=== PATIENT | female | born 1960 | race Caucasian/White ===

== ENCOUNTER 2020-10-25 09:57 | Outpatient (REF) | payer OTHER, SELFPAY ==
[2020-10-25 11:02] LABS: Alanine Aminotransferase 12 U/L (0-31); Albumin Level 4.3 g/dL (3.5-5.0); Alkaline Phosphatase 79 U/L (39-117); Anion Gap 12 (12-20); Aspartate Amino Transferase 16 U/L (5-31); Bilirubin Total 0.6 mg/dL (0.0-1.0); Blood Urea Nitrogen 27 mg/dL (9-16); Calcium 9.8 mg/dL (8.4-10.2); Carbon Dioxide 28 mmol/L (22-29); Chloride 95 mmol/L (96-108); Estimated Glomerular Filt Rate 34; Magnesium 1.9 mg/dL (1.6-2.6); Phosphorus 4.3 mg/dL (2.7-4.5); Potassium 4.4 mmol/l (3.3-5.1); Sodium 131 mmol/L (135-145)
[2020-10-25 11:23] LABS: Osmolality Urine 146 mosm/kg (373-1093)
[2020-10-25 13:06] LABS: Renal w Reflex Lab Use Only Order verified
== END 2020-10-25 09:58 | disposition home or self-care (01) ==
LOC: HO.10HDL 09:57
PROVIDERS: Absent Provider Internal Medicine; PCP Radiology Diagnostic Radiology; Visit Provider Internal Medicine Nephrology
DX: I12.9 Hypertensive chronic kidney disease with stage 1 through stage 4 chronic kidney disease, or unspecified chronic kidney disease (principal); N18.1 Chronic kidney disease, stage 1; Q61.2 Polycystic kidney, adult type
CPT/HCPCS: 80051; 82040; 82247; 82310; 82565; 83735; 83935; 84075; 84100; 84450; 84460; 84520

== ENCOUNTER 2020-11-27 15:51 | Outpatient (REF) | payer OTHER, SELFPAY ==
--- NOTE | 2020-11-27 | MM_ITS ---
EXAMINATION: MM SCREENING DIGITAL BREAST TOMOSYNTHESIS, BILATERAL CLINICAL INFORMATION: Screening. Asymptomatic. The lifetime risk of breast cancer based on the Tyrer-Cuzick Model is 21.4%. COMPARISON: Mammography: May 27, 2019 and studies dating back to December 31, 2010 TECHNIQUE: Digital breast tomosynthesis is performed in both the craniocaudal and mediolateral oblique views along with computer-aided detection (CAD). Synthesized 2D images are generated from the tomosynthesis. FINDINGS: There are scattered areas of fibroglandular density (ACR BI-RADS breast composition Category b). There is a stable parenchymal pattern within the left breast. Within the superior retroareolar region of the right breast there is an irregular marginated 5 x 4 year density for which further evaluation with spot compression film and possible ultrasound is recommended. MM/MM tomosynthesis screening BI IMPRESSION: Right breast subareolar density for further evaluation as described. ASSESSMENT: BI-RADS 0: Incomplete - Need Additional Imaging Evaluation RECOMMENDATION: 1. Additional views of the right breast 2. Targeted ultrasound if warranted after review of the additional views. 3. Radiology department staff will contact the patient for additional imaging. This patient's information was entered into a reminder system with a target due date for their next mammogram.
== END 2020-11-27 15:52 | disposition home or self-care (01) ==
LOC: HO.MAMMO 15:51
PROVIDERS: PCP Internal Medicine; Visit Provider Internal Medicine
DX: Z12.31 Encounter for screening mammogram for malignant neoplasm of breast (principal)
CPT/HCPCS: 77063; 77067

== ENCOUNTER 2020-12-04 11:17 | Outpatient (REF) | payer OTHER, SELFPAY ==
--- NOTE | ~2020-12-04 | MM_ITS ---
EXAMINATION: MM DIAGNOSTIC DIGITAL BREAST TOMOSYNTHESIS, RIGHT US DIAGNOSTIC ULTRASOUND BREAST, RIGHT CLINICAL INFORMATION: Recall from screening for 5 mm nodular asymmetric density retroareolar right breast. COMPARISON: Mammography: 11/27/2020, 05/27/2019, 04/20/2018 TECHNIQUE: Digital breast tomosynthesis is performed. 2D images are generated from the tomosynthesis. The following views are obtained: 3-D spot CC, 3-D spot MLO, 3-D rolled CC x2. Ultrasound right breast is targeted to the upper breast 10:00 through 2:00 position. Grayscale imaging and color Doppler are performed without and with harmonics. FINDINGS: There are scattered areas of fibroglandular density (ACR BI-RADS breast composition Category b). The additional views show no three-dimensional mass or architectural abnormality. The asymmetric density is reproduced on spot CC view and rolled lateral view but not present on other projections including spot MLO view. The possibility of shifting fibroglandular tissue is considered. Ultrasound right breast demonstrates no cystic or solid mass or architectural abnormality. No focal duct ectasia or focal shadowing. Results are discussed with the patient at time of visit. MM/MM tomosynthesis added views R IMPRESSION: Additional views show no three-dimensional mass or architectural abnormality. Targeted right breast ultrasound normal. ASSESSMENT: BI-RADS 3: Probably Benign RECOMMENDATION: Diagnostic right mammography in 6 months. This patient's information was entered into a reminder system with a target due date for their next mammogram.
== END 2020-12-04 11:18 | disposition home or self-care (01) ==
LOC: HO.MAMMO 11:17
PROVIDERS: Visit Provider Internal Medicine
DX: R92.2 Inconclusive mammogram (principal)
CPT/HCPCS: 76642; 77061; 77065

== ENCOUNTER → 2020-12-27 13:24 | Outpatient (REF) | payer OTHER, SELFPAY ==
--- NOTE | 2020-12-27 13:30 | ECG_ITS ---
Hook-up date: 2020-12-27 13:39:00 Duration: 25:47:00 Test Indications: PAF Medications: 103535 QRS complexes 1 Ventricular ectopics which represent <1 % of total QRS comp. 1842 Supraventricular ectopics which represent 1 % of total QRS comp. * Paced QRS complexs which represent % of total QRS comp. VENTRICULAR ECTOPY 1 Isolated 0 Bigeminal Cycles 0 Couplets 0 Runs 0 Beats in Runs * Beats LONGEST at * BPM at :: -- * Beats FASTEST at * BPM at :: -- SUPRAVENTRICULAR ECTOPY 1792 Isolated 23 Couplets 1 Runs 4 Beats in Runs 4 Beats LONGEST at 104 BPM at 10:03:21 2020-12-28 4 Beats FASTEST at 104 BPM at 10:03:21 2020-12-28 HEART RATES 68 MIN at 02:25:57 2020-12-28 86 AVG 129 MAX at 09:28:27 2020-12-28 LONGEST RR 0.9520 secs at 08:33:29 2020-12-28 S-T LEVELS Channel 1 - 128 mm at 13:39:00 2020-12-27 - 128 mm at 13:39:00 2020-12-27 Channel 2 - 128 mm at 13:39:00 2020-12-27 - 128 mm at 13:39:00 2020-12-27 Channel 3 - 128 mm at 03:25:81 -- - 128 mm at 03:25:81 Underlying rhythm is sinus; Average ventricular rate 86/min; range 68-129/min; Occasional supraventricular ectopy- about 2% of total - 1842 over 25 Hrs; No significant runs; Patient did not report any symptoms in the diary Referred By: Torito Lopez Overread By: TORITO LOPEZ
== END ==
LOC: HO.CARD 13:24
PROVIDERS: Visit Provider Internal Medicine
DX: I48.0 Paroxysmal atrial fibrillation (principal)
CPT/HCPCS: 93225; 93226

== ENCOUNTER → 2021-01-03 10:30 | Outpatient (BNVA) | payer OTHER, SELFPAY | PROVIDERS: PCP Internal Medicine; Visit Provider Internal Medicine | DX: I48.0 Paroxysmal atrial fibrillation (principal); I10 Essential (primary) hypertension; E78.5 Hyperlipidemia, unspecified; Z79.899 Other long term (current) drug therapy | CPT/HCPCS: 93005 ==

== ENCOUNTER 2021-06-04 12:24 | Outpatient (REF) | payer OTHER, SELFPAY ==
--- NOTE | ~2021-06-04 | MM_ITS ---
EXAMINATION: MM DIAGNOSTIC DIGITAL BREAST TOMOSYNTHESIS, RIGHT CLINICAL INFORMATION: Short interval six-month follow-up for 5 mm nodular asymmetric density retroareolar right breast likely shifting fibroglandular tissue on prior diagnostic exam. Assess for developing density. The lifetime risk of breast cancer based on the Tyrer-Cuzick Model is 10%. COMPARISON: Mammography: 12/04/2020, 11/27/2020 (BI-RADS 0), 05/27/2019, 04/20/2018, 04/04/2017; targeted right breast ultrasound 12/04/2020 TECHNIQUE: Digital breast tomosynthesis is performed in both the craniocaudal and mediolateral oblique views along with computer-aided detection (CAD). Synthesized 2D images are generated from the tomosynthesis. FINDINGS: There are scattered areas of fibroglandular density (ACR BI-RADS breast composition Category b). Parenchymal pattern is similar to prior exam. There is no developing density or interval mass or architectural abnormality. There are no abnormal calcifications. The skin contours are smooth. Results are provided to the patient at time of visit by the technologist. MM/MM tomosynthesis diagnostic RT IMPRESSION: There is no interval developing density or suspicious finding anterior right breast. ASSESSMENT: BI-RADS 3: Probably Benign RECOMMENDATION: Diagnostic mammography at time of annual bilateral exam, due in 6 months. This patient's information was entered into a reminder system with a target due date for their next mammogram.
== END 2021-06-04 12:25 | disposition home or self-care (01) ==
LOC: HO.MAMMO 12:24
PROVIDERS: PCP Internal Medicine; Visit Provider Internal Medicine
DX: R92.8 Other abnormal and inconclusive findings on diagnostic imaging of breast (principal)
CPT/HCPCS: 77061; 77065

== ENCOUNTER → 2021-06-24 13:57 | Outpatient (BNVA) | payer OTHER, SELFPAY | PROVIDERS: PCP Internal Medicine; Referring Provider Internal Medicine; Visit Provider Nurse Practitioner Family | DX: I48.0 Paroxysmal atrial fibrillation (principal); I10 Essential (primary) hypertension; R00.2 Palpitations | CPT/HCPCS: 93005 ==

== ENCOUNTER → 2021-06-26 10:51 | Outpatient (REF) | payer OTHER, SELFPAY ==
--- NOTE | 2021-06-26 10:56 | HM_ITS ---
TEST PERFORMED: Cardiac event monitoring. REQUESTING PHYSICIAN: Dr. Santamaria. INDICATION: Paroxysmal atrial fibrillation. ENROLLMENT PERIOD: 06/26/2021 to 07/26/2021-30 days. FINDINGS: In the above monitoring, underlying rhythm was sinus. Rates ranged from 76 to 94 beats per minute. There were premature atrial contractions noted in isolation. No sustained arrhythmias. No evidence of atrial fibrillation. The patient's symptoms of palpitations, racing, fluttering correlate with PACs. CONCLUSION: Studies positive for isolated PACs only. Burak Santamaria MD HS/MODL / [id number]
== END ==
LOC: HO.CARD 10:51
PROVIDERS: Visit Provider Internal Medicine
DX: I48.0 Paroxysmal atrial fibrillation (principal); R00.2 Palpitations
CPT/HCPCS: 93270

== ENCOUNTER → 2021-08-01 09:23 | Outpatient (BNVA) | payer OTHER, SELFPAY | PROVIDERS: PCP Internal Medicine; Referring Provider Internal Medicine; Visit Provider Internal Medicine ==

== ENCOUNTER 2021-08-01 10:05 | Outpatient (REF) | payer OTHER, SELFPAY ==
[2021-08-01 13:36] LABS: MANUAL DIFF FLAG NO
[2021-08-01 13:43] LABS: Basophils Percent Auto 0.5 % (0-2); Eosinophils Absolute Auto 0.1 X10*3/uL (0.0-0.4); Eosinophils Percent Auto 2.2 % (0-4); Hematocrit 33.3 % (37-47); Imm Gran Abs Auto 0.01 X10*3/uL (0.00-0.03); Imm Gran Pct Auto 0.2 % (0.0-0.4); Lymphocytes Absolute Auto 0.6 X10*3/uL (1.2-4.9); Lymphocytes Percent Auto 14.9 % (20-40); Mean Corpuscular Hemoglobin 30.1 pg (27.0-33.0); Mean Corpuscular Volume 91.2 fL (80-98); Mean Platelet Volume 9.1 fL (9.4-12.3); Monocytes Absolute Auto 0.5 X10*3/uL (0.1-1.2); Monocytes Percent Auto 11.1 % (2-11); Neutrophils Absolute Auto 2.9 X10*3/uL (2.0-8.3); Neutrophils Percent Auto 71.1 % (45-73); Platelet Count 194 X10*3/uL (160-400); Red Blood Count 3.65 X10*6/uL (4.20-5.50); Red Cell Distribution Width 13.5 % (11.0-16.0)
[2021-08-01 14:13] LABS: Alanine Aminotransferase 12 U/L (0-31); Albumin Level 4.4 g/dL (3.5-5.0); Alkaline Phosphatase 80 U/L (39-117); Anion Gap 14 (12-20); Aspartate Amino Transferase 15 U/L (5-31); Bilirubin Total 0.7 mg/dL (0.0-1.0); Blood Urea Nitrogen 22 mg/dL (9-16); Calcium 9.8 mg/dL (8.4-10.2); Carbon Dioxide 27 mmol/L (22-29); Chloride 109 mmol/L (96-108); Estimated Glomerular Filt Rate 36; Glucose Random 95 mg/dL (60-115); Potassium 4.7 mmol/L (3.3-5.1); Sodium 145 mmol/L (135-145); Total Protein 7.1 g/dL (6.5-8.0)
[2021-08-01 14:19] LABS: Appearance Urine CLEAR; Color Urine YELLOW; Glucose Urine UA NEG (NEG); Leukocyte Esterase Urine NEG (NEG); Nitrite Urine NEG (NEG); Specific Gravity - Urine <= 1.005 (1.005-1.025); Urine Blood TRACE (NEG); Urine Ketones NEG (NEG); Urine Protein NEG (NEG-TRACE)
[2021-08-01 14:22] LABS: Creatinine Urine 18.92 mg/dL; Total Protein Urine Random < 7 mg/dL (<12)
[2021-08-01 15:16] LABS: Mucus Urine TRACE /LPF; Renal Epithelial Cells Urine TRACE /LPF; Squamous Epithelial Cell Urine TRACE /LPF
[2021-08-01 15:17] LABS: RBC Urine 0-2 /HPF (0); WBC Urine 0-2 /HPF (0-4)
== END 2021-08-01 10:06 | disposition home or self-care (01) ==
LOC: HO.10HDL 10:05
PROVIDERS: Absent Provider Internal Medicine; Visit Provider Internal Medicine Nephrology
DX: Q61.2 Polycystic kidney, adult type (principal)
CPT/HCPCS: 36415; 80053; 81001; 84156; 85025

== ENCOUNTER → 2021-12-04 09:14 | Outpatient (BNVA) | payer OTHER, SELFPAY | PROVIDERS: PCP Internal Medicine; Referring Provider Internal Medicine; Visit Provider Internal Medicine | DX: I48.0 Paroxysmal atrial fibrillation (principal); I10 Essential (primary) hypertension; E78.5 Hyperlipidemia, unspecified | CPT/HCPCS: 93005 ==

== ENCOUNTER 2021-12-05 13:25 | Outpatient (REF) | payer OTHER, SELFPAY ==
--- NOTE | ~2021-12-05 | MM_ITS ---
EXAMINATION: MM DIAGNOSTIC DIGITAL BREAST TOMOSYNTHESIS, BILATERAL CLINICAL INFORMATION: Due for yearly. Also 12 month follow-up probable benign asymmetric density superior retroareolar right breast. TC score 10%. COMPARISON: Mammography: 06/04/2021, 12/04/2020, 11/27/2020 (BI-RADS 0) and prior exams dating back to 01/30/2012; targeted right breast ultrasound 12/04/2020. TECHNIQUE: Digital breast tomosynthesis is performed in both the craniocaudal and mediolateral oblique views along with computer-aided detection (CAD). Synthesized 2D images are generated from the tomosynthesis. FINDINGS: There are scattered areas of fibroglandular density (ACR BI-RADS breast composition Category b). Parenchymal pattern is similar to prior studies and there is no developing density or interval architectural abnormality. No abnormal calcifications. Small nodular asymmetry retroareolar right breast on CC view is stable from recent prior exams and in retrospect likely unchanged from CC view 2011. Breasts will be reassessed again at next bilateral annual mammography to conclude diagnostic long-term surveillance. Results are provided to the patient at time of visit by the technologist. MM/MM tomosynthesis diagnostic BI IMPRESSION: No mammographic evidence of malignancy. No significant changes from prior exams. ASSESSMENT: BI-RADS 3: Probably Benign RECOMMENDATION: Diagnostic mammography at time of next annual exam, due in 12 months. This patient's information was entered into a reminder system with a target due date for their next mammogram.
== END 2021-12-05 13:26 | disposition home or self-care (01) ==
LOC: HO.MAMMO 13:25
PROVIDERS: PCP Internal Medicine; Visit Provider Internal Medicine
DX: R92.2 Inconclusive mammogram (principal)
CPT/HCPCS: 77062; 77066

== ENCOUNTER → 2022-02-04 09:30 | Outpatient (BNVA) | payer OTHER, SELFPAY | PROVIDERS: PCP Internal Medicine; Referring Provider Internal Medicine; Visit Provider Internal Medicine | DX: I48.0 Paroxysmal atrial fibrillation (principal); I10 Essential (primary) hypertension; E78.5 Hyperlipidemia, unspecified | CPT/HCPCS: 93005 ==

== ENCOUNTER → 2022-04-29 14:30 | Outpatient (BNVA) | payer OTHER, SELFPAY | PROVIDERS: PCP Internal Medicine; Visit Provider Nurse Practitioner Family | DX: I48.0 Paroxysmal atrial fibrillation (principal); I10 Essential (primary) hypertension; R00.2 Palpitations | CPT/HCPCS: 93005 ==

== ENCOUNTER → 2022-05-28 08:55 | Outpatient (BNVA) | payer OTHER, SELFPAY | PROVIDERS: PCP Internal Medicine; Referring Provider Internal Medicine; Visit Provider Internal Medicine | DX: R00.2 Palpitations (principal); I48.0 Paroxysmal atrial fibrillation; I10 Essential (primary) hypertension; E78.5 Hyperlipidemia, unspecified | CPT/HCPCS: 93005 ==

== ENCOUNTER → 2022-06-20 10:28 | Outpatient (REF) | payer OTHER, SELFPAY ==
--- NOTE | 2022-06-20 10:31 | HM_ITS ---
Conclusion: 1. Patient was monitored for total period of 14 days 2. Baseline rhythm is normal sinus rhythm with average heart rate of 71 beats per minute 3. No significant pauses or bradycardia noted 4. Forty-six short burst of supraventricular tachycardia longest lasting 18 beats and fastest at 176 beats per minute 5. Total of 163,121 PACs accounting for total of 11.3% of total burden account for frequent PACs 6. Patient reported 5 different events with no symptoms reported but correlated with isolated PACs. MTDD
== END ==
LOC: HO.CARD 10:28
PROVIDERS: PCP Internal Medicine; Visit Provider Internal Medicine
DX: I48.0 Paroxysmal atrial fibrillation (principal); R00.2 Palpitations
CPT/HCPCS: 93246

== ENCOUNTER → 2022-11-06 10:09 | Outpatient (BNVA) | payer OTHER, SELFPAY | PROVIDERS: PCP Internal Medicine; Referring Provider Internal Medicine; Visit Provider Internal Medicine | DX: Z13.89 Encounter for screening for other disorder (principal) ==

== ENCOUNTER → 2022-11-25 13:39 | Outpatient (REF) | payer OTHER, SELFPAY ==
--- NOTE | 2022-11-25 14:04 | HM_ITS ---
* Total monitoring time approximately 3 days. * Underlying rhythm is sinus. Average ventricular rate 71/Min. Range 51 to 111/Min. * Frequent supraventricular ectopy. [place] of 8.5%. * Rare ventricular ectopy. * No significant pauses or AV blocks. * No patient markers or diary. MTDD
== END ==
LOC: HO.SL 13:39
PROVIDERS: PCP Internal Medicine; Visit Provider Internal Medicine
DX: I49.8 Other specified cardiac arrhythmias (principal); G47.33 Obstructive sleep apnea (adult) (pediatric)
CPT/HCPCS: 93242; 95806

== ENCOUNTER 2022-12-08 10:27 | Outpatient (REF) | payer OTHER, SELFPAY ==
--- NOTE | ~2022-12-08 | MM_ITS ---
EXAMINATION: MM DIAGNOSTIC DIGITAL BREAST TOMOSYNTHESIS, BILATERAL CLINICAL INFORMATION: Due for yearly. Also follow-up probable benign small asymmetric density superior retroareolar right breast. TC score 9%. COMPARISON: Mammography: 12/05/2021, 06/04/2021, 12/04/2020, 11/27/2020 (BI-RADS 0), 05/27/2019; ultrasound right breast 12/04/2020. TECHNIQUE: Digital breast tomosynthesis is performed in both the craniocaudal and mediolateral oblique views along with computer-aided detection (CAD). Synthesized 2D images are generated from the tomosynthesis. FINDINGS: There are scattered areas of fibroglandular density (ACR BI-RADS breast composition Category b). Parenchymal pattern is similar to prior studies and there is no developing density or architectural abnormality or abnormal calcifications. The axilla are unremarkable. The skin contours are smooth. No significant changes. There are no suspicious changes from prior studies. Finding for follow-up is now considered to be benign. Results are provided to the patient at time of visit by the technologist. MM/MM tomosynthesis diagnostic BI IMPRESSION: -No mammographic evidence of malignancy. -No significant changes from prior studies. ASSESSMENT: BI-RADS 2: Benign RECOMMENDATION: Routine annual mammography screening. This patient's information was entered into a reminder system with a target due date for their next mammogram.
== END 2022-12-08 10:28 | disposition home or self-care (01) ==
LOC: HO.MAMMO 10:27
PROVIDERS: PCP Internal Medicine; Visit Provider Internal Medicine
DX: R92.2 Inconclusive mammogram (principal)
CPT/HCPCS: 77062; 77066

== ENCOUNTER 2023-05-19 10:09 | Outpatient (AMB) | payer MEDICARE, SELFPAY ==
--- NOTE | 2023-05-19 10:16 | MHC.OFFVIS ---
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 Allergies bacitracin [BACITRACIN] Allergy (Unknown, Verified 05/19/23 10:25) RASH Iodinated Contrast Media [IV CONTRAST] Allergy (Unknown, Verified 05/19/23 10:25) RASH Penicillins [PENICILLINS] Allergy (Unknown, Verified 05/19/23 10:25) RASH steri strips Adverse Reaction (Mild, Uncoded 05/19/23 10:26) itchy Medication List - Last Reconciled 05/19/23 by Burak Santamaria MD albuterol sulfate 90 mcg/actuation 0 mcg inhalation amiloride 5 mg PO DAILY amlodipine 2.5 mg PO DAILY ascorbate calcium (vitamin C) 500 mg PO DAILY atorvastatin 10 mg PO DAILY cholecalciferol (vitamin D3) 50 mcg PO DAILY doxazosin 4 mg PO BID famotidine 20 mg PO BID levothyroxine 150 mcg PO DAILY lorazepam 0.5 mg PO DAILY PRN magnesium 200 mg PO DAILY metoprolol succinate ER 25 mg PO QPM 90 days metoprolol succinate ER 50 mg PO QAM 90 days olmesartan 40 mg PO DAILY potassium chloride ER (Klor-Con M) 20 mEq PO DAILY tolvaptan 15 mg PO 45 MG AM, 15MG PM; tramadol 50 - 100 mg PO Q8H PRN HPI HPI Comments History of Present Illness Details Stephanie returns for follow-up regarding atrial arrhythmias. To recall, she has a history of polycystic kidney disease. She had renal cell carcinoma and underwent right-sided partial nephrectomy in 2019. In that setting, had anemia from blood loss and required transfusions. She also had acute kidney injury, acute respiratory failure, delirium among others. Then had atrial fibrillation with rapid rate treated by IV beta blockers as well as digoxin. Then converted to sinus. Otherwise no history of any coronary disease or myocardial infarction or any other cardiac issues. She has hypertension, possibly related to polycystic kidney disease. Otherwise, since last seen she is actually doing quite well. She does have basal anxiety which is longstanding but otherwise no clear-cut cardiac symptoms. Palpitations are far and few. No angina. [facility] Medical History (Updated 07/30/22 @ 10:23 by Burak Santamaria MD) Essential hypertension Other and unspecified hyperlipidemia PAF (paroxysmal atrial fibrillation) Surgical History (Updated 05/19/23 @ 10:28 by Christina Cunningham) History of eye surgery History of kidney surgery History of lumpectomy History of thyroidectomy Hx of total knee replacement Family History Father Heart disease Heart attack Mother No problems noted. Social History Alcohol intake: never Patient Tobacco Use Status: Former Tobacco user Quit Date: 1996 Years Smoked: 20 +/- Review of Systems Const Denies weakness ENT Denies dizziness Card Denies chest pain, Denies chest pain with activity, Denies syncope, Denies rapid heart rate, Denies pedal edema, Denies edema, Denies leg edema, Denies lightheadedness, Denies palpitations, Denies dyspnea, Denies dyspnea on exertion and Denies orthopnea Resp Denies cough, Denies dyspnea and Denies dyspnea on exertion GI Denies hematochezia and Denies change in stool character Musc Denies abnormal gait, Denies muscle weakness, Denies numbness, Denies radiating pain into limb and Denies tingling Neuro Denies abnormal gait, Denies dizziness, Denies syncope, Denies numbness, Denies tingling and Denies weakness Endo Denies palpitations Physical Exam Vital Signs: Last Vital Signs Pulse 84 05/19/23 10:23 BP 118/80 05/19/23 10:23 BMI result Body Mass Index 36.5 Const General: comfortable and no acute distress Orientation/consciousness: patient oriented x3 HEENT Other: Unremarkable Head: Yes normal to inspection Neck Neck: Yes normal visual inspection Chest Chest palpation & inspection: normal inspection of the chest Resp Auscultation: clear to auscultation bilaterally Cardio Palpation: normal PMI Heart sounds: S1 normal heart sound present, S2 normal heart sound present, no gallops, Murmur heart sound present systolic II/ and at the right sternal border and no rubs GI Palpation (GI): Soft to palpation Back/Spine/Pelvis Other: unremarkable Skin General skin exam: no rashes or lesions noted Neuro General: patient oriented x3 Extrem General: Yes normal to inspection Psych Mental Status: mental status grossly normal Office Procedures EKG Details: EKG with sinus rhythm at 84/Min; no significant ST-T changes and otherwise [place]remarkable[place] [id number]-[place]ank, Complete Assessment & Plan Assessment & Plan (1) PAF (paroxysmal atrial fibrillation): Code(s): I48.0 - Paroxysmal atrial fibrillation Plan: Only 1 documented episode in the setting of surgery. Continue beta-blockers. Not yet on anticoagulation but if recurrent episodes will need to start. She had a sleep study that shows only mild KRISTAL. Weight loss as feasible. (2) Atrial arrhythmia: Code(s): I49.8 - Other specified cardiac arrhythmias Plan: In the last echocardiogram, underlying rhythm is sinus but she has high burden of supraventricular ectopy. This will increase risk of future atrial fibrillation. May remain on beta-blockers. (3) Essential hypertension: Code(s): I10 - Essential (primary) hypertension Plan: On beta-blockers, Amiloride, Olmesartan, Doxazosin. Seems in the normal range today. (4) Anxiety: Code(s): F41.9 - Anxiety disorder, unspecified Plan: She does have based anxiety and palpitations makes it worse/vice versa. Hence have constantly reassured her every visit including this visit. Coding Level of Care Code Est Pt Level 4 (15350) Diagnoses PAF (paroxysmal atrial fibrillation) I48.0 Atrial arrhythmia I49.8 Essential hypertension I10 Anxiety F41.9 CPT Codes EKG - CPT: 48358-[id number], Complete ([id number])
[2023-05-19 10:23] VITALS: BP 118/80; PULSE 84; BMI 36.5
== END 2023-05-19 10:45 | disposition home or self-care (01) ==
PROVIDERS: Visit Provider Internal Medicine
DX: I48.0 Paroxysmal atrial fibrillation (principal); I49.8 Other specified cardiac arrhythmias; I10 Essential (primary) hypertension; F41.9 Anxiety disorder, unspecified
CPT/HCPCS: 93010; 99214

== ENCOUNTER → 2023-05-19 10:09 | Outpatient (BNVA) | payer MEDICARE, SELFPAY | PROVIDERS: Visit Provider Internal Medicine | DX: I48.0 Paroxysmal atrial fibrillation (principal); I10 Essential (primary) hypertension; I49.8 Other specified cardiac arrhythmias; F41.9 Anxiety disorder, unspecified; Q61.3 Polycystic kidney, unspecified | CPT/HCPCS: 93005; 99212 ==

== ENCOUNTER 2023-06-10 13:49 | Outpatient (AMB) | payer MEDICARE, SELFPAY ==
--- NOTE | 2023-06-10 14:04 | AM.OFFVISNUR ---
Intake Intake Visit Reasons: EKG Palpitations Intake Note: Pt called office today. Was having an increase in palpitations and was told by Dr. Santamaria to call and have EKG if ever she felt she was in afib. 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 Santamaria Nursing Note Pt is taking meds as directed. She did have more chocolate Hershy's Kisses than usual. She also had an anxiety attack the other day and this may have precipitated the palpitations she has been feeling. Currently EKG shows NSR w HR at [address] Najera reviewed EKG. I will inform Dr. Santamaria via [employer] EMR. Currently he is out of office until Thursday. EKG on his desk for his review. Office Procedures EKG [id number], Complete Coding Level of Care Code Est Pt Level 1 (53633) Diagnoses CPT Codes EKG - CPT: 98910-Cmitslpfechroyvrl, Complete ([id number]) Time Spent (min) 15 Comment EKG, med reconciliation documentation, discussion w provider, pt education.
== END 2023-06-10 16:01 | disposition home or self-care (01) ==
PROVIDERS: PCP Internal Medicine; Visit Provider Internal Medicine
DX: R00.2 Palpitations (principal)
CPT/HCPCS: 93010

== ENCOUNTER → 2023-06-10 13:49 | Outpatient (BNVA) | payer MEDICARE, SELFPAY | PROVIDERS: PCP Internal Medicine; Visit Provider Internal Medicine | DX: R00.2 Palpitations (principal) | CPT/HCPCS: 93005 ==

== ENCOUNTER → 2023-07-01 13:07 | Outpatient (REF) | payer MEDICARE, SELFPAY ==
--- NOTE | 2023-07-01 13:10 | HM_ITS ---
Conclusion: 1. Patient was monitored for total period of 3 days 2. Baseline was normal sinus with average heart of 75 beats per minute 3. No significant pauses noted 4. Frequent isolated PVCs noted with total burden of 7.1% 5. No patient reported symptoms MTDD
== END ==
LOC: HO.CARD 13:07
PROVIDERS: PCP Internal Medicine; Visit Provider Internal Medicine
DX: R00.2 Palpitations (principal); I48.0 Paroxysmal atrial fibrillation; I49.8 Other specified cardiac arrhythmias
CPT/HCPCS: 93242

== ENCOUNTER → 2023-07-01 13:10 | Outpatient (BNV) | payer MEDICARE, SELFPAY | PROVIDERS: PCP Internal Medicine; Visit Provider Internal Medicine Cardiovascular Disease | DX: I49.3 Ventricular premature depolarization (principal) | CPT/HCPCS: 93244 ==

== ENCOUNTER 2023-11-17 08:23 | Outpatient (AMB) | payer MEDICARE, SELFPAY ==
--- NOTE | 2023-11-17 08:30 | A.OFFVIS_ITS ---
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: No Accompanied by: Self / Same As Patient Allergies bacitracin [BACITRACIN] Allergy (Unknown, Verified 11/17/23 08:33) RASH Iodinated Contrast Media [IV CONTRAST] Allergy (Unknown, Verified 11/17/23 08:33) RASH Penicillins [PENICILLINS] Allergy (Unknown, Verified 11/17/23 08:33) RASH steri strips Adverse Reaction (Mild, Uncoded 11/17/23 08:33) itchy Medication List - Last Reconciled 11/17/23 by Burak Santamaria MD albuterol sulfate 90 mcg/actuation 0 mcg inhalation amiloride 5 mg PO DAILY amlodipine 2.5 mg PO DAILY ascorbate calcium (vitamin C) 500 mg PO DAILY atorvastatin 10 mg PO DAILY cholecalciferol (vitamin D3) 50 mcg PO DAILY doxazosin 4 mg PO BID famotidine 20 mg PO BID levothyroxine 150 mcg PO DAILY lorazepam 0.5 mg PO DAILY PRN magnesium 200 mg PO DAILY metoprolol succinate ER 25 mg PO QPM 90 days metoprolol succinate ER 50 mg PO QAM 90 days olmesartan 40 mg PO DAILY potassium chloride ER (Klor-Con M) 20 mEq PO DAILY tolvaptan 15 mg PO 45 MG AM, 15MG PM; tramadol 50 - 100 mg PO Q8H PRN HPI HPI Comments History of Present Illness Details Stephanie returns for follow-up regarding atrial arrhythmias. To recall, she has a history of polycystic kidney disease. She had renal cell carcinoma and underwent right-sided partial nephrectomy in 2019. In that setting, had anemia from blood loss and required transfusions. She also had acute kidney injury, acute respiratory failure, delirium among others. Then had atrial fibrillation with rapid rate treated by IV beta blockers as well as digoxin. Then converted to sinus. Otherwise no history of any coronary disease or myocardial infarction or any other cardiac issues. She has hypertension, possibly related to polycystic kidney disease. Since last seen, no new issues. No further palpitation episodes. Anxiety is also better controlled. [facility] Medical History (Updated 07/30/22 @ 10:23 by Burak Santamaria MD) Other and unspecified hyperlipidemia Essential hypertension PAF (paroxysmal atrial fibrillation) Surgical History Hx of total knee replacement History of kidney surgery History of eye surgery History of thyroidectomy History of lumpectomy Family History Father Heart disease Heart attack Mother No problems noted. Social History Alcohol intake: never Patient Tobacco Use Status: Former Tobacco user Quit Date: 1996 Years Smoked: 20 +/- Review of Systems Const All systems reviewed & are unremarkable except as noted in HPI and below Reports as per HPI and Reports no additional complaints Eyes Reports as per HPI and Denies no additional complaints ENT Denies no additional complaints and Reports as per HPI Card Reports as per HPI, Reports no additional complaints, Denies acrocyanosis, Denies chest pain, Denies leg edema, Denies lightheadedness, Denies palpitations and Denies dyspnea Resp Reports as per HPI, Denies no additional complaints and Denies dyspnea GI Reports as per HPI and Denies no additional complaints Reports as per HPI Musc Reports no additional complaints and Reports as per HPI Skin/Breast Reports system reviewed and no additional complaints, except as documented Neuro Reports no additional complaints and Reports as per HPI Psych Reports no additional complaints and Reports as per HPI Endo Reports no additional complaints, Reports as per HPI and Denies palpitations Efra/Lymph Reports no additional complaints and Reports as per HPI Aller/Immun Reports no additional complaints and Reports as per HPI Physical Exam Vital Signs: Last Vital Signs Pulse 71 11/17/23 08:32 BP 128/66 11/17/23 08:32 BMI result Body Mass Index 38.3 Const General: comfortable and no acute distress Orientation/consciousness: patient oriented x3 HEENT Other: Unremarkable Head: Yes normal to inspection Neck Neck: Yes normal visual inspection Chest Chest palpation & inspection: normal inspection of the chest Resp Auscultation: clear to auscultation bilaterally Cardio Palpation: normal PMI Heart sounds: S1 normal heart sound present, S2 normal heart sound present, no gallops, no murmurs and no rubs GI Palpation (GI): Soft to palpation Back/Spine/Pelvis Other: unremarkable Skin General skin exam: no rashes or lesions noted Neuro General: patient oriented x3 Extrem General: Yes normal to inspection Psych Mental Status: mental status grossly normal Assessment & Plan Assessment & Plan (1) PAF (paroxysmal atrial fibrillation): Code(s): I48.0 - Paroxysmal atrial fibrillation Plan: Only 1 documented episode in the setting of surgery. Continue beta-blockers. Not yet on anticoagulation but if recurrent episodes will need to start. She had a sleep study that shows only mild KRISTAL. Weight loss as feasible. (2) Atrial arrhythmia: Code(s): I49.8 - Other specified cardiac arrhythmias Plan: In the last echocardiogram, underlying rhythm is sinus but she has high burden of supraventricular ectopy. On beta-blockers as above. (3) Essential hypertension: Code(s): I10 - Essential (primary) hypertension Plan: On beta-blockers, Amiloride, Olmesartan, Doxazosin. Stable. (4) Anxiety: Code(s): F41.9 - Anxiety disorder, unspecified Plan: Well controlled at this time. Unfortunately, whenever she gets anxious she also feels palpitations and hence difficult to distinguish if truly atrial fibrillation or all anxiety. Coding Level of Care Code Est Pt Level 4 (77959) Diagnoses PAF (paroxysmal atrial fibrillation) I48.0 Atrial arrhythmia I49.8 Essential hypertension I10 Anxiety F41.9
[2023-11-17 08:32] VITALS: BP 128/66; PULSE 71; BMI 38.3
== END 2023-11-17 08:48 | disposition home or self-care (01) ==
PROVIDERS: PCP Internal Medicine; Visit Provider Internal Medicine
DX: I48.0 Paroxysmal atrial fibrillation (principal); I49.8 Other specified cardiac arrhythmias; I10 Essential (primary) hypertension; F41.9 Anxiety disorder, unspecified
CPT/HCPCS: 99214

== ENCOUNTER → 2023-11-17 08:23 | Outpatient (BNVA) | payer MEDICARE, SELFPAY | PROVIDERS: PCP Internal Medicine; Visit Provider Internal Medicine | DX: I48.0 Paroxysmal atrial fibrillation (principal); I49.8 Other specified cardiac arrhythmias; I10 Essential (primary) hypertension; F41.9 Anxiety disorder, unspecified; Z79.899 Other long term (current) drug therapy | CPT/HCPCS: 99212 ==

== ENCOUNTER 2023-12-21 10:39 | Outpatient (REF) | payer MEDICARE, SELFPAY | END 2023-12-21 10:40 | disposition home or self-care (01) | LOC: HO.MAMMO 10:39 | PROVIDERS: PCP Internal Medicine; Visit Provider Internal Medicine | DX: Z12.31 Encounter for screening mammogram for malignant neoplasm of breast (principal) | CPT/HCPCS: 77063; 77067 ==

== ENCOUNTER → 2023-12-21 10:42 | Outpatient (BNV) | payer MEDICARE, SELFPAY | PROVIDERS: PCP Internal Medicine; Visit Provider Radiology Diagnostic Radiology | DX: Z12.31 Encounter for screening mammogram for malignant neoplasm of breast (principal) | CPT/HCPCS: 77063; 77067 ==

== ENCOUNTER 2024-02-05 11:30 | Outpatient (REF) | payer MEDICARE, SELFPAY ==
--- NOTE | ~2024-02-05 | MM_ITS ---
EXAMINATION: BONE DENSITOMETRY CLINICAL INDICATION: Asymptomatic menopausal state. COMPARISON: This is the patient's baseline examination. TECHNIQUE: Using a [employer] DXA System (software version: 13.1) manufactured by [employer], dual-energy x-ray absorptiometry was performed of the lumbar spine and left hip. The images are of good technical quality. Summary results are attached. FINDINGS: LEFT FEMUR, NECK: BMD 0.787 g/cm2, Z-score -1.0, T-score -1.8, osteopenia. LEFT FEMUR, TOTAL: BMD 0.842 g/cm2, Z-score -0.8, T-score -1.3, osteopenia. AP SPINE L1-L4: BMD 1.032 g/cm2, Z-score -0.7, T-score -1.2, osteopenia. IDENTIFIED RISK FACTORS: Kidney disease, height loss, low calcium intake, menopause. HISTORY OF FRACTURE: None listed. MEDICATIONS: Vitamin D. MM/XR DEXA axial skeleton IMPRESSION: 1. DIAGNOSIS: Osteopenia based on the lowest T-score value of -1.8 in the femoral neck applying World Health Organization criteria. 2. 10-YEAR FRACTURE RISK PREDICTION, FRAX: Major osteoporotic fracture (clinical spine, forearm, hip or shoulder) 9.2%. Hip fracture 1.2%. 3. Treatment Recommendations: NOF guidelines recommend consideration for treatment in postmenopausal women and men age 50 and older presenting with the following: -A hip or vertebral (clinical or morphometric) fracture. -T-score less than or equal to -2.5 at the femoral neck or spine after appropriate evaluation to exclude secondary causes. -Low bone mass at the hip or spine and a 10-year fracture probability by FRAX of greater than or equal to 3% for hip fracture or greater than or equal to 20% for major osteoporotic fracture based on the [place] adapted WHO algorithm. 4. Other Recommendations: All treatment decisions require clinical judgment and consideration of individual patient factors, including patient preferences, comorbidities, previous drug use, risk factors not captured in the FRAX model (e.g. frailty, falls, vitamin D deficiency, increased bone turnover, interval significant decline in bone density) and possible under or overestimation of fracture risk by FRAX. Additional medical evaluation for secondary cause of low bone mineral density may be appropriate. FUTURE SCAN RECOMMENDATION: People with diagnosed cases of osteoporosis or at high risk for fracture should have regular bone mineral density tests. For patients eligible for Medicare, routine testing is allowed once every 2 years. The testing frequency can be increased to one year for patients who have rapidly progressing disease, those who are receiving or discontinuing medical therapy to restore bone mass, or have additional risk factors.
== END 2024-02-05 11:31 | disposition home or self-care (01) ==
LOC: HO.MAMMO 11:30
PROVIDERS: PCP Internal Medicine; Visit Provider Internal Medicine
DX: Z13.820 Encounter for screening for osteoporosis (principal); Z78.0 Asymptomatic menopausal state
CPT/HCPCS: 77080

== ENCOUNTER 2024-05-04 12:19 | Outpatient (AMB) | payer MEDICARE, SELFPAY ==
[2024-05-04 12:24] VITALS: BP 118/68; PULSE 64; BMI 38.1
--- NOTE | 2024-05-04 12:24 | A.OFFVIS_ITS ---
Vital Signs 05/04/24 12:24 Height 5 ft 2 in Weight 208 lb 1.862 oz BMI 38.1 BP 118/68 Blood Pressure Location Lt brachial Position Sitting Pulse 64 Intake Visit Reasons: 6 month follow up Toe Pounder Required: No Accompanied by: Self / Same As Patient Allergies bacitracin [BACITRACIN] Allergy (Unknown, Verified 11/17/23 08:33) RASH Iodinated Contrast Media [IV CONTRAST] Allergy (Unknown, Verified 11/17/23 08:33) RASH Penicillins [PENICILLINS] Allergy (Unknown, Verified 11/17/23 08:33) RASH steri strips Adverse Reaction (Mild, Uncoded 11/17/23 08:33) itchy Medication List - Last Reconciled 05/04/24 by Burak Santamaria MD amiloride 5 mg PO DAILY ascorbate calcium (vitamin C) 500 mg PO DAILY atorvastatin 10 mg PO DAILY cholecalciferol (vitamin D3) 50 mcg PO DAILY doxazosin 4 mg PO BID famotidine 20 mg PO BID levothyroxine 150 mcg PO DAILY magnesium 200 mg PO DAILY metoprolol succinate ER 50 mg PO QAM olmesartan 40 mg PO DAILY potassium chloride ER (Klor-Con M) 20 mEq PO ONCE tiotropium bromide (Spiriva with HandiHaler) 1 cap inhalation DAILY tolvaptan (polycys kidney dis) (Jtonyque) as directed HPI Comments Details: Stephanie returns for follow-up regarding atrial arrhythmias. To recall, she has a history of polycystic kidney disease. She had renal cell carcinoma and underwent right-sided partial nephrectomy in 2019. In that setting, had anemia from blood loss and required transfusions. She also had acute kidney injury, acute respiratory failure, delirium among others. Then had atrial fibrillation with rapid rate treated by IV beta blockers as well as digoxin. Then converted to sinus. Otherwise no history of any coronary disease or myocardial infarction or any other cardiac issues. She has hypertension, possibly related to polycystic kidney disease. Generally feels fine. Sometimes she gets palpitations but there is also significant anxiety component and hence difficult to differentiate. More recently, she is generally okay and has not had any concerns. [facility] Medical History (Updated 05/04/24 @ 12:47 by Burak Santamaria MD) Sleep apnea Chronic kidney disease Incisional hernia Renal cell carcinoma Thyroid disease Diabetes Pituitary microadenoma Sarcoidosis Polycystic kidney disease Fatty liver Other and unspecified hyperlipidemia Essential hypertension PAF (paroxysmal atrial fibrillation) Surgical History History of bunionectomy Hx of lymph node biopsy Hx of breast biopsy History of right knee joint replacement H/O colonoscopy Hx of total knee replacement History of kidney surgery History of eye surgery History of thyroidectomy History of lumpectomy Family History Father Heart disease Heart attack Mother No problems noted. Social History Alcohol intake: never Patient Tobacco Use Status: Former Tobacco user Years Smoked: 20 +/- Review of Systems Const Denies chills, Denies fatigue, Denies fever(s), Denies weight gain and Denies weight loss ENT Denies dizziness Card Denies chest pain, Denies leg edema, Denies lightheadedness, Denies palpitations, Denies dyspnea on exertion, Denies orthopnea and Denies other Resp Denies cough and Denies dyspnea on exertion GI Denies hematochezia and Denies change in stool character Musc Denies abnormal gait, Denies muscle weakness, Denies numbness, Denies radiating pain into limb and Denies tingling Neuro Denies abnormal gait, Denies dizziness, Denies numbness and Denies tingling Endo Denies fatigue and Denies palpitations Physical Exam Vital Signs: Last Vital Signs Pulse 64 05/04/24 12:24 BP 118/68 05/04/24 12:24 BMI result Body Mass Index 38.1 Const General: comfortable and no acute distress Orientation/consciousness: patient oriented x3 HEENT Other: Unremarkable Head: Yes normal to inspection Neck Neck: Yes normal visual inspection Chest Chest palpation & inspection: normal inspection of the chest Resp Auscultation: clear to auscultation bilaterally Cardio Palpation: normal PMI Heart sounds: S1 normal heart sound present, S2 normal heart sound present, no gallops, Murmur heart sound present systolic I/ and at the right sternal border and no rubs GI Palpation (GI): Soft to palpation Back/Spine/Pelvis Other: unremarkable Skin General skin exam: no rashes or lesions noted Neuro General: patient oriented x3 Extrem General: Yes normal to inspection Psych Mental Status: mental status grossly normal Office Procedures EKG Details: EKG with sinus rhythm at 64/Min; no significant ST-T changes and otherwise unremarkable. [place]. [id number]-Enyekcaoecouywjow, Complete Assessment & Plan Assessment & Plan (1) PAF (paroxysmal atrial fibrillation): Code(s): I48.0 - Paroxysmal atrial fibrillation Category: Medical Plan: Only 1 documented episode in the setting of surgery. Continue beta-blockers. She takes metoprolol ER 50 mg in the morning and 25 mg in the evening. Not on anticoagulation but if recurrent episodes will need to start. She had a sleep study that shows only mild KRISTAL. Weight loss as feasible. (2) PVC (premature ventricular contraction): Code(s): I49.3 - Ventricular premature depolarization Category: Medical Plan: In the last Holter, PVC burden of 7%. May account for some of her palpitations. As above, continue beta-blockers. (3) Essential hypertension: Code(s): I10 - Essential (primary) hypertension Category: Medical Plan: On beta-blockers, Amiloride, Olmesartan, Doxazosin. Stable. (4) Anxiety: Code(s): F41.9 - Anxiety disorder, unspecified Category: Medical Plan: Well controlled at this time. Unfortunately, whenever she gets anxious she also feels palpitations and hence difficult to distinguish if truly cardiac versus anxiety. Coding Level of Care Code Est Pt Level 4 (70778) Diagnoses PAF (paroxysmal atrial fibrillation) I48.0 PVC (premature ventricular contraction) I49.3 Essential hypertension I10 Anxiety F41.9 CPT Codes EKG - CPT: 86028-Ipyittvjnoboghuho, Complete ([id number])
== END 2024-05-04 13:09 | disposition home or self-care (01) ==
PROVIDERS: PCP Internal Medicine; Visit Provider Internal Medicine
DX: I48.0 Paroxysmal atrial fibrillation (principal); I49.3 Ventricular premature depolarization; I10 Essential (primary) hypertension; F41.9 Anxiety disorder, unspecified
CPT/HCPCS: 93010; 99214

== ENCOUNTER → 2024-05-04 12:19 | Outpatient (BNVA) | payer MEDICARE, SELFPAY | PROVIDERS: PCP Internal Medicine; Visit Provider Internal Medicine | DX: I48.0 Paroxysmal atrial fibrillation (principal); I49.3 Ventricular premature depolarization; I10 Essential (primary) hypertension; F41.9 Anxiety disorder, unspecified; Z79.899 Other long term (current) drug therapy | CPT/HCPCS: 93005; 99212 ==

== ENCOUNTER 2024-12-26 10:59 | Outpatient (REF) | payer MEDICARE, SELFPAY ==
--- NOTE | ~2024-12-26 | MM_ITS ---
EXAMINATION: MM SCREENING DIGITAL BREAST TOMOSYNTHESIS, BILATERAL CLINICAL INFORMATION: Screening. Asymptomatic. COMPARISON: Mammography: Comparison is made with available priors TECHNIQUE: Digital breast mammography with tomosynthesis is performed in both the craniocaudal and mediolateral oblique views along with computer-aided detection (CAD). FINDINGS: There are scattered areas of fibroglandular density (ACR BI-RADS breast composition Category b). There are no significant masses, abnormal calcifications, or other abnormalities. MM/MM tomosynthesis screening BI IMPRESSION: No mammographic evidence of malignancy. ASSESSMENT: BI-RADS BI-RADS 1 - Negative RECOMMENDATION: Routine annual mammography screening. 1 year F/U This examination should not preclude the clinical evaluation of a suspicious palpable abnormality. This patient's information was entered into a reminder system with a target due date for their next mammogram. Electronically signed by: Shannon Payne DO 12/27/2024 05:00 PM KATALINA
--- OUTSIDE RECORDS SUMMARY | 2024-12-26 13:00 | XMS_ITS ---
Author Organization [facility] Address [address] [place] [address] Care Team Providers Care Brand Strategist Name Role Phone Brian Kathleen MD Primary Care Provider UnavailJohn Oliver Jr [phone] REASON FOR VISIT KIDNEY DISEASE Encounters Encounter Location Date Provider Diagnosis [facility] [address] [place] [address] 08/04/2024 John Bowie Jr PLAN OF TREATMENT Next Appt Details Provider Name:John lopez Jr, 03/01/2025 09:00:00 AM, [address] [place] [address], [address], [place], [address],
--- OUTSIDE RECORDS SUMMARY | 2024-12-26 13:00 | XMS_ITS | Encounter Summary ---
Author Organization [facility], Address [address] [place] [address] Phone Care Team Providers Care Hand Cell Tuber Name Role Phone Brian Kathleen MD Primary Care Provider [phone] Encounter Details Date Type Department Care Team (Late Contact Info) Description 10/28/2024 Orders Only [facility] [address] [place] [phone] Milton Escobar MD [address] [place] [address] [place] [address] Adult type polycystic kidney disease type 1 Social History Tobacco Use Types Packs/Day Years Used Date Smoking Tobacco: Never Assessed Comments Unknown Sex and Gender Information Value Date Recorded Sex Assigned at Not on file Legal Sex Female 5:03 PM EST Gender Identity Not on file Sexual Orientation Not on file documented as of this encounter Plan of Treatment Upcoming Encounters Date Type Department Care Team (Late st Contact Info) Description 02/09/2025 2:30 PM EDT Office Visit [facility] [place], [address] [place] [address] Milton Escobar MD [address] [place] [phone] documented as of this encounter Visit Diagnoses Diagnosis Adult type polycystic kidney disease type 1 documented in this encounter Care Teams Hand Cell Tuber Relationship Specialty Start Date End Date Brian Kathleen MD [address] [place] [address] PCP - General 11/05/20 documented as of this encounter
--- OUTSIDE RECORDS SUMMARY | 2024-12-26 13:00 | XMS_ITS | Encounter Summary ---
Author Organization [facility], Address [address] [place] [address] Phone Care Team Providers Care Survey Crew Chief Name Role Phone Brian Kathleen MD Primary Care Provider [phone] Encounter Details Date Type Department Care Team (Late Contact Info) Description 09/30/2024 Orders Only [facility] [address] [place] [phone] Milton Escobar MD [address] [place] [address] [place] [address] Adult type polycystic kidney disease [...] Visit [facility] [place], [address] [place] [address] Milton Escobar MD [address] [address] [place] [phone] documented as of this encounter Visit Diagnoses Diagnosis Adult type polycystic kidney disease type 1 documented in this encounter Care Teams Survey Crew Chief Relationship Specialty Start Date End Date Brian Kathleen MD [address] [place] [address] PCP - General 11/05/20 documented as of this encounter
--- OUTSIDE RECORDS SUMMARY | 2024-12-26 13:00 | XMS_ITS | Encounter Summary ---
Author Organization [facility], Address [address] [place] [address] Phone Care Team Providers Care Picking Supervisor Name Role Phone Brian Kathleen MD Primary Care Provider [phone] Encounter Details Date Type Department Care Team (Late st Contact Info) Description 08/12/2024 Orders Only [facility] [address] [place] [phone] Milton Escobar MD [address] [place] [address] [place] [address] Adult type polycystic kidney disease [...] Visit [facility] [place], [address] [place] [address] Milton Escobar MD [address] [place] [address] documented as of this encounter Visit Diagnoses Diagnosis Adult type polycystic kidney disease type 1 documented in this encounter Care Teams Picking Supervisor Relationship Specialty Start Date End Date Brian Kathleen MD [address] [place] [address] PCP - General 11/05/20 documented as of this encounter
--- OUTSIDE RECORDS SUMMARY | 2024-12-26 13:00 | XMS_ITS | Encounter Summary ---
Author Organization [facility] Address [address] [place] [address] Phone Care Team Providers Care Tong Hooker Name Role Phone Brian Kathleen MD Primary Care Provider [phone] Encounter Details Date Type Department Care Team (Late Contact Info) Description 10/07/2024 Documentation Only [facility] [address] [place] [phone] Kellie Aguilar [address] [place] [address] Social History Tobacco Use Types Packs/Day Years [...] Visit [facility] [address] [place] [address] Milton Escobar MD [address] [place] [address] [place] [phone] documented as of this encounter Visit Diagnoses Not on filedocumented in this encounter Care Teams Tong Hooker Relationship Specialty Start Date End Date Brian Kathleen MD [address] [place] [address] PCP - General 11/05/20 documented as of this encounter
--- OUTSIDE RECORDS SUMMARY | 2024-12-26 13:00 | XMS_ITS | Encounter Summary ---
Author Organization [facility] Address [address] [facility] [address] [place] [address] Phone Care Team Providers Care High Climber Name Role Phone Brian Kathleen MD Primary Care Provider [phone] Reason for Visit * Reason Comments Med Refill Encounter Details Date Type Department Care Team (Late st Contact Info) Description 11/17/2021 Refill [facility] [address] [facility] [address] [place] [address] Nate Villareal MD [address] [facility] [address] [place] [phone] Social History Tobacco Use Types Packs/Day Years Used Date Smoking Tobacco: Former Comments Unknown Sex and Gender Information Value Date Recorded Sex Assigned at Not on file Legal Sex Female 5:03 PM EST Gender Identity Not on file Sexual Orientation Not on file documented as of this encounter Plan of Treatment Upcoming Encounters Date Type Department Care Team (Late st Contact Info) Description 02/09/2025 2:30 PM EDT Office Visit [facility] [place], [address] [place] [phone] Milton Escobar MD [address] [facility] [address] [place] [address] documented as of this encounter Visit Diagnoses Not on filedocumented in this encounter Care Teams High Climber Relationship Specialty Start Date End Date Brian Kathleen MD [address] [place] [address] PCP - General 11/05/20 documented as of this encounter
--- OUTSIDE RECORDS SUMMARY | 2024-12-26 13:00 | XMS_ITS | Encounter Summary ---
Author Organization [facility], Address [address] [place] [address] Phone Care Team Providers Care Government Minister Name Role Phone Brian Kathleen MD Primary Care Provider Encounter Details Date Type Department Care Team (Late st Contact Info) Description 10/07/2024 Orders Only [facility] [address] [place] [address] Milton Escobar MD [address] [place] [address] Adult type polycystic kidney disease [...] Visit [facility] [place], [address] [place] [address] Milton Escobar MD [address] [place] [phone] documented as of this encounter Visit Diagnoses Diagnosis Adult type polycystic kidney disease type 1 documented in this encounter Care Teams Government Minister Relationship Specialty Start Date End Date Brian Kathleen MD [address] [place] [address] PCP - General 11/05/20 documented as of this encounter
--- OUTSIDE RECORDS SUMMARY | 2024-12-26 13:00 | XMS_ITS | Encounter Summary ---
Author Organization [facility], Address [address] [place] [address] Phone Care Team Providers Care Windows Application Packager Name Role Phone Brian Kathleen MD Primary Care Provider [phone] Encounter Details Date Type Department Care Team (Late st Contact Info) Description 08/05/2024 Orders Only [facility] [address] [place] [phone] Milton Escobar MD [address] [place] [address] [place] [address] Adult type polycystic kidney disease [...] Visit [facility] [place], [address] [place] [address] Milton Escobar MD [address] [facility] [address] [place] [address] documented as of this encounter Visit Diagnoses Diagnosis Adult type polycystic kidney disease type 1 documented in this encounter Care Teams Windows Application Packager Relationship Specialty Start Date End Date Brian Kathleen MD [address] [place] [address] PCP - General 11/05/20 documented as of this encounter
--- OUTSIDE RECORDS SUMMARY | 2024-12-26 13:01 | XMS_ITS | Encounter Summary ---
Author Organization [facility] Address [address] [place] [address] Phone Care Team Providers Care Mud Mill Tender Name Role Phone Brian Kathleen MD Primary Care Provider [phone] Encounter Details Date Type Department Care Team (Late Contact Info) Description 02/04/2024 Documentation Only [facility] [address] [place] [phone] Kellie Aguilar [address] [place] [address] Social History Tobacco Use Types [...] Visit [facility] [address] [place] [address] Milton Escobar MD [address] [place] [address] [place] [phone] documented as of this encounter Visit Diagnoses Not on filedocumented in this encounter Care Teams Mud Mill Tender Relationship Specialty Start Date End Date Brian Kathleen MD [address] [place] [address] PCP - General 11/05/20 documented as of this encounter
--- OUTSIDE RECORDS SUMMARY | 2024-12-26 13:01 | XMS_ITS | Encounter Summary ---
Author Organization [facility] Address [address] [place] [address] Phone Care Team Providers Care Human Services Worker Name Role Phone Brian Kathleen MD Primary Care Provider [phone] Encounter Details Date Type Department Care Team (Late Contact Info) Description 08/04/2024 Documentation Only [facility] [address] [place] [phone] Kellie Aguilar [address] [place] [address] Social History Tobacco Use Types [...] Visit [facility] [address] [place] [address] Milton Escobar MD [address] [place] [address] [place] [phone] documented as of this encounter Visit Diagnoses Not on filedocumented in this encounter Care Teams Human Services Worker Relationship Specialty Start Date End Date Brian Kathleen MD [address] [place] [address] PCP - General 11/05/20 documented as of this encounter
--- OUTSIDE RECORDS SUMMARY | 2024-12-26 13:01 | XMS_ITS | Encounter Summary ---
Author Organization [facility] [place], Address [address] [place] [address] Phone Care Team Providers Care Services Host Name Role Phone Brian Kathleen MD Primary Care Provider [phone] Encounter Details Date Type Department Care Team (Late Contact Info) Description 05/20/2024 Orders Only [facility] [address] [place] [phone] Milton Escobar MD [address] [place] [address] [place] [address] Adult type polycystic kidney disease [...] Visit [facility] [place], [address] [place] [address] Milton Escobar MD [address] [place] [phone] documented as of this encounter Visit Diagnoses Diagnosis Adult type polycystic kidney disease type 1 documented in this encounter Care Teams Services Host Relationship Specialty Start Date End Date Brian Kathleen MD [address] [place] [address] PCP - General 11/05/20 documented as of this encounter
--- OUTSIDE RECORDS SUMMARY | 2024-12-26 13:01 | XMS_ITS | Encounter Summary ---
Author Organization [facility] [place], Address [address] [place] [address] Phone Care Team Providers Care Official Greeter Name Role Phone Brian Kathleen MD Primary Care Provider [phone] Encounter Details Date Type Department Care Team (Late st Contact Info) Description 05/01/2023 Orders Only [facility] [address] [place] [phone] Milton Escobar MD [address] [place] [address] [place] [address] Adult type polycystic kidney disease [...] Visit [facility] [address] [place] [place] [phone] Milton Escobar MD [address] [place] [phone] documented as of this encounter Procedures Procedure Name Priority Date/Time Associated Diagnosis Comments PROTEIN / CREATININE RATIO, URINE Routine 11/20/2023 3:00 PM EST Adult type polycystic kidney disease type 1 URINALYSIS WITH MICROSCOPIC Routine 11/20/2023 3:00 PM EST Adult type polycystic kidney disease type 1 CBC AND DIFFERENTIAL Routine 11/20/2023 3:00 PM EST Adult type polycystic kidney disease type 1 COMPREHENSIVE METABOLIC PANEL Routine 11/20/2023 3:00 PM EST Adult type polycystic kidney disease type 1 documented in this encounter Results * (ABNORMAL) Protein, Total, Random Urine w/Creatinine (Protein/Creat Ratio) (11/20/2023 3:00 PM EST) Pathologist [facility] Protein/Creati ne Ratio 0.23(H) (0-0.2) [facility] Protein, Urine 7 MG/DL [facility] Creatinine, Urine 29.8 MG/DL [facility] Comment: Testing performed or reported by [facility], a Service of [facility], [address] [place] [address] Cam Richards MD, Non Destructive Evaluation Technician [facility]# [id number] Urine (Urine, Clean Catch) 11/20/2023 3:00 PM EST 11/20/2023 3:02 PM EST us Milton Escobar MD LAB URINE ORDERABLES Final Re sult [facility] * Urinalysis with microscopic (11/20/2023 3:00 PM EST) Pathologist [facility] Appearance COLORLESS [facility] Comment:CLEAR Specific [place] 1.006 (1.002-1. 030) [facility] pH Urine 6.0 (5.0-8.0) [facility] Albumin, Urine NEGATIVE (NEG) [facility] Glucose, Ur NEGATIVE (NEG) [facility] Ketones, Urine NEGATIVE (NEG) [facility] Bilirubin Urine NEGATIVE (NEG) [facility] Hemoglobin Presence in Urine NEGATIVE (NEG) [facility] Nitrite, Urine NEGATIVE (NEG) [facility] Leukocyte Esterase Urine NEGATIVE (NEG) [facility] Urobilinogen Urine NORMAL (NORM) MG/DL [facility] WBC, Urine <1 (0-5) /HPF [facility] RBC, Urine 1 (0-3) /HPF [facility] Squamous Epithelial, Urine <1 (0-8) /HPF [facility] Comment: Testing performed or reported by [facility], a Service of [facility], [address] [place] [id number] Cam Richards MD, Non Destructive Evaluation Technician [facility]# [id number] Urine (Urine, Clean Catch) 11/20/2023 3:00 PM EST 11/20/2023 3:02 PM EST us Milton Escobar MD LAB URINE ORDERABLES Final Re sult [facility] * (ABNORMAL) Comprehensive metabolic panel (11/20/2023 3:00 PM EST) Glucose 120(H) (70-99) MG/DL [facility] BUN 33(H) (8-23) MG/DL [facility] Creatinine 1.9(H) (0.5-1.0) MG/DL [facility] Sodium 140 (133-145) MMOL/L [facility] Potassium 4.5 (3.6-5.2) MMOL/L [facility] Chloride 103 (98-107) MMOL/L [facility] Bicarbonate (CO2) 26 (22-29) MMOL/L [facility] Anion Gap 11 (4-17) [facility] Albumin 4.3 (3.4-4.8) GM/DL [facility] Calcium 9.6 (8.6-10.5) MG/DL [facility] Total Bilirubin 0.3 (0-1.2) MG/DL [facility] Protein, Total 6.9 (6.2-8.2) GM/DL [facility] A/G Ratio 1.7 [facility] AST (SGOT) 14 (0-32) U/L [facility] Alkaline Phosphatase 87 (35-104) U/L [facility] ALT (SGPT) 9 (0-33) U/L [facility] Est GFR Non 29 ML/MIN/1.7 3 M2 [facility] Comment: Creatinine based estimated glomerular filtration (eGFR) in adults is calculated using the National [employer] recommended 2020 CKD-EPI equation. Estimates GFR from serum creatinine, age and sex. Testing performed or reported by [facility], a Service of [facility], [address] [place] [id number] Cam Richards MD, Non Destructive Evaluation Technician [facility]# [id number] Blood (Blood, Venous) 11/20/2023 3:00 PM EST 11/20/2023 3:02 PM EST us Milton Escobar MD LAB BLOOD ORDERABLES Final Re sult [facility] * (ABNORMAL) CBC and Differential (11/20/2023 3:00 PM EST) White Blood Cells 4.6 (4.0-11.0) K/MM3 [facility] RBC 3.49(L) (4.20-5.40 ) M/MM3 [facility] Hgb 9.8(L) (11.7-15.5 ) GM/DL [facility] Hematocrit 32.5(L) (35.7-45.8 ) % [facility] MCV 93.1 (80.0-100. 0) FL [facility] MCH 28.1 (27.0-34.0 ) PG [facility] MCHC 30.2(L) (33.0-37.0 ) g/dL [facility] Platelets 176 (150-460) K/MM3 [facility] RDW-SD 47.0(H) (<47.0) FL [facility] MPV 9.5 (9.4-12.4) FL [facility] nRBC Count 0.0 #/100 WBC'S [facility] NRBC Absolute 0.0 K/MM3 [facility] Neutrophils Abs Auto 2.4 (1.3-7.0) K/MM3 [facility] Lymphocytes Relative 1.4 (0.8-3.1) K/MM3 [facility] Monocytes 0.6 (0.4-0.9) K/MM3 [facility] Eosinophils Relative 0.1 (0.0-0.4) K/MM3 [facility] Basophil ABS 0.0 (0.0-0.1) K/MM3 [facility] Granulocytes Absolute 0.0 K/MM3 [facility] Neutrophils % Auto 52.1 (44-76) % [facility] Lymphs 30.9 (15-43) % [facility] Monocytes Absolute 13.1(H) (4.5-10.5) % [facility] Eosinophils 2.8 (0-6) % [facility] Basophils Relative 0.9 (0-2) % [facility] Immature Granulocytes 0.2 % [facility] Comment: Testing performed or reported by [facility], a Service of [facility], [address] [place] [address] Cam Richards MD, Non Destructive Evaluation Technician [facility]# [id number] Blood (Blood, Venous) 11/20/2023 3:00 PM EST 11/20/2023 3:02 PM EST us Milton Escobar MD LAB BLOOD ORDERABLES Final Re sult [facility] documented in this encounter Visit Diagnoses Diagnosis Adult type polycystic kidney disease type 1 documented in this encounter Care Teams Official Greeter Relationship Specialty Start Date End Date Brian Kathleen MD [address] [place] [address] PCP - General 11/05/20 documented as of this encounter
--- OUTSIDE RECORDS SUMMARY | 2024-12-26 13:01 | XMS_ITS | Encounter Summary ---
Author Organization [facility] Address [address] [place] [address] Phone Care Team Providers Care Script Editor Name Role Phone Brian Kathleen MD Primary Care Provider [phone] Encounter Details Date Type Department Care Team (Late Contact Info) Description 08/04/2024 Documentation Only [facility] [address] [place] [phone] Kellie Aguilar [address] [place] [address] Social History Tobacco Use Types [...] Visit [facility] [address] [place] [address] Milton Escobar MD [address] [place] [address] [place] [phone] documented as of this encounter Visit Diagnoses Not on filedocumented in this encounter Care Teams Script Editor Relationship Specialty Start Date End Date Brian Kathleen MD [address] [place] [phone] PCP - General 11/05/20 documented as of this encounter
--- OUTSIDE RECORDS SUMMARY | 2024-12-26 13:01 | XMS_ITS | Clinical Summary ---
Author Organization [facility], Address [address] [place] [address] [place] [address] Phone Care Team Providers Care Assistant Restaurant General Manager Name Role Phone Brian Kathleen MD Primary Care Provider [phone] Allergies Active Allergy Reactions Criticality Noted Date Comments Amlodipine Swelling 11/17/2017 Legs swelling Amoxicillin 01/29/2024 Bacitracin Rash,Other (see comments) Low 11/17/2017 Eplerenone 11/17/2017 Sore breasts Flurandrenolide 01/29/2024 Gadolinium 10/21/2018 Iodinated Contrast Media 12/31/2021 Other reaction(s): hives Latex 01/29/2024 Other 01/29/2024 ADHESIVE Penicillins Rash,Other (see comments) Low 11/17/2017 Spironolactone 11/17/2017 Sore breasts Medications atorvastatin (Lipitor) 10 MG tablet Take 10 mg by mouth 1 (one) time each day Active olmesartan (Benicar) 40 MG tablet Take 40 mg by mouth 1 (one) time each day 12/31/2011 Active traMADol (ULTRAM) 50 MG tablet Take 1 tablet by mouth if needed 09/27/2015 Active Ascorbic Acid (Vitamin C) 500 MG capsule Take 500 mg by mouth 1 (one) time each day Active metoprolol succinate XL (TOPROL XL) 25 MG 24 hr tablet Take TWO tablets every morning and ONE tablet every evening at bedtime 03/05/2022 Active amLODIPine (NORVASC) 2.5 MG tablet Take 2.5 mg by mouth 1 (one) time each day Active Cholecalciferol (Vitamin D) 50 MCG (1999 UT) capsule Take 2,000 Units by mouth 1 (one) time each day Active doxazosin (CARDURA) 4 MG tablet Take 4 mg by mouth in the morning and 4 mg in the evening. Active levothyroxine (SYNTHROID, LEVOTHROID) 125 MCG tablet Take 125 mcg by mouth 1 (one) time each day Active Magnesium 200 MG chewable tablet Chew 200 mg 1 (one) time each day Active Tolvaptan 90 & 30 MG tablet therapy pack Take 90 mg in the morning and 30 mg in the evening 60 each 11 02/03/2024 Active aMILoride (MIDAMOR) 5 MG tablet TAKE 1 TABLET BY MOUTH EVERY DAY 90 tablet 3 06/21/2024 Active Active Problems Problem Noted Date Diagnosed Date Stage 3b chronic kidney disease 11/07/2024 Acquired absence of kidney 01/29/2024 Anemia 01/29/2024 Type 2 diabetes mellitus 01/29/2024 Renal cell carcinoma 01/29/2024 Overview (01/29/2024): right Hyponatremia 01/29/2024 Hyperlipidemia 01/29/2024 Essential hypertension 01/29/2024 Adult type polycystic kidney disease type 1 01/25 Anemia following acute postoperative blood loss 05/01/2020 Overview (01/29/2024): Fluid retention 05/01/2020 Overview (01/29/2024): Generalized edema 05/01/2020 Overview (01/29/2024): Hypothyroidism 11/20/2017 Type 2 diabetes mellitus without complication Proteinuria Resolved Problems Problem Noted Date Diagnosed Date Resolved Date Adult type polycystic kidney disease type 1 02/25/2021 06/11/2021 Stage 3b chronic kidney disease 02/25/2021 06/11/2021 Chronic kidney disease stage 1 02/19/2021 02/25/2021 FH: Polycystic kidney 02/19/20212020 Hypertensive renal disease 02/19/2021 0 06/11/2021 Atrial fibrillation 05/01/2020 06/11/20 21 Overview (02/19/2021): Last Assessment & Plan: The EKG came back sinus rhythm with premature supraventricular complexes. The frequency was 94 bpm. There was no ischemic changes. At this point I would hold off on any antiarrhythmics though if the patient continues to have shortness of breath would consider a hydraulic elevator constructor assessment. Consider EKG on next internal medicine assessment. Dyspnea on exertion 05/01/2020 06/11/20 History of partial nephrectomy 05/01/2020 06/11/2021 Overview (02/19/2021): Last Assessment & Plan: Postoperatively no signs of acute infection, patient urinating well, it would be reasonable to reassess the patient's creatinine and forward the results to the urologist. 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 06/11/2021 Encounters Date Type Department Care Team Description 12/23/2024 Orders Only [facility] [address] [place] [address] Milton Escobar MD Adult type polycystic kidney disease type 1 12/02/2024 Orders Only [facility] [address] [place] [address] Milton Escobar MD Adult type polycystic kidney disease type 1 11/25/2024 Orders Only [facility] [address] [place] [address] Milton Escobar MD Adult type polycystic kidney disease type 1 11/07/2024 3:00 PM EST Office Visit [facility] [address] [place] [address] Milton Escobar MD Adult type polycystic kidney disease type 1 (Primary Dx) 11/07/2024 Documentation Only [facility] [address] [place] [address] Lauren, Kellie 11/04/2024 Orders Only [facility] [address] [place] [address] Milton Escobar MD Adult type polycystic kidney disease type 1 10/28/2024 Orders Only [facility] [address] [place] [address] Milton Escobar MD Adult type polycystic kidney disease type 1 10/07/2024 Telephone [facility] [address] [place] [address] Lauren, Kellie 10/07/2024 Documentation Only [facility] [address] [place] [address] Lauren, Kellie 10/07/2024 Orders Only [facility] [address] [place] [address] Milton Escobar MD Adult type polycystic kidney disease type 1 09/30/2024 Orders Only [facility] [address] [place] [address] Milton Escobar MD Adult type polycystic kidney disease type 1 from Last 3 Months Immunizations Name Administration Dates Next Due Influenza (IM) Preservative Free 09/11/2021 Influenza Split High Dose Pr eservative Free IM 07/14/2024 Influenza Split Preservative Free ID 08/18/2013 Influenza TIV (IM) 08/15/2020, 9,08/26/2018,08/20,08/19/2012 Influenza Vaccine, Quadrival ent, Adjuvanted 08/07/2023 Influenza, MDCK, PF, Quadrivalent 08/12/2022, Influenza, Quadrivalent, Pre servative Free 07/10/2020,08/25/2019,08/19/2018,08/11 Influenza, Unspecified 07/14/2023,2019,08/03/2019,08/26,08/20/2011,05/07/2010,08/14/2009 Pfizer SARS-COV-2 01/31/2022,,01/23/2021,01/02 Pneumococcal Conjugate 13-Valent 06/04/2020 Pneumococcal Polysaccharide 02/13/2009, 7 Pneumococcal, Unspecified 01/08/2023 TD Preservative Free 07/26/2005 Tdap 04/23/2015 Family History Medical History Relation Comments Heart attack Father Heart disease Father Relation Status Comments Father Mother Social History Tobacco Use Types Packs/Day Years Used Date Smoking Tobacco: Never Assessed Comments Unknown Sex and Gender Information Value Date Recorded Sex Assigned at Not on file Legal Sex Female 5:03 PM EST Gender Identity Not on file Sexual Orientation Not on file Last Filed Vital Signs Vital Sign Reading Time Taken Comments Blood Pressure 136/76 11/07/2024 3:01 PM EST Pulse 62 11/07/2024 3:01 PM EST Temperature - - Respiratory Rate - - Oxygen Saturation 98% 02/25/2021 2:43 PM EDT Inhaled Oxygen Concentration - - Weight 93.2 kg (205 lb 6.4 oz) 02/25/2021 2:43 P M EDT Height 160 cm (5' 3 ) 11/14/2019 12:00 PM EST Body Mass Index 36.38 11/14/2019 12:00 PM EST Plan of Treatment Upcoming Encounters Date Type Department Care Team (Late st Contact Info) Description 02/09/2025 2:30 PM EDT Office Visit [facility] [place], [address] [place] [address] Milton Escobar MD [address] [place] [address] Health Maintenance Due Date Last Done Comments Breast Cancer Screening 1960 Colorectal Cancer Screening: Annual FOBT 2007 Colorectal Cancer Screening: Colonoscopy 2007 Colorectal Cancer Screening: Sigmoidoscopy 2007 Diabetes: Hemoglobin A1C 11/23/2020 06/19/2020, 07/27 Diabetes: Ophthalmology Exam 11/23/2020 Diabetes: Pedal Pulse Checked 11/23/2020 Diabetes: Sensory Foot Exam 11/23/2020 Diabetes: Visual Foot Exam 11/23/2020 Pneumococcal Vaccine: 65+ Years (4 of 4 - PPSV23 or PCV20) 01/09/2024 01/08/2023, 06/04/2020, 02/13/2009, Additional history exists Influenza Vaccine Completed 07/14/2024, , 07/14/2023, Additional history exists Hepatitis B Vaccine Aged Out No longe r eligible based on patient's age to complete this topic Procedures Procedure Name Priority Date/Time Associated Diagnosis Comments BLOOD PANEL (HC) Routine 06/19/2020 12:0 0 AM EDT from Last 3 Months or Most Recently Relevant to Health Maintenance Results * (ABNORMAL) Blood Panel (06/19/2020 12:00 AM EDT) Sodium 136(L) 137 - 145 mmol/L [facility] Creatinine 1.60(H) 0.70 - 1.30 mg/dl [facility] LDL,Direct 80 <130 mg/dl [facility] Iron 42(L) 49 - 181 ug/dl [facility] Hemoglobin A1C 4.9 <5 % [facility] Hgb 9.9(L) 13.0 - 16.5 g/dl [facility] Platelets 206 140 - 440 k/uL [facility] Iron Saturation (TSat) 13(L) 15 - 62 % [facility] Potassium 4.5 3.5 - 5.1 mmol/L [facility] Calcium 10.1 8.4 - 10.2 mg/dl [facility] Cholesterol 180 <200 mg/dl [facility] Hematocrit 29.4(L) 38 - 50 % [facility] Ferritin 230 [facility] Carbon Dioxide (CO2) 27 22 - 30 mmol/L [facility] BUN 23(H) 9 - 20 mg/dl [facility] eGFR Non- 34(L) >60 ml/min [facility] Triglycerides 109 <150 mg/dl [facility] HDL 78 >40 mg/dl [facility] TIBC 317 261 - 462 ug/dl [facility] 06/19/2020 [facility] [id number] LICITED RESULTS Final Result [facility] from Last 3 Months or Most Recently Relevant to Health Maintenance Insurance [facility] Care Teams Assistant Restaurant General Manager Relationship Specialty Start Date End Date Brian Kathleen MD [address] [place] [phone] PCP - General 11/05/20
--- OUTSIDE RECORDS SUMMARY | 2024-12-26 13:01 | XMS_ITS | Encounter Summary ---
Author Organization [facility] [place], Address [address] [place] [address] Phone Care Team Providers Care Tuber Helper Name Role Phone Brian Kathleen MD Primary Care Provider [phone] Encounter Details Date Type Department Care Team (Late st Contact Info) Description 05/29/2023 Orders Only [facility] [address] [place] [place] [phone] Milton Escobar MD [address] [place] [address] [place] [address] Adult type polycystic kidney disease [...] Visit [facility] [address] [place] [phone] Milton Escobar MD [address] [place] [phone] documented as of this encounter Procedures Procedure Name Priority Date/Time Associated Diagnosis Comments PROTEIN / CREATININE RATIO, URINE Routine 09/01/2023 11:25 AM EST Adult type polycystic kidney disease type 1 URINALYSIS WITH MICROSCOPIC Routine 09/01/2023 11:25 AM EST Adult type polycystic kidney disease type 1 CBC AND DIFFERENTIAL Routine 09/01/2023 11:25 AM EST Adult type polycystic kidney disease type 1 COMPREHENSIVE METABOLIC PANEL Routine 09/01/2023 11:25 AM EST Adult type polycystic kidney disease type 1 documented in this encounter Results * (ABNORMAL) Protein, Total, Random Urine w/Creatinine (Protein/Creat Ratio) (09/01/2023 11:25 AM EST) Pathologist [facility] Protein/Creati ne Ratio 0.21(H) (0-0.2) [facility] Protein, Urine 7 MG/DL [facility] Creatinine, Urine 32.6 MG/DL [facility] Comment: Testing performed or reported by [facility], a Service of [facility], [address] [place] [address] Cam Richards MD, Defense Travel Administrator [facility]# [id number] Urine (Urine, Clean Catch) 09/01/2023 11:25 AM EST 09/01/2023 11:26 AM EST us Milton Escobar MD LAB URINE ORDERABLES Final Re sult [facility] * Urinalysis with microscopic (09/01/2023 11:25 AM EST) Pathologist [facility] Appearance COLORLESS [facility] Comment:CLEAR Specific [place] 1.007 (1.002-1. 030) [facility] pH Urine 6.0 (5.0-8.0) [facility] Albumin, Urine NEGATIVE (NEG) [facility] Glucose, Ur NEGATIVE (NEG) [facility] Ketones, Urine NEGATIVE (NEG) [facility] Bilirubin Urine NEGATIVE (NEG) [facility] Hemoglobin Presence in Urine NEGATIVE (NEG) [facility] Nitrite, Urine NEGATIVE (NEG) [facility] Leukocyte Esterase Urine NEGATIVE (NEG) [facility] Urobilinogen Urine NORMAL (NORM) MG/DL [facility] WBC, Urine <1 (0-5) /HPF [facility] RBC, Urine <1 (0-3) /HPF [facility] Mucus, Urine SLIGHT /LPF [facility] Squamous Epithelial, Urine 1 (0-8) /HPF [facility] Comment: Testing performed or reported by [facility], a Service of [facility], [address] [place] [address] Cam Richards MD, Defense Travel Administrator [facility]# [id number] Urine (Urine, Clean Catch) 09/01/2023 11:25 AM EST 09/01/2023 11:26 AM EST us Milton Escobar MD LAB URINE ORDERABLES Final Re sult [facility] * (ABNORMAL) Comprehensive metabolic panel (09/01/2023 11:25 AM EST) Glucose 100(H) (70-99) MG/DL [facility] BUN 31(H) (8-23) MG/DL [facility] Creatinine 1.9(H) (0.5-1.0) MG/DL [facility] Sodium 139 (133-145) MMOL/L [facility] Potassium 4.5 (3.6-5.2) MMOL/L [facility] Chloride 104 (98-107) MMOL/L [facility] Bicarbonate (CO2) 24 (22-29) MMOL/L [facility] Anion Gap 11 (4-17) [facility] Albumin 4.5 (3.4-4.8) GM/DL [facility] Calcium 9.7 (8.6-10.5) MG/DL [facility] Total Bilirubin 0.4 (0-1.2) MG/DL [facility] Protein, Total 6.8 (6.2-8.2) GM/DL [facility] A/G Ratio 2.0 [facility] AST (SGOT) 14 (0-32) U/L [facility] Alkaline Phosphatase 82 (35-104) U/L [facility] ALT (SGPT) 8 (0-33) U/L [facility] Est GFR Non 29 ML/MIN/1.7 3 M2 [facility] Comment: Creatinine based estimated glomerular filtration (eGFR) in adults is calculated using the National Kidney Foundation recommended 2020 CKD-EPI equation. Estimates GFR from serum creatinine, age and sex. Testing performed or reported by [facility], a Service of [facility], [address] [place] [address] Cam Richards MD, Defense Travel Administrator [facility]# [id number] Blood (Blood, Venous) 09/01/2023 11:25 AM EST 09/01/2023 11:26 AM EST us Milton Escobar MD LAB BLOOD ORDERABLES Final Re sult [facility] * (ABNORMAL) CBC and Differential (09/01/2023 11:25 AM EST) White Blood Cells 4.6 (4.0-11.0) K/MM3 [facility] RBC 3.33(L) (4.20-5.40 ) M/MM3 [facility] Hgb 9.7(L) (11.7-15.5 ) GM/DL [facility] Hematocrit 30.9(L) (35.7-45.8 ) % [facility] MCV 92.8 (80.0-100. 0) FL [facility] MCH 29.1 (27.0-34.0 ) PG [facility] MCHC 31.4(L) (33.0-37.0 ) g/dL [facility] Platelets 191 (150-460) K/MM3 [facility] RDW-SD 48.1(H) (<47.0) FL [facility] MPV 9.4 (9.4-12.4) FL [facility] nRBC Count 0.0 #/100 WBC'S [facility] NRBC Absolute 0.0 K/MM3 [facility] Neutrophils Abs Auto 2.5 (1.3-7.0) K/MM3 [facility] Lymphocytes Relative 1.4 (0.8-3.1) K/MM3 [facility] Monocytes 0.5 (0.4-0.9) K/MM3 [facility] Eosinophils Relative 0.1 (0.0-0.4) K/MM3 [facility] Basophil ABS 0.0 (0.0-0.1) K/MM3 [facility] Granulocytes Absolute 0.0 K/MM3 [facility] Neutrophils % Auto 55.1 (44-76) % [facility] Lymphs 29.4 (15-43) % [facility] Monocytes Absolute 11.5(H) (4.5-10.5) % [facility] Eosinophils 3.1 (0-6) % [facility] Basophils Relative 0.7 (0-2) % [facility] Immature Granulocytes 0.2 % [facility] Comment: Testing performed or reported by [facility], a Service of [facility], [address] [place] [address] Cam Richards MD, Defense Travel Administrator [facility]# [id number] Blood (Blood, Venous) 09/01/2023 11:25 AM EST 09/01/2023 11:26 AM EST us Milton Escobar MD LAB BLOOD ORDERABLES Final Re sult [facility] documented in this encounter Visit Diagnoses Diagnosis Adult type polycystic kidney disease type 1 documented in this encounter Care Teams Tuber Helper Relationship Specialty Start Date End Date Brian Kathleen MD [address] [place] [id number] PCP - General 11/05/20 documented as of this encounter
--- OUTSIDE RECORDS SUMMARY | 2024-12-26 13:01 | XMS_ITS | Encounter Summary ---
Author Organization [facility] [place], Address [address] [place] [address] Phone Care Team Providers Care Civil Structural Designer Name Role Phone Brian Kathleen MD Primary Care Provider [phone] Encounter Details Date Type Department Care Team (Late st Contact Info) Description 06/26/2023 Orders Only [facility] [address] [place] [phone] Milton Escobar MD [address] [place] [address] [place] [address] Adult type polycystic kidney disease [...] Visit [facility] [address] [place] [phone] Milton Escobar MD [address] [place] [phone] documented as of this encounter Procedures Procedure Name Priority Date/Time Associated Diagnosis Comments PROTEIN / CREATININE RATIO, URINE Routine 09/28/2023 2:19 PM EST Adult type polycystic kidney disease type 1 URINALYSIS WITH MICROSCOPIC Routine 09/28/2023 2:19 PM EST Adult type polycystic kidney disease type 1 CBC AND DIFFERENTIAL Routine 09/28/2023 2:19 PM EST Adult type polycystic kidney disease type 1 COMPREHENSIVE METABOLIC PANEL Routine 09/28/2023 2:19 PM EST Adult type polycystic kidney disease type 1 documented in this encounter Results * Protein, Total, Random Urine w/Creatinine (Protein/Creat Ratio) (09/28/2023 2:19 PM EST) [facility] Protein/Creatin e Ratio 0.19 (0-0.2) [facility] Protein, Urine 8 MG/DL [facility] Creatinine, Urine 41.6 MG/DL [facility] Comment: Testing performed or reported by [facility], a Service of [facility], [address] [place] [address] Cam Richards MD, Crayon Sawyer [facility]# [id number] Urine (Urine, Clean Catch) 09/28/2023 2:19 PM EST 09/28/2023 2:21 PM EST us Milton Escobar MD LAB URINE ORDERABLES Final Re sult [facility] * Urinalysis with microscopic (09/28/2023 2:19 PM EST) [facility] Appearance COLORLESS [facility] Comment:CLEAR Specific [place] 1.006 (1.002-1. 030) [facility] pH Urine 6.0 (5.0-8.0) [facility] Albumin, Urine NEGATIVE (NEG) [facility] Glucose, Ur NEGATIVE (NEG) [facility] Ketones, Urine NEGATIVE (NEG) [facility] Bilirubin Urine NEGATIVE (NEG) [facility] Hemoglobin Presence in Urine NEGATIVE (NEG) [facility] Nitrite, Urine NEGATIVE (NEG) [facility] Leukocyte Esterase Urine NEGATIVE (NEG) [facility] Urobilinogen Urine NORMAL (NORM) MG/DL [facility] WBC, Urine <1 (0-5) /HPF [facility] RBC, Urine <1 (0-3) /HPF [facility] Mucus, Urine SLIGHT /LPF [facility] Squamous Epithelial, Urine <1 (0-8) /HPF [facility] Comment: Testing performed or reported by [facility], a Service of [facility], [address] [place] [address] Cam Richards MD, Crayon Sawyer [facility]# [id number] Urine (Urine, Clean Catch) 09/28/2023 2:19 PM EST 09/28/2023 2:21 PM EST us Milton Escobar MD LAB URINE ORDERABLES Final Re sult [facility] * (ABNORMAL) Comprehensive metabolic panel (09/28/2023 2:19 PM EST) Glucose 121(H) (70-99) MG/DL [facility] BUN 33(H) (8-23) MG/DL [facility] Creatinine 1.8(H) (0.5-1.0) MG/DL [facility] Sodium 137 (133-145) MMOL/L [facility] Potassium 4.4 (3.6-5.2) MMOL/L [facility] Chloride 103 (98-107) MMOL/L [facility] Bicarbonate (CO2) 25 (22-29) MMOL/L [facility] Anion Gap 9 (4-17) [facility] Albumin 4.5 (3.4-4.8) GM/DL [facility] Calcium 9.6 (8.6-10.5) MG/DL [facility] Total Bilirubin 0.3 (0-1.2) MG/DL [facility] Protein, Total 6.6 (6.2-8.2) GM/DL [facility] A/G Ratio 2.1 [facility] AST (SGOT) 16 (0-32) U/L [facility] Alkaline Phosphatase 90 (35-104) U/L [facility] ALT (SGPT) 9 (0-33) U/L [facility] Est GFR Non 31 ML/MIN/1.7 3 M2 [facility] Comment: Creatinine based estimated glomerular filtration (eGFR) in adults is calculated using the National Kidney Foundation recommended 2020 CKD-EPI equation. Estimates GFR from serum creatinine, age and sex. Testing performed or reported by [facility], a Service of [facility], [address] [place] [address] Cam Richards MD, Crayon Sawyer [facility]# [id number] Blood (Blood, Venous) 09/28/2023 2:19 PM EST 09/28/2023 2:21 PM EST us Milton Escobar MD LAB BLOOD ORDERABLES Final Re sult [facility] * (ABNORMAL) CBC and Differential (09/28/2023 2:19 PM EST) White Blood Cells 5.0 (4.0-11.0) K/MM3 [facility] RBC 3.38(L) (4.20-5.40 ) M/MM3 [facility] Hgb 9.6(L) (11.7-15.5 ) GM/DL [facility] Hematocrit 31.4(L) (35.7-45.8 ) % [facility] MCV 92.9 (80.0-100. 0) FL [facility] MCH 28.4 (27.0-34.0 ) PG [facility] MCHC 30.6(L) (33.0-37.0 ) g/dL [facility] Platelets 208 (150-460) K/MM3 [facility] RDW-SD 47.6(H) (<47.0) FL [facility] MPV 9.7 (9.4-12.4) FL [facility] nRBC Count 0.0 #/100 WBC'S [facility] NRBC Absolute 0.0 K/MM3 [facility] Neutrophils Abs Auto 2.9 (1.3-7.0) K/MM3 [facility] Lymphocytes Relative 1.4 (0.8-3.1) K/MM3 [facility] Monocytes 0.6 (0.4-0.9) K/MM3 [facility] Eosinophils Relative 0.2 (0.0-0.4) K/MM3 [facility] Basophil ABS 0.0 (0.0-0.1) K/MM3 [facility] Granulocytes Absolute 0.0 K/MM3 [facility] Neutrophils % Auto 56.9 (44-76) % [facility] Lymphs 27.3 (15-43) % [facility] Monocytes Absolute 11.8(H) (4.5-10.5) % [facility] Eosinophils 3.0 (0-6) % [facility] Basophils Relative 0.8 (0-2) % [facility] Immature Granulocytes 0.2 % [facility] Comment: Testing performed or reported by [facility], a Service of [facility], [address] [place] [address] Cam Richards MD, Crayon Sawyer [facility]# [id number] Blood (Blood, Venous) 09/28/2023 2:19 PM EST 09/28/2023 2:21 PM EST us Milton Escobar MD LAB BLOOD ORDERABLES Final Re sult [facility] documented in this encounter Visit Diagnoses Diagnosis Adult type polycystic kidney disease type 1 documented in this encounter Care Teams Civil Structural Designer Relationship Specialty Start Date End Date Brian Kathleen MD [address] [place] [address] PCP - General 11/05/20 documented as of this encounter
--- OUTSIDE RECORDS SUMMARY | 2024-12-26 13:01 | XMS_ITS | Encounter Summary ---
Author Organization [facility] [place], Address [address] [place] [address] Phone Care Team Providers Care Compressed Air Pile Driver Operator Name Role Phone Brian Kathleen MD Primary Care Provider [phone] Encounter Details Date Type Department Care Team (Late Contact Info) Description 02/26/2024 Orders Only [facility] [address] [place] [phone] Milton Escobar MD [address] [place] [address] Adult type polycystic kidney disease [...] Visit [facility] [place], [address] [place] [address] Milton Escobar MD [address] [place] [phone] documented as of this encounter Visit Diagnoses Diagnosis Adult type polycystic kidney disease type 1 documented in this encounter Care Teams Compressed Air Pile Driver Operator Relationship Specialty Start Date End Date Brian Kathleen MD [address] [place] [address] PCP - General 11/05/20 documented as of this encounter
--- OUTSIDE RECORDS SUMMARY | 2024-12-26 13:01 | XMS_ITS | Encounter Summary ---
Author Organization [facility] [place], Address [address] [place] [address] Phone Care Team Providers Care Chemical Plant Operator Name Role Phone Brian Kathleen MD Primary Care Provider [phone] Encounter Details Date Type Department Care Team (Late st Contact Info) Description 03/06/2023 Orders Only [facility] [address] [place] [phone] Milton Escobar MD [address] [place] [address] [place] [address] Adult type polycystic kidney disease [...] Visit [facility] [address] [place] [place] [phone] Milton Escobar MD [address] [place] [phone] documented as of this encounter Procedures Procedure Name Priority Date/Time Associated Diagnosis Comments PROTEIN / CREATININE RATIO, URINE Routine 03/09/2023 1:11 PM EDT Adult type polycystic kidney disease type 1 URINALYSIS WITH MICROSCOPIC Routine 03/09/2023 1:11 PM EDT Adult type polycystic kidney disease type 1 CBC AND DIFFERENTIAL Routine 03/09/2023 1:11 PM EDT Adult type polycystic kidney disease type 1 COMPREHENSIVE METABOLIC PANEL Routine 03/09/2023 1:11 PM EDT Adult type polycystic kidney disease type 1 documented in this encounter Results * (ABNORMAL) Protein, Total, Random Urine w/Creatinine (Protein/Creat Ratio) (03/09/2023 1:11 PM EDT) Pathologist [facility] Protein/Creati ne Ratio 0.28(H) (0-0.2) [facility] Protein, Urine 16 MG/DL [facility] Creatinine, Urine 55.5 MG/DL [facility] Comment: Testing performed or reported by [facility], a Service of [facility], [address] [place] [address] Cam Richards MD, Poultry Picker [facility]# [id number] Urine (Urine, Clean Catch) 03/09/2023 1:11 PM EDT 03/09/2023 1:15 PM EDT us Milton Escobar MD LAB URINE ORDERABLES Final Re sult [facility] * (ABNORMAL) Urinalysis with microscopic (03/09/2023 1:11 PM EDT) Pathologist [facility] Appearance COLORLESS [facility] Comment:CLEAR Specific [place] 1.007 (1.002-1. 030) [facility] pH Urine 5.5 (5.0-8.0) [facility] Albumin, Urine TRACE(A) (NEG) [facility] Glucose, Ur NEGATIVE (NEG) [facility] Ketones, Urine NEGATIVE (NEG) [facility] Bilirubin Urine NEGATIVE (NEG) [facility] Hemoglobin Presence in Urine NEGATIVE (NEG) [facility] Nitrite, Urine NEGATIVE (NEG) [facility] Leukocyte Esterase Urine 1+(A) (NEG) [facility] Urobilinogen Urine NORMAL (NORM) MG/DL [facility] WBC, Urine 1 (0-5) /HPF [facility] RBC, Urine NONE SEEN (0-3) /HPF [facility] Mucus, Urine SLIGHT /LPF [facility] Squamous Epithelial, Urine 2 (0-8) /HPF [facility] Trans Epithelial, Urine <1 /HPF [facility] Comment: Testing performed or reported by [facility], a Service of [facility], [address] [place] [address] Cam Richards MD, Poultry Picker [facility]# [id number] Urine (Urine, Clean Catch) 03/09/2023 1:11 PM EDT 03/09/2023 1:15 PM EDT us Milton Escobar MD LAB URINE ORDERABLES Final Re sult [facility] * (ABNORMAL) Comprehensive metabolic panel (03/09/2023 1:11 PM EDT) Glucose 104(H) (70-99) MG/DL [facility] BUN 29(H) (8-23) MG/DL [facility] Creatinine 1.6(H) (0.5-1.0) MG/DL [facility] Sodium 133 (133-145) MMOL/L [facility] Potassium 4.5 (3.6-5.2) MMOL/L [facility] Chloride 96(L) (98-107) MMOL/L [facility] Bicarbonate (CO2) 26 (22-29) MMOL/L [facility] Anion Gap 11 (4-17) [facility] Albumin 4.7 (3.4-4.8) GM/DL [facility] Calcium 9.6 (8.6-10.5) MG/DL [facility] Total Bilirubin 0.4 (0-1.2) MG/DL [facility] Protein, Total 7.0 (6.2-8.2) GM/DL [facility] A/G Ratio 2.0 [facility] AST (SGOT) 16 (0-32) U/L [facility] Alkaline Phosphatase 69 (35-104) U/L [facility] ALT (SGPT) 12 (0-33) U/L [facility] Est GFR Non 36 ML/MIN/1.7 3 M2 [facility] Comment: Creatinine based estimated glomerular filtration (eGFR) in adults is calculated using the National Kidney Foundation recommended 2020 CKD-EPI equation. Estimates GFR from serum creatinine, age and sex. Testing performed or reported by [facility], a Service of [facility], [address] [place] [id number] Cam Richards MD, Poultry Picker [facility]# [id number] Blood (Blood, Venous) 03/09/2023 1:11 PM EDT 03/09/2023 1:15 PM EDT us Milton Escobar MD LAB BLOOD ORDERABLES Final Re sult [facility] * (ABNORMAL) CBC and Differential (03/09/2023 1:11 PM EDT) White Blood Cells 5.9 (4.0-11.0) K/MM3 [facility] RBC 3.60(L) (4.20-5.40 ) M/MM3 [facility] Hgb 10.9(L) (11.7-15.5 ) GM/DL [facility] Hematocrit 33.6(L) (35.7-45.8 ) % [facility] MCV 93.3 (80.0-100. 0) FL [facility] MCH 30.3 (27.0-34.0 ) PG [facility] MCHC 32.4(L) (33.0-37.0 ) g/dL [facility] Platelets 223 (150-460) K/MM3 [facility] RDW-SD 45.1 (<47.0) FL [facility] MPV 8.8(L) (9.4-12.4) FL [facility] nRBC Count 0.0 #/100 WBC'S [facility] NRBC Absolute 0.0 K/MM3 [facility] Neutrophils Abs Auto 3.9 (1.3-7.0) K/MM3 [facility] Lymphocytes Relative 1.0 (0.8-3.1) K/MM3 [facility] Monocytes 0.8 (0.4-0.9) K/MM3 [facility] Eosinophils Relative 0.2 (0.0-0.4) K/MM3 [facility] Basophil ABS 0.0 (0.0-0.1) K/MM3 [facility] Granulocytes Absolute 0.0 K/MM3 [facility] Neutrophils % Auto 65.6 (44-76) % [facility] Lymphs 17.7 (15-43) % [facility] Monocytes Absolute 13.2(H) (4.5-10.5) % [facility] Eosinophils 2.5 (0-6) % [facility] Basophils Relative 0.7 (0-2) % [facility] Immature Granulocytes 0.3 % [facility] Comment: Testing performed or reported by [facility], a Service of [facility], [address] [place] [id number] Cam Richards MD, Poultry Picker [facility]# [id number] Blood (Blood, Venous) 03/09/2023 1:11 PM EDT 03/09/2023 1:13 PM EDT us Milton Escobar MD LAB BLOOD ORDERABLES Final Re sult [facility] documented in this encounter Visit Diagnoses Diagnosis Adult type polycystic kidney disease type 1 documented in this encounter Care Teams Chemical Plant Operator Relationship Specialty Start Date End Date Brian Kathleen MD [address] [place] [address] PCP - General 11/05/20 documented as of this encounter
--- OUTSIDE RECORDS SUMMARY | 2024-12-26 13:01 | XMS_ITS | Encounter Summary ---
Author Organization [facility] [place], Address [address] [place] [address] Phone Care Team Providers Care Wire Weaver Helper Name Role Phone Brian Kathleen MD Primary Care Provider Encounter Details Date Type Department Care Team (Late st Contact Info) Description 09/09/2024 Orders Only [facility] [address] [place] [phone] Milton Escobar MD [address] [place] [address] [place] [address] Adult type polycystic kidney disease [...] Visit [facility] [place], [address] [place] [address] Milton Escobar MD [address] [place] [phone] documented as of this encounter Visit Diagnoses Diagnosis Adult type polycystic kidney disease type 1 documented in this encounter Care Teams Wire Weaver Helper Relationship Specialty Start Date End Date Brian Kathleen MD [address] [place] [address] PCP - General 11/05/20 documented as of this encounter
--- OUTSIDE RECORDS SUMMARY | 2024-12-26 13:01 | XMS_ITS | Encounter Summary ---
Author Organization [facility] [place], Address [address] [place] [address] Phone Care Team Providers Care Community Relations Liaison Name Role Phone Brian Kathleen MD Primary Care Provider [phone] Encounter Details Date Type Department Care Team (Late Contact Info) Description 06/10/2024 Orders Only [facility] [address] [place] [phone] Milton Escobar MD [address] [place] [address] [place] [address] Adult type polycystic kidney disease [...] Visit [facility] [place], [address] [place] [address] Milton Escobar MD [address] [place] [address] documented as of this encounter Visit Diagnoses Diagnosis Adult type polycystic kidney disease type 1 documented in this encounter Care Teams Community Relations Liaison Relationship Specialty Start Date End Date Brian Kathleen MD [address] [place] [address] PCP - General 11/05/20 documented as of this encounter
--- OUTSIDE RECORDS SUMMARY | 2024-12-26 13:01 | XMS_ITS ---
Author Organization [facility] Address [address] [place] [address] Drive [address] [place] [address] Care Team Providers Care Car Dispatcher Name Role Phone Brian Kathleen MD Primary Care Provider UnavailJohn Oliver Jr [phone] REASON FOR VISIT colon screening Encounters Encounter Location Date Provider Diagnosis [facility] [address] [place] [id number] 08/09/2024 John Bowie Jr PLAN OF TREATMENT Next Appt Details Provider Name:John lopez Jr, 03/01/2025 09:00:00 AM, [address] [place] [address], [address], [place], [address],
--- OUTSIDE RECORDS SUMMARY | 2024-12-26 13:01 | XMS_ITS | Encounter Summary ---
Author Organization [facility] Address [address] [place] [address] Phone Care Team Providers Care Freelance Writer Name Role Phone Brian Kathleen MD Primary Care Provider Encounter Details Date Type Department Care Team (Late Contact Info) Description 02/04/2024 Documentation Only [facility] [address] [place] [phone] Kellie Aguilar [address] [place] [address] Social History Tobacco Use Types [...] Visit [facility] [address] [place] [address] Milton Escobar MD [address] [place] [address] [place] [address] documented as of this encounter Visit Diagnoses Not on filedocumented in this encounter Care Teams Freelance Writer Relationship Specialty Start Date End Date Brian Kathleen MD [address] [place] [address] PCP - General 11/05/20 documented as of this encounter
--- OUTSIDE RECORDS SUMMARY | 2024-12-26 13:01 | XMS_ITS | Encounter Summary ---
Author Organization [facility] [place], Address [address] [place] [address] Phone Care Team Providers Care Geriatric Nurse Practitioner Name Role Phone Brian Kathleen MD Primary Care Provider Encounter Details Date Type Department Care Team (Late Contact Info) Description 11/25/2024 Orders Only [facility] [address] [place] [phone] Milton Escobar MD [address] [place] [address] [place] [address] Adult type polycystic kidney disease [...] Visit [facility] [place], [address] [place] [address] Milton Escobar MD [address] [place] [address] documented as of this encounter Visit Diagnoses Diagnosis Adult type polycystic kidney disease type 1 documented in this encounter Care Teams Geriatric Nurse Practitioner Relationship Specialty Start Date End Date Brian Kathleen MD [address] [place] [address] PCP - General 11/05/20 documented as of this encounter
--- OUTSIDE RECORDS SUMMARY | 2024-12-26 13:01 | XMS_ITS | Encounter Summary ---
Author Organization [facility] Address [address] [place] [address] Phone Care Team Providers Care Theatre Manager Name Role Phone Brian Kathleen MD Primary Care Provider [phone] Encounter Details Date Type Department Care Team (Late Contact Info) Description 08/04/2024 Documentation Only [facility] [address] [place] [phone] Kellie Aguilar [address] [place] [address] Social History Tobacco Use Types [...] Visit [facility] [address] [place] [address] Milton Escobar MD [address] [place] [address] [place] [address] documented as of this encounter Visit Diagnoses Not on filedocumented in this encounter Care Teams Theatre Manager Relationship Specialty Start Date End Date Brian Kathleen MD [address] [place] [address] PCP - General 11/05/20 documented as of this encounter
--- OUTSIDE RECORDS SUMMARY | 2024-12-26 13:01 | XMS_ITS | Encounter Summary ---
Author Organization [facility] [place], Address [address] [place] [address] Phone Care Team Providers Care Gin Inspector Name Role Phone Brian Kathleen MD Primary Care Provider [phone] Encounter Details Date Type Department Care Team (Late Contact Info) Description 06/17/2024 Orders Only [facility] [address] [place] [phone] Milton Escobar MD [address] [place] [address] Adult type polycystic kidney disease [...] Visit [facility] [place], [address] [place] [address] Milton Escobar MD [address] [place] [address] documented as of this encounter Visit Diagnoses Diagnosis Adult type polycystic kidney disease type 1 documented in this encounter Care Teams Gin Inspector Relationship Specialty Start Date End Date Brian Kathleen MD [address] [place] [address] PCP - General 11/05/20 documented as of this encounter
--- OUTSIDE RECORDS SUMMARY | 2024-12-26 13:01 | XMS_ITS | Encounter Summary ---
Author Organization [facility] [place], Address [address] [place] [address] Phone Care Team Providers Care Loss Prevention Investigator Name Role Phone Brian Kathleen MD Primary Care Provider [phone] Encounter Details Date Type Department Care Team (Late Contact Info) Description 12/23/2024 Orders Only [facility] [address] [place] [phone] Milton Escobar MD [address] [place] [address] [place] [address] Adult type polycystic kidney disease [...] Visit [facility] [place], [address] [place] [address] Milton Escobar MD [address] [place] [address] documented as of this encounter Visit Diagnoses Diagnosis Adult type polycystic kidney disease type 1 documented in this encounter Care Teams Loss Prevention Investigator Relationship Specialty Start Date End Date Brian Kathleen MD [address] [place] [address] PCP - General 11/05/20 documented as of this encounter
--- OUTSIDE RECORDS SUMMARY | 2024-12-26 13:01 | XMS_ITS | Encounter Summary ---
Author Organization [facility] [place], Address [address] [place] [address] Phone Care Team Providers Care Neon Sign Worker Name Role Phone Brian Kathleen MD Primary Care Provider [phone] Encounter Details Date Type Department Care Team (Late Contact Info) Description 03/25/2024 Orders Only [facility] [address] [place] [phone] Milton Escobar MD [address] [place] [address] Adult type polycystic kidney disease [...] Visit [facility] [place], [address] [place] [address] Milton Escobar MD [address] [place] [address] documented as of this encounter Visit Diagnoses Diagnosis Adult type polycystic kidney disease type 1 documented in this encounter Care Teams Neon Sign Worker Relationship Specialty Start Date End Date Brian Kathleen MD [address] [place] [address] PCP - General 11/05/20 documented as of this encounter
--- OUTSIDE RECORDS SUMMARY | 2024-12-26 13:01 | XMS_ITS | Encounter Summary ---
Author Organization [facility] [place], Address [address] [place] [address] Phone Care Team Providers Care Lead Printer Name Role Phone Brian Kathleen MD Primary Care Provider [phone] Encounter Details Date Type Department Care Team (Late Contact Info) Description 12/02/2024 Orders Only [facility] [address] [place] [phone] Milton Escobar MD [address] [place] [address] [place] [address] Adult type polycystic kidney disease [...] Visit [facility] [place], [address] [place] [address] Milton Escobar MD [address] [place] [address] documented as of this encounter Visit Diagnoses Diagnosis Adult type polycystic kidney disease type 1 documented in this encounter Care Teams Lead Printer Relationship Specialty Start Date End Date Brian Kathleen MD [address] [place] [address] PCP - General 11/05/20 documented as of this encounter
--- OUTSIDE RECORDS SUMMARY | 2024-12-26 13:01 | XMS_ITS | Encounter Summary ---
Author Organization [facility] Address [address] [place] [address] Phone Care Team Providers Care Wood Experimental Mechanic Name Role Phone Brian Kathleen MD Primary Care Provider [phone] Encounter Details Date Type Department Care Team (Late Contact Info) Description 05/13/2024 Documentation Only [facility] [address] [place] [phone] Kellie Aguilar [address] [place] [address] Social History Tobacco Use Types [...] Visit [facility] [address] [place] [address] Milton Escobar MD [address] [place] [address] [place] [address] documented as of this encounter Visit Diagnoses Not on filedocumented in this encounter Care Teams Wood Experimental Mechanic Relationship Specialty Start Date End Date Brian Kathleen MD [address] [place] [address] PCP - General 11/05/20 documented as of this encounter
--- OUTSIDE RECORDS SUMMARY | 2024-12-26 13:01 | XMS_ITS | Encounter Summary ---
Author Organization [facility] Address [address] [place] [address] Phone Care Team Providers Care Staff Readiness Officer Name Role Phone Brian Kathleen MD Primary Care Provider [phone] Encounter Details Date Type Department Care Team (Late Contact Info) Description 02/04/2024 Documentation Only [facility] [address] [place] [phone] Kellie Aguilar [address] [place] [address] Social History Tobacco Use Types [...] Visit [facility] [address] [place] [address] Milton Escobar MD [address] [place] [address] [place] [address] documented as of this encounter Visit Diagnoses Not on filedocumented in this encounter Care Teams Staff Readiness Officer Relationship Specialty Start Date End Date Brian Kathleen MD [address] [place] [address] PCP - General 11/05/20 documented as of this encounter
--- OUTSIDE RECORDS SUMMARY | 2024-12-26 13:01 | XMS_ITS | Encounter Summary ---
Author Organization [facility] [place], Address [address] [place] [address] Phone Care Team Providers Care Hr Administrative Assistant Name Role Phone Brian Kathleen MD Primary Care Provider [phone] Encounter Details Date Type Department Care Team (Late st Contact Info) Description 08/21/2023 Orders Only [facility] [address] [place] [phone] Milton Escobar MD [address] [place] [address] [place] [address] Adult type polycystic kidney disease [...] Visit [facility] [address] [place] [address] Milton Escobar MD [address] [place] [address] documented as of this encounter Procedures Procedure Name Priority Date/Time Associated Diagnosis Comments PROTEIN / CREATININE RATIO, URINE Routine 08/21/2023 1:50 PM EDT Adult type polycystic kidney disease type 1 URINALYSIS WITH MICROSCOPIC Routine 08/21/2023 1:50 PM EDT Adult type polycystic kidney disease type 1 CBC AND DIFFERENTIAL Routine 08/21/2023 1:50 PM EDT Adult type polycystic kidney disease type 1 PHOSPHATE ( PHOSPHORUS) Routine 08/21/2023 1:50 PM EDT COMPREHENSIVE METABOLIC PANEL Routine 08/21/2023 1:50 PM EDT Adult type polycystic kidney disease type 1 documented in this encounter Results * Phosphorus (08/21/2023 1:50 PM EDT) [facility] Phosphorus, Serum 3.8 (2.5-4.5) MG/DL [facility] Comment: Testing performed or reported by [facility], a Service of [facility], [address] [place] [address] Cam Richards MD, Representative Phlebotomy Services CLIA# [id number] 08/21/2023 1:50 PM EDT 08/21/2023 1:53 PM EDT us Milton Escobar MD LAB BLOOD ORDERABLES Final Re sult [facility] * (ABNORMAL) Protein, Total, Random Urine w/Creatinine (Protein/Creat Ratio) (08/21/2023 1:50 PM EDT) [facility] Protein/Creati ne Ratio 0.22(H) (0-0.2) [facility] Protein, Urine 9 MG/DL [facility] Creatinine, Urine 39.7 MG/DL [facility] Comment: Testing performed or reported by [facility], a Service of [address] [address] Cam Richards MD, Representative Phlebotomy Services CLIA# [id number] Urine (Urine, Clean Catch) 08/21/2023 1:50 PM EDT 08/21/2023 1:54 PM EDT Milton Escobar MD LAB URINE ORDERABLES Final Re sult Performing Organization Address [facility] de Phone Number [facility] * (ABNORMAL) Urinalysis with microscopic (08/21/2023 1:50 PM EDT) Appearance COLORLESS [facility] Comment:CLEAR Specific [place] 1.006 (1.002-1. 030) [facility] pH Urine 6.0 (5.0-8.0) [facility] Albumin, Urine NEGATIVE (NEG) [facility] Glucose, Ur NEGATIVE (NEG) [facility] Ketones, Urine NEGATIVE (NEG) [facility] Bilirubin Urine NEGATIVE (NEG) [facility] Hemoglobin Presence in Urine NEGATIVE (NEG) [facility] Nitrite, Urine NEGATIVE (NEG) [facility] Leukocyte Esterase Urine 3+(A) (NEG) [facility] Urobilinogen Urine NORMAL (NORM) MG/DL [facility] WBC, Urine 4 (0-5) /HPF [facility] RBC, Urine 1 (0-3) /HPF [facility] Bacteria SLIGHT(A) (NEG) HPF [facility] Mucus, Urine SLIGHT /LPF [facility] Squamous Epithelial, Urine 1 (0-8) /HPF [facility] Comment: Testing performed or reported by [facility], a Service of [facility], [address] [place] [address] Cam Richards MD, Representative Phlebotomy Services [facility]# [id number] Urine (Urine, Clean Catch) 08/21/2023 1:50 PM EDT 08/21/2023 1:54 PM EDT Milton Escobar MD LAB URINE ORDERABLES Final Re sult Performing Organization Address [facility]/ZIP Co de Phone Number [facility] * (ABNORMAL) Comprehensive metabolic panel (08/21/2023 1:50 PM EDT) Glucose 89 (70-99) MG/DL [facility] BUN 28(H) (8-23) MG/DL [facility] Creatinine 1.9(H) (0.5-1.0) MG/DL [facility] Sodium 139 (133-145) MMOL/L [facility] Potassium 4.1 (3.6-5.2) MMOL/L [facility] Chloride 102 (98-107) MMOL/L [facility] Bicarbonate (CO2) 25 (22-29) MMOL/L [facility] Anion Gap 12 (4-17) [facility] Albumin 4.6 (3.4-4.8) GM/DL [facility] Calcium 9.6 (8.6-10.5) MG/DL [facility] Total Bilirubin 0.4 (0-1.2) MG/DL [facility] Protein, Total 6.4 (6.2-8.2) GM/DL [facility] A/G Ratio 2.6 [facility] AST (SGOT) 17 (0-32) U/L [facility] Alkaline Phosphatase 86 (35-104) U/L [facility] ALT (SGPT) 11 (0-33) U/L [facility] Est GFR Non 29 ML/MIN/1.7 3 M2 [facility] Comment: Creatinine based estimated glomerular filtration (eGFR) in adults is calculated using the National [employer] recommended 2020 CKD-EPI equation. Estimates GFR from serum creatinine, age and sex. Testing performed or reported by [facility], a Service of [facility], [address] [place] [address] Cam Richards MD, Representative Phlebotomy Services [facility]# [id number] Blood (Blood, Venous) 08/21/2023 1:50 PM EDT 08/21/2023 1:53 PM EDT us Milton Escobar MD LAB BLOOD ORDERABLES Final Re sult [facility] * (ABNORMAL) CBC and Differential (08/21/2023 1:50 PM EDT) White Blood Cells 5.5 (4.0-11.0) K/MM3 [facility] RBC 3.39(L) (4.20-5.40 ) M/MM3 [facility] Hgb 10.1(L) (11.7-15.5 ) GM/DL [facility] Hematocrit 32.2(L) (35.7-45.8 ) % [facility] MCV 95.0 (80.0-100. 0) FL [facility] MCH 29.8 (27.0-34.0 ) PG [facility] MCHC 31.4(L) (33.0-37.0 ) g/dL [facility] Platelets 185 (150-460) K/MM3 [facility] RDW-SD 49.0(H) (<47.0) FL [facility] MPV 9.4 (9.4-12.4) FL [facility] nRBC Count 0.0 #/100 WBC'S [facility] NRBC Absolute 0.0 K/MM3 [facility] Neutrophils Abs Auto 3.2 (1.3-7.0) K/MM3 [facility] Lymphocytes Relative 1.4 (0.8-3.1) K/MM3 [facility] Monocytes 0.7 (0.4-0.9) K/MM3 [facility] Eosinophils Relative 0.1 (0.0-0.4) K/MM3 [facility] Basophil ABS 0.1 (0.0-0.1) K/MM3 [facility] Granulocytes Absolute 0.0 K/MM3 [facility] Neutrophils % Auto 57.3 (44-76) % [facility] Lymphs 25.5 (15-43) % [facility] Monocytes Absolute 13.4(H) (4.5-10.5) % [facility] Eosinophils 2.5 (0-6) % [facility] Basophils Relative 0.9 (0-2) % [facility] Immature Granulocytes 0.4 % [facility] Comment: Testing performed or reported by [facility], a Service of [facility], [address] [place] [address] Cam Richards MD, Representative Phlebotomy Services [facility]# [id number] Blood (Blood, Venous) 08/21/2023 1:50 PM EDT 08/21/2023 1:53 PM EDT us Milton Escobar MD LAB BLOOD ORDERABLES Final Re sult [facility] documented in this encounter Visit Diagnoses Diagnosis Adult type polycystic kidney disease type 1 documented in this encounter Care Teams Hr Administrative Assistant Relationship Specialty Start Date End Date Brian Kathleen MD [address] [place] [address] PCP - General 11/05/20 documented as of this encounter
--- OUTSIDE RECORDS SUMMARY | 2024-12-26 13:01 | XMS_ITS | Encounter Summary ---
Author Organization [facility] Address [address] [place] [address] Phone Care Team Providers Care Gsa Coordinator Name Role Phone Brian Kathleen MD Primary Care Provider [phone] Encounter Details Date Type Department Care Team (Late st Contact Info) Description 04/10/2023 Orders Only [facility] [address] [place] [phone] Milton Escobar MD [address] [facility] [place] [address] Stage 3b chronic kidney disease (HCC); Adult type polycystic kidney disease type 1 [...] Visit [facility] [address] [place] [address] Milton Escobar MD [address] [place] [address] documented as of this encounter Visit Diagnoses Diagnosis Stage 3b chronic kidney disease (HCC) Adult type polycystic kidney disease type 1 documented in this encounter Care Teams Gsa Coordinator Relationship Specialty Start Date End Date Brian Kathleen MD [address] [place] [address] PCP - General 11/05/20 documented as of this encounter
--- OUTSIDE RECORDS SUMMARY | 2024-12-26 13:01 | XMS_ITS | Encounter Summary ---
Author Organization [facility], Address [address] [place] [address] Phone Care Team Providers Care Digital Media Analyst Name Role Phone Brian Kathleen MD Primary Care Provider [phone] Encounter Details Date Type Department Care Team (Late st Contact Info) Description 07/24/2023 Orders Only [facility] [address] [place] [phone] Milton Escobar MD [address] [place] [address] Adult type polycystic kidney disease type 1 (Primary Dx) Social History Tobacco Use Types Packs/Day Years [...] Visit [facility] [address] [place] [address] Milton Escobar MD [address] [place] [address] documented as of this encounter Procedures Procedure Name Priority Date/Time Associated Diagnosis Comments PROTEIN / CREATININE RATIO, URINE Routine 10/28/2023 11:37 AM EST Adult type polycystic kidney disease type 1 URINALYSIS WITH MICROSCOPIC Routine 10/28/2023 11:37 AM EST Adult type polycystic kidney disease type 1 CBC AND DIFFERENTIAL Routine 10/28/2023 11:37 AM EST Adult type polycystic kidney disease type 1 COMPREHENSIVE METABOLIC PANEL Routine 10/28/2023 11:37 AM EST Adult type polycystic kidney disease type 1 documented in this encounter Results * (ABNORMAL) Protein, Total, Random Urine w/Creatinine (Protein/Creat Ratio) (10/28/2023 11:37 AM EST) Pathologist [facility] Protein/Creati ne Ratio 0.21(H) (0-0.2) [facility] Protein, Urine 6 MG/DL [facility] Creatinine, Urine 29.7 MG/DL [facility] Comment: Testing performed or reported by [facility], a Service of [facility], [address] [place] [address] Cam Richards MD, Industrial Machine System Technician [facility]# [id number] Urine (Urine, Clean Catch) 10/28/2023 11:37 AM EST 10/28/2023 11:38 AM EST us Milton Escobar MD LAB URINE ORDERABLES Final Re sult [facility] * Urinalysis with microscopic (10/28/2023 11:37 AM EST) Pathologist [facility] Appearance COLORLESS [facility] Comment:CLEAR Specific [place] 1.005 (1.002-1. 030) [facility] pH Urine 6.0 (5.0-8.0) [facility] Albumin, Urine NEGATIVE (NEG) [facility] Glucose, Ur NEGATIVE (NEG) [facility] Ketones, Urine NEGATIVE (NEG) [facility] Bilirubin Urine NEGATIVE (NEG) [facility] Hemoglobin Presence in Urine NEGATIVE (NEG) [facility] Nitrite, Urine NEGATIVE (NEG) [facility] Leukocyte Esterase Urine NEGATIVE (NEG) [facility] Urobilinogen Urine NORMAL (NORM) MG/DL [facility] WBC, Urine NONE SEEN (0-5) /HPF [facility] RBC, Urine NONE SEEN (0-3) /HPF [facility] Comment: Testing performed or reported by [facility], a Service of [facility], [address] [place] [address] Cam Richards MD, Industrial Machine System Technician [facility]# [id number] Urine (Urine, Clean Catch) 10/28/2023 11:37 AM EST 10/28/2023 11:38 AM EST us Milton Escobar MD LAB URINE ORDERABLES Final Re sult [facility] * (ABNORMAL) Comprehensive metabolic panel (10/28/2023 11:37 AM EST) Glucose 104(H) (70-99) MG/DL [facility] BUN 33(H) (8-23) MG/DL [facility] Creatinine 1.9(H) (0.5-1.0) MG/DL [facility] Sodium 140 (133-145) MMOL/L [facility] Potassium 4.6 (3.6-5.2) MMOL/L [facility] Chloride 102 (98-107) MMOL/L [facility] Bicarbonate (CO2) 28 (22-29) MMOL/L [facility] Anion Gap 10 (4-17) [facility] Albumin 4.5 (3.4-4.8) GM/DL [facility] Calcium 9.5 (8.6-10.5) MG/DL [facility] Total Bilirubin 0.5 (0-1.2) MG/DL [facility] Protein, Total 6.8 (6.2-8.2) GM/DL [facility] A/G Ratio 2.0 [facility] AST (SGOT) 15 (0-32) U/L [facility] Alkaline Phosphatase 86 (35-104) U/L [facility] ALT (SGPT) 9 (0-33) U/L [facility] Est GFR Non 29 ML/MIN/1.7 3 M2 [facility] Comment: Creatinine based estimated glomerular filtration (eGFR) in adults is calculated using the National [employer] recommended 2020 CKD-EPI equation. Estimates GFR from serum creatinine, age and sex. Testing performed or reported by [facility], a Service of [facility], [address] [place] [address] Cam Richards MD, Industrial Machine System Technician [facility]# [id number] Blood (Blood, Venous) 10/28/2023 11:37 AM EST 10/28/2023 11:38 AM EST us Milton Escobar MD LAB BLOOD ORDERABLES Final Re sult [facility] * (ABNORMAL) CBC and Differential (10/28/2023 11:37 AM EST) White Blood Cells 4.3 (4.0-11.0) K/MM3 [facility] RBC 3.53(L) (4.20-5.40 ) M/MM3 [facility] Hgb 10.1(L) (11.7-15.5 ) GM/DL [facility] Hematocrit 32.3(L) (35.7-45.8 ) % [facility] MCV 91.5 (80.0-100. 0) FL [facility] MCH 28.6 (27.0-34.0 ) PG [facility] MCHC 31.3(L) (33.0-37.0 ) g/dL [facility] Platelets 193 (150-460) K/MM3 [facility] RDW-SD 45.9 (<47.0) FL [facility] MPV 9.5 (9.4-12.4) FL [facility] nRBC Count 0.0 #/100 WBC'S [facility] NRBC Absolute 0.0 K/MM3 [facility] Neutrophils Abs Auto 2.4 (1.3-7.0) K/MM3 [facility] Lymphocytes Relative 1.3 (0.8-3.1) K/MM3 [facility] Monocytes 0.4 (0.4-0.9) K/MM3 [facility] Eosinophils Relative 0.1 (0.0-0.4) K/MM3 [facility] Basophil ABS 0.0 (0.0-0.1) K/MM3 [facility] Granulocytes Absolute 0.0 K/MM3 [facility] Neutrophils % Auto 56.1 (44-76) % [facility] Lymphs 29.7 (15-43) % [facility] Monocytes Absolute 10.1 (4.5-10.5) % [facility] Eosinophils 3.2 (0-6) % [facility] Basophils Relative 0.7 (0-2) % [facility] Immature Granulocytes 0.2 % [facility] Comment: Testing performed or reported by [facility], a Service of [facility], [address] [place] [address] Cam Richards MD, Industrial Machine System Technician [facility]# [id number] Blood (Blood, Venous) 10/28/2023 11:37 AM EST 10/28/2023 11:38 AM EST us Milton Escobar MD LAB BLOOD ORDERABLES Final Re sult [facility] documented in this encounter Visit Diagnoses Diagnosis Adult type polycystic kidney disease type 1- Primary documented in this encounter Care Teams Digital Media Analyst Relationship Specialty Start Date End Date Brian Kathleen MD [address] [place] [address] PCP - General 11/05/20 documented as of this encounter
--- OUTSIDE RECORDS SUMMARY | 2024-12-26 13:01 | XMS_ITS | Encounter Summary ---
Author Organization [facility] Address [address] [place] [address] Phone Care Team Providers Care Dental Laboratory Technician Name Role Phone Brian Kathleen MD Primary Care Provider [phone] Encounter Details Date Type Department Care Team (Late st Contact Info) Description 05/08/2023 Orders Only [facility] [address] [place] [phone] Milton Escobar MD [address] [place] [address] Stage 3b chronic kidney disease [...] Visit [facility] [address] [place] [address] Milton Escobar MD [address] [place] [address] documented as of this encounter Visit Diagnoses Diagnosis Stage 3b chronic kidney disease (HCC) Adult type polycystic kidney disease type 1 documented in this encounter Care Teams Dental Laboratory Technician Relationship Specialty Start Date End Date Brian Kathleen MD [address] [place] [address] PCP - General 11/05/20 documented as of this encounter
--- OUTSIDE RECORDS SUMMARY | 2024-12-26 13:01 | XMS_ITS | Encounter Summary ---
Author Organization [facility] [place], Address [address] [place] [address] Phone Care Team Providers Care Animal Tech Name Role Phone Brian Kathleen MD Primary Care Provider [phone] Encounter Details Date Type Department Care Team (Late Contact Info) Description 04/22/2024 Orders Only [facility] [address] [place] [address] Milton Escobar MD [address] [place] [address] [place] [address] Adult type polycystic kidney disease [...] Visit [facility] [place], [address] [place] [address] Milton Escobar MD [address] [place] [address] documented as of this encounter Visit Diagnoses Diagnosis Adult type polycystic kidney disease type 1 documented in this encounter Care Teams Animal Tech Relationship Specialty Start Date End Date Brian Kathleen MD [address] [place] [address] PCP - General 11/05/20 documented as of this encounter
--- OUTSIDE RECORDS SUMMARY | 2024-12-26 13:01 | XMS_ITS | Encounter Summary ---
Author Organization [facility] Address [address] [place] [address] Phone Care Team Providers Care Pattern Drafter Name Role Phone Brian Kathleen MD Primary Care Provider [phone] Encounter Details Date Type Department Care Team (Late st Contact Info) Description 02/13/2023 Orders Only [facility] [address] [place] [address] Milton Escobar MD [address] [place] [address] Stage 3b chronic kidney disease [...] Visit [facility] [address] [place] [place] [address] Milton Escobar MD [address] [place] [address] documented as of this encounter Visit Diagnoses Diagnosis Stage 3b chronic kidney disease (HCC) Adult type polycystic kidney disease type 1 documented in this encounter Care Teams Pattern Drafter Relationship Specialty Start Date End Date Brian Kathleen MD [address] [place] [address] PCP - General 11/05/20 documented as of this encounter
--- OUTSIDE RECORDS SUMMARY | 2024-12-26 13:01 | XMS_ITS | Encounter Summary ---
Author Organization [facility] [place], Address [address] [place] [address] Phone Care Team Providers Care Application Support Developer Name Role Phone Brian Kathleen MD Primary Care Provider [phone] Encounter Details Date Type Department Care Team (Late Contact Info) Description 07/15/2024 Orders Only [facility] [address] [place] [address] Milton Escobar MD [address] [place] [address] [place] [address] Adult type polycystic kidney disease [...] Visit [facility] [place], [address] [place] [address] Milton Escobar MD [address] [place] [address] documented as of this encounter Visit Diagnoses Diagnosis Adult type polycystic kidney disease type 1 documented in this encounter Care Teams Application Support Developer Relationship Specialty Start Date End Date Brian Kathleen MD [address] [place] [address] PCP - General 11/05/20 documented as of this encounter
--- OUTSIDE RECORDS SUMMARY | 2024-12-26 13:01 | XMS_ITS | Encounter Summary ---
Author Organization [facility] [place], Address [address] [place] [address] Phone Care Team Providers Care Oil Well Services Field Supervisor Name Role Phone Brian Kathleen MD Primary Care Provider [phone] Encounter Details Date Type Department Care Team (Late Contact Info) Description 03/05/2022 Documentation Only [facility] [address] [place] [address] Milton Escobar MD [address] [place] [address] [place] [address] Social History Tobacco Use Types Packs/Day Years [...] Visit [facility] [address] [place] [address] Milton Escobar MD [address] [place] [address] documented as of this encounter Visit Diagnoses Not on filedocumented in this encounter Care Teams Oil Well Services Field Supervisor Relationship Specialty Start Date End Date Brian Kathleen MD [address] [place] [address] PCP - General 11/05/20 documented as of this encounter
--- OUTSIDE RECORDS SUMMARY | 2024-12-26 13:01 | XMS_ITS | Encounter Summary ---
Author Organization [facility] Address [address] [place] [address] Phone Care Team Providers Care Supervisor Assembly And Packing Name Role Phone Brian Kathleen MD Primary Care Provider [phone] Encounter Details Date Type Department Care Team (Late Contact Info) Description 08/04/2024 Documentation Only [facility] [address] [place] [address] Kellie Aguilar [address] [place] [address] Social History Tobacco Use Types [...] Visit [facility] [address] [place] [address] Milton Escobar MD [address] [place] [address] [place] [address] documented as of this encounter Visit Diagnoses Not on filedocumented in this encounter Care Teams Supervisor Assembly And Packing Relationship Specialty Start Date End Date Brian Kathleen MD [address] [place] [address] PCP - General 11/05/20 documented as of this encounter
--- OUTSIDE RECORDS SUMMARY | 2024-12-26 13:01 | XMS_ITS | Encounter Summary ---
Author Organization [facility] [place], Address [address] [place] [address] Phone Care Team Providers Care National Investigative Producer Name Role Phone Brian Kathleen MD Primary Care Provider [phone] Encounter Details Date Type Department Care Team (Late Contact Info) Description 09/02/2024 Orders Only [facility] [address] [place] [phone] Milton Escobar MD [address] [place] [address] Adult type polycystic kidney disease [...] Visit [facility] [place], [address] [place] [address] Milton Escobar MD [address] [place] [address] documented as of this encounter Visit Diagnoses Diagnosis Adult type polycystic kidney disease type 1 documented in this encounter Care Teams National Investigative Producer Relationship Specialty Start Date End Date Brian Kathleen MD [address] [place] [address] PCP - General 11/05/20 documented as of this encounter
--- OUTSIDE RECORDS SUMMARY | 2024-12-26 13:01 | XMS_ITS | Encounter Summary ---
Author Organization [facility] [place], Address [address] [place] [address] Phone Care Team Providers Care Prescription Clerk Name Role Phone Brian Kathleen MD Primary Care Provider [phone] Encounter Details Date Type Department Care Team (Late Contact Info) Description 03/05/2022 Documentation Only [facility] [address] [place] [address] Milton Escobar MD [address] [place] [address] [place] [address] Social History Tobacco Use Types [...] Visit [facility] [address] [place] [address] Milton Escobar MD [address] [place] [address] documented as of this encounter Visit Diagnoses Not on filedocumented in this encounter Care Teams Prescription Clerk Relationship Specialty Start Date End Date Brian Kathleen MD [address] [place] [address] PCP - General 11/05/20 documented as of this encounter
--- OUTSIDE RECORDS SUMMARY | 2024-12-26 13:01 | XMS_ITS | Encounter Summary ---
Author Organization [facility] [place], Address [address] [place] [address] Phone Care Team Providers Care Cannoneer Name Role Phone Brian Kathleen MD Primary Care Provider [phone] Encounter Details Date Type Department Care Team (Late Contact Info) Description 11/04/2024 Orders Only [facility] [address] [place] [address] Milton Escobar MD [address] [place] [address] [place] [address] Adult type polycystic kidney disease [...] Visit [facility] [place], [address] [place] [address] Milton Escobar MD [address] [facility] [place] [address] documented as of this encounter Visit Diagnoses Diagnosis Adult type polycystic kidney disease type 1 documented in this encounter Care Teams Cannoneer Relationship Specialty Start Date End Date Brian Kathleen MD [address] [place] [address] PCP - General 11/05/20 documented as of this encounter
--- OUTSIDE RECORDS SUMMARY | 2024-12-26 13:01 | XMS_ITS | Encounter Summary ---
Author Organization [facility] Address [address] [place] [address] Phone Care Team Providers Care Armature Straightener Name Role Phone Brian Kathleen MD Primary Care Provider [phone] Encounter Details Date Type Department Care Team (Late Contact Info) Description 11/07/2024 Documentation Only [facility] [address] [place] [address] Kellie Aguilar [address] [place] [address] Social History Tobacco Use Types [...] [facility] [address] [place] [address] Milton Escobar MD [address] [place] [address] [place] [address] documented as of this encounter Visit Diagnoses Not on filedocumented in this encounter Care Teams Armature Straightener Relationship Specialty Start Date End Date Brian Kathleen MD [address] [place] [address] PCP - General 11/05/20 documented as of this encounter
--- OUTSIDE RECORDS SUMMARY | 2024-12-26 13:01 | XMS_ITS | Encounter Summary ---
Author Organization [facility] [place], Address [address] [place] [address] Phone Care Team Providers Care Director Auto Name Role Phone Brian Kathleen MD Primary Care Provider [phone] Encounter Details Date Type Department Care Team (Late Contact Info) Description 07/08/2024 Orders Only [facility] [address] [place] [address] Milton Escobar MD [address] [place] [address] Adult type polycystic kidney disease [...] Visit [facility] [place], [address] [place] [address] Milton Escobar MD [address] [place] [address] documented as of this encounter Visit Diagnoses Diagnosis Adult type polycystic kidney disease type 1 documented in this encounter Care Teams Director Auto Relationship Specialty Start Date End Date Brian Kathleen MD [address] [place] [address] PCP - General 11/05/20 documented as of this encounter
--- OUTSIDE RECORDS SUMMARY | 2024-12-26 13:02 | XMS_ITS | Encounter Summary ---
Author Organization [facility] Address [address] [place] [address] Phone Care Team Providers Care Chorus Master Name Role Phone Brian Kathleen MD Primary Care Provider [phone] Encounter Details Date Type Department Care Team (Late st Contact Info) Description 10/10/2022 Orders Only [facility] [address] [place] [address] Aga Gifford [address] [place] [address] Adult type polycystic kidney disease type 1; Type 2 diabetes mellitus without complication (HCC); Stage 3b chronic kidney disease (HCC) Social History Tobacco Use Types Packs/Day Years [...] Office Visit [facility] [address] [place] [address] Milton Escobar MD [address] [place] [address] documented as of this encounter Visit Diagnoses Diagnosis Adult type polycystic kidney disease type 1 Type 2 diabetes mellitus without complication (HCC) Stage 3b chronic kidney disease (HCC) documented in this encounter Care Teams Chorus Master Relationship Specialty Start Date End Date Brian Kathleen MD [address] [place] [address] PCP - General 11/05/20 documented as of this encounter
--- OUTSIDE RECORDS SUMMARY | 2024-12-26 13:02 | XMS_ITS | Encounter Summary ---
Author Organization [facility] Address [address] [place] [address] Phone Care Team Providers Care Paraeducator Name Role Phone Brian Kathleen MD Primary Care Provider [phone] Encounter Details Date Type Department Care Team (Late Contact Info) Description 01/29/2024 Documentation Only [facility] [address] [place] [address] Kellie Aguilar [address] [place] [address] Social History Tobacco Use Types [...] Visit [facility] [address] [place] [address] Milton Escobar MD [address] [place] [address] [place] [address] documented as of this encounter Visit Diagnoses Not on filedocumented in this encounter Care Teams Paraeducator Relationship Specialty Start Date End Date Brian Kathleen MD [address] [place] [address] PCP - General 11/05/20 documented as of this encounter
--- OUTSIDE RECORDS SUMMARY | 2024-12-26 13:02 | XMS_ITS | Encounter Summary ---
Author Organization [facility], Address [address] [place] [address] Phone Care Team Providers Care Check Processor Name Role Phone Brian Kathleen MD Primary Care Provider [phone] Encounter Details Date Type Department Care Team (Late st Contact Info) Description 04/03/2023 Orders Only [facility] [address] [place] [phone] [place] Escobar MD [address] [place] [address] [place] [address] Adult type polycystic kidney disease [...] Visit [facility] [address] [place] [place] [phone] [place] Escobar MD [address] [place] [phone] documented as of this encounter Procedures Procedure Name Priority Date/Time Associated Diagnosis Comments PROTEIN / CREATININE RATIO, URINE Routine 04/06/2023 3:01 PM EDT Adult type polycystic kidney disease type 1 URINALYSIS WITH MICROSCOPIC Routine 04/06/2023 3:01 PM EDT Adult type polycystic kidney disease type 1 CBC AND DIFFERENTIAL Routine 04/06/2023 12:03 PM EDT Adult type polycystic kidney disease type 1 COMPREHENSIVE METABOLIC PANEL Routine 04/06/2023 12:03 PM EDT Adult type polycystic kidney disease type 1 documented in this encounter Results * (ABNORMAL) Protein, Total, Random Urine w/Creatinine (Protein/Creat Ratio) (04/06/2023 3:01 PM EDT) Pathologist [facility] Protein/Creati ne Ratio 0.32(H) (0-0.2) [facility] Protein, Urine 14 MG/DL [facility] Creatinine, Urine 42.8 MG/DL [facility] Comment: Testing performed or reported by [facility], a Service of [facility], [address] [place] [address] Cam Richards MD, Rfp Writer [facility]# [id number] Urine (Urine, Clean Catch) 04/06/2023 3:01 PM EDT 04/06/2023 3:19 PM EDT us [place] Escobar MD LAB URINE ORDERABLES Final Re sult [facility] * (ABNORMAL) Urinalysis with microscopic (04/06/2023 3:01 PM EDT) Pathologist [facility] Appearance COLORLESS [facility] Comment:CLEAR Specific [place] 1.009 (1.002-1. 030) [facility] pH Urine 6.0 (5.0-8.0) [facility] Albumin, Urine TRACE(A) (NEG) [facility] Glucose, Ur NEGATIVE (NEG) [facility] Ketones, Urine NEGATIVE (NEG) [facility] Bilirubin Urine NEGATIVE (NEG) [facility] Hemoglobin Presence in Urine NEGATIVE (NEG) [facility] Nitrite, Urine NEGATIVE (NEG) [facility] Leukocyte Esterase Urine NEGATIVE (NEG) [facility] Urobilinogen Urine NORMAL (NORM) MG/DL [facility] WBC, Urine 1 (0-5) /HPF [facility] RBC, Urine <1 (0-3) /HPF [facility] Bacteria SLIGHT(A) (NEG) HPF [facility] Mucus, Urine SLIGHT /LPF [facility] Squamous Epithelial, Urine <1 (0-8) /HPF [facility] Comment: Testing performed or reported by [facility], a Service of [facility], [address] [place] [address] Cam Richards MD, Rfp Writer [facility]# [id number] Urine (Urine, Clean Catch) 04/06/2023 3:01 PM EDT 04/06/2023 3:19 PM EDT us [place] Escobar MD LAB URINE ORDERABLES Final Re sult [facility] * (ABNORMAL) Comprehensive metabolic panel (04/06/2023 12:03 PM EDT) Glucose 103(H) (70-99) MG/DL [facility] BUN 24(H) (8-23) MG/DL [facility] Creatinine 1.7(H) (0.5-1.0) MG/DL [facility] Sodium 142 (133-145) MMOL/L [facility] Potassium 4.6 (3.6-5.2) MMOL/L [facility] Chloride 106 (98-107) MMOL/L [facility] Bicarbonate (CO2) 22 (22-29) MMOL/L [facility] Anion Gap 14 (4-17) [facility] Albumin 4.0 (3.4-4.8) GM/DL [facility] Calcium 9.4 (8.6-10.5) MG/DL [facility] Total Bilirubin 0.3 (0-1.2) MG/DL [facility] Protein, Total 6.1(L) (6.2-8.2) GM/DL [facility] A/G Ratio 1.9 [facility] AST (SGOT) 15 (0-32) U/L [facility] Alkaline Phosphatase 58 (35-104) U/L [facility] ALT (SGPT) <5 (0-33) U/L [facility] Est GFR Non 32 ML/MIN/1.7 3 M2 [facility] Comment: Creatinine based estimated glomerular filtration (eGFR) in adults is calculated using the National [employer] recommended 2020 CKD-EPI equation. Estimates GFR from serum creatinine, age and sex. Testing performed or reported by [facility], a Service of [facility], [address] [place] [address] Cam Richards MD, Rfp Writer [facility]# [id number] Blood (Blood, Venous) 04/06/2023 12:03 PM EDT 04/06/2023 12:05 PM EDT us [place] Escobar MD LAB BLOOD ORDERABLES Final Re sult [facility] * (ABNORMAL) CBC and Differential (04/06/2023 12:03 PM EDT) White Blood Cells 5.8 (4.0-11.0) K/MM3 [facility] RBC 2.87(L) (4.20-5.40 ) M/MM3 [facility] Comment:Results checked Hgb 8.6(L) (11.7-15.5 ) GM/DL [facility] Hematocrit 28.3(L) (35.7-45.8 ) % [facility] MCV 98.6 (80.0-100. 0) FL [facility] Comment:Specimen label check ed MCH 30.0 (27.0-34.0 ) PG [facility] MCHC 30.4(L) (33.0-37.0 ) g/dL [facility] Platelets 227 (150-460) K/MM3 [facility] RDW-SD 53.3(H) (<47.0) FL [facility] MPV 9.1(L) (9.4-12.4) FL [facility] nRBC Count 0.0 #/100 WBC'S [facility] NRBC Absolute 0.0 K/MM3 [facility] Neutrophils Abs Auto 3.6 (1.3-7.0) K/MM3 [facility] Lymphocytes Relative 1.2 (0.8-3.1) K/MM3 [facility] Monocytes 0.7 (0.4-0.9) K/MM3 [facility] Eosinophils Relative 0.2 (0.0-0.4) K/MM3 [facility] Basophil ABS 0.0 (0.0-0.1) K/MM3 [facility] Granulocytes Absolute 0.0 K/MM3 [facility] Neutrophils % Auto 63.1 (44-76) % [facility] Lymphs 20.2 (15-43) % [facility] Monocytes Absolute 12.3(H) (4.5-10.5) % [facility] Eosinophils 3.8 (0-6) % [facility] Basophils Relative 0.3 (0-2) % [facility] Immature Granulocytes 0.3 % [facility] Comment: Testing performed or reported by [facility], a Service of [facility], [address] [place] [address] Cam Richards MD, Rfp Writer [facility]# [id number] Blood (Blood, Venous) 04/06/2023 12:03 PM EDT 04/06/2023 12:04 PM EDT us [place] Escobar MD LAB BLOOD ORDERABLES Final Re sult [facility] documented in this encounter Visit Diagnoses Diagnosis Adult type polycystic kidney disease type 1 documented in this encounter Care Teams Check Processor Relationship Specialty Start Date End Date Brian Kathleen MD [address] [place] [address] PCP - General 11/05/20 documented as of this encounter
--- OUTSIDE RECORDS SUMMARY | 2024-12-26 13:02 | XMS_ITS | Encounter Summary ---
Author Organization [facility] Address [address] [place] [address] Phone Care Team Providers Care Welding Systems And Equipment Repairer Name Role Phone Brian Kathleen MD Primary Care Provider [phone] Encounter Details Date Type Department Care Team (Late Contact Info) Description 01/29/2024 Documentation Only [facility] [address] [place] [phone] Kellie Aguilar [address] [place] [address] Social History Tobacco Use Types [...] [facility] [address] [place] [address] [place] Escobar MD [address] [place] [address] [place] [phone] documented as of this encounter Visit Diagnoses Not on filedocumented in this encounter Care Teams Welding Systems And Equipment Repairer Relationship Specialty Start Date End Date Brian Kathleen MD [address] [place] [address] PCP - General 11/05/20 documented as of this encounter
--- OUTSIDE RECORDS SUMMARY | 2024-12-26 13:02 | XMS_ITS | Encounter Summary ---
Author Organization [facility] Address [address] [place] [address] Phone Care Team Providers Care Group Home Worker Name Role Phone Brian Kathleen MD Primary Care Provider [phone] Encounter Details Date Type Department Care Team (Late st Contact Info) Description 11/20/2023 Documentation Only [facility] [address] [place] [phone] Shelia Bianchi [address] [place] [address] Social History Tobacco [...] [facility] [address] [place] [address] [place] Escobar MD [address] [place] [phone] documented as of this encounter Visit Diagnoses Not on filedocumented in this encounter Care Teams Group Home Worker Relationship Specialty Start Date End Date Brian Kathleen MD [address] [place] [address] PCP - General 11/05/20 documented as of this encounter
--- OUTSIDE RECORDS SUMMARY | 2024-12-26 13:02 | XMS_ITS | Encounter Summary ---
Author Organization [facility] Address [address] [place] [address] Phone Care Team Providers Care Coloring Machine Operator Name Role Phone Brian Kathleen MD Primary Care Provider [phone] Encounter Details Date Type Department Care Team (Late st Contact Info) Description 03/13/2023 Orders Only [facility] [address] [place] [phone] [place] Escobar MD [address] [place] [address] Stage 3b chronic kidney disease [...] Visit [facility] [address] [place] [address] [place] Escobar MD [address] [place] [address] documented as of this encounter Visit Diagnoses Diagnosis Stage 3b chronic kidney disease (HCC) Adult type polycystic kidney disease type 1 documented in this encounter Care Teams Coloring Machine Operator Relationship Specialty Start Date End Date Brian Kathleen MD [address] [place] [address] PCP - General 11/05/20 documented as of this encounter
--- OUTSIDE RECORDS SUMMARY | 2024-12-26 13:02 | XMS_ITS | Encounter Summary ---
Author Organization [facility] Address [address] [place] [address] Care Team Providers Care Stocklayer Name Role Phone Brian Kathleen MD Primary Care Provider [phone] Reason for Visit * Reason Onset Date Comments medication 11/11/2024 Encounter Details Date Type Department Care Team ([facility] st Contact Info) Description 11/11/2024 [facility] [place] [address] [place] [address] Balwinder Lunsford MD [address] [place] [address] medication Social History Tobacco Use Types Packs/Day Years Used Date Smoking Tobacco: Former Cigarettes 0.3 14.6 0 01/24/1974 - 09/14/1988 Smokeless Tobacco: Never Alcohol Use Standard Drinks/Week Comments Never 0 (1 standard drink = 0.6 oz pur e alcohol) Comments Unknown Sex and Gender Information Value Date Recorded Sex Assigned at Not on file Legal Sex Female 8:23 AM EST Gender Identity Not on file Sexual Orientation Not on file documented as of this encounter Progress Notes * Juan Miranda [place] - 11/14/2024 11:23 AM EST FYI * Carmen Hyde - 11/11/2024 3:42 PM EST Patient is calling because she wants to tell provider that she is continuing to take Spiriva respimat . Pharmacy had the option of different inhalers with same macias but she is stickling with spirivasince she has been using for a yr. documented in this encounter Plan of Treatment Upcoming Encounters Date Type Department Care Team (Late st Contact Info) Description 01/06/2025 2:45 PM EDT Office Visit Pulmonolgy - [place] [address] [place] [address] Balwinder Lunsford MD [address] [facility] [address] [place] [address] documented as of this encounter Visit Diagnoses Not on filedocumented in this encounter Care Teams Stocklayer Relationship Specialty Start Date End Date Brian Kathleen MD [address] [place] [address] PCP - General Internal Medicine 12/17/12 documented as of this encounter
--- OUTSIDE RECORDS SUMMARY | 2024-12-26 13:02 | XMS_ITS | Encounter Summary ---
Author Organization [facility] Address [address] [place] [address] Phone Care Team Providers Care Geospatial Scientist Name Role Phone Brian Kathleen MD Primary Care Provider [phone] Encounter Details Date Type Department Care Team (Late st Contact Info) Description 09/12/2022 Orders Only [facility] [address] [place] [address] Aga Gifford [address] [place] [address] Adult type polycystic kidney disease [...] Office Visit [facility] [address] [place] [address] [place] Escobar MD [address] [place] [address] documented as of this encounter Visit Diagnoses Diagnosis Adult type polycystic kidney disease type 1 Type 2 diabetes mellitus without complication (HCC) Stage 3b chronic kidney disease (HCC) documented in this encounter Care Teams Geospatial Scientist Relationship Specialty Start Date End Date Brian Kathleen MD [address] [place] [address] PCP - General 11/05/20 documented as of this encounter
--- OUTSIDE RECORDS SUMMARY | 2024-12-26 13:02 | XMS_ITS | Encounter Summary ---
Author Organization [facility] Address [address] [place] [address] Phone Care Team Providers Care State Epidemiologist Name Role Phone Brian Kathleen MD Primary Care Provider [phone] Encounter Details Date Type Department Care Team (Late st Contact Info) Description 11/20/2023 Documentation Only [facility] [address] [place] [phone] Shelia Bianchi [address] [place] [address] Social History Tobacco Use Types [...] Visit [facility] [address] [place] [address] [place] Escobar MD [address] [place] [phone] documented as of this encounter Visit Diagnoses Not on filedocumented in this encounter Care Teams State Epidemiologist Relationship Specialty Start Date End Date Brian [place] MD [address] [place] [address] PCP - General 11/05/20 documented as of this encounter
--- OUTSIDE RECORDS SUMMARY | 2024-12-26 13:02 | XMS_ITS | Patient Health Record ---
Author Organization [facility] Address [address] [place] [address] Care Team Providers Care Counter Waitress/Waiter Name Role Phone Brian [place] MD Primary Care Provider John Bajwa Jr Unavailable ALLERGIES Allergen (clinical drug ingredient) Drug/Non Drug Allergy documented on EMR Reaction Allergy Type Onset Date Status Penicillin Unknown Drug Allergy Active bacitracin Bacitracin Unknown Drug Allergy Activ e MRI dye (uncoded) Unknown Allergy Ac tive Adhesive Unknown Allergy Active REASON FOR REFERRAL No Information MEDICATIONS Medication SIG (Take, Route, Frequency, Duration) Notes Start Date End Date Status Atorvastatin Calcium 10 MG 1 tablet Oral ly Once a day Active Jynarque 60 & 30 MG as directed Orally O nce a day Active Metoprolol Succinate ER 50 MG 1 tablet Orally Once a day for 30 day(s) Active Vitamin C Active MiraLax (colon prep) 17 GM/SCOOP mixed with Gatorade or Crystal Light Orally begin at 5:00 p.m. the day before the procedure for 1 day 02/29/2024 Active diazePAM 5 MG (Schedule IV Drug) T ALICE 1 TABLET 1 HOUR BEFORE MRI MAY REPEAT X 1 Oral for 1 PRN 02/01/2024 Active Olmesartan Medoxomil 40 MG 1 tablet Oral ly Once a day Active traMADol HCl 50 MG 1 tablet as needed Orally BID PRN Active Doxazosin Mesylate 4 MG 1 tablet Orally Once a day Active Levothyroxine Sodium 150 MCG 1 tablet on an empty stomach in the morning Orally as directed Active Vitamin D3 50 MCG (2000 UT) 1 capsule Or ally Once a day Active Ferrous Gluconate 324 (38 Fe) MG TAKE 1 TABLET BY MOUTH EVERY DAY TAKE WITH 500MG VITAMIN C Oral for 30 Active Magnesium 200 MG 2 tablets with a dmitry l Orally Once a day for 30 day(s) Active aMILoride HCl 5 MG 1 tablet Orally Once a day Active Spiriva HandiHaler 18 MCG 1 capsule by i nhaling the contents of the capsule using the HandiHaler device Inhalation Once a day Active Famotidine 20 MG Orally Twice a day Active Klor-Con 20 MEQ 1 packet with food Orally three x a day Active IMMUNIZATIONS Vaccine Route Administration Date Status Comme nts Influenza Unknown 08/26/2018 Administered Influenza Unknown 08/03/2019 Administered Influenza Unknown 08/15/2020 Administered Influenza Unknown 09/11/2021 Administered Influenza Unknown 09/16/2022 Administered Influenza Unknown 07/14/2023 Administered SOCIAL HISTORY Tobacco Use: Social History Observation Description Date Details (start date - stop date) Former Smoker NA - NA Sex Assigned At : Social History Observation Description Sex Assigned At Unknown Tobacco Use/Smoking Question Answer Notes Patient is a former smoker How long has it been since you last smoked? 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) Active confirmed 29774852 Problem Gastroesophageal reflux disease without esophagitis (K21.9) Active confirmed 653051532 Problem Fatty liver (K76.0) Active confirmed 19 2768372 Problem Pancreatic cyst (K86.2) Active confirmed 94572275 Problem Abnormal CT of the abdomen (R93.5) Active confirmed [id number] Problem Other specified diseases of pancreas (K86.89) Active confirmed 0305362 Problem 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) Active confirmed 129382486 Problem Pancreatic ductal abnormality (Q45.3) Active confirmed 371247371 VITAL SIGNS Temperature 96.8 degrees Fahrenheit 02/29/2024 Blood pressure diastolic 00 mm Hg 02/29/2024 Height 62.5 in 02/29/2024 Blood pressure systolic 000 mm Hg 02/29/2024 Weight 210 lbs 02/29/2024 BMI 37.79 kg/m2 02/29/2024 Encounters Encounter Location Date Provider Diagnosis [facility] Outpatient [address] [place] [id number] 04/08/2024 John Bowie Jr [facility] Outpatient [address] [place], [place] [phone] 05/20/2024 John Bowie Jr [facility] Outpatient [address] [place], [place] [phone] 08/09/2024 John Bowie Jr [facility] [address] [place] [address] 02/29/2024 John Bowie Jr Gastroesophageal reflux disease without esophagitis K21.9 ; Pancreatic cyst K86.2 and Colon cancer screening Z12.11 [facility] [address] [place] [phone] 01/29/2024 John Bowie Jr [facility] [address] [place] [address] 02/18/2024 John Bowie Jr [facility] [address] [place] [phone] 04/05/2024 John Bowie Jr [facility] [address] [place] [phone] 08/04/2024 John Bowie Jr [facility] [address] [place] [phone] 08/24/2024 John Bowie Jr ASSESSMENTS Encounter Date Diagnosis Assessment Notes Treatment Notes Treatment Clinical Notes 02/29/2024 Gastroesophageal reflux disease without esophagitis (ICD-10 - K21.9) Gastroesophageal reflux disease material was printed 02/29/2024 Pancreatic cyst (ICD-10 - K86.2) 02/29/2024 Colon cancer screening (ICD-10 - Z12.11) PLAN OF TREATMENT Pending Test Test Name Order Date BUN 03/30/2019 CREATININE 03/30/2019 CT ABD WITH CONTRAST 02/21/2019 MRI ABD NO CONTRAST (MRCP) 2023 MRI ABD NO CONTRAST (MRCP) 04/14/2018 MRI ABD NO CONTRAST (MRCP) 06/13/2020 MRI ABD NO CONTRAST (MRCP) 12/31/2021 MRI ABD NO CONTRAST (MRCP) 05/27/2023 MRI ABD W&WO CONTRAST 12/30/2019 Future Test Test Name Order Date COLONOSCOPY 11/18/2012 LIVER PROFILE 04/14/2018 COLONOSCOPY 05/27/2023 COLONOSCOPY 02/29/2024 Next Appt Details Provider Name:John Adina lopez Jr, 03/01/2025 09:00:00 AM, [address], [address], [place], [address], Insurance Providers Payer Name Payer Address Payer Phone Subscriber Number Group Number Insured Name Patient Relationship to Insured Coverage Start Date Coverage End Date [facility] [address] [place] [address] [id number] BRIJESH KRUEGER Self - patient is the insured MEDICAL (GENERAL) HISTORY Medical History History ICD Code fatty liver polycystic kidney disease sarcoidosis pituitary microadenoma hypothyroidism diabetes II colonoscopy, normal, ten-year foll owup recommended renal cell carcinoma 01/2020 hyperlipidemia incisional hernia nephrectomy site chronic kidney disease right knee replacement Surgical History Surgery Date(Month/Year) eye surgery benign breast biopsy thryroid surgery lymph node biopsy from the neck bunion 08/06/2018 renal surgery 04/24/2020 Kidney Surgery 2020 right knee replacement 2022
--- OUTSIDE RECORDS SUMMARY | 2024-12-26 13:02 | XMS_ITS ---
Author Organization [facility] Address [address] [place] [address] Care Team Providers Care Post Anesthesia Room Nurse Name Role Phone Brian [place] MD Primary Care Provider Unavailterese Bowie Jr, John Coley [phone] REASON FOR VISIT stool dna test Encounters Encounter Location Date Provider Diagnosis [facility] [address] [place] [address] 08/24/2024 John Bowie Jr PLAN OF TREATMENT Next Appt Details Provider Name:John lopez Jr, 03/01/2025 09:00:00 AM, [address] [place] [address], [address], [place], [address],
--- OUTSIDE RECORDS SUMMARY | 2024-12-26 13:02 | XMS_ITS | Clinical Summary ---
Author Organization 175 [facility] Address [address] [place] [address] Phone Care Team Providers Care Charge Loader Name Role Phone Brian Kathleen MD Primary Care Provider Allergies Active Allergy Reactions Criticality Noted Date Comments Bacitracin 10/21/2018 Gadolinium-Containing Contrast Media 10/21/2018 Penicillins 10/21/2018 Medications triamcinolone (KENALOG) 0.1 % cream PLEASE SEE ATTACHED FOR DETAILED DIRECTIONS 3 Active amLODIPine (NORVASC) 2.5 mg tablet Take 1 tablet (2.5 mg total) by mouth 1 (one) time each day. Active metoprolol succinate (Kapspargo Sprinkle) 50 mg capsule,sprinkl e,ER 24hr Take by mouth. Activ e cholecalciferol (VITAMIN D-3) 50 mcg (2,000 unit) capsule Take by mouth. A ctive potassium chloride 20 mEq tablet extended release Take 20 mEq by mouth daily. Active aMILoride (MIDAMOR) 5 mg tablet Take 5 mg by mouth daily. Active olmesartan (BENICAR) 40 mg tablet Take 40 mg by mouth daily. Active atorvastatin (LIPITOR) 10 mg tablet Take 10 mg by mouth daily. Active LORazepam (ATIVAN) 1 mg tablet Take 1 mg by mouth every 6 hours as needed. Active levothyroxine (SYNTHROID, LEVOTHROID) 150 mcg tablet Take 150 mcg by mouth daily. Active doxazosin (CARDURA) 4 mg tablet Take 4 mg by mouth at bedtime. Active tiotropium (Spiriva Respimat) 2.5 mcg/actuation inhalation spray INHALE 1 PUFF INTO THE LUNGS DAILY FOR 30 DAYS 1 each 11 4 10/05/20 25 Active tiotropium (Spiriva with HandiHaler) 18 mcg per inhalation capsule Place 1 capsule (18 mcg total) into inhaler and inhale 1 (one) time each day. 30 capsule 11 5 11/08/19 26 Active Active Problems Problem Noted Date Diagnosed Date Sarcoidosis 10/21/2018 Encounters Date Type Department Care Team Description [facility] [address] [phone] Balwinder Lunsford MD medication [facility] [address] [phone] Balwinder Lunsford MD Medication Problem from Last 3 Months Social History Tobacco Use Types Packs/Day Years [...] on file Sexual Orientation Not on file Obstetrics History Last Filed Vital Signs Vital Sign Reading Time Taken Comments Blood Pressure 120/70 03/18/2024 9:01 AM EDT Pulse 58 03/18/2024 9:01 AM EDT Temperature - - Respiratory Rate - - Oxygen Saturation - - Inhaled Oxygen Concentration - - Weight 96.6 kg (213 lb) 03/18/2024 9:01 AM EDT Height 160 cm (5' 3 ) 03/18/2024 9:01 AM EDT Body Mass Index 37.73 03/18/2024 9:01 AM EDT Plan of Treatment Upcoming Encounters Date Type Department Care Team ([facility] st Contact Info) Description 01/06/2025 2:45 PM EDT [facility] [address] [phone] Balwinder Lunsford MD [address] [address] Health Maintenance Due Date Last Done Comments Breast Cancer Screening 1960 DTaP,Tdap,and Td Vaccines (1 - Tdap) 1977 Pneumococcal Vaccine: 50+ Years (1 of 2 - PCV) 1977 Zoster Vaccines (1 of 2) 01/08/2008 RSV Immunization Patients 60+ Years Old (1 - Risk 60-74 years 1-dose series) 2018 Colorectal Cancer Screening: Colonoscopy 10/04/2022 Depression Screening 10/04/2022 Hepatitis C Screening 10/04/2022 Medicare Annual Wellness Visit 10/04/2022 Osteoporosis Screening (Bone Density Screening) 10/04/2022 Social Influencers of Health Screening 10/04/2022 Falls Risk Assessment 2023 COVID-19 Vaccine ( season) 2024 01/31/2022, 07/31/2021, 01/23/2021, Additional history exists Influenza Vaccine (#1) 2024 HIB Vaccines Aged Out No longer eligi ble based on patient's age to complete this topic HPV Vaccines Aged Out No longer eligi ble based on patient's age to complete this topic Hepatitis A Vaccines Aged Out No long er eligible based on patient's age to complete this topic Hepatitis B Vaccines Aged Out No long er eligible based on patient's age to complete this topic IPV Vaccines Aged Out No longer eligi ble based on patient's age to complete this topic MMR Vaccines Aged Out No longer eligi ble based on patient's age to complete this topic Meningococcal ACWY Vaccine Aged Out N o longer eligible based on patient's age to complete this topic Meningococcal B Vacine Aged Out No lo nger eligible based on patient's age to complete this topic RSV Immunization Patients Under 20 months Aged Out No longer eligible based on patient's age to complete this topic Varicella Vaccines Aged Out No longer eligible based on patient's age to complete this [place] [id number] [employer] [place] [employer]AGE Care Teams Charge Loader Relationship Specialty Start Date End Date Brian Kathleen MD [address] [place], [place] [phone] PCP - General Internal Medicine 12/17/12
--- OUTSIDE RECORDS SUMMARY | 2024-12-26 13:02 | XMS_ITS | Encounter Summary ---
Author Organization [facility] Address [address] [place] [address] Phone Care Team Providers Care Solid Waste Analyst Name Role Phone Brian Kathleen MD Primary Care Provider [phone] Encounter Details Date Type Department Care Team (Late Contact Info) Description 01/29/2024 Documentation Only [facility] [address] [place] [phone] Kellie Aguilar [address] [place] [address] Social History Tobacco Use Types [...] [facility] [address] [place] [address] Milton Escobar MD [address] [place] [address] [place] [phone] documented as of this encounter Visit Diagnoses Not on filedocumented in this encounter Care Teams Solid Waste Analyst Relationship Specialty Start Date End Date Brian Kathleen MD [address] [place] [address] PCP - General 11/05/20 documented as of this encounter
--- OUTSIDE RECORDS SUMMARY | 2024-12-26 13:02 | XMS_ITS | Encounter Summary ---
Author Organization [facility] Address [address] [place] [address] Phone Care Team Providers Care Litigation Services Manager Name Role Phone Brian Kathleen MD Primary Care Provider [phone] Encounter Details Date Type Department Care Team (Late st Contact Info) Description 11/07/2022 Orders Only [facility] [address] [place] [address] Aga Gifford [address] [place] [address] Adult type polycystic kidney disease [...] Office Visit [facility] [address] [place] [address] Milton Escobar MD [address] [facility] [place] [address] documented as of this encounter Visit Diagnoses Diagnosis Adult type polycystic kidney disease type 1 Type 2 diabetes mellitus without complication (HCC) Stage 3b chronic kidney disease (HCC) documented in this encounter Care Teams Litigation Services Manager Relationship Specialty Start Date End Date Brian Kathleen MD [address] [place] [address] PCP - General 11/05/20 documented as of this encounter
== END 2024-12-26 11:00 | disposition home or self-care (01) ==
LOC: HO.MAMMO 10:59
PROVIDERS: PCP Internal Medicine; Visit Provider Internal Medicine
DX: Z12.31 Encounter for screening mammogram for malignant neoplasm of breast (principal)
CPT/HCPCS: 77063; 77067

== ENCOUNTER → 2024-12-26 11:00 | Outpatient (BNV) | payer MEDICARE, SELFPAY | PROVIDERS: PCP Internal Medicine; Visit Provider Internal Medicine | DX: Z12.31 Encounter for screening mammogram for malignant neoplasm of breast (principal) | CPT/HCPCS: 77063; 77067 ==

== ENCOUNTER 2025-01-09 14:36 | Outpatient (AMB) | payer MEDICARE, SELFPAY ==
[2025-01-09 14:42] VITALS: BP 124/68; PULSE 70; BMI 38.7
--- NOTE | 2025-01-09 14:42 | MHC.OFFVIS ---
Vital Signs 01/09/25 14:42 Height 5 ft 2 in Weight 211 lb 10.3 oz BMI 38.7 BP 124/68 Blood Pressure Location Lt brachial Position Sitting Pulse 70 Pulse Source Pulse Oximeter Intake Visit Reasons: r/s 11/22/24 6 mos followup Allergies bacitracin [BACITRACIN] Allergy (Unknown, Verified 11/17/23 08:33) RASH Iodinated Contrast Media [IV CONTRAST] Allergy (Unknown, Verified 11/17/23 08:33) RASH Penicillins [PENICILLINS] Allergy (Unknown, Verified 11/17/23 08:33) RASH steri strips Adverse Reaction (Mild, Uncoded 11/17/23 08:33) itchy Medication List - Last Reconciled 01/09/25 by Burak Santamaria MD amiloride 5 mg PO DAILY ascorbate calcium (vitamin C) 500 mg PO DAILY atorvastatin 10 mg PO DAILY cholecalciferol (vitamin D3) 50 mcg PO DAILY doxazosin 4 mg PO BID famotidine 20 mg PO BID levothyroxine 150 mcg PO DAILY magnesium 200 mg PO DAILY metoprolol succinate ER 50 mg PO QAM metoprolol succinate ER 25 mg PO QPM olmesartan 40 mg PO DAILY potassium chloride ER (Klor-Con M) 20 mEq PO ONCE tolvaptan (polycys kidney dis) (Jotnyque) as directed HPI Comments Details: Stephanie returns for follow-up regarding atrial arrhythmias. To recall, she has a history of polycystic kidney disease. She had renal cell carcinoma and underwent right-sided partial nephrectomy in 2019. In that setting, had anemia from blood loss and required transfusions. She also had acute kidney injury, acute respiratory failure, delirium among others. Then had atrial fibrillation with rapid rate treated by IV beta blockers as well as digoxin. Then converted to sinus. Otherwise no history of any coronary disease or myocardial infarction or any other cardiac issues. She has hypertension, possibly related to polycystic kidney disease. Overall, she feels fine for the most part. Rare palpitations but she also gets anxiety attacks and hence difficult to differentiate. [facility] Medical History (Updated 05/04/24 @ 12:47 by Burak Santamaria MD) Sleep apnea Chronic kidney disease Incisional hernia Renal cell carcinoma Thyroid disease Diabetes Pituitary microadenoma Sarcoidosis Polycystic kidney disease Fatty liver Other and unspecified hyperlipidemia Essential hypertension PAF (paroxysmal atrial fibrillation) Surgical History History of bunionectomy Hx of lymph node biopsy Hx of breast biopsy History of right knee joint replacement H/O colonoscopy Hx of total knee replacement History of kidney surgery History of eye surgery History of thyroidectomy History of lumpectomy Family History Father Heart disease Heart attack Mother No problems noted. Social History Alcohol intake: never Patient Tobacco Use Status: Former Tobacco user Years Smoked: 20 +/- Review of Systems Const Denies weakness ENT Denies dizziness Card Denies chest pain, Denies chest pain with activity, Denies syncope, Denies rapid heart rate, Denies pedal edema, Denies edema, Denies leg edema, Denies lightheadedness, Denies palpitations, Denies dyspnea, Denies dyspnea on exertion and Denies orthopnea Resp Denies cough, Denies dyspnea and Denies dyspnea on exertion GI Denies hematochezia and Denies change in stool character Musc Denies abnormal gait, Denies muscle cramps, Denies muscle weakness, Denies numbness, Denies radiating pain into limb and Denies tingling Neuro Denies abnormal gait, Denies dizziness, Denies syncope, Denies numbness, Denies tingling and Denies weakness Endo Denies palpitations Physical Exam Vital Signs: Last Vital Signs Pulse 70 01/09/25 14:42 BP 124/68 01/09/25 14:42 BMI result Body Mass Index 38.7 Const General: comfortable and no acute distress Orientation/consciousness: patient oriented x3 HEENT Other: Unremarkable Head: Yes normal to inspection Neck Neck: Yes normal visual inspection Chest Chest palpation & inspection: normal inspection of the chest Resp Auscultation: clear to auscultation bilaterally Cardio Palpation: normal PMI Heart sounds: S1 normal heart sound present, S2 normal heart sound present, no gallops, no murmurs and no rubs GI Palpation (GI): Soft to palpation Back/Spine/Pelvis Other: unremarkable Skin General skin exam: no rashes or lesions noted Neuro General: patient oriented x3 Extrem General: Yes normal to inspection Psych Mental Status: mental status grossly normal Assessment & Plan Assessment & Plan (1) PAF (paroxysmal atrial fibrillation): Code(s): I48.0 - Paroxysmal atrial fibrillation Category: Medical Plan: Only 1 documented episode in the setting of surgery. Continue beta-blockers. She takes metoprolol ER 50 mg in the morning and 25 mg in the evening. Not on anticoagulation but if recurrent episodes will need to start. She had a sleep study that shows only mild KRISTAL. Weight loss as feasible. (2) PVC (premature ventricular contraction): Code(s): I49.3 - Ventricular premature depolarization Category: Medical Plan: In the last Holter, PVC burden of 7%. May account for some of her palpitations. As above, continue beta-blockers. (3) Essential hypertension: Code(s): I10 - Essential (primary) hypertension Category: Medical Plan: On beta-blockers, Amiloride, Olmesartan, Doxazosin. Stable. (4) Anxiety: Code(s): F41.9 - Anxiety disorder, unspecified Category: Medical Plan: Seems reasonably controlled. When she gets palpitations, sometimes is very difficult to differentiate if it is anxiety or true cardiac arrhythmias. Coding Level of Care Code Est Pt Level 4 (90115) Complex EM visit Add On G2211 Diagnoses PAF (paroxysmal atrial fibrillation) I48.0 PVC (premature ventricular contraction) I49.3 Essential hypertension I10 Anxiety F41.9
--- OUTSIDE RECORDS SUMMARY | 2025-01-09 17:13 | XMS_ITS | Encounter Summary ---
Author Organization [facility] Address [address] [place] [address] Phone Care Team Providers Care Silk Hanger Name Role Phone Brian Kathleen MD Primary Care Provider [phone] Encounter Details Date Type Department Care Team (Late st Contact Info) Description 11/20/2023 Documentation Only [facility] [address] [place] [phone] Shelia Bianchi [address] [place] [address] Social History Tobacco Use Types [...] Visit [facility] [address] [place] [address] Milton Escobar MD [address] [facility] [place] [phone] documented as of this encounter Visit Diagnoses Not on filedocumented in this encounter Care Teams Silk Hanger Relationship Specialty Start Date End Date Brian Kathleen MD [address] [place] [address] PCP - General 11/05/20 documented as of this encounter
--- OUTSIDE RECORDS SUMMARY | 2025-01-09 17:13 | XMS_ITS | Encounter Summary ---
Author Organization [facility] [place], Address [address] [place] [address] Phone Care Team Providers Care Dietary Manager Name Role Phone Brian Kathleen MD Primary Care Provider [phone] Encounter Details Date Type Department Care Team (Late Contact Info) Description 05/20/2024 Orders Only [facility] [address] [place] [phone] Milton Escobar MD [address] [place] [address] [place] [address] Adult type polycystic kidney disease [...] Visit [facility] [place], [address] [place] [address] Milton Escobar MD [address] [facility] [place] [phone] documented as of this encounter Visit Diagnoses Diagnosis Adult type polycystic kidney disease type 1 documented in this encounter Care Teams Dietary Manager Relationship Specialty Start Date End Date Brian Kathleen MD [address] [place] [address] PCP - General 11/05/20 documented as of this encounter
--- OUTSIDE RECORDS SUMMARY | 2025-01-09 17:13 | XMS_ITS | Encounter Summary ---
Author Organization [facility] Address [address] [place] [address] Care Team Providers Care Derrick Hand Name Role Phone Brian Kathleen MD Primary Care Provider [phone] Reason for Visit * Reason Onset Date Comments medication 11/11/2024 Encounter Details Date Type Department Care Team ([facility] st Contact Info) Description 11/11/2024 Telephone [facility] 175 [facility] [address] [place] [address] Balwinder Lunsford MD [address] [facility] [address] [place] [address] medication Social History Tobacco Use Types Packs/Day [...] 11/14/2024 11:23 AM EST FYI * Carmen Garcia 11/11/2024 3:42 PM EST Patient is calling [...] Care Team (Late st Contact Info) Description 01/08/2026 2:00 PM EDT Office Visit Pul[facility]gy - [facility] [address] [facility] [address] [place] [address] Balwinder Lunsford MD 175 [facility] [address] [place] [address] documented as of this encounter Visit Diagnoses Not on filedocumented in this encounter Care Teams Derrick Hand Relationship Specialty Start Date End Date Brian Kathleen MD [address] [place] [address] PCP - General Internal Medicine 12/17/12 documented as of this encounter
--- OUTSIDE RECORDS SUMMARY | 2025-01-09 17:13 | XMS_ITS | Encounter Summary ---
Author Organization [facility] [place], Address [address] [place] [address] Phone Care Team Providers Care Oil Field Laborer Name Role Phone Brian Kathleen MD Primary Care Provider [phone] Encounter Details Date Type Department Care Team (Late Contact Info) Description 11/04/2024 Orders Only [facility] [address] [place] [phone] Milton Escobar MD [address] [place] [address] [place] [address] Adult type polycystic kidney disease [...] Visit [facility] [place], [address] [place] [address] Milton Escobar MD [address] [facility] [place] [phone] documented as of this encounter Visit Diagnoses Diagnosis Adult type polycystic kidney disease type 1 documented in this encounter Care Teams Oil Field Laborer Relationship Specialty Start Date End Date Brian Kathleen MD [address] [place] [address] PCP - General 11/05/20 documented as of this encounter
--- OUTSIDE RECORDS SUMMARY | 2025-01-09 17:13 | XMS_ITS | Encounter Summary ---
Author Organization [facility] [place], Address [address] [place] [address] Phone Care Team Providers Care Kiln Mechanic Name Role Phone Brian Kathleen MD Primary Care Provider [phone] Encounter Details Date Type Department Care Team (Late Contact Info) Description 03/05/2022 Documentation Only [facility] [address] [place] [phone] Milton Escobar MD [address] [place] [address] [place] [address] Social History Tobacco Use Types [...] Visit [facility] [address] [place] [phone] Milton Escobar MD [address] [facility] [place] [address] documented as of this encounter Visit Diagnoses Not on filedocumented in this encounter Care Teams Kiln Mechanic Relationship Specialty Start Date End Date Brian Kathleen MD [address] [place] [address] PCP - General 11/05/20 documented as of this encounter
--- OUTSIDE RECORDS SUMMARY | 2025-01-09 17:13 | XMS_ITS | Encounter Summary ---
Author Organization [facility] [place], Address [address] [place] [address] Phone Care Team Providers Care Horticulture Supervisor Name Role Phone Brian Kathleen MD Primary Care Provider [phone] Encounter Details Date Type Department Care Team (Late Contact Info) Description 04/22/2024 Orders Only [facility] [address] [place] [address] Milton Escobar MD [address] [place] [address] [place] [address] Adult type polycystic kidney disease [...] Visit [facility] [place], [address] [place] [address] Milton Escobar MD [address] [facility] [place] [phone] documented as of this encounter Visit Diagnoses Diagnosis Adult type polycystic kidney disease type 1 documented in this encounter Care Teams Horticulture Supervisor Relationship Specialty Start Date End Date Brian Kathleen MD [address] [place] [address] PCP - General 11/05/20 documented as of this encounter
--- OUTSIDE RECORDS SUMMARY | 2025-01-09 17:13 | XMS_ITS | Encounter Summary ---
Author Organization [facility] [place], Address [address] [place] [address] Phone Care Team Providers Care Honey Liquefier Name Role Phone Brian Kathleen MD Primary Care Provider [phone] Encounter Details Date Type Department Care Team (Late st Contact Info) Description 12/30/2024 Orders Only [facility] [address] [place] [phone] Milton Escobar MD [address] [place] [address] [place] [address] Adult type polycystic kidney disease [...] Visit [facility] [place], [address] [place] [address] Milton Escobar MD [address] [facility] [place] [phone] documented as of this encounter Visit Diagnoses Diagnosis Adult type polycystic kidney disease type 1 documented in this encounter Care Teams Honey Liquefier Relationship Specialty Start Date End Date Brian Kathleen MD [address] [place] [address] PCP - General 11/05/20 documented as of this encounter
--- OUTSIDE RECORDS SUMMARY | 2025-01-09 17:13 | XMS_ITS | Encounter Summary ---
Author Organization [facility] Address [address] [place] [address] Phone Care Team Providers Care Truck Engine Technician Name Role Phone Brian Kathleen MD Primary Care Provider [phone] Encounter Details Date Type Department Care Team (Late Contact Info) Description 11/07/2024 Documentation Only [facility] [address] [place] [phone] Kellie Aguilar [address] [place] [address] Social History Tobacco Use Types [...] [facility] [address] [place] [address] Milton Escobar MD [address] [place] [address] [place] [phone] documented as of this encounter Visit Diagnoses Not on filedocumented in this encounter Care Teams Truck Engine Technician Relationship Specialty Start Date End Date Brian Kathleen MD [address] [place] [address] PCP - General 11/05/20 documented as of this encounter
--- OUTSIDE RECORDS SUMMARY | 2025-01-09 17:13 | XMS_ITS | Encounter Summary ---
Author Organization [facility], Address [address] [place] [address] Phone Care Team Providers Care Steam Tender Name Role Phone Brian Kathleen MD Primary Care Provider [phone] Encounter Details Date Type Department Care Team (Late Contact Info) Description 10/28/2024 Orders Only [facility] [address] [place] [phone] Milton Escobar MD [address] [place] [address] [place] [address] Adult type polycystic kidney disease [...] Visit [facility], [address] [place] [address] Milton Escobar MD [address] [place] [phone] documented as of this encounter Visit Diagnoses Diagnosis Adult type polycystic kidney disease type 1 documented in this encounter Care Teams Steam Tender Relationship Specialty Start Date End Date Brian Kathleen MD [address] [place] [address] PCP - General 11/05/20 documented as of this encounter
--- OUTSIDE RECORDS SUMMARY | 2025-01-09 17:13 | XMS_ITS | Encounter Summary ---
Author Organization [facility] Address [address] [place] [address] Phone Care Team Providers Care Milled Rubber Tender Name Role Phone Brian Kathleen MD Primary Care Provider [phone] Encounter Details Date Type Department Care Team (Late st Contact Info) Description 05/08/2023 Orders Only [facility] [address] [place] [place] [phone] Milton Escobar MD [address] [place] [address] Stage 3b chronic kidney disease [...] Visit [facility] [address] [place] [place] [address] Milton Escobar MD [address] [place] [address] documented as of this encounter Visit Diagnoses Diagnosis Stage 3b chronic kidney disease (HCC) Adult type polycystic kidney disease type 1 documented in this encounter Care Teams Milled Rubber Tender Relationship Specialty Start Date End Date Brian Kathleen MD [address] [place] [address] PCP - General 11/05/20 documented as of this encounter
--- OUTSIDE RECORDS SUMMARY | 2025-01-09 17:13 | XMS_ITS | Encounter Summary ---
Author Organization [facility] Address [address] [place] [address] Phone Care Team Providers Care Six Pack Loader Operator Name Role Phone Brian Kathleen MD Primary Care Provider [phone] Encounter Details Date Type Department Care Team (Late Contact Info) Description 01/29/2024 Documentation Only [facility] [address] [place] [phone] Kellie Aguilar [address] [place] [address] Social History Tobacco Use Types [...] Visit [facility] [address] [place] [address] Milton Escobar MD [address] [place] [address] [place] [phone] documented as of this encounter Visit Diagnoses Not on filedocumented in this encounter Care Teams Six Pack Loader Operator Relationship Specialty Start Date End Date Brian Kathleen MD [address] [place] [address] PCP - General 11/05/20 documented as of this encounter
--- OUTSIDE RECORDS SUMMARY | 2025-01-09 17:13 | XMS_ITS | Encounter Summary ---
Author Organization [facility], Address [address] [place] [address] Phone Care Team Providers Care Rn Clinical Review Name Role Phone Brian Kathleen MD Primary Care Provider [phone] Encounter Details Date Type Department Care Team (Late Contact Info) Description 11/25/2024 Orders Only [facility] [address] [place] [phone] Milton Escobar MD [address] [place] [address] [place] [address] Adult type polycystic kidney disease [...] Visit [facility], [address] [place] [address] Milton Escobar MD [address] [facility] [place] [phone] documented as of this encounter Visit Diagnoses Diagnosis Adult type polycystic kidney disease type 1 documented in this encounter Care Teams Rn Clinical Review Relationship Specialty Start Date End Date Brian Kathleen MD [address] [place] [address] PCP - General 11/05/20 documented as of this encounter
--- OUTSIDE RECORDS SUMMARY | 2025-01-09 17:13 | XMS_ITS | Encounter Summary ---
Author Organization [facility], Address [address] [place] [address] Phone Care Team Providers Care Returned Materials Inspector Name Role Phone Brian Kathleen MD Primary Care Provider [phone] Encounter Details Date Type Department Care Team (Late Contact Info) Description 09/30/2024 Orders Only [facility] [address] [place] [phone] Milton Escobar MD [address] [place] [address] [place] [address] Adult type polycystic kidney disease [...] Visit [facility], [address] [place] [address] Milton Escobar MD [address] [place] [phone] documented as of this encounter Visit Diagnoses Diagnosis Adult type polycystic kidney disease type 1 documented in this encounter Care Teams Returned Materials Inspector Relationship Specialty Start Date End Date Brian Kathleen MD [address] [place] [address] PCP - General 11/05/20 documented as of this encounter
--- OUTSIDE RECORDS SUMMARY | 2025-01-09 17:13 | XMS_ITS | Clinical Summary ---
Author Organization [facility] Address [address] [place] [address] Phone Care Team Providers Care Crystal Grinder Name Role Phone Brian Kathleen MD Primary Care Provider [phone] Allergies Active Allergy Reactions Criticality Noted Date [...] Encounters Date Type Department Care Team Description 01/09/2025 3:23 PM EDT Hospital Encounter XRAY - [place] [address] [place] [address] Sarcoidosis 01/06/2025 2:45 PM EDT [facility] [address] [phone] Balwinder Lunsford MD Sarcoidosis (Primary Dx); Chronic obstructive pulmonary disease, unspecified COPD type ([facility]) 11/11/2024 Telephone Pulmonolgy [facility] [address] [address] Balwinder Lunsford MD medication [facility] [address] [phone] Balwinder Lunsford MD Medication Problem from Last 3 Months Social History Tobacco Use Types Packs/Day Years Used Date Smoking Tobacco: Former Cigarettes 0.3 14.6 0 01/24/1974 - 09/14/1988 Smokeless Tobacco: Never Tobacco Cessation:Counseling Given: Not Answered Alcohol Use Standard Drinks/Week Comments Never 0 (1 standard drink = 0.6 oz pur e alcohol) Comments Unknown Sex and Gender Information Value Date Recorded Sex Assigned at Not on file Legal Sex Female 8:23 AM EST Gender Identity Not on file Sexual Orientation Not on file Obstetrics History Last Filed Vital Signs Vital Sign Reading Time Taken Comments Blood Pressure 122/68 01/06/2025 2:50 PM EDT Pulse 60 01/06/2025 2:50 PM EDT Temperature 36.8 ??C (98.2 ??F) 01/06/2025 2:50 PM ED T Respiratory Rate 18 01/06/2025 2:50 PM EDT Oxygen Saturation 99% 01/06/2025 2:50 PM EDT Inhaled Oxygen Concentration - - Weight 96.9 kg (213 lb 9.6 oz) 01/06/2025 2:50 P M EDT Height 160 cm (5' 3 ) 01/06/2025 2:50 PM EDT Body Mass Index 37.84 01/06/2025 2:50 PM EDT Plan of Treatment Upcoming Encounters Date Type Department Care Team (Late st Contact Info) Description 01/08/2026 2:00 PM EDT Office Visit Pulmonolgy - [place] [address] [facility] [address] [place] [phone] Balwinder Lunsford MD [address] [facility] [address] [place] [address] Health Maintenance Due Date Last Done Comments Breast Cancer Screening 1960 Diabetes: Annual Foot Exam 01/08/1968 Diabetes: Annual Retina Eye Exam 01/08/1968 Hepatitis A Vaccines (1 of 2 - Risk 2-dose series) 1977 Zoster Vaccines (1 of 2) 1977 Hepatitis B Vaccines (1 of 3 - Risk 3-dose series) 2018 Cholesterol Screening (Lipid Panel) 10/04/2022 Depression Screening 10/04/2022 Medicare Annual Wellness Visit 10/04/2022 Osteoporosis Screening (Bone Density Screening) 10/04/2022 Social Influencers of Health Screening 10/04/2022 Falls Risk Assessment 2023 Diabetes: Annual Urine Albumin-Creatinine Ratio (uACR) 01/06/2025 07/07/2023, 04/09/2021, 06/19/2020 Diabetes: Blood Sugar Control Test (HGBA1C) 01/06/2025 DTaP,Tdap,and Td Vaccines (3 - Td or Tdap) 04/23/2025 04/23/2015, 07/26/2005 Diabetes: Annual GFR (Glomerular Filtration Rate) 12/23/2025 12/23/2024, 11/24/2024, 10/24/2024, Additional history exists Hypertension/CHF/CAD Annual BMP Blood Test 12/23/2025 12/23/2024, 11/24/2024, 10/24/2024, Additional history exists Colorectal Cancer Screening: FIT-DNA (Cologuard) 08/10/2027 08/10/2024 Hepatitis C Screening Completed 07/31/2020 Pneumococcal Vaccine: 50+ Years Completed 01/08/2023, 01/08/2023, 06/04/2020, Additional history exists RSV Immunization Patients 60+ Years Old Completed 10/15/2023 Influenza Vaccine Completed 07/14/2024, , 07/14/2023, Additional history exists COVID-19 Vaccine Completed 10/13/2024, , 07/08/2022, Additional history exists HIB Vaccines Aged Out No longer eligi [...] Procedure Name Priority Date/Time Associated Diagnosis Comments XR CHEST 2 VIEWS Routine 01/09/2025 3:30 PM EDT Sarcoidosis from Last 3 Months Results * XR Chest 2 Views (01/09/2025 3:30 PM EDT) Anatomical Region Laterality Modality Body Radiographic Cristy ging 01/09/2025 3:38 PM EDT Impressions 01/09/2025 3:39 PM EDT Minor scarring/subsegmental atelectasis at the left lung base. -------- FINAL REPORT -------- Dictated By: Radha Hernandez Dictated Date: 01/09/2025 15:38 ET Assigned Physician: Radha Hernandez Reviewed and Electronically Signed By: Radha Hernandez Signed Date: 01/09/2025 15:39 ET Workstation ID: [id number] Transcribed By: Self Edit Transcribed Date: 01/09/2025 15:38 ET Narrative 01/09/2025 3:39 PM EDT CHEST, TWO VIEWS HISTORY: Sarcoidosis ??. TECHNIQUE: Frontal and lateral views of the chest. PRIOR: None. FINDINGS: There is minor linear scarring/subsegmental atelectasis of the left lung base. The lungs are otherwise clear. No pleural effusion is seen. No pneumothorax is seen. The cardiac diameter is within normal limits. No acute or aggressive appearing bony abnormalities are seen. ??There is degenerative change of the spine. Procedure Note Radha Hernandez MD - 01/09/2025 CHEST, TWO VIEWS HISTORY: Sarcoidosis . TECHNIQUE: Frontal and lateral views of the chest. PRIOR: None. FINDINGS: There is minor linear scarring/subsegmental atelectasis of the left lungbase. The lungs are otherwise clear. No pleural effusion is seen. No pneumothorax is seen. The cardiac diameter is within normal limits. No acute or aggressive appearing bony abnormalities are seen. There isdegenerative change of the spine. IMPRESSION: Minor scarring/subsegmental atelectasis at the left lung base. -------- FINAL REPORT -------- Dictated By: Radha Hernandez Dictated Date: 01/09/2025 15:38 ET Assigned Physician: Radha Hernandez Reviewed and Electronically Signed By: Radha Hernandez Signed Date: 01/09/2025 15:39 ET Workstation ID: [id number] Transcribed By: Self Edit Transcribed Date: 01/09/2025 15:38 ET Balwinder Lunsford MD IMG XR PROCEDURES Final Result from Last 3 Months Insurance [employer] Care Teams Crystal Grinder Relationship Specialty Start Date End Date Brian Kathleen MD [address] [place] [address] PCP - General Internal Medicine 12/17/12
--- OUTSIDE RECORDS SUMMARY | 2025-01-09 17:13 | XMS_ITS | Encounter Summary ---
Author Organization [facility], Address [address] [place] [address] Phone Care Team Providers Care Allergy And Immunology Chief Name Role Phone Brian Kathleen MD Primary Care Provider [phone] Encounter Details Date Type Department Care Team (Late st Contact Info) Description 09/09/2024 Orders Only [facility] [address] [place] [phone] Milton Escobar MD [address] [place] [address] [place] [address] Adult type polycystic kidney disease [...] Visit [facility], [address] [place] [address] Milton Escobar MD [address] [facility] [place] [phone] documented as of this encounter Visit Diagnoses Diagnosis Adult type polycystic kidney disease type 1 documented in this encounter Care Teams Allergy And Immunology Chief Relationship Specialty Start Date End Date Brian Kathleen MD [address] [place] [address] PCP - General 11/05/20 documented as of this encounter
--- OUTSIDE RECORDS SUMMARY | 2025-01-09 17:13 | XMS_ITS | Encounter Summary ---
Author Organization [facility], Address [address] [place] [address] Phone Care Team Providers Care Commodity Merchant Name Role Phone Brian Kathleen MD Primary Care Provider [phone] Encounter Details Date Type Department Care Team (Late st Contact Info) Description 10/07/2024 Orders Only [facility] [address] [place] [phone] Milton Escobar MD [address] [place] [address] Adult type polycystic kidney disease [...] Visit [facility], [address] [place] [address] Milton Escobar MD [address] [facility] [place] [phone] documented as of this encounter Visit Diagnoses Diagnosis Adult type polycystic kidney disease type 1 documented in this encounter Care Teams Commodity Merchant Relationship Specialty Start Date End Date Brian Kathleen MD [address] [place] [address] PCP - General 11/05/20 documented as of this encounter
--- OUTSIDE RECORDS SUMMARY | 2025-01-09 17:13 | XMS_ITS ---
Author Organization [facility] Address [address] [place] [address] [place] [address] Care Team Providers Care Environmental Monitoring Technician Name Role Phone Brian Kathleen MD Primary Care Provider UnavailJohn Oliver Jr REASON FOR VISIT colon screening Encounters Encounter Location Date Provider Diagnosis [facility] Outpatient [address] [place] [phone] 08/09/2024 John Bowie Jr Plan Of Treatment Next Appt Details Provider Name:John lopez Jr, 03/01/2025 09:00:00 AM, [address] [place] [address], [address], [place], [address], Progress Notes * EVANS BRIJESH ADOB: [birth year] (65 yo F)Acc No.[id number]:08/09/2024 COLON WITH MAC Patient:?EVANS BRIJESH A Provider:?John Bowie MD :1960???Age:64 Y???Sex:Female D ate:08/09/2024 [address] [place] Pcp:Brian Kathleen MD Subjective: * Chief Complaints: * ???1. Colon screening. * Medical History:? Objective: * Vitals:? Assessment: Plan: * Treatment: * * The named appointment provid er may or may not be the originator of this progress note, and it is not deemed complete until electronically signed by the appointment provider. Sign off status: Pending * Provider:?John Bowie MD Date:?1 Generated for Luis garcia/Giacomo/Janie on:?01/09/2025 05:13 PM EDT
--- OUTSIDE RECORDS SUMMARY | 2025-01-09 17:13 | XMS_ITS | Encounter Summary ---
Author Organization [facility] Address [address] [place] [address] Phone Care Team Providers Care Process Description Writer Name Role Phone Brian Kathleen MD Primary Care Provider [phone] Encounter Details Date Type Department Care Team (Late Contact Info) Description 08/04/2024 Documentation Only [facility] [address] [place] [phone] Kellie Aguilar [address] [place] [address] Social History Tobacco Use Types [...] [facility] [address] [place] [address] Milton Escobar MD [address] [place] [address] [place] [phone] documented as of this encounter Visit Diagnoses Not on filedocumented in this encounter Care Teams Process Description Writer Relationship Specialty Start Date End Date Brian Kathleen MD [address] [place] [address] PCP - General 11/05/20 documented as of this encounter
--- OUTSIDE RECORDS SUMMARY | 2025-01-09 17:13 | XMS_ITS ---
Author Organization [facility] Address [address] [place] [address] Care Team Providers Care Monomer Purification Operator Name Role Phone Brian Kathleen MD Primary Care Provider John Bajwa Jr REASON FOR VISIT KIDNEY DISEASE Encounters Encounter Location Date Provider Diagnosis [facility] [address] [place] [address] 08/04/2024 John Bowie Jr Plan Of Treatment Next Appt Details Provider Name:John lopez Jr, 03/01/2025 09:00:00 AM, [address], [address], [place], [address], Progress Notes * MACKENZIEBRIJESH BARRETT ADOB: [birth year] (64 yo F)Acc No.[id number]:08/04/2024 Patient:?EVANS BRIJESH A :1960???Age:64 Y???Sex:Female [address] [place] [address] * true * Date:? Generated for Printi ng/Faxing/eTransmitting on:?01/09/2025 05:12 PM EDT
--- OUTSIDE RECORDS SUMMARY | 2025-01-09 17:13 | XMS_ITS | Encounter Summary ---
Author Organization [facility] Address [address] [place] [address] Care Team Providers Care Piano Bench Assembler Name Role Phone Brian Kathleen MD Primary Care Provider [phone] Reason for Visit * Reason Comments Asthma Follow up for asthma patient reports no changes or complaints. Encounter Details Date Type Department Care Team (Late st Contact Info) Description 01/06/2025 2:45 PM EDT Office Visit Pulmonol - [place] [address] [facility] [address] [place] [phone] Balwinder Lunsford MD [address] [facility] [address] [place] [address] Sarcoidosis (Primary Dx); Chronic obstructive pulmonary disease, unspecified COPD type ([facility]/HCC) Social History Tobacco Use Types Packs/Day Years [...] on file documented as of this encounter Last Filed Vital Signs Vital Sign Reading [...] Mass Index 37.84 01/06/2025 2:50 PM EDT documented in this encounter Progress Notes * Balwinder Lunsford MD - 01/06/2025 2:45 PM EDT ADULT PULMONARY CONSULT CHIEF COMPLAINT or REASON FOR CONSULTATION: Asthma (Follow up for asthma patient reports no changes or complaints. ) HISTORY OF PRESENT ILLNESS: Stephanie Coelho is a 64 y.o. years old, female with a history of COPD and Sarcoidosis. The sarcoidosis was dx 20 yrs ago via neck biopsy. She has never been on rx for the sarcoidosis. She has no chronic cough or wheezing. The pt was more SOB for a few weeks, this is a/w palpitaions. Her Cardiologistincrease her metoprolol. Less SOB then last visit- less anxiety now. Breathing is very stable. Dyspnea with walking up one flight of stairs, knee limiting. Had knee surgery which she tolerated but her renal function worsens. The pt was put on Spiriva due to ? Palpitaion with Wixela- neither medication did much. ALLERGIES: Allergies Allergen Reactions Bacitracin Gadolinium-Containing Contrast Media Penicillins ACTIVE MEDICATIONS: Outpatient Medications Marked as Taking for the 01/06/25 encounter (Office Visit) with Balwinder Lunsford MD Medication Sig Dispense Refill aMILoride (MIDAMOR) 5 mg tablet Take 5 mg by mouth daily. amLODIPine (NORVASC) 2.5 mg tablet Take 1 tablet (2.5 mg total) by mouth 1 (one) time each day. atorvastatin (LIPITOR) 10 mg tablet Take 10 mg by mouth daily. cholecalciferol (VITAMIN D-3) 50 mcg (2,000 unit) capsule Take by mouth. doxazosin (CARDURA) 4 mg tablet Take 4 mg by mouth at bedtime. levothyroxine (SYNTHROID, LEVOTHROID) 150 mcg tablet Take 150 mcg by mouth daily. LORazepam (ATIVAN) 1 mg tablet Take 1 mg by mouth every 6 hours as needed. metoprolol succinate (Kapspargo Sprinkle) 50 mg capsule,sprinkle,ER 24hr Take by mouth. olmesartan (BENICAR) 40 mg tablet Take 40 mg by mouth daily. potassium chloride 20 mEq tablet extended release Take 20 mEq by mouth daily. tiotropium (Spiriva Respimat) 2.5 mcg/actuation inhalation spray INHALE 1 PUFF INTO THE LUNGS DAILYFOR 30 DAYS 1 each 11 tiotropium (Spiriva with HandiHaler) 18 mcg per inhalation capsule Place 1 capsule (18 mcg total) into inhaler and inhale 1 (one) time each day. 30 capsule 11 triamcinolone (KENALOG) 0.1 % cream PLEASE SEE ATTACHED FOR DETAILED DIRECTIONS PROVIDER ATTESTS THAT THE MEDICATION LIST WAS OBTAINED, REVIEWED AND UPDATED. REVIEW OF SYSTEMS: GENERAL: No wt lost or fever ENT: +snoring Eye: RESPIRATORY: no cough, wheezing and dyspnea CARDIOVASCULAR: No chest pain, leg swelling or palpitations GI: No abdominal discomfort, MUSCULOSKELETAL: +backpain, +knee pain HEMATOLOGY/LYMPHOLOGY No prolonged bleeding, easy bruisability ENDOCRINE: no DM NEURO: No focal weakness : Psych: no depression PAST MEDICAL HISTORY: Patient Active Problem List Diagnosis Date Noted Sarcoidosis 10/21/2018 No past surgical history on file. FAMILY HISTORY: No family history on file. OCCUPATION OR OCCUPATION EXPOSURE: SOCIAL HISTORY Social History Socioeconomic History Marital status: Spouse name: Not on file Number of children: Not on file Years of education: Not on file Highest education level: Not on file Occupational History Not on file Tobacco Use Smoking status: Former Current packs/day: 0.00 Average packs/day: 0.3 packs/day for 14.6 years (3.7 ttl pk-yrs) Types: Cigarettes Start date: 01/24/1974 Quit date: 09/14/1988 Years since quittin.3 Smokeless tobacco: Never Substance and Sexual Activity Alcohol use: Never Drug use: Never Sexual activity: Not on file Other Topics Concern Not on file Social History Narrative Not on file IMMUNIZATION: Immunization History Administered Date(s) Administered COVID-19 (EGT/Comirnaty) 12yo and older 11/17/2023, 10/13/2024 Pfizer (ages 12 & older) Bivalent, COVID-19 07/08/2022 Pfizer (ages 12 & older) SARS-CoV-2 COVID-19, mRNA, LNP-S, imelda-sucrose, preservative free 01/31/2022 Pfizer SARS-CoV-2 COVID-19, mRNA, LNP-S, preservative free 01/02/2021, 01/23/2021, 07/31/2021 PHYSICAL EXAM: Visit Vitals BP 122/68 (BP Location: Left arm, Patient Position: Sitting, BP Cuff Size: Adult long) Pulse 60 Temp 36.8 ??C (98.2 ??F) (Temporal) Resp 18 Ht 1.6 m (63 ) Wt 96.9 kg (213 lb 9.6 oz) SpO2 99% BMI 37.84 kg/m?? Smoking Status Former BSA 1.99 m?? APPEARANCE: Alert and in no acute distress. Obese EYES: Conjunctiva and sclera normal. NOSE/SINUS: Nares normal. Septum midline. Mucosa No drainage or sinus tenderness. MOUTH/THROAT: no erythema or exudates. Mallampati class 3 NECK: Neck supple, thyroid symmetric and of normal size. HEART: RRR with normal S1 and S2, soft murmur. LUNG: CTA b/l, no wheezing or bronchial bs ABDOMEN: Bowel sounds normoactive, soft, non-tender EXTREMITIES: no clubbing, cyanosis, or edema. NEURO: Awake, alert and oriented x 3, no focalization. CARDIOPULMONARY TEST: Last Pulmonary function Test showed: 03/18/2024 FEV1 is 56% normal, FVC 61% normal, there is significant improvement in FEV1 post bronchodilators, FEV1/FVC ratio slightly decreased. Lung volume TLC is 95% normal, RV/TLC is 144% normal. Diffusion DLCO 72% normal. In summary, this pulm function test shows moderate obstructive lung disease with gas trapping. Thisis consistent with COPD. When compared to the last test from May 2022. There has not been any major changes RADIOLOGIST IMAGING: Chest Routine 2 Views - 05/23/22 - 1214 HISTORY: The patient is a 62-year-old female former smoker with dyspnea and palpitations. FINDINGS: PA and lateral radiographs of the chest demonstrate degenerative change of the thoracic spine, as also seen on the prior study of 10/21/2018. The cardiac and mediastinal contours are within normal limits. The lungs are hyperinflated with flattening of the diaphragm consistent with chronic obstructive pulmonary disease. There is no consolidation, mass, pulmonary vascular congestion, or pleural effusion. IMPRESSION: No acute pulmonary disease. Findings as above consistent with COPD. No change since 10/21/2018. ASSESSMENT: ICD-10-CM ICD-9-CM 1. Sarcoidosis D86.9 135 2. Chronic obstructive pulmonary disease, unspecified COPD type ([facility]) J44.9 496 PLAN: The patient's PFT did show moderate obstructive changes. Maintenance inhalers may no difference in the patient was not a heavy smoker. Some of this obstructive changes given relatively normal DLCO could be body habitus and sarcoidosis. I would recommend continuing as needed albuterol. Her last PFT from 2023 did not change compared to 2021. I will repeat another chest x-ray. The patient can stop the Spiriva since associated with heavy co-pay and it is not making any difference. - Follow up with Brian Kathleen MD for the other co-morbilities. - I spend 31 Minutes on this visit. The patient was educated about his problems, where assessment and plan was reviewed and explained, All questions were answered. I did review her PFT and chest x-ray RETURN TO THE NEXT VISIT: Based on physical exam, symptomatology, tests requested and baseline pulmonary evaluation/disease, I instructed the patient to come back to see me in 6 mths for reevaluation after the test has been done or earlier if the patient needed. Thanks Brian Kathleen MD for allowing me to have the opportunity to assist in the care of this patient. documented in this encounter Plan of Treatment Upcoming Encounters Date Type Department Care Team (Late st Contact Info) Description 01/08/2026 2:00 PM EDT Office Visit Pulmonolgy - [place] [address] [place] [address] Balwinder Lunsford MD [address] [place] [address] documented as of this encounter Results * XR Chest 2 Views (01/09/2025 [...] Signed Date: 01/09/2025 15:39 ET Workstation ID: [id number] Transcribed By: Self Edit Transcribed Date: 01/09/2025 [...] Signed Date: 01/09/2025 15:39 ET Workstation ID: [id number] Transcribed By: Self Edit Transcribed Date: 01/09/2025 15:38 ET us Balwinder Lunsford MD IMG XR PROCEDURES Final Result documented in this encounter Visit Diagnoses Diagnosis Sarcoidosis- Primary Chronic obstructive pulmonary disease, unspecified COPD type (CMS/HCC) Sarcoidosis documented in this encounter Care Teams Piano Bench Assembler Relationship Specialty Start Date End Date Brian Kathleen MD [address] [place] [address] PCP - General Internal Medicine 12/17/12 documented as of this encounter
--- OUTSIDE RECORDS SUMMARY | 2025-01-09 17:13 | XMS_ITS | Encounter Summary ---
Author Organization [facility] Address [address] [place] [address] Phone Care Team Providers Care Resistance Machine Welder Setter Name Role Phone Brian Kathleen MD Primary Care Provider [phone] Encounter Details Date Type Department Care Team (Late st Contact Info) Description 11/20/2023 Documentation Only [facility] [address] [place] [address] Shelia Bianchi [address] [place] [address] Social History Tobacco Use Types [...] Visit [facility] [address] [place] [address] Milton Escobar MD [address] [place] [address] documented as of this encounter Visit Diagnoses Not on filedocumented in this encounter Care Teams Resistance Machine Welder Setter Relationship Specialty Start Date End Date Brian Kathleen MD [address] [place] [address] PCP - General 11/05/20 documented as of this encounter
--- OUTSIDE RECORDS SUMMARY | 2025-01-09 17:13 | XMS_ITS | Encounter Summary ---
Author Organization [facility], Address [address] [place] [address] Phone Care Team Providers Care Utility Locator Name Role Phone Brian Kathleen MD Primary Care Provider [phone] Encounter Details Date Type Department Care Team (Late Contact Info) Description 12/23/2024 Orders Only [facility] [address] [place] [address] Milton Escobar MD [address] [place] [address] [place] [address] Adult type polycystic kidney disease [...] Visit [facility], [address] [place] [address] Milton Escobar MD [address] [facility] [address] [place] [address] documented as of this encounter Visit Diagnoses Diagnosis Adult type polycystic kidney disease type 1 documented in this encounter Care Teams Utility Locator Relationship Specialty Start Date End Date Brian Kathleen MD [address] [place] [address] PCP - General 11/05/20 documented as of this encounter
--- OUTSIDE RECORDS SUMMARY | 2025-01-09 17:13 | XMS_ITS | Encounter Summary ---
Author Organization [facility] Address [address] [place] [address] Phone Care Team Providers Care Slider Assembler Name Role Phone Brian Kathleen MD Primary Care Provider [phone] Reason for Visit * Reason Onset Date Comments Med Refill 12/28/2024 Encounter Details Date Type Department Care Team (Late st Contact Info) Description 12/28/2024 Refill [facility] [address] [place] [address] Kellie Aguilar [address] [place] [address] Social History Tobacco Use Types [...] Office Visit [facility] [address] [place] [address] Milton Escobar MD [address] [facility] [place] [address] documented as of this encounter Visit Diagnoses Not on filedocumented in this encounter Care Teams Slider Assembler Relationship Specialty Start Date End Date Brian Kathleen MD [address] [place] [address] PCP - General 11/05/20 documented as of this encounter
--- OUTSIDE RECORDS SUMMARY | 2025-01-09 17:13 | XMS_ITS | Encounter Summary ---
Author Organization [facility], Address [address] [place] [address] Phone Care Team Providers Care Dog Barber Name Role Phone Brian Kathleen MD Primary Care Provider [phone] Encounter Details Date Type Department Care Team (Late Contact Info) Description 06/17/2024 Orders Only [facility] [address] [place] [address] Milton Escobar MD [address] [place] [address] [place] [address] Adult type polycystic kidney disease [...] Visit [facility], [address] [place] [address] Milton Escobar MD [address] [place] [address] documented as of this encounter Visit Diagnoses Diagnosis Adult type polycystic kidney disease type 1 documented in this encounter Care Teams Dog Barber Relationship Specialty Start Date End Date Brian Kathleen MD [address] [place] [address] PCP - General 11/05/20 documented as of this encounter
--- OUTSIDE RECORDS SUMMARY | 2025-01-09 17:13 | XMS_ITS | Encounter Summary ---
Author Organization [facility] Address [address] [place] [address] Phone Care Team Providers Care Forklift Material Handler Name Role Phone Brian Kathleen MD Primary Care Provider [phone] Encounter Details Date Type Department Care Team (Late Contact Info) Description 02/04/2024 Documentation Only [facility] [address] [place] [address] Kellie Aguilar [address] [place] [address] Social History Tobacco Use Types [...] Visit [facility] [address] [place] [address] Milton Escobar MD [address] [place] [address] [place] [address] documented as of this encounter Visit Diagnoses Not on filedocumented in this encounter Care Teams Forklift Material Handler Relationship Specialty Start Date End Date Brian Kathleen MD [address] [place] [address] PCP - General 11/05/20 documented as of this encounter
--- OUTSIDE RECORDS SUMMARY | 2025-01-09 17:13 | XMS_ITS | Encounter Summary ---
Author Organization [facility] Address [address] [place] [address] Care Team Providers Care Liquor Maker Name Role Phone Brian Kathleen MD Primary Care Provider [phone] Encounter Details Date Type Department Care Team (Late st Contact Info) Description 01/09/2025 3:23 PM EDT Hospital Encounter [facility] [address] [place] [address] Sarcoidosis Social History Tobacco Use Types Packs/Day Years [...] Description 01/08/2026 2:00 PM EDT [facility] [address] [place] [address] Balwinder Lunsford MD [address] [place] [address] documented as of this encounter Procedures Procedure Name Priority Date/Time Associated Diagnosis Comments XR CHEST 2 VIEWS Routine 01/09/2025 3:30 PM EDT Sarcoidosis documented in this encounter Results * XR Chest 2 [...] Signed Date: 01/09/2025 15:39 ET Workstation ID: [id number] Transcribed By: Self Edit Transcribed Date: 01/09/2025 [...] Signed Date: 01/09/2025 15:39 ET Workstation ID: [id number] Transcribed By: Self Edit Transcribed Date: 01/09/2025 15:38 ET us Balwinder Lunsford MD IMG XR PROCEDURES Final Result documented in this encounter Visit Diagnoses Diagnosis Sarcoidosis documented in this encounter Care Teams Liquor Maker Relationship Specialty Start Date End Date Brian Kathleen MD [address] [place] [address] PCP - General Internal Medicine 12/17/12 documented as of this encounter
--- OUTSIDE RECORDS SUMMARY | 2025-01-09 17:13 | XMS_ITS | Encounter Summary ---
Author Organization [facility] Address [address] [place] [address] Phone Care Team Providers Care Trout Farmer Name Role Phone Brian Kathleen MD Primary Care Provider [phone] Encounter Details Date Type Department Care Team (Late Contact Info) Description 01/29/2024 Documentation Only [facility] [address] [place] [address] Kellie Aguilar [address] [place] [address] Social History Tobacco Use Types [...] Visit [facility] [address] [place] [address] Milton Escobar MD [address] [place] [address] [place] [address] documented as of this encounter Visit Diagnoses Not on filedocumented in this encounter Care Teams Trout Farmer Relationship Specialty Start Date End Date Brian Kathleen MD [address] [place] [address] PCP - General 11/05/20 documented as of this encounter
--- OUTSIDE RECORDS SUMMARY | 2025-01-09 17:13 | XMS_ITS | Encounter Summary ---
Author Organization [facility] [place], Address [address] [place] [address] Phone Care Team Providers Care Agent Based Modeler Name Role Phone Brian Kathleen MD Primary Care Provider [phone] Encounter Details Date Type Department Care Team (Late st Contact Info) Description 08/12/2024 Orders Only [facility] [address] [place] [address] Milton Escobar MD [address] [place] [address] [place] [address] Adult type polycystic kidney disease [...] Visit [facility] [place], [address] [place] [address] Milton Escobar MD [address] [place] [address] documented as of this encounter Visit Diagnoses Diagnosis Adult type polycystic kidney disease type 1 documented in this encounter Care Teams Agent Based Modeler Relationship Specialty Start Date End Date Brian Kathleen MD [address] [place] [address] PCP - General 11/05/20 documented as of this encounter
--- OUTSIDE RECORDS SUMMARY | 2025-01-09 17:13 | XMS_ITS | Encounter Summary ---
Author Organization [facility] Address [address] [place] [address] Phone Care Team Providers Care Seat Builder Name Role Phone Brian Kathleen MD Primary Care Provider [phone] Encounter Details Date Type Department Care Team (Late Contact Info) Description 08/04/2024 Documentation Only [facility] [address] [place] [address] Kellie Aguilar [address] [place] [address] Social History Tobacco Use Types [...] Visit [facility] [address] [place] [address] Milton Escobar MD [address] [place] [address] [place] [address] documented as of this encounter Visit Diagnoses Not on filedocumented in this encounter Care Teams Seat Builder Relationship Specialty Start Date End Date Brian Kathleen MD [address] [place] [address] PCP - General 11/05/20 documented as of this encounter
--- OUTSIDE RECORDS SUMMARY | 2025-01-09 17:13 | XMS_ITS | Encounter Summary ---
Author Organization [facility] Address [address] [place] [address] Phone Care Team Providers Care Passenger Relations Representative Name Role Phone Brian Kathleen MD Primary Care Provider [phone] Encounter Details Date Type Department Care Team (Late Contact Info) Description 01/29/2024 Documentation Only [facility] [address] [place] [address] Kellie Aguilar [address] [place] [address] Social History Tobacco Use Types [...] Visit [facility] [address] [place] [address] Milton Escobar MD [address] [place] [address] [place] [address] documented as of this encounter Visit Diagnoses Not on filedocumented in this encounter Care Teams Passenger Relations Representative Relationship Specialty Start Date End Date Brian Kathleen MD [address] [place] [address] PCP - General 11/05/20 documented as of this encounter
--- OUTSIDE RECORDS SUMMARY | 2025-01-09 17:13 | XMS_ITS | Encounter Summary ---
Author Organization [facility] Address [address] [place] [address] Phone Care Team Providers Care Processing Mgr Name Role Phone Brian Kathleen MD Primary Care Provider [phone] Encounter Details Date Type Department Care Team (Late st Contact Info) Description 04/10/2023 Orders Only [facility] [address] [place] [address] Milton Escobar MD [address] [facility] [address] [place] [address] Stage 3b chronic kidney disease [...] Visit [facility] [address] [place] [address] Milton Escobar MD [address] [place] [address] documented as of this encounter Visit Diagnoses Diagnosis Stage 3b chronic kidney disease (HCC) Adult type polycystic kidney disease type 1 documented in this encounter Care Teams Processing Mgr Relationship Specialty Start Date End Date Brian Kathleen MD [address] [place] [address] PCP - General 11/05/20 documented as of this encounter
--- OUTSIDE RECORDS SUMMARY | 2025-01-09 17:13 | XMS_ITS | Encounter Summary ---
Author Organization [facility] [place], Address [address] [place] [address] Phone Care Team Providers Care Flat Ironer Name Role Phone Brian Kathleen MD Primary Care Provider [phone] Encounter Details Date Type Department Care Team (Late Contact Info) Description 03/05/2022 Documentation Only [facility] [address] [place] [address] Milton Escobar MD [address] [place] [address] [place] [address] Social History Tobacco Use Types [...] Visit [facility] [address] [place] [address] Milton Escobar MD [address] [place] [address] documented as of this encounter Visit Diagnoses Not on filedocumented in this encounter Care Teams Flat Ironer Relationship Specialty Start Date End Date Brian Kathleen MD [address] [place] [address] PCP - General 11/05/20 documented as of this encounter
--- OUTSIDE RECORDS SUMMARY | 2025-01-09 17:13 | XMS_ITS | Encounter Summary ---
Author Organization [facility] Address [address] [place] [address] Phone Care Team Providers Care Skin Diver Name Role Phone Brian Kathleen MD Primary Care Provider [phone] Encounter Details Date Type Department Care Team (Late Contact Info) Description 08/04/2024 Documentation Only [facility] [address] [place] [phone] Kellie Aguilar [address] [place] [address] Social History Tobacco Use Types [...] Visit [facility] [address] [place] [address] Milton Escobar MD [address] [place] [address] [place] [address] documented as of this encounter Visit Diagnoses Not on filedocumented in this encounter Care Teams Skin Diver Relationship Specialty Start Date End Date Brian Kathleen MD [address] [place] [address] PCP - General 11/05/20 documented as of this encounter
--- OUTSIDE RECORDS SUMMARY | 2025-01-09 17:13 | XMS_ITS | Encounter Summary ---
Author Organization [facility] Address [address] [place] [address] Phone Care Team Providers Care Project Production Engineer Name Role Phone Brian Kathleen MD Primary Care Provider [phone] Encounter Details Date Type Department Care Team (Late Contact Info) Description 05/13/2024 Documentation Only [facility] [address] [place] [phone] Kellie Aguilar [address] [place] [address] Social History Tobacco Use Types [...] Visit [facility] [address] [place] [address] Milton Escobar MD [address] [place] [address] [place] [address] documented as of this encounter Visit Diagnoses Not on filedocumented in this encounter Care Teams Project Production Engineer Relationship Specialty Start Date End Date Brian Kathleen MD [address] [place] [address] PCP - General 11/05/20 documented as of this encounter
--- OUTSIDE RECORDS SUMMARY | 2025-01-09 17:13 | XMS_ITS | Encounter Summary ---
Author Organization [facility] [place], Address [address] [place] [address] Phone Care Team Providers Care Thermostat Maker Name Role Phone Brian Kathleen MD Primary Care Provider [phone] Encounter Details Date Type Department Care Team (Late st Contact Info) Description 05/01/2023 Orders Only [facility] [address] [place] [phone] Milton Escobar MD [address] [place] [address] [place] [address] Adult type polycystic kidney disease [...] Visit [facility] [address] [place] [phone] Milton Escobar MD [address] [place] [address] documented as of this encounter Procedures Procedure [...] (Protein/Creat Ratio) (11/20/2023 3:00 PM EST) Pathologist [facility] [place] Protein/Creati ne Ratio 0.23(H) (0-0.2) [facility] Protein, Urine 7 MG/DL [facility] Creatinine, Urine 29.8 MG/DL [facility] Comment: Testing performed or reported by [facility], a Service of [facility], [address] [place] [address] Cam Richards MD, Natural Resource Manager [facility]# [id number] Urine (Urine, Clean Catch) 11/20/2023 3:00 PM EST 11/20/2023 3:02 PM EST us Milton Escobar MD LAB URINE ORDERABLES Final Re sult [facility] * Urinalysis with microscopic (11/20/2023 3:00 PM EST) Pathologist [facility] Appearance COLORLESS [facility] Comment:CLEAR Specific [place] 1.006 (1.002-1. 030) [facility] pH Urine 6.0 (5.0-8.0) [facility] Albumin, Urine NEGATIVE (NEG) [facility] Glucose, Ur NEGATIVE (NEG) [facility] Ketones, Urine NEGATIVE (NEG) [facility] Bilirubin Urine NEGATIVE (NEG) [facility] Hemoglobin Presence in Urine NEGATIVE (NEG) [facility] Nitrite, Urine NEGATIVE (NEG) [facility] Leukocyte Esterase Urine NEGATIVE (NEG) [facility] Urobilinogen Urine NORMAL (NORM) MG/DL [facility] WBC, Urine <1 (0-5) /HPF [facility] RBC, Urine 1 (0-3) /HPF [facility] Squamous Epithelial, Urine <1 (0-8) /HPF [facility] Comment: Testing performed or reported by [facility], a Service of [facility], [address] [place] [address] Cam Richards MD, Natural Resource Manager [facility]# [id number] Urine (Urine, Clean Catch) 11/20/2023 3:00 PM EST 11/20/2023 3:02 PM EST us Milton Escobar MD LAB URINE ORDERABLES Final Re sult [facility] * (ABNORMAL) Comprehensive metabolic panel (11/20/2023 3:00 PM EST) Glucose 120(H) (70-99) MG/DL [facility] BUN 33(H) (8-23) MG/DL [facility] Creatinine 1.9(H) (0.5-1.0) MG/DL [facility] Sodium 140 (133-145) MMOL/L [facility] Potassium 4.5 (3.6-5.2) MMOL/L [facility] Chloride 103 (98-107) MMOL/L [facility] Bicarbonate (CO2) 26 (22-29) MMOL/L [facility] Anion Gap 11 (4-17) [facility] Albumin 4.3 (3.4-4.8) GM/DL [facility] Calcium 9.6 (8.6-10.5) MG/DL [facility] Total Bilirubin 0.3 (0-1.2) MG/DL [facility] Protein, Total 6.9 (6.2-8.2) GM/DL [facility] A/G Ratio 1.7 [facility] AST (SGOT) 14 (0-32) U/L [facility] Alkaline Phosphatase 87 (35-104) U/L [facility] ALT (SGPT) 9 (0-33) U/L [facility] Est GFR Non 29 ML/MIN/1.7 3 M2 [facility] Comment: Creatinine based estimated glomerular filtration (eGFR) in adults is calculated using the National Kid[employer] recommended 2020 CKD-EPI equation. Estimates GFR from serum creatinine, age and sex. Testing performed or reported by [facility], a Service of [facility], [address] [place] [address] Cam Richards MD, Natural Resource Manager [facility]# [id number] Blood (Blood, Venous) 11/20/2023 3:00 PM EST 11/20/2023 3:02 PM EST us Milton Escobar MD LAB BLOOD ORDERABLES Final Re sult [facility] * (ABNORMAL) CBC and Differential (11/20/2023 3:00 PM EST) White Blood Cells 4.6 (4.0-11.0) K/MM3 [facility] RBC 3.49(L) (4.20-5.40 ) M/MM3 [facility] Hgb 9.8(L) (11.7-15.5 ) GM/DL [facility] Hematocrit 32.5(L) (35.7-45.8 ) % [facility] MCV 93.1 (80.0-100. 0) FL [facility] MCH 28.1 (27.0-34.0 ) PG [facility] MCHC 30.2(L) (33.0-37.0 ) g/dL [facility] Platelets 176 (150-460) K/MM3 [facility] RDW-SD 47.0(H) (<47.0) FL [facility] MPV 9.5 (9.4-12.4) FL [facility] nRBC Count 0.0 #/100 WBC'S [facility] NRBC Absolute 0.0 K/MM3 [facility] Neutrophils Abs Auto 2.4 (1.3-7.0) K/MM3 [facility] Lymphocytes Relative 1.4 (0.8-3.1) K/MM3 [facility] Monocytes 0.6 (0.4-0.9) K/MM3 [facility] Eosinophils Relative 0.1 (0.0-0.4) K/MM3 [facility] Basophil ABS 0.0 (0.0-0.1) K/MM3 [facility] Granulocytes Absolute 0.0 K/MM3 [facility] Neutrophils % Auto 52.1 (44-76) % [facility] Lymphs 30.9 (15-43) % [facility] Monocytes Absolute 13.1(H) (4.5-10.5) % [facility] Eosinophils 2.8 (0-6) % [facility] Basophils Relative 0.9 (0-2) % [facility] Immature Granulocytes 0.2 % [facility] Comment: Testing performed or reported by [facility], a Service of [facility], [address] [place] [address] Cam Richards MD, Natural Resource Manager [facility]# [id number] Blood (Blood, Venous) 11/20/2023 3:00 PM EST 11/20/2023 3:02 PM EST us Milton Escobar MD LAB BLOOD ORDERABLES Final Re sult [facility] documented in this encounter Visit Diagnoses Diagnosis Adult type polycystic kidney disease type 1 documented in this encounter Care Teams Thermostat Maker Relationship Specialty Start Date End Date Brian Kathleen MD [address] [place] [address] PCP - General 11/05/20 documented as of this encounter
--- OUTSIDE RECORDS SUMMARY | 2025-01-09 17:13 | XMS_ITS | Encounter Summary ---
Author Organization [facility] [place], Address [address] [place] [address] Phone Care Team Providers Care Electrical Worker Name Role Phone Brian Kathleen MD Primary Care Provider [phone] Encounter Details Date Type Department Care Team (Late Contact Info) Description 06/10/2024 Orders Only [facility] [address] [place] [phone] Milton Escobar MD [address] [place] [address] [place] [address] Adult type polycystic kidney disease [...] Visit [facility], [address] [place] [address] Milton Escobar MD [address] [place] [address] documented as of this encounter Visit Diagnoses Diagnosis Adult type polycystic kidney disease type 1 documented in this encounter Care Teams Electrical Worker Relationship Specialty Start Date End Date Brian Kathleen MD [address] [place] [address] PCP - General 11/05/20 documented as of this encounter
--- OUTSIDE RECORDS SUMMARY | 2025-01-09 17:13 | XMS_ITS | Encounter Summary ---
Author Organization [facility] [place], Address [address] [place] [address] Phone Care Team Providers Care Loss Prevention Detective Name Role Phone Brian Kathleen MD Primary Care Provider [phone] Encounter Details Date Type Department Care Team (Late Contact Info) Description 07/08/2024 Orders Only [facility] [address] [place] [address] Milton Escobar MD [address] [place] [address] Adult type polycystic kidney disease [...] Visit [facility] [place], [address] [place] [address] Milton Escobar MD [address] [place] [address] documented as of this encounter Visit Diagnoses Diagnosis Adult type polycystic kidney disease type 1 documented in this encounter Care Teams Loss Prevention Detective Relationship Specialty Start Date End Date Brian Kathleen MD [address] [place] [address] PCP - General 11/05/20 documented as of this encounter
--- OUTSIDE RECORDS SUMMARY | 2025-01-09 17:13 | XMS_ITS | Encounter Summary ---
Author Organization [facility] Address [address] [place] [address] Phone Care Team Providers Care Plush Cutter Name Role Phone Brian Kathleen MD Primary Care Provider [phone] Encounter Details Date Type Department Care Team (Late Contact Info) Description 10/07/2024 Documentation Only [facility] [address] [place] [address] Kellie Aguilar [address] [place] [address] Social History Tobacco Use Types [...] [facility] [address] [place] [address] Milton Escobar MD [address] [place] [address] [place] [address] documented as of this encounter Visit Diagnoses Not on filedocumented in this encounter Care Teams Plush Cutter Relationship Specialty Start Date End Date Brian Kathleen MD [address] [place] [address] PCP - General 11/05/20 documented as of this encounter
--- OUTSIDE RECORDS SUMMARY | 2025-01-09 17:13 | XMS_ITS | Encounter Summary ---
Author Organization [facility] Address [address] [place] [address] Phone Care Team Providers Care Primer Boxer Name Role Phone Brian Kathleen MD Primary Care Provider [phone] Encounter Details Date Type Department Care Team (Late Contact Info) Description 02/04/2024 Documentation Only [facility] [address] [place] [address] Kellie Aguilar [address] [place] [address] Social History Tobacco Use Types [...] And [facility] [address] [place] [address] Milton Escobar MD [address] [place] [address] [place] [address] documented as of this encounter Visit Diagnoses Not on filedocumented in this encounter Care Teams Primer Boxer Relationship Specialty Start Date End Date Brian Kathleen MD [address] [place] [address] PCP - General 11/05/20 documented as of this encounter
--- OUTSIDE RECORDS SUMMARY | 2025-01-09 17:13 | XMS_ITS | Encounter Summary ---
Author Organization [facility] Address [address] [place] [address] Phone Care Team Providers Care Compensation Specialist Name Role Phone Brian Kathleen MD Primary Care Provider [phone] Encounter Details Date Type Department Care Team (Late Contact Info) Description 08/04/2024 Documentation Only [facility] [address] [place] [address] Kellie Aguilar [address] [place] [address] Social History Tobacco Use Types [...] Visit [facility] [address] [place] [address] Milton Escobar MD [address] [place] [address] [place] [address] documented as of this encounter Visit Diagnoses Not on filedocumented in this encounter Care Teams Compensation Specialist Relationship Specialty Start Date End Date Brian Kathleen MD [address] [place] [address] PCP - General 11/05/20 documented as of this encounter
--- OUTSIDE RECORDS SUMMARY | 2025-01-09 17:13 | XMS_ITS ---
Author Organization [facility] Address [address] [place] [address] Care Team Providers Care Emergency Physician Name Role Phone Brian Kathleen MD Primary Care Provider John Bajwa Jr REASON FOR VISIT stool dna test Encounters Encounter Location Date Provider Diagnosis [facility] [address] [place] [address] 08/24/2024 John Bowie Jr Plan Of Treatment Next Appt Details Provider Name:John lopez Jr, 03/01/2025 09:00:00 AM, [address], [address], [place], [address], Progress Notes * BRIJESH KRUEGER ADOB: [birth year] (64 yo F)Acc No.[id number]:08/24/2024 Patient:?BRIJESH KRUEGER :1960???Age:64 Y???Sex:Female Address:[address] [place] [address] * true * Date:? Generated for Printi ng/Faxing/eTransmitting on:?01/09/2025 05:13 PM EDT
--- OUTSIDE RECORDS SUMMARY | 2025-01-09 17:13 | XMS_ITS | Encounter Summary ---
Author Organization [facility] Address [address] [place] [address] Phone Care Team Providers Care Shoe Cutter Name Role Phone Brian Kathleen MD Primary Care Provider [phone] Encounter Details Date Type Department Care Team (Late Contact Info) Description 02/04/2024 Documentation Only [facility] [address] [place] [place] [address] Kellie Aguilar [address] [place] [address] Social History Tobacco Use Types [...] [facility] [address] [place] [place] [address] Milton Escobar MD [address] [place] [address] [place] [address] documented as of this encounter Visit Diagnoses Not on filedocumented in this encounter Care Teams Shoe Cutter Relationship Specialty Start Date End Date Brian Kathleen MD [address] [place] [address] PCP - General 11/05/20 documented as of this encounter
--- OUTSIDE RECORDS SUMMARY | 2025-01-09 17:13 | XMS_ITS | Encounter Summary ---
Author Organization [facility], Address [address] [place] [address] Phone Care Team Providers Care Stock Broker Name Role Phone Brian Kathleen MD Primary Care Provider Encounter Details Date Type Department Care Team (Late st Contact Info) Description 08/05/2024 Orders Only [facility] [address] [place] [address] Milton Escobar MD [address] [place] [address] [place] [address] Adult type polycystic kidney disease [...] Visit [facility], [address] [place] [address] Milton Escobar MD [address] [place] [address] documented as of this encounter Visit Diagnoses Diagnosis Adult type polycystic kidney disease type 1 documented in this encounter Care Teams Stock Broker Relationship Specialty Start Date End Date Brian Kathleen MD [address] [place] [address] PCP - General 11/05/20 documented as of this encounter
--- OUTSIDE RECORDS SUMMARY | 2025-01-09 17:13 | XMS_ITS | Encounter Summary ---
Author Organization [facility] [place], Address [address] [place] [address] Phone Care Team Providers Care Rn Dialysis Name Role Phone Brian Kathleen MD Primary Care Provider [phone] Encounter Details Date Type Department Care Team (Late Contact Info) Description 07/15/2024 Orders Only [facility] [address] [place] [address] Milton Escobar MD [address] [place] [address] [place] [address] Adult type polycystic kidney disease [...] Visit [facility] [place], [address] [place] [address] Milton Escobar MD [address] [facility] [place] [address] documented as of this encounter Visit Diagnoses Diagnosis Adult type polycystic kidney disease type 1 documented in this encounter Care Teams Rn Dialysis Relationship Specialty Start Date End Date Brian Kathleen MD [address] [place] [address] PCP - General 11/05/20 documented as of this encounter
--- OUTSIDE RECORDS SUMMARY | 2025-01-09 17:13 | XMS_ITS | Encounter Summary ---
Author Organization [facility] [place], Address [address] [place] [address] Phone Care Team Providers Care Word Processor Technician Name Role Phone Brian Kathleen MD Primary Care Provider [phone] Encounter Details Date Type Department Care Team (Late Contact Info) Description 12/02/2024 Orders Only [facility] [address] [place] [address] Milton Escobar MD [address] [place] [address] [place] [address] Adult type polycystic kidney disease [...] Visit [facility] [place], [address] [address] Milton Escobar MD [address] [facility] [place] [address] documented as of this encounter Visit Diagnoses Diagnosis Adult type polycystic kidney disease type 1 documented in this encounter Care Teams Word Processor Technician Relationship Specialty Start Date End Date Brian Kathleen MD [address] [place] [address] PCP - General 11/05/20 documented as of this encounter
--- OUTSIDE RECORDS SUMMARY | 2025-01-09 17:13 | XMS_ITS | Encounter Summary ---
Author Organization [facility] [place], Address [address] [place] [address] Phone Care Team Providers Care Healthcare Advisory Services Manager Name Role Phone Brian Kathleen MD Primary Care Provider [phone] Encounter Details Date Type Department Care Team (Late Contact Info) Description 03/25/2024 Orders Only [facility] [address] [place] [address] Milton Escobar MD [address] [place] [address] Adult type polycystic kidney [...] Visit [facility] [place], [address] [place] [place] [address] Milton Escobar MD [address] [place] [address] documented as of this encounter Visit Diagnoses Diagnosis Adult type polycystic kidney disease type 1 documented in this encounter Care Teams Healthcare Advisory Services Manager Relationship Specialty Start Date End Date Brian Kathleen MD [address] [place] [address] PCP - General 11/05/20 documented as of this encounter
--- OUTSIDE RECORDS SUMMARY | 2025-01-09 17:13 | XMS_ITS | Encounter Summary ---
Author Organization [facility] [place], Address [address] [place] [address] Phone Care Team Providers Care Marine Steward Name Role Phone Brian Kathleen MD Primary Care Provider [phone] Encounter Details Date Type Department Care Team (Late Contact Info) Description 09/02/2024 Orders Only [facility] [address] [place] [address] Milton Escobar MD [address] [place] [address] [place] [address] Adult type polycystic kidney disease [...] Visit [facility] [place], [address] [place] [address] Milton Escobar MD [address] [facility] [place] [address] documented as of this encounter Visit Diagnoses Diagnosis Adult type polycystic kidney disease type 1 documented in this encounter Care Teams Marine Steward Relationship Specialty Start Date End Date Brian Kathleen MD [address] [place] [address] PCP - General 11/05/20 documented as of this encounter
--- OUTSIDE RECORDS SUMMARY | 2025-01-09 17:13 | XMS_ITS | Encounter Summary ---
Author Organization [facility] [place], Address [address] [place] [address] Phone Care Team Providers Care Advertising Executive Name Role Phone Brian Kathleen MD Primary Care Provider [phone] Encounter Details Date Type Department Care Team (Late Contact Info) Description 02/26/2024 Orders Only [facility] [address] [place] [address] Milton Escobar MD [address] [facility] [place] [address] Adult type polycystic kidney disease [...] Visit [facility] [place], [address] [place] [address] Milton Escobar MD [address] [facility] [address] [place] [address] documented as of this encounter Visit Diagnoses Diagnosis Adult type polycystic kidney disease type 1 documented in this encounter Care Teams Advertising Executive Relationship Specialty Start Date End Date Brian Kathleen MD [address] [place] [address] PCP - General 11/05/20 documented as of this encounter
--- OUTSIDE RECORDS SUMMARY | 2025-01-09 17:13 | XMS_ITS | Encounter Summary ---
Author Organization [facility] Address [address] [facility] [address] [place] [address] Phone Care Team Providers Care Flight Engineer Performance Qualified Name Role Phone Brian Kathleen MD Primary Care Provider [phone] Reason for Visit * Reason Comments Med Refill Encounter Details Date Type Department Care Team (Late st Contact Info) Description 11/17/2021 Refill [facility] 200 [place] [address] Nate Villareal MD [address] [facility] [address] [place] [phone] Social History Tobacco Use Types Packs/Day Years [...] Visit [facility] [place], [address] [facility] [place] [phone] Milton Escobar MD [address] [facility] [address] [place] [phone] documented as of this encounter Visit Diagnoses Not on filedocumented in this encounter Care Teams Flight Engineer Performance Qualified Relationship Specialty Start Date End Date Brian Kathleen MD 40 [place] [address] PCP - General 11/05/20 documented as of this encounter
--- OUTSIDE RECORDS SUMMARY | 2025-01-09 17:14 | XMS_ITS | Encounter Summary ---
Author Organization [facility] Address [address] [place] [address] Phone Care Team Providers Care Preload Supervisor Name Role Phone Brian Kathleen MD Primary Care Provider [phone] Encounter Details Date Type Department Care Team (Late st Contact Info) Description 09/12/2022 Orders Only [facility] [address] [place] [address] Aga Gifford [address] [place] [address] Adult type polycystic kidney disease [...] Office Visit [facility] [address] [place] [address] Milton Escobar MD [address] [facility] [address] [place] [address] documented as of this encounter Visit Diagnoses Diagnosis Adult type polycystic kidney disease type 1 Type 2 diabetes mellitus without complication (HCC) Stage 3b chronic kidney disease (HCC) documented in this encounter Care Teams Preload Supervisor Relationship Specialty Start Date End Date Brian Kathleen MD [address] [place] [address] PCP - General 11/05/20 documented as of this encounter
--- OUTSIDE RECORDS SUMMARY | 2025-01-09 17:14 | XMS_ITS | Encounter Summary ---
Author Organization [facility] Address [address] [place] [address] Phone Care Team Providers Care Internet Cafe Manager Name Role Phone Brian Kathleen MD Primary Care Provider [phone] Encounter Details Date Type Department Care Team (Late st Contact Info) Description 03/13/2023 Orders Only [facility] [address] [facility] [place] [place] [phone] Milton Escobar MD [address] [facility] [place] [address] Stage 3b chronic kidney disease [...] Care [facility] [address] [facility] [place] [place] [address] Milton Escobar MD [address] [facility] [place] [address] documented as of this encounter Visit Diagnoses Diagnosis Stage 3b chronic kidney disease (HCC) Adult type polycystic kidney disease type 1 documented in this encounter Care Teams Internet Cafe Manager Relationship Specialty Start Date End Date Brian Kathleen MD [address] [place] [address] PCP - General 11/05/20 documented as of this encounter
--- OUTSIDE RECORDS SUMMARY | 2025-01-09 17:14 | XMS_ITS | Encounter Summary ---
Author Organization [facility] Address [address] [place] [address] Phone Care Team Providers Care Lathe Spotter Name Role Phone Brian Kathleen MD Primary Care Provider [phone] Encounter Details Date Type Department Care Team (Late st Contact Info) Description 11/07/2022 Orders Only [facility] [address] [place] [address] Aga Gifford [address] [place] [address] Adult type polycystic kidney disease [...] Visit [facility] [address] [place] [address] Milton Escobar MD [address] [facility] [place] [address] documented as of this encounter Visit Diagnoses Diagnosis Adult type polycystic kidney disease type 1 Type 2 diabetes mellitus without complication (HCC) Stage 3b chronic kidney disease (HCC) documented in this encounter Care Teams Lathe Spotter Relationship Specialty Start Date End Date Brian Kathleen MD [address] [place] [address] PCP - General 11/05/20 documented as of this encounter
--- OUTSIDE RECORDS SUMMARY | 2025-01-09 17:14 | XMS_ITS | Encounter Summary ---
Author Organization [facility] [place], Address [address] [place] [address] Phone Care Team Providers Care Malted Milk Masher Name Role Phone Brian Kathleen MD Primary Care Provider Encounter Details Date Type Department Care Team (Late st Contact Info) Description 07/24/2023 Orders Only [facility] [address] [place] [phone] Milton Escobar MD [address] [facility] [place] [address] Adult type polycystic kidney disease [...] [facility] [address] [place] [address] Milton Escobar MD [address] [facility] [place] [address] documented as of this encounter [...] (Protein/Creat Ratio) (10/28/2023 11:37 AM EST) Pathologist [facility] Protein/Creati ne Ratio 0.21(H) (0-0.2) [facility] Protein, Urine 6 MG/DL [facility] Creatinine, Urine 29.7 MG/DL [facility] Comment: Testing performed or reported by [facility], a Service of [facility], [address] [place] [address] Cam Richards MD, Ethylene Plant Operator [facility]# [id number] Urine (Urine, Clean Catch) 10/28/2023 11:37 AM EST 10/28/2023 11:38 AM EST us Milton Escobar MD LAB URINE ORDERABLES Final Re sult [facility] * Urinalysis with microscopic (10/28/2023 11:37 AM EST) Pathologist [facility] Appearance COLORLESS [facility] Comment:CLEAR Specific [place] 1.005 (1.002-1. 030) [facility] pH Urine 6.0 (5.0-8.0) [facility] Albumin, Urine NEGATIVE (NEG) [facility] Glucose, Ur NEGATIVE (NEG) [facility] Ketones, Urine NEGATIVE (NEG) [facility] Bilirubin Urine NEGATIVE (NEG) [facility] Hemoglobin Presence in Urine NEGATIVE (NEG) [facility] Nitrite, Urine NEGATIVE (NEG) [facility] Leukocyte Esterase Urine NEGATIVE (NEG) [facility] Urobilinogen Urine NORMAL (NORM) MG/DL [facility] WBC, Urine NONE SEEN (0-5) /HPF [facility] RBC, Urine NONE SEEN (0-3) /HPF [facility] Comment: Testing performed or reported by [facility], a Service of [facility], [address] [place] [address] Cam Richards MD, Ethylene Plant Operator [facility]# [id number] Urine (Urine, Clean Catch) 10/28/2023 11:37 AM EST 10/28/2023 11:38 AM EST us Milton Escobar MD LAB URINE ORDERABLES Final Re sult [facility] * (ABNORMAL) Comprehensive metabolic panel (10/28/2023 11:37 AM EST) Glucose 104(H) (70-99) MG/DL [facility] BUN 33(H) (8-23) MG/DL [facility] Creatinine 1.9(H) (0.5-1.0) MG/DL [facility] Sodium 140 (133-145) MMOL/L [facility] Potassium 4.6 (3.6-5.2) MMOL/L [facility] Chloride 102 (98-107) MMOL/L [facility] Bicarbonate (CO2) 28 (22-29) MMOL/L [facility] Anion Gap 10 (4-17) [facility] Albumin 4.5 (3.4-4.8) GM/DL [facility] Calcium 9.5 (8.6-10.5) MG/DL [facility] Total Bilirubin 0.5 (0-1.2) MG/DL [facility] Protein, Total 6.8 (6.2-8.2) GM/DL [facility] A/G Ratio 2.0 [facility] AST (SGOT) 15 (0-32) U/L [facility] Alkaline Phosphatase 86 (35-104) U/L [facility] ALT (SGPT) 9 (0-33) U/L [facility] Est GFR Non 29 ML/MIN/1.7 3 M2 [facility] Comment: Creatinine based estimated glomerular filtration (eGFR) in adults is calculated using the National Kidney Foundation recommended 2020 CKD-EPI equation. Estimates GFR from serum creatinine, age and sex. Testing performed or reported by [facility], a Service of [facility], [address] [place] [id number] Cam Richards MD, Ethylene Plant Operator [facility]# [id number] Blood (Blood, Venous) 10/28/2023 11:37 AM EST 10/28/2023 11:38 AM EST us Milton Escobar MD LAB BLOOD ORDERABLES Final Re sult [facility] * (ABNORMAL) CBC and Differential (10/28/2023 11:37 AM EST) White Blood Cells 4.3 (4.0-11.0) K/MM3 [facility] RBC 3.53(L) (4.20-5.40 ) M/MM3 [facility] Hgb 10.1(L) (11.7-15.5 ) GM/DL [facility] Hematocrit 32.3(L) (35.7-45.8 ) % [facility] MCV 91.5 (80.0-100. 0) FL [facility] MCH 28.6 (27.0-34.0 ) PG [facility] MCHC 31.3(L) (33.0-37.0 ) g/dL [facility] Platelets 193 (150-460) K/MM3 [facility] RDW-SD 45.9 (<47.0) FL [facility] MPV 9.5 (9.4-12.4) [place] [facility] nRBC Count 0.0 #/100 WBC'S [facility] NRBC Absolute 0.0 K/MM3 [facility] Neutrophils Abs Auto 2.4 (1.3-7.0) K/MM3 [facility] Lymphocytes Relative 1.3 (0.8-3.1) K/MM3 [facility] Monocytes 0.4 (0.4-0.9) K/MM3 [facility] Eosinophils Relative 0.1 (0.0-0.4) K/MM3 [facility] Basophil ABS 0.0 (0.0-0.1) K/MM3 [facility] Granulocytes Absolute 0.0 K/MM3 [facility] Neutrophils % Auto 56.1 (44-76) % [facility] Lymphs 29.7 (15-43) % [facility] Monocytes Absolute 10.1 (4.5-10.5) % [facility] Eosinophils 3.2 (0-6) % [facility] Basophils Relative 0.7 (0-2) % [facility] Immature Granulocytes 0.2 % [facility] Comment: Testing performed or reported by [facility], a Service of [facility], [address] [place] [id number] Cam Richards MD, Ethylene Plant Operator [facility]# [id number] Blood (Blood, Venous) 10/28/2023 11:37 AM EST 10/28/2023 11:38 AM EST us Milton Escobar MD LAB BLOOD ORDERABLES Final Re sult [facility] documented in this encounter Visit Diagnoses Diagnosis Adult type polycystic kidney disease type 1- Primary documented in this encounter Care Teams Malted Milk Masher Relationship Specialty Start Date End Date Brian Kathleen MD [address] [place] [address] PCP - General 11/05/20 documented as of this encounter
--- OUTSIDE RECORDS SUMMARY | 2025-01-09 17:14 | XMS_ITS | Encounter Summary ---
Author Organization [facility] [place], Address [address] [place] [address] Phone Care Team Providers Care Fingerprint Clerk Name Role Phone Brian Kathleen MD Primary Care Provider [phone] Encounter Details Date Type Department Care Team (Late st Contact Info) Description 05/29/2023 Orders Only [facility] [address] [place] [phone] Milton Escobar MD [address] [place] [address] [place] [address] Adult type polycystic kidney disease [...] Visit [facility] [address] [place] [phone] Milton Escobar MD [address] [facility] [place] [phone] documented as of this encounter Procedures Procedure [...] (Protein/Creat Ratio) (09/01/2023 11:25 AM EST) Pathologist [facility] Protein/Creati ne Ratio 0.21(H) (0-0.2) [facility] Protein, Urine 7 MG/DL [facility] Creatinine, Urine 32.6 MG/DL [facility] Comment: Testing performed or reported by [facility], a Service of [facility], [address] [place] [address] Cam Richards MD, [employer] Shop Supervisor [facility]# [id number] Urine (Urine, Clean Catch) 09/01/2023 11:25 AM EST 09/01/2023 11:26 AM EST us Milton Escobar MD LAB URINE ORDERABLES Final Re sult [facility] * Urinalysis with microscopic (09/01/2023 11:25 AM EST) Pathologist [facility] Appearance COLORLESS [facility] Comment:CLEAR Specific [place] 1.007 (1.002-1. 030) [facility] pH Urine 6.0 (5.0-8.0) [facility] Albumin, Urine NEGATIVE (NEG) [facility] Glucose, Ur NEGATIVE (NEG) [facility] Ketones, Urine NEGATIVE (NEG) [facility] Bilirubin Urine NEGATIVE (NEG) [facility] Hemoglobin Presence in Urine NEGATIVE (NEG) [facility] Nitrite, Urine NEGATIVE (NEG) [facility] Leukocyte Esterase Urine NEGATIVE (NEG) [facility] Urobilinogen Urine NORMAL (NORM) MG/DL [facility] WBC, Urine <1 (0-5) /HPF [facility] RBC, Urine <1 (0-3) /HPF [facility] Mucus, Urine SLIGHT /LPF [facility] Squamous Epithelial, Urine 1 (0-8) /HPF [facility] Comment: Testing performed or reported by [facility], a Service of [facility], [address] [place] [address] Cam Richards MD, [employer] Shop Supervisor [facility]# [id number] Urine (Urine, Clean Catch) 09/01/2023 11:25 AM EST 09/01/2023 11:26 AM EST us Milton Escobar MD LAB URINE ORDERABLES Final Re sult [facility] * (ABNORMAL) Comprehensive metabolic panel (09/01/2023 11:25 AM EST) Glucose 100(H) (70-99) MG/DL [facility] BUN 31(H) (8-23) MG/DL [facility] Creatinine 1.9(H) (0.5-1.0) MG/DL [facility] Sodium 139 (133-145) MMOL/L [facility] Potassium 4.5 (3.6-5.2) MMOL/L [facility] Chloride 104 (98-107) MMOL/L [facility] Bicarbonate (CO2) 24 (22-29) MMOL/L [facility] Anion Gap 11 (4-17) [facility] Albumin 4.5 (3.4-4.8) GM/DL [facility] Calcium 9.7 (8.6-10.5) MG/DL [facility] Total Bilirubin 0.4 (0-1.2) MG/DL [facility] Protein, Total 6.8 (6.2-8.2) GM/DL [facility] A/G Ratio 2.0 [facility] AST (SGOT) 14 (0-32) U/L [facility] Alkaline Phosphatase 82 (35-104) U/L [facility] ALT (SGPT) 8 (0-33) U/L [facility] Est GFR Non 29 ML/MIN/1.7 3 M2 [facility] Comment: Creatinine based estimated glomerular filtration (eGFR) in adults is calculated using the National Kidney Foundation recommended 2020 CKD-EPI equation. Estimates GFR from serum creatinine, age and sex. Testing performed or reported by [facility], a Service of [facility], [address] [place] [address] Cam Richards MD, [employer] Shop Supervisor [facility]# [id number] Blood (Blood, Venous) 09/01/2023 11:25 AM EST 09/01/2023 11:26 AM EST us Milton Escobar MD LAB BLOOD ORDERABLES Final Re sult [facility] * (ABNORMAL) CBC and Differential (09/01/2023 11:25 AM EST) White Blood Cells 4.6 (4.0-11.0) K/MM3 [facility] RBC 3.33(L) (4.20-5.40 ) M/MM3 [facility] Hgb 9.7(L) (11.7-15.5 ) GM/DL [facility] Hematocrit 30.9(L) (35.7-45.8 ) % [facility] MCV 92.8 (80.0-100. 0) FL [facility] MCH 29.1 (27.0-34.0 ) PG [facility] MCHC 31.4(L) (33.0-37.0 ) g/dL [facility] Platelets 191 (150-460) K/MM3 [facility] RDW-SD 48.1(H) (<47.0) FL [facility] MPV 9.4 (9.4-12.4) [place] [facility] nRBC Count 0.0 #/100 WBC'S [facility] NRBC Absolute 0.0 K/MM3 [facility] Neutrophils Abs Auto 2.5 (1.3-7.0) K/MM3 [facility] Lymphocytes Relative 1.4 (0.8-3.1) K/MM3 [facility] Monocytes 0.5 (0.4-0.9) K/MM3 [facility] Eosinophils Relative 0.1 (0.0-0.4) K/MM3 [facility] Basophil ABS 0.0 (0.0-0.1) K/MM3 [facility] Granulocytes Absolute 0.0 K/MM3 [facility] Neutrophils % Auto 55.1 (44-76) % [facility] Lymphs 29.4 (15-43) % [facility] Monocytes Absolute 11.5(H) (4.5-10.5) % [facility] Eosinophils 3.1 (0-6) % [facility] Basophils Relative 0.7 (0-2) % [facility] Immature Granulocytes 0.2 % [facility] Comment: Testing performed or reported by [facility], a Service of [facility], [address] [place] [address] Cam Richards MD, [employer] Shop Supervisor [facility]# [id number] Blood (Blood, Venous) 09/01/2023 11:25 AM EST 09/01/2023 11:26 AM EST us Milton Escobar MD LAB BLOOD ORDERABLES Final Re sult [facility] documented in this encounter Visit Diagnoses Diagnosis Adult type polycystic kidney disease type 1 documented in this encounter Care Teams Fingerprint Clerk Relationship Specialty Start Date End Date Brian Kathleen MD [address] [place] [address] PCP - General 11/05/20 documented as of this encounter
--- OUTSIDE RECORDS SUMMARY | 2025-01-09 17:14 | XMS_ITS | Encounter Summary ---
Author Organization [facility] Address [address] [place] [address] Phone Care Team Providers Care Test Man Name Role Phone Brian Kathleen MD Primary Care Provider [phone] Encounter Details Date Type Department Care Team (Late st Contact Info) Description 10/10/2022 Orders Only [facility] [address] [place] [address] Aga Gifford [address] [place] [address] Adult type polycystic kidney disease [...] Office Visit [facility] [address] [place] [address] Milton Escobar MD [address] [facility] [place] [address] documented as of this encounter Visit Diagnoses Diagnosis Adult type polycystic kidney disease type 1 Type 2 diabetes mellitus without complication (HCC) Stage 3b chronic kidney disease (HCC) documented in this encounter Care Teams Test Man Relationship Specialty Start Date End Date Brian Kathleen MD [address] [place] [address] PCP - General 11/05/20 documented as of this encounter
--- OUTSIDE RECORDS SUMMARY | 2025-01-09 17:14 | XMS_ITS | Patient Health Record ---
Author Organization [facility] Address [address] [place] [address] Care Team Providers Care Mover Name Role Phone Brian Kathleen MD Primary Care Provider John Bajwa Jr Unavailable Allergies Allergen (clinical drug ingredient) Drug/Non Drug Allergy documented on EMR Reaction Allergy Type Onset Date Status Adhesive Unknown Allergy Active Penicillin Unknown Drug Allergy Active bacitracin Bacitracin Unknown Drug Allergy Activ e MRI dye (uncoded) Unknown Allergy Ac tive Reason For Referral No Information Medications Medication SIG (Take, Route, Frequency, Duration) Notes [...] food Orally three x a day Active Immunizations Vaccine Route Administration Date Status Comme nts Influenza Unknown 08/26/2018 Administered Influenza Unknown 08/03/2019 Administered Influenza Unknown 08/15/2020 Administered Influenza Unknown 09/11/2021 Administered Influenza Unknown 09/16/2022 Administered Influenza Unknown 07/14/2023 Administered Social History Tobacco Use: Social History Observation Description Date Details (start date - stop date) Former Smoker NA - NA Tobacco Use/Smoking Question Answer Notes Patient is a former smoker How long has it been since you last smoked? 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 confirmed Problem 816986206 Gastroesophageal reflux disease without esophagitis (K21.9) Active confirmed Problem 939347303 Fatty liver (K76.0) Active confirmed Problem 51874348 Pancreatic cyst (K86.2) Active confirmed Problem 92867707150912918 Abnormal CT of the abdomen (R93.5) Active confirmed Problem 3672259 Other specified diseases of pancreas (K86.89) Active confirmed Problem 705315857 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) Active confirmed Problem 642114777 Pancreatic ducta l abnormality (Q45.3) Active confirmed Vital Signs Temperature 96.8 degrees Fahrenheit 02/29/2024 Blood pressure diastolic 00 mm Hg 02/29/2024 Height 62.5 in 02/29/2024 Blood pressure systolic 000 mm Hg 02/29/2024 Weight 210 lbs 02/29/2024 BMI 37.79 kg/m2 02/29/2024 Encounters Encounter Location Date Provider Diagnosis [facility] [address] [place] [phone] 02/29/2024 John Bowie Jr Gastroesophageal reflux disease without esophagitis K21.9 ; Pancreatic cyst K86.2 and Colon cancer screening Z12.11 [facility] [address] [place] [address] 01/29/2024 John Bowie Jr [facility] [address] [place] [address] 02/18/2024 John oBwie Jr [facility] [address] [place] [address] 04/05/2024 John Bowie Jr [facility] [address] [place] [address] 08/04/2024 John Bowie Jr [facility] [address] [place] [address] 08/24/2024 John Bowie Jr Assessments Encounter Date Diagnosis (ICD Code) Assessment Notes Treatment Notes Treatment Clinical Notes Section Notes 02/29/2024 Gastroesophageal reflux disease without esophagitis (ICD-10 - K21.9) Gastroesophageal reflux disease material was printed We discussed gastroesophageal reflux disease today. We recommended she continue famotidine. We discussed diet, lifestyle modifications, and weight management regarding the treatment of reflux. We reviewed her MRI in detail as above. Followup MRI will be in one year. Finally, she is due for colorectal cancer screening in this will be arranged. She is advised to stop diuretics one day before the procedure. Today's visit was 30 minutes 02/29/2024 Pancreatic cyst (ICD-10 - K86.2) We discussed gastroesophageal reflux disease today. We recommended she continue famotidine. We discussed diet, lifestyle modifications, and weight management regarding the treatment of reflux. We reviewed her MRI in detail as above. Followup MRI will be in one year. Finally, she is due for colorectal cancer screening in this will be arranged. She is advised to stop diuretics one day before the procedure. Today's visit was 30 minutes 02/29/2024 Colon cancer screening (ICD-10 - Z12.11) We discussed gastroesophageal reflux disease today. We recommended she continue famotidine. We discussed diet, lifestyle modifications, and weight management regarding the treatment of reflux. We reviewed her MRI in detail as above. Followup MRI will be in one year. Finally, she is due for colorectal cancer screening in this will be arranged. She is advised to stop diuretics one day before the procedure. Today's visit was 30 minutes Plan Of Treatment Pending Test Test Name Order Date BUN 03/30/2019 CREATININE 03/30/2019 CT ABD WITH CONTRAST 02/21/2019 MRI ABD NO CONTRAST (MRCP) 2023 MRI ABD NO CONTRAST (MRCP) 04/14/2018 MRI ABD NO CONTRAST (MRCP) 06/13/2020 MRI ABD NO CONTRAST (MRCP) 05/27/2023 MRI ABD NO CONTRAST (MRCP) 12/31/2021 MRI ABD W&WO CONTRAST 12/30/2019 Future Test Test Name Order Date COLONOSCOPY 11/18/2012 LIVER PROFILE 04/14/2018 COLONOSCOPY 05/27/2023 COLONOSCOPY 02/29/2024 Next Appt Details Provider Name:Johndani lopez , 03/01/2025 09:00:00 AM, [address] [place] [address], [address], [place], [address], Insurance Providers Payer Name Payer Address Payer Phone Subscriber Number Group Number Insured Name Patient Relationship to Insured Coverage Start Date Coverage End Date [facility] [address] [place] [phone] [id number] BRIJESH KRUEGER Self - patient is the insured Medical (General) History Medical History History ICD Code fatty liver polycystic kidney disease sarcoidosis pituitary microadenoma hypothyroidism diabetes II colonoscopy/08/07, normal, ten-year foll owup recommended renal cell carcinoma 01/2020 hyperlipidemia incisional hernia nephrectomy site chronic kidney disease right knee replacement Surgical History Surgery Date(Month/Year) eye surgery benign breast biopsy thryroid surgery lymph node biopsy from the neck bunion 08/06/2018 renal surgery 04/24/2020 Kidney Surgery 2019 right knee replacement 2022
--- OUTSIDE RECORDS SUMMARY | 2025-01-09 17:14 | XMS_ITS | Encounter Summary ---
Author Organization [facility], Address [address] [place] [address] Phone Care Team Providers Care Deployment Technician Name Role Phone Brian Kathleen MD Primary Care Provider [phone] Encounter Details Date Type Department Care Team (Late st Contact Info) Description 08/21/2023 Orders Only [facility] [address] [place] [phone] Milton Escobar MD [address] [place] [address] [place] [phone] Adult type polycystic kidney disease type 1 [...] [facility] [address] [place] [phone] Milton Escobar MD [address] [place] [phone] documented as of this encounter Procedures Procedure [...] Results * Phosphorus (08/21/2023 1:50 PM EDT) [facility] Phosphorus, Serum 3.8 (2.5-4.5) MG/DL [facility] Comment: Testing performed or reported by [facility], a Service of [facility], [address] [place] [address] Cam Richards MD, Chemical Equipment Repairer CLIA# [id number] 08/21/2023 1:50 PM EDT 08/21/2023 1:53 PM EDT us Milton Escobar MD LAB BLOOD ORDERABLES Final Re sult [facility] * (ABNORMAL) Protein, Total, Random Urine w/Creatinine (Protein/Creat Ratio) (08/21/2023 1:50 PM EDT) [facility] Protein/Creati ne Ratio 0.22(H) (0-0.2) [facility] Protein, Urine 9 MG/DL [facility] Creatinine, Urine 39.7 MG/DL [facility] Comment: Testing performed or reported by [facility], a Service of [address] [address] Cam Richards MD, Chemical Equipment Repairer CLIA# [id number] Urine (Urine, Clean Catch) 08/21/2023 1:50 PM EDT 08/21/2023 1:54 PM EDT Milton Escobar MD LAB URINE ORDERABLES Final Re sult Performing Organization Address [facility] de Phone Number [facility] * (ABNORMAL) Urinalysis with microscopic (08/21/2023 1:50 PM EDT) Appearance COLORLESS [facility] Comment:CLEAR Specific [place] 1.006 (1.002-1. 030) [facility] pH Urine 6.0 [...] [facility] Comment: Testing performed or reported by [facility], a Service of [facility], [address] [place] [address] Cam Richards MD, Chemical Equipment Repairer [facility]# [id number] Urine (Urine, Clean Catch) 08/21/2023 1:50 PM EDT 08/21/2023 1:54 PM EDT Milton Escobar MD LAB URINE ORDERABLES Final Re sult Performing Organization Address [facility]/ZIP Co de Phone Number [facility] * (ABNORMAL) Comprehensive metabolic panel (08/21/2023 1:50 PM EDT) Glucose 89 (70-99) MG/DL [facility] BUN 28(H) (8-23) MG/DL [facility] Creatinine 1.9(H) (0.5-1.0) MG/DL [facility] Sodium 139 (133-145) MMOL/L [facility] Potassium 4.1 (3.6-5.2) MMOL/L [facility] Chloride 102 (98-107) MMOL/L [facility] Bicarbonate (CO2) 25 (22-29) MMOL/L [facility] Anion Gap 12 (4-17) [facility] Albumin 4.6 (3.4-4.8) GM/DL [facility] Calcium 9.6 (8.6-10.5) MG/DL [facility] Total Bilirubin 0.4 (0-1.2) MG/DL [facility] Protein, Total 6.4 (6.2-8.2) GM/DL [facility] A/G Ratio 2.6 [facility] AST (SGOT) 17 (0-32) U/L [facility] Alkaline Phosphatase 86 (35-104) U/L [facility] ALT (SGPT) 11 (0-33) U/L [facility] Est GFR Non 29 ML/MIN/1.7 3 M2 [facility] Comment: Creatinine based estimated glomerular filtration (eGFR) in adults is calculated using the National Kidney Foundation recommended 2020 CKD-EPI equation. Estimates GFR from serum creatinine, age and sex. Testing performed or reported by [facility], a Service of [facility], [address] [place] [address] Cam Richards MD, Chemical Equipment Repairer [facility]# [id number] Blood (Blood, Venous) 08/21/2023 1:50 PM EDT 08/21/2023 1:53 PM EDT us Milton Escobar MD LAB BLOOD ORDERABLES Final Re sult [facility] * (ABNORMAL) CBC and Differential (08/21/2023 1:50 PM EDT) White Blood Cells 5.5 (4.0-11.0) K/MM3 [facility] RBC 3.39(L) (4.20-5.40 ) M/MM3 [facility] Hgb 10.1(L) (11.7-15.5 ) GM/DL [facility] Hematocrit 32.2(L) (35.7-45.8 ) % [facility] MCV 95.0 (80.0-100. 0) FL [facility] MCH 29.8 (27.0-34.0 ) PG [facility] MCHC 31.4(L) (33.0-37.0 ) g/dL [facility] Platelets 185 (150-460) K/MM3 [facility] RDW-SD 49.0(H) (<47.0) FL [facility] MPV 9.4 (9.4-12.4) FL [facility] nRBC Count 0.0 #/100 WBC'S [facility] NRBC Absolute 0.0 K/MM3 [facility] Neutrophils Abs Auto 3.2 (1.3-7.0) K/MM3 [facility] Lymphocytes Relative 1.4 (0.8-3.1) K/MM3 [facility] Monocytes 0.7 (0.4-0.9) K/MM3 [facility] Eosinophils Relative 0.1 (0.0-0.4) K/MM3 [facility] Basophil ABS 0.1 (0.0-0.1) K/MM3 [facility] Granulocytes Absolute 0.0 K/MM3 [facility] Neutrophils % Auto 57.3 (44-76) % [facility] Lymphs 25.5 (15-43) % [facility] Monocytes Absolute 13.4(H) (4.5-10.5) % [facility] Eosinophils 2.5 (0-6) % [facility] Basophils Relative 0.9 (0-2) % [facility] Immature Granulocytes 0.4 % [facility] Comment: Testing performed or reported by [facility], a Service of [facility], [address] [place] [address] Cam Richards MD, Chemical Equipment Repairer [facility]# [id number] Blood (Blood, Venous) 08/21/2023 1:50 PM EDT 08/21/2023 1:53 PM EDT us Milton Escobar MD LAB BLOOD ORDERABLES Final Re sult [facility] documented in this encounter Visit Diagnoses Diagnosis Adult type polycystic kidney disease type 1 documented in this encounter Care Teams Deployment Technician Relationship Specialty Start Date End Date Brian Kathleen MD [address] [place] [address] PCP - General 11/05/20 documented as of this encounter
--- OUTSIDE RECORDS SUMMARY | 2025-01-09 17:14 | XMS_ITS | Encounter Summary ---
Author Organization [facility], Address [address] [place] [address] Phone Care Team Providers Care Deep Fryer Assembler Name Role Phone Brian Kathleen MD Primary Care Provider [phone] Encounter Details Date Type Department Care Team (Late st Contact Info) Description 03/06/2023 Orders Only [facility] [address] [place] [phone] Milton Escobar MD [address] [place] [address] [place] [address] Adult type polycystic kidney disease [...] Visit [facility] [address] [place] [phone] Milton Escobar MD [address] [place] [phone] documented as of this encounter Procedures Procedure [...] (Protein/Creat Ratio) (03/09/2023 1:11 PM EDT) Pathologist [facility] Protein/Creati ne Ratio 0.28(H) (0-0.2) [facility] Protein, Urine 16 MG/DL [facility] Creatinine, Urine 55.5 MG/DL [facility] Comment: Testing performed or reported by [facility], a Service of [facility], [address] [place] [address] Cam Richards MD, Instructional Systems Designer [facility]# [id number] Urine (Urine, Clean Catch) 03/09/2023 1:11 PM EDT 03/09/2023 1:15 PM EDT us Milton Escobar MD LAB URINE ORDERABLES Final Re sult [facility] * (ABNORMAL) Urinalysis with microscopic (03/09/2023 1:11 PM EDT) Pathologist [facility] Appearance COLORLESS [facility] Comment:CLEAR Specific [place] 1.007 (1.002-1. 030) [facility] pH Urine 5.5 (5.0-8.0) [facility] Albumin, Urine TRACE(A) (NEG) [facility] Glucose, Ur NEGATIVE (NEG) [facility] Ketones, Urine NEGATIVE (NEG) [facility] Bilirubin Urine NEGATIVE (NEG) [facility] Hemoglobin Presence in Urine NEGATIVE (NEG) [facility] Nitrite, Urine NEGATIVE (NEG) [facility] Leukocyte Esterase Urine 1+(A) (NEG) [facility] Urobilinogen Urine NORMAL (NORM) MG/DL [facility] WBC, Urine 1 (0-5) /HPF [facility] RBC, Urine NONE SEEN (0-3) /HPF [facility] Mucus, Urine SLIGHT /LPF [facility] Squamous Epithelial, Urine 2 (0-8) /HPF [facility] Trans Epithelial, Urine <1 /HPF [facility] Comment: Testing performed or reported by [facility], a Service of [facility], [address] [place] [address] Cam Richards MD, Instructional Systems Designer [facility]# [id number] Urine (Urine, Clean Catch) 03/09/2023 1:11 PM EDT 03/09/2023 1:15 PM EDT us Milton Escobar MD LAB URINE ORDERABLES Final Re sult [facility] * (ABNORMAL) Comprehensive metabolic panel (03/09/2023 1:11 PM EDT) Glucose 104(H) (70-99) MG/DL [facility] BUN 29(H) (8-23) MG/DL [facility] Creatinine 1.6(H) (0.5-1.0) MG/DL [facility] Sodium 133 (133-145) MMOL/L [facility] Potassium 4.5 (3.6-5.2) MMOL/L [facility] Chloride 96(L) (98-107) MMOL/L [facility] Bicarbonate (CO2) 26 (22-29) MMOL/L [facility] Anion Gap 11 (4-17) [facility] Albumin 4.7 (3.4-4.8) GM/DL [facility] Calcium 9.6 (8.6-10.5) MG/DL [facility] Total Bilirubin 0.4 (0-1.2) MG/DL [facility] Protein, Total 7.0 (6.2-8.2) GM/DL [facility] A/G Ratio 2.0 [facility] AST (SGOT) 16 (0-32) U/L [facility] Alkaline Phosphatase 69 (35-104) U/L [facility] ALT (SGPT) 12 (0-33) U/L [facility] Est GFR Non 36 ML/MIN/1.7 3 M2 [facility] Comment: Creatinine based estimated glomerular filtration (eGFR) in adults is calculated using the National Kidney Foundation recommended 2020 CKD-EPI equation. Estimates GFR from serum creatinine, age and sex. Testing performed or reported by [facility], a Service of [facility], [address] [place] [address] Cam Richards MD, Instructional Systems Designer [facility]# [id number] Blood (Blood, Venous) 03/09/2023 1:11 PM EDT 03/09/2023 1:15 PM EDT us Milton Escobar MD LAB BLOOD ORDERABLES Final Re sult [facility] * (ABNORMAL) CBC and Differential (03/09/2023 1:11 PM EDT) White Blood Cells 5.9 (4.0-11.0) K/MM3 [facility] RBC 3.60(L) (4.20-5.40 ) M/MM3 [facility] Hgb 10.9(L) (11.7-15.5 ) GM/DL [facility] Hematocrit 33.6(L) (35.7-45.8 ) % [facility] MCV 93.3 (80.0-100. 0) FL [facility] MCH 30.3 (27.0-34.0 ) PG [facility] MCHC 32.4(L) (33.0-37.0 ) g/dL [facility] Platelets 223 (150-460) K/MM3 [facility] RDW-SD 45.1 (<47.0) FL [facility] MPV 8.8(L) (9.4-12.4) FL [facility] nRBC Count 0.0 #/100 WBC'S [facility] NRBC Absolute 0.0 K/MM3 [facility] Neutrophils Abs Auto 3.9 (1.3-7.0) K/MM3 [facility] Lymphocytes Relative 1.0 (0.8-3.1) K/MM3 [facility] Monocytes 0.8 (0.4-0.9) K/MM3 [facility] Eosinophils Relative 0.2 (0.0-0.4) K/MM3 [facility] Basophil ABS 0.0 (0.0-0.1) K/MM3 [facility] Granulocytes Absolute 0.0 K/MM3 [facility] Neutrophils % Auto 65.6 (44-76) % [facility] Lymphs 17.7 (15-43) % [facility] Monocytes Absolute 13.2(H) (4.5-10.5) % [facility] Eosinophils 2.5 (0-6) % [facility] Basophils Relative 0.7 (0-2) % [facility] Immature Granulocytes 0.3 % [facility] Comment: Testing performed or reported by [facility], a Service of [facility], [address] [place] [address] Cam Richards MD, Instructional Systems Designer [facility]# [id number] Blood (Blood, Venous) 03/09/2023 1:11 PM EDT 03/09/2023 1:13 PM EDT us Milton Escobar MD LAB BLOOD ORDERABLES Final Re sult [facility] documented in this encounter Visit Diagnoses Diagnosis Adult type polycystic kidney disease type 1 documented in this encounter Care Teams Deep Fryer Assembler Relationship Specialty Start Date End Date Brian Kathleen MD [address] [place] [address] PCP - General 11/05/20 documented as of this encounter
--- OUTSIDE RECORDS SUMMARY | 2025-01-09 17:14 | XMS_ITS | Encounter Summary ---
Author Organization [facility] Address [address] [place] [address] Phone Care Team Providers Care Hanger Off Name Role Phone Brian Kathleen MD Primary Care Provider [phone] Encounter Details Date Type Department Care Team (Late st Contact Info) Description 02/13/2023 Orders Only [facility] [address] [place] [phone] Milton Escobar MD [address] [place] [address] Stage 3b chronic kidney disease [...] Visit [facility] [address] [place] [address] Milton Escobar MD [address] [place] [address] documented as of this encounter Visit Diagnoses Diagnosis Stage 3b chronic kidney disease (HCC) Adult type polycystic kidney disease type 1 documented in this encounter Care Teams Hanger Off Relationship Specialty Start Date End Date Brian Kathleen MD [address] [place] [address] PCP - General 11/05/20 documented as of this encounter
--- OUTSIDE RECORDS SUMMARY | 2025-01-09 17:14 | XMS_ITS | Encounter Summary ---
Author Organization [facility] [place], Address [address] [place] [address] Phone Care Team Providers Care Loader Operator/Ground Leader Name Role Phone Brian Kathleen MD Primary Care Provider [phone] Encounter Details Date Type Department Care Team (Late st Contact Info) Description 04/03/2023 Orders Only [facility] [address] [place] [place] [phone] Milton Escobar MD [address] [place] [address] [place] [address] Adult type polycystic kidney disease [...] [facility] [address] [place] [place] [phone] Milton Escobar MD [address] [place] [phone] documented as of this encounter Procedures Procedure [...] (Protein/Creat Ratio) (04/06/2023 3:01 PM EDT) Pathologist [facility] Protein/Creati ne Ratio 0.32(H) (0-0.2) [facility] Protein, Urine 14 MG/DL [facility] Creatinine, Urine 42.8 MG/DL [facility] Comment: Testing performed or reported by [facility], a Service of [facility], [address] [place] [address] Cam Richards MD, Auto Electrician [facility]# [id number] Urine (Urine, Clean Catch) 04/06/2023 3:01 PM EDT 04/06/2023 3:19 PM EDT us Milton Escobar MD LAB URINE ORDERABLES Final Re sult [facility] * (ABNORMAL) Urinalysis with microscopic (04/06/2023 3:01 PM EDT) Pathologist [facility] Appearance COLORLESS [facility] Comment:CLEAR Specific [place] 1.009 (1.002-1. 030) [facility] pH Urine 6.0 (5.0-8.0) [facility] Albumin, Urine TRACE(A) (NEG) [facility] Glucose, Ur NEGATIVE (NEG) [facility] Ketones, Urine NEGATIVE (NEG) [facility] Bilirubin Urine NEGATIVE (NEG) [facility] Hemoglobin Presence in Urine NEGATIVE (NEG) [facility] Nitrite, Urine NEGATIVE (NEG) [facility] Leukocyte Esterase Urine NEGATIVE (NEG) [facility] Urobilinogen Urine NORMAL (NORM) MG/DL [facility] WBC, Urine 1 (0-5) /HPF [facility] RBC, Urine <1 (0-3) /HPF [facility] Bacteria SLIGHT(A) (NEG) HPF [facility] Mucus, Urine SLIGHT /LPF [facility] Squamous Epithelial, Urine <1 (0-8) /HPF [facility] Comment: Testing performed or reported by [facility], a Service of [facility], [address] [place] [address] Cam Richards MD, Auto [employer] [facility]# [id number] Urine (Urine, Clean Catch) 04/06/2023 3:01 PM EDT 04/06/2023 3:19 PM EDT us Milton Escobar MD LAB URINE ORDERABLES Final Re sult [facility] * (ABNORMAL) Comprehensive metabolic panel (04/06/2023 12:03 PM EDT) Glucose 103(H) (70-99) MG/DL [facility] BUN 24(H) (8-23) MG/DL [facility] Creatinine 1.7(H) (0.5-1.0) MG/DL [facility] Sodium 142 (133-145) MMOL/L [facility] Potassium 4.6 (3.6-5.2) MMOL/L [facility] Chloride 106 (98-107) MMOL/L [facility] Bicarbonate (CO2) 22 (22-29) MMOL/L [facility] Anion Gap 14 (4-17) [facility] Albumin 4.0 (3.4-4.8) GM/DL [facility] Calcium 9.4 (8.6-10.5) MG/DL [facility] Total Bilirubin 0.3 (0-1.2) MG/DL [facility] Protein, Total 6.1(L) (6.2-8.2) GM/DL [facility] A/G Ratio 1.9 [facility] AST (SGOT) 15 (0-32) U/L [facility] Alkaline Phosphatase 58 (35-104) U/L [facility] ALT (SGPT) <5 (0-33) U/L [facility] Est GFR Non 32 ML/MIN/1.7 3 M2 [facility] Comment: Creatinine based estimated glomerular filtration (eGFR) in adults is calculated using the National Kidney Foundation recommended 2020 CKD-EPI equation. Estimates GFR from serum creatinine, age and sex. Testing performed or reported by [facility], a Service of [facility], [address] [place] [id number] Cam Richards MD, Auto Electrician [facility]# [id number] Blood (Blood, Venous) 04/06/2023 12:03 PM EDT 04/06/2023 12:05 PM EDT us Milton Escobar MD LAB BLOOD ORDERABLES Final Re sult [facility] * (ABNORMAL) CBC and Differential (04/06/2023 12:03 PM EDT) White Blood Cells 5.8 (4.0-11.0) K/MM3 [facility] RBC 2.87(L) (4.20-5.40 ) M/MM3 [facility] Comment:Results checked Hgb 8.6(L) (11.7-15.5 ) GM/DL [facility] Hematocrit 28.3(L) (35.7-45.8 ) % [facility] MCV 98.6 (80.0-100. 0) [place] [facility] Comment:Specimen label check ed MCH 30.0 (27.0-34.0 ) PG [facility] MCHC 30.4(L) (33.0-37.0 ) g/dL [facility] Platelets 227 (150-460) K/MM3 [facility] RDW-SD 53.3(H) (<47.0) [place] [facility] MPV 9.1(L) (9.4-12.4) [place] [facility] nRBC Count 0.0 #/100 WBC'S [facility] NRBC Absolute 0.0 K/MM3 [facility] Neutrophils Abs Auto 3.6 (1.3-7.0) K/MM3 [facility] Lymphocytes Relative 1.2 (0.8-3.1) K/MM3 [facility] Monocytes 0.7 (0.4-0.9) K/MM3 [facility] Eosinophils Relative 0.2 (0.0-0.4) K/MM3 [facility] Basophil ABS 0.0 (0.0-0.1) K/MM3 [facility] Granulocytes Absolute 0.0 K/MM3 [facility] Neutrophils % Auto 63.1 (44-76) % [facility] Lymphs 20.2 (15-43) % [facility] Monocytes Absolute 12.3(H) (4.5-10.5) % [facility] Eosinophils 3.8 (0-6) % [facility] Basophils Relative 0.3 (0-2) % [facility] Immature Granulocytes 0.3 % [facility] Comment: Testing performed or reported by [facility], a Service of [facility], [address] [place] [address] Cam Richards MD, Auto Electrician [facility]# [id number] Blood (Blood, Venous) 04/06/2023 12:03 PM EDT 04/06/2023 12:04 PM EDT us Milton Escobar MD LAB BLOOD ORDERABLES Final Re sult [facility] documented in this encounter Visit Diagnoses Diagnosis Adult type polycystic kidney disease type 1 documented in this encounter Care Teams Loader Operator/Ground Leader Relationship Specialty Start Date End Date Brian Kathleen MD [address] [place] [address] PCP - General 11/05/20 documented as of this encounter
--- OUTSIDE RECORDS SUMMARY | 2025-01-09 17:14 | XMS_ITS | Encounter Summary ---
Author Organization [facility] [place], Address [address] [place] [address] Phone Care Team Providers Care General Accounting Clerk Name Role Phone Brian Kathleen MD Primary Care Provider [phone] Encounter Details Date Type Department Care Team (Late st Contact Info) Description 06/26/2023 Orders Only [facility] [address] [place] [phone] Milton Escobar MD [address] [place] [address] [place] [address] Adult type polycystic kidney disease [...] [facility] [address] [place] [phone] Milton Escobar MD [address] [place] [phone] documented as of this encounter Procedures Procedure [...] w/Creatinine (Protein/Creat Ratio) (09/28/2023 2:19 PM EST) [facility] Protein/Creatin e Ratio 0.19 (0-0.2) [facility] Protein, Urine 8 MG/DL [facility] Creatinine, Urine 41.6 MG/DL [facility] Comment: Testing performed or reported by [facility], a Service of [facility], [address] [place] [address] Cam Richards MD, [employer] Gun[employer] Liaison Officer [facility]# [id number] Urine (Urine, Clean Catch) 09/28/2023 2:19 PM EST 09/28/2023 2:21 PM EST us Milton Escobar MD LAB URINE ORDERABLES Final Re sult [facility] * Urinalysis with microscopic (09/28/2023 2:19 PM EST) [facility] Appearance COLORLESS [facility] Comment:CLEAR Specific [place] 1.006 (1.002-1. 030) [facility] pH Urine 6.0 (5.0-8.0) [facility] Albumin, Urine NEGATIVE (NEG) [facility] Glucose, Ur NEGATIVE (NEG) [facility] Ketones, Urine NEGATIVE (NEG) [facility] Bilirubin Urine NEGATIVE (NEG) [facility] Hemoglobin Presence in Urine NEGATIVE (NEG) [facility] Nitrite, Urine NEGATIVE (NEG) [facility] Leukocyte Esterase Urine NEGATIVE (NEG) [facility] Urobilinogen Urine NORMAL (NORM) MG/DL [facility] WBC, Urine <1 (0-5) /HPF [facility] RBC, Urine <1 (0-3) /HPF [facility] Mucus, Urine SLIGHT /LPF [facility] Squamous Epithelial, Urine <1 (0-8) /HPF [facility] Comment: Testing performed or reported by [facility], a Service of [facility], [address] [place] [address] Cam Richards MD, [employer] Liaison Officer [facility]# [id number] Urine (Urine, Clean Catch) 09/28/2023 2:19 PM EST 09/28/2023 2:21 PM EST us Milton Escobar MD LAB URINE ORDERABLES Final Re sult [facility] * (ABNORMAL) Comprehensive metabolic panel (09/28/2023 2:19 PM EST) Glucose 121(H) (70-99) MG/DL [facility] BUN 33(H) (8-23) MG/DL [facility] Creatinine 1.8(H) (0.5-1.0) MG/DL [facility] Sodium 137 (133-145) MMOL/L [facility] Potassium 4.4 (3.6-5.2) MMOL/L [facility] Chloride 103 (98-107) MMOL/L [facility] Bicarbonate (CO2) 25 (22-29) MMOL/L [facility] Anion Gap 9 (4-17) [facility] Albumin 4.5 (3.4-4.8) GM/DL [facility] Calcium 9.6 (8.6-10.5) MG/DL [facility] Total Bilirubin 0.3 (0-1.2) MG/DL [facility] Protein, Total 6.6 (6.2-8.2) GM/DL [facility] A/G Ratio 2.1 [facility] AST (SGOT) 16 (0-32) U/L [facility] Alkaline Phosphatase 90 (35-104) U/L [facility] ALT (SGPT) 9 (0-33) U/L [facility] Est GFR Non 31 ML/MIN/1.7 3 M2 [facility] Comment: Creatinine based estimated glomerular filtration (eGFR) in adults is calculated using the National Kidney Foundation recommended 2020 CKD-EPI equation. Estimates GFR from serum creatinine, age and sex. Testing performed or reported by [facility], a Service of [facility], [address] [place] [id number] Cam Richards MD, [employer] Liaison Officer [facility]# [id number] Blood (Blood, Venous) 09/28/2023 2:19 PM EST 09/28/2023 2:21 PM EST us Milton Escobar MD LAB BLOOD ORDERABLES Final Re sult [facility] * (ABNORMAL) CBC and Differential (09/28/2023 2:19 PM EST) White Blood Cells 5.0 (4.0-11.0) K/MM3 [facility] RBC 3.38(L) (4.20-5.40 ) M/MM3 [facility] Hgb 9.6(L) (11.7-15.5 ) GM/DL [facility] Hematocrit 31.4(L) (35.7-45.8 ) % [facility] MCV 92.9 (80.0-100. 0) FL [facility] MCH 28.4 (27.0-34.0 ) PG [facility] MCHC 30.6(L) (33.0-37.0 ) g/dL [facility] Platelets 208 (150-460) K/MM3 [facility] RDW-SD 47.6(H) (<47.0) FL [facility] MPV 9.7 (9.4-12.4) [place] [facility] nRBC Count 0.0 #/100 WBC'S [facility] NRBC Absolute 0.0 K/MM3 [facility] Neutrophils Abs Auto 2.9 (1.3-7.0) K/MM3 [facility] Lymphocytes Relative 1.4 (0.8-3.1) K/MM3 [facility] Monocytes 0.6 (0.4-0.9) K/MM3 [facility] Eosinophils Relative 0.2 (0.0-0.4) K/MM3 [facility] Basophil ABS 0.0 (0.0-0.1) K/MM3 [facility] Granulocytes Absolute 0.0 K/MM3 [facility] Neutrophils % Auto 56.9 (44-76) % [facility] Lymphs 27.3 (15-43) % [facility] Monocytes Absolute 11.8(H) (4.5-10.5) % [facility] Eosinophils 3.0 (0-6) % [facility] Basophils Relative 0.8 (0-2) % [facility] Immature Granulocytes 0.2 % [facility] Comment: Testing performed or reported by [facility], a Service of [facility], [address] [place] [address] Cam Richards MD, [employer] Liaison Officer [facility]# [id number] Blood (Blood, Venous) 09/28/2023 2:19 PM EST 09/28/2023 2:21 PM EST us Milton Escobar MD LAB BLOOD ORDERABLES Final Re sult [facility] documented in this encounter Visit Diagnoses Diagnosis Adult type polycystic kidney disease type 1 documented in this encounter Care Teams General Accounting Clerk Relationship Specialty Start Date End Date Brian Kathelen MD [address] [place] [address] PCP - General 11/05/20 documented as of this encounter
--- OUTSIDE RECORDS SUMMARY | 2025-01-09 17:14 | XMS_ITS | Clinical Summary ---
Author Organization [facility], Address [address] [place] [address] [place] [address] Phone Care Team Providers Care Pie Crust Mixer Name Role Phone Brian Kathleen MD Primary Care Provider [phone] Allergies Active Allergy Reactions Criticality Noted Date [...] by mouth 1 (one) time each day 2 Active traMADol (ULTRAM) 50 MG tablet Take 1 tablet by mouth if needed 5 Active Ascorbic Acid (Vitamin C) 500 MG capsule Take 500 mg by mouth 1 (one) time each day Active metoprolol succinate XL (TOPROL XL) 25 MG 24 hr tablet Take TWO tablets every morning and ONE tablet every evening at bedtime 2 Active amLODIPine (NORVASC) 2.5 MG tablet Take 2.5 mg by mouth 1 (one) time each day Active Cholecalciferol (Vitamin D) 50 MCG (2000 UT) capsule Take 2,000 Units by mouth [...] mg 1 (one) time each day Active aMILoride (MIDAMOR) 5 MG tablet TAKE 1 TABLET BY MOUTH EVERY DAY 90 tablet 3 4 Active Tolvaptan 90 & 30 MG tablet therapy pack Take 90 mg in the morning and 30 mg in the evening 56 each 11 5 Active Tolvaptan 90 & 30 MG tablet therapy pack Take 90 mg in the morning and 30 mg in the evening 60 each 11 4 12/29/19 25 Discontinu ed(Reorder (does not appear on AVS)) Active Problems Problem Noted Date Diagnosed Date [...] have shortness of breath would consider a chain tender assessment. Consider EKG on next internal medicine assessment. Dyspnea on exertion 05/01/2020 06/11/20 21 History of partial nephrectomy 05/01/2020 06/11/2021 Overview [...] Encounters Date Type Department Care Team Description 12/30/2024 Orders Only [facility] [place], [address] [place] [address] Milton Escobar MD Adult type polycystic kidney disease type 1 12/28/2024 Refill [facility] [place], [address] [place] [address] Kellie Aguilar 12/23/2024 Orders Only [facility] [address] [place] [address] Milton Escobar MD Adult type polycystic kidney disease type 1 12/02/2024 Orders Only [facility] [address] [place] [address] Milton Escobar MD Adult type polycystic kidney disease type 1 11/25/2024 Orders Only [facility] [address] [place] [address] Milton Escobar MD Adult type polycystic kidney disease type 1 11/07/2024 3:00 PM EST Office Visit [facility] [address] [place] [address] Milton Escobar MD Adult type polycystic kidney disease type 1 (Primary Dx) 11/07/2024 Documentation Only [facility] [address] [place] [address] Kellie Aguilar 11/04/2024 Orders Only [facility] [address] [place] [address] Milton Escobar MD Adult type polycystic kidney disease type 1 10/28/2024 Orders Only [facility] [address] [place] [address] Milton Escobar MD Adult type polycystic kidney [...] Visit [facility] [place], [address] [place] [address] Milton Escobar MD [address] [facility] [place] [address] Health Maintenance Due Date Last Done [...] 317 261 - 462 ug/dl [facility] 06/19/2020 us [facility] [id number] LICITED RESULTS Final Result [facility] from Last 3 Months or Most Recently Relevant to Health Maintenance [place] [address] [place] [address] [facility] Care Teams Pie Crust Mixer Relationship Specialty Start Date End Date Brian Kathleen MD [address] [place] [id number] PCP - General 11/05/20
== END 2025-01-09 15:04 | disposition home or self-care (01) ==
LOC: HO.HCS 14:37
PROVIDERS: PCP Internal Medicine; Visit Provider Internal Medicine
DX: I48.0 Paroxysmal atrial fibrillation (principal); I49.3 Ventricular premature depolarization; I10 Essential (primary) hypertension; F41.9 Anxiety disorder, unspecified
CPT/HCPCS: 99214; G2211

== ENCOUNTER → 2025-01-09 14:36 | Outpatient (BNVA) | payer MEDICARE, SELFPAY | PROVIDERS: PCP Internal Medicine; Visit Provider Internal Medicine | DX: I48.0 Paroxysmal atrial fibrillation (principal); I49.3 Ventricular premature depolarization; I10 Essential (primary) hypertension; F41.9 Anxiety disorder, unspecified; Z90.5 Acquired absence of kidney | CPT/HCPCS: 99212 ==

== ENCOUNTER 2025-07-18 12:39 | Outpatient (AMB) | payer MEDICARE, SELFPAY ==
--- OUTSIDE RECORDS SUMMARY | 2024-04-08 05:50 | XMS_ITS ---
Author Organization [facility] Address [address] [place] [address] [place] [phone] Care Team Providers Care Clinical Nursing Assistant Name Role Phone Brian Kathleen MD Primary Care Provider John Bajwa Jr [phone] REASON FOR VISIT sreening Encounters Encounter Location Date Provider Diagnosis [facility] Outpatient [address] [place] [id number] 04/08/2024 John Bowie Jr Plan Of Treatment Next Appt Details Provider Name:John lopez Jr, 02/28/2026 10:00:00 AM, [address] [place] [address], [address], [place], [address], Progress Notes * BRIJESH KRUEGER ADOB: [birth year] (65 yo F)Acc No.[id number]:04/08/2024 COLON WITH MAC Patient: BRIJESH CASTILLO Provider: Meryl Bowie MD :1960 A ge:64 Y S ex:Female Date:04/08/2024 Address:[facility] [place] Pcp:Brian Kathleen MD Subjective: * Chief Complaints: * 1 . Sreening. * Medical History: Objective: * Vitals: Assessment: Plan: * Treatment: * * The named appointment provid er may or may not be the originator of this progress note, and it is not deemed complete until electronically signed by the appointment provider. Sign off status: Pending * Provider: Meryl Bowie MD Date: 0 04/08/2024 Generated for Luis garcia/Giacomo/Janie on: 0 07/18/2025 03:37 PM EDT
--- OUTSIDE RECORDS SUMMARY | 2024-05-20 05:30 | XMS_ITS ---
Author Organization [facility] Address [address] [place] [address] [place] [address] Care Team Providers Care Silk Top Hat Body Maker Name Role Phone Brian Kathleen MD Primary Care Provider John Bajwa Jr [phone] REASON FOR VISIT sreening Encounters Encounter Location Date Provider Diagnosis [facility] [place] [address] [place] [id number] 05/20/2024 John Bowie Jr Plan Of Treatment Next Appt Details Provider Name:John lopez Jr, 02/28/2026 10:00:00 AM, [address] [place] [address], [address], [place], [address], Progress Notes * BRIJESH KRUEGER ADOB: [birth year] (65 yo F)Acc No.[id number]:05/20/2024 COLON WITH MAC Patient: BRIJESH CASTILLO Provider: Meryl Bowie MD :1960 A ge:64 Y S ex:Female Date:05/20/2024 Address[address] [place] Pcp:Brian Kathleen MD Subjective: * Chief Complaints: * 1 . Sreening. * Medical History: Objective: * Vitals: Assessment: Plan: * Treatment: * * The named appointment provid er may or may not be the originator of this progress note, and it is not deemed complete until electronically signed by the appointment provider. Sign off status: Pending * Provider: Meryl Bowie MD Date: 0 05/20/2024 Generated for Luis garcia/Giacomo/Janie on: 0 07/18/2025 03:37 PM EDT
--- OUTSIDE RECORDS SUMMARY | 2024-08-09 04:10 | XMS_ITS ---
Author Organization [facility] Address [address] [place] [address] [place] [phone] Care Team Providers Care Php Consultant Name Role Phone Brian Kathleen MD Primary Care Provider UnavailJohn Oliver Jr REASON FOR VISIT colon screening Encounters Encounter Location Date Provider Diagnosis [facility] Outpatient [address] [place] [id number] 08/09/2024 John Bowie Jr Plan Of Treatment Next Appt Details Provider Name:John lopez Jr, 02/28/2026 10:00:00 AM, [address] [place] [address], [address], [place], [address], Progress Notes * BRIJESH KRUEGER ADOB: [birth year] (65 yo F)Acc No.[id number]:08/09/2024 COLON WITH MAC Patient: BRIJESH CASTILLO Provider: Meryl Bowie MD :1960 A ge:64 Y S ex:Female Date:08/09/2024 Address[address] [place] [place] Pcp:Brian Kathleen MD Subjective: * Chief Complaints: * 1 . Colon screening. * Medical History: Objective: * Vitals: Assessment: Plan: * Treatment: * * The named appointment provid er may or may not be the originator of this progress note, and it is not deemed complete until electronically signed by the appointment provider. Sign off status: Pending * Provider: Meryl Bowie MD Date: 1 Generated for Luis garcia/Giacomo/Janie on: 0 07/18/2025 03:36 PM EDT
--- NOTE | 2025-07-18 12:45 | A.OFFVIS_ITS ---
Vital Signs 07/18/25 12:46 Height 5 ft 2 in Weight 212 lb 8.41 oz BMI 38.9 BP 130/72 Blood Pressure Location Lt brachial Position Sitting Pulse 58 Pulse Source Monitor Intake Visit Reasons: 6 mth f/up Transportation Program Director Required: No Accompanied by: Self / Same As Patient Allergies bacitracin (BACITRACIN) Allergy (Unknown, Verified 11/17/23 08:33) RASH Iodinated Contrast Media (IV CONTRAST) Allergy (Unknown, Verified 11/17/23 08:33) RASH Penicillins (PENICILLINS) Allergy (Unknown, Verified 11/17/23 08:33) RASH steri strips Adverse Reaction (Mild, Uncoded 11/17/23 08:33) itchy Medication List - Last Reconciled 07/18/25 by Burak Santamaria MD amiloride 5 mg PO DAILY ascorbate calcium (vitamin C) 500 mg PO DAILY atorvastatin 10 mg PO DAILY cholecalciferol (vitamin D3) 50 mcg PO DAILY doxazosin 4 mg PO BID famotidine 20 mg PO BID levothyroxine 150 mcg PO DAILY magnesium 200 mg PO DAILY metoprolol succinate ER 50 mg PO QAM metoprolol succinate ER 25 mg PO QPM olmesartan 40 mg PO DAILY potassium chloride ER (Klor-Con M) 20 mEq PO ONCE tolvaptan (polycys kidney dis) (Lowellque) as directed HPI Comments Details: Stephanie returns for follow-up regarding atrial arrhythmias. To recall, she has a history of polycystic kidney disease. She had renal cell carcinoma and underwent right-sided partial nephrectomy in 2019. In that setting, had anemia from blood loss and required transfusions. She also had acute kidney injury, acute respiratory failure, delirium among others. Then had atrial fibrillation with rapid rate treated by IV beta blockers as well as digoxin. Then converted to sinus. Otherwise no history of any coronary disease or myocardial infarction or any other cardiac issues. She has hypertension, possibly related to polycystic kidney disease. Since last seen, no new complaints. No palpitations or in fact any cardiac symptoms. [facility] Medical History Sleep apnea Chronic kidney disease Incisional hernia Renal cell carcinoma Thyroid disease Diabetes Pituitary microadenoma Sarcoidosis Polycystic kidney disease Fatty liver Other and unspecified hyperlipidemia Essential hypertension PAF (paroxysmal atrial fibrillation) Surgical History History of bunionectomy Hx of lymph node biopsy Hx of breast biopsy History of right knee joint replacement H/O colonoscopy Hx of total knee replacement History of kidney surgery History of eye surgery History of thyroidectomy History of lumpectomy Family History Father Heart disease Heart attack Mother No problems noted. Social History Alcohol intake: never Patient Tobacco Use Status: Former Tobacco user Years Smoked: 20 +/- Review of Systems Const Denies chills, Denies fatigue, Denies fever(s), Denies frequent falls, Denies weakness, Denies weight gain and Denies weight loss ENT Denies dizziness Card Denies chest pain, Denies leg edema, Denies lightheadedness, Denies palpitati ons, Denies dyspnea and Denies dyspnea on exertion Resp Denies cough, Denies dyspnea and Denies dyspnea on exertion GI Denies hematochezia Musc Denies abnormal gait, Denies muscle weakness, Denies numbness, Denies radiating pain into limb and Denies tingling Neuro Denies abnormal gait, Denies dizziness, Denies frequent falls, Denies numbness, Denies tingling and Denies weakness Endo Denies fatigue and Denies palpitations Physical Exam Vital Signs: Last Vital Signs Pulse 58 07/18/25 12:46 BP 130/72 07/18/25 12:46 BMI result Body Mass Index 38.9 Const General: comfortable and no acute distress Orientation/consciousness: patient oriented x3 HEENT Other: Unremarkable Head: Yes normal to inspection Neck Neck: Yes normal visual inspection Chest Chest palpation & inspection: normal inspection of the chest Resp Auscultation: clear to auscultation bilaterally Cardio Palpation: normal PMI Heart sounds: S1 normal heart sound present, S2 normal heart sound present, no gallops, Murmur heart sound present systolic II/ and at the right sternal border and no rubs GI Palpation (GI): Soft to palpation Back/Spine/Pelvis Other: unremarkable Skin General skin exam: no rashes or lesions noted Neuro General: patient oriented x3 Extrem General: Yes normal to inspection Psych Mental Status: mental status grossly normal Office Procedures EKG Details: EKG with sinus bradycardia at 58/Min; sinus arrhythmias; no ischemic changes; [place]. [id number], Complete Assessment & Plan Assessment & Plan (1) PAF (paroxysmal atrial fibrillation): Code(s): I48.0 - Paroxysmal atrial fibrillation Category: Medical Plan: Only 1 documented episode in the setting of surgery. Continue beta-blockers. She takes metoprolol ER 50 mg in the morning and 25 mg in the evening. Not on anticoagulation but if recurrent episodes will need to start. She had a sleep study that shows only mild KRISTAL. Weight loss as feasible. (2) PVC (premature ventricular contraction): Code(s): I49.3 - Ventricular premature depolarization Category: Medical Plan: In the last Holter, PVC burden of 7%. No specific treatment apart from beta- blockers. (3) Essential hypertension: Code(s): I10 - Essential (primary) hypertension Category: Medical Plan: On beta-blockers, Amiloride, Olmesartan, Doxazosin. Stable. (4) Anxiety: Code(s): F41.9 - Anxiety disorder, unspecified Category: Medical Plan: Seems reasonably controlled. Reassured her as much. Orders: Orders [place] echo transthoracic complete 1 Year I10 - Essential (primary) hypertension, I48.0 - Paroxysmal atrial fibrillation Coding Level of Care Code Est Pt Level 4 (96450) Diagnoses PAF (paroxysmal atrial fibrillation) I48.0 PVC (premature ventricular contraction) I49.3 Essential hypertension I10 Anxiety F41.9 CPT Codes EKG - CPT: 41945-Zligkvnyfppbzghdt, Complete ([id number])
[2025-07-18 12:46] VITALS: BP 130/72; PULSE 58; BMI 38.9
--- OUTSIDE RECORDS SUMMARY | 2025-07-18 15:34 | XMS_ITS | Encounter Summary ---
Author Organization [facility] [place], Address [address] [place] [address] Phone Care Team Providers Care Edge Inker Heels Name Role Phone Brian Kathleen MD Primary Care Provider [phone] Encounter Details Date Type Department Care Team (Late Contact Info) Description 09/02/2024 Orders Only [facility] [address] [place] [phone] Milton Escobar MD [address] [place] [address] [place] [address] Adult type polycystic kidney disease [...] Care Team (Late st Contact Info) Description 08/10/2025 4:00 PM EDT Office Visit [facility] [place], [address] [place] [address] Milton Escobar MD [address] [place] [address] documented as of this encounter Visit Diagnoses Diagnosis Adult type polycystic kidney disease type 1 documented in this encounter Care Teams Edge Inker Heels Relationship Specialty Start Date End Date Brian Kathleen MD [address] [place] [address] PCP - General 11/05/20 documented as of this encounter
--- OUTSIDE RECORDS SUMMARY | 2025-07-18 15:34 | XMS_ITS | Encounter Summary ---
Author Organization [facility] [place], Address [address] [place] [address] Phone Care Team Providers Care Still Operator Whiskey Name Role Phone Brian Kathleen MD Primary Care Provider [phone] Encounter Details Date Type Department Care Team (Late Contact Info) Description 09/09/2024 Orders Only [facility] [address] [place] [address] Milton Escobar MD [address] [place] [address] [place] [address] Adult type polycystic kidney disease [...] Visit [facility] [place], [address] [place] [address] Milton Escobar MD [address] [facility] [place] [address] documented as of this encounter Visit Diagnoses Diagnosis Adult type polycystic kidney disease type 1 documented in this encounter Care Teams Still Operator Whiskey Relationship Specialty Start Date End Date Brian Kathleen MD [address] [place] [address] PCP - General 11/05/20 documented as of this encounter
--- OUTSIDE RECORDS SUMMARY | 2025-07-18 15:34 | XMS_ITS | Encounter Summary ---
Author Organization [facility] Address [address] [place] [address] Phone Care Team Providers Care Franchise Sales Director Name Role Phone Brian Kathleen MD Primary Care Provider [phone] Encounter Details Date Type Department Care Team (Late Contact Info) Description 10/07/2024 Documentation Only [facility] [address] [address] Kellie Aguilar [address] [place] [address] Social History Tobacco Use Types [...] Visit [facility] [address] [address] Milton Escobar MD [address] [place] [address] [place] [address] documented as of this encounter Visit Diagnoses Not on filedocumented in this encounter Care Teams Franchise Sales Director Relationship Specialty Start Date End Date Brian Kathleen MD [address] [place] [address] PCP - General 11/05/20 documented as of this encounter
--- OUTSIDE RECORDS SUMMARY | 2025-07-18 15:34 | XMS_ITS | Encounter Summary ---
Author Organization [facility] [place], Address [address] [place] [address] Phone Care Team Providers Care Family Development Extension Specialist Name Role Phone Brian Kathleen MD Primary Care Provider Encounter Details Date Type Department Care Team (Late Contact Info) Description 12/02/2024 Orders Only [facility] [address] [place] [address] Milton Escobar MD [address] [place] [address] [place] [address] Adult type polycystic kidney disease [...] Visit [facility] [place], [address] [place] [address] Milton Escobar MD [address] [facility] [address] [facility] [address] [place] [address] documented as of this encounter Visit Diagnoses Diagnosis Adult type polycystic kidney disease type 1 documented in this encounter Care Teams Family Development Extension Specialist Relationship Specialty Start Date End Date Brian Kathleen MD [address] [place] [address] PCP - General 11/05/20 documented as of this encounter
--- OUTSIDE RECORDS SUMMARY | 2025-07-18 15:34 | XMS_ITS | Encounter Summary ---
Author Organization [facility] [place], Address [address] [place] [address] Phone Care Team Providers Care Telecommunications Administrator Name Role Phone Brian Kathleen MD Primary Care Provider [phone] Encounter Details Date Type Department Care Team (Late Contact Info) Description 11/04/2024 Orders Only [facility] [address] [place] [address] Milton Escobar MD [address] [place] [address] [place] [address] Adult type polycystic kidney disease [...] Visit [facility] [place], [address] [place] [address] Milton Escobar MD [address] [facility] [place] [address] documented as of this encounter Visit Diagnoses Diagnosis Adult type polycystic kidney disease type 1 documented in this encounter Care Teams Telecommunications Administrator Relationship Specialty Start Date End Date Brian Kathleen MD [address] [place] [address] PCP - General 11/05/20 documented as of this encounter
--- OUTSIDE RECORDS SUMMARY | 2025-07-18 15:34 | XMS_ITS | Encounter Summary ---
Author Organization [facility] Address [address] [place] [address] Phone Care Team Providers Care Speech And Hearing Clinic Director Name Role Phone Brian Kathleen MD Primary Care Provider [phone] Encounter Details Date Type Department Care Team (Late Contact Info) Description 02/27/2025 Documentation Only [facility] [address] [place] [place] [address] Kellie Aguilar [address] [place] [address] Social History Tobacco Use Types [...] [facility] [address] [place] [place] [address] Milton Escobar MD [address] [place] [address] [place] [address] documented as of this encounter Visit Diagnoses Not on filedocumented in this encounter Care Teams Speech And Hearing Clinic Director Relationship Specialty Start Date End Date Brian Kathleen MD [address] [place] [address] PCP - General 11/05/20 documented as of this encounter
--- OUTSIDE RECORDS SUMMARY | 2025-07-18 15:34 | XMS_ITS | Encounter Summary ---
Author Organization [facility] [place], Address [address] [place] [address] Phone Care Team Providers Care Car Lubricator Name Role Phone Brian Kathleen MD Primary Care Provider [phone] Encounter Details Date Type Department Care Team (Late Contact Info) Description 03/05/2022 Documentation Only [facility] [address] [place] [address] Milton Escobar MD [address] [place] [address] [place] [address] Social History Tobacco Use Types [...] Visit [facility] [address] [place] [address] Milton Escobar MD [address] [facility] [place] [address] documented as of this encounter Visit Diagnoses Not on filedocumented in this encounter Care Teams Car Lubricator Relationship Specialty Start Date End Date Brian Kathleen MD [address] [place] [address] PCP - General 11/05/20 documented as of this encounter
--- OUTSIDE RECORDS SUMMARY | 2025-07-18 15:34 | XMS_ITS | Encounter Summary ---
Author Organization [facility] [place], Address [address] [place] [address] Phone Care Team Providers Care Retail Chain Store Area Supervisor Name Role Phone Brian Kathleen MD Primary Care Provider [phone] Encounter Details Date Type Department Care Team (Late Contact Info) Description 08/12/2024 Orders Only [facility] [address] [place] [address] Milton Escobar MD [address] [place] [address] [place] [address] Adult type polycystic kidney disease [...] [facility] [place], [address] [place] [address] Milton Escobar MD [address] [facility] [address] [place] [address] documented as of this encounter Visit Diagnoses Diagnosis Adult type polycystic kidney disease type 1 documented in this encounter Care Teams Retail Chain Store Area Supervisor Relationship Specialty Start Date End Date Brian Kathleen MD [address] [place] [address] PCP - General 11/05/20 documented as of this encounter
--- OUTSIDE RECORDS SUMMARY | 2025-07-18 15:34 | XMS_ITS | Encounter Summary ---
Author Organization [facility] Address [address] [place] [address] Phone Care Team Providers Care Carcass Splitter Name Role Phone Brian Kathleen MD Primary Care Provider [phone] Encounter Details Date Type Department Care Team (Late Contact Info) Description 02/04/2024 Documentation Only [facility] [address] [place] [address] Kellie Aguilar [address] [place] [address] Social History Tobacco Use Types [...] Visit [facility] [address] [place] [address] Milton Escobar MD [address] [place] [address] [place] [address] documented as of this encounter Visit Diagnoses Not on filedocumented in this encounter Care Teams Carcass Splitter Relationship Specialty Start Date End Date Brian Kathleen MD [address] [place] [address] PCP - General 11/05/20 documented as of this encounter
--- OUTSIDE RECORDS SUMMARY | 2025-07-18 15:34 | XMS_ITS | Encounter Summary ---
Author Organization [facility] [place], Address [address] [place] [address] Phone Care Team Providers Care Aquatics Assistant Department Head Name Role Phone Brian Kathleen MD Primary Care Provider [phone] Encounter Details Date Type Department Care Team (Late Contact Info) Description 01/20/2025 Orders Only [facility] [address] [place] [address] Milton Escobar MD [address] [place] [address] [place] [address] Adult type polycystic kidney disease [...] Visit [facility] [place], [address] [place] [address] Milton Escobar MD [address] [facility] [place] [address] documented as of this encounter Visit Diagnoses Diagnosis Adult type polycystic kidney disease type 1 documented in this encounter Care Teams Aquatics Assistant Department Head Relationship Specialty Start Date End Date Brian Kathleen MD 40 [place] [address] PCP - General 11/05/20 documented as of this encounter
--- OUTSIDE RECORDS SUMMARY | 2025-07-18 15:34 | XMS_ITS | Encounter Summary ---
Author Organization [facility] [place], Address [address] [place] [address] Phone Care Team Providers Care Production Control Clerk Name Role Phone Brian Kathleen MD Primary Care Provider [phone] Encounter Details Date Type Department Care Team (Late Contact Info) Description 10/07/2024 Orders Only [facility] [address] [facility] [address] Milton Escobar MD [address] [place] [address] [place] [address] Adult type polycystic kidney disease [...] Visit [facility] [place], [address] [facility] [address] Milton Escobar MD [address] [facility] [place] [address] documented as of this encounter Visit Diagnoses Diagnosis Adult type polycystic kidney disease type 1 documented in this encounter Care Teams Production Control Clerk Relationship Specialty Start Date End Date Brian Kathleen MD [address] [place] [address] PCP - General 11/05/20 documented as of this encounter
--- OUTSIDE RECORDS SUMMARY | 2025-07-18 15:34 | XMS_ITS | Encounter Summary ---
Author Organization [facility] Address [address] [place] [address] Phone Care Team Providers Care Color Checker Name Role Phone Brian Kathleen MD Primary Care Provider [phone] Encounter Details Date Type Department Care Team (Late Contact Info) Description 11/07/2024 Documentation Only [facility] [address] [place] [address] Kellie Aguilar [address] [place] [address] Social History Tobacco Use Types [...] Visit [facility] [address] [place] [address] Milton Escboar MD [address] [place] [address] [place] [address] documented as of this encounter Visit Diagnoses Not on filedocumented in this encounter Care Teams Color Checker Relationship Specialty Start Date End Date Brian Kathleen MD [address] [place] [address] PCP - General 11/05/20 documented as of this encounter
--- OUTSIDE RECORDS SUMMARY | 2025-07-18 15:34 | XMS_ITS | Encounter Summary ---
Author Organization [facility] Address [address] [facility] [address] [place] [address] Phone Care Team Providers Care Venetian Blind Washer Name Role Phone Brian Kathleen MD Primary Care Provider [phone] Reason for Visit * Reason Comments Med Refill Encounter Details Date Type Department Care Team (Late st Contact Info) Description 11/17/2021 Refill [facility] [address] [place] [address] Nate Villareal MD [address] [facility] [address] [place] [address] Social History Tobacco Use Types Packs/Day Years [...] Visit [facility] [place], [address] [facility] [place] [place] [address] Milton Escobar MD [address] [facility] [place] [address] documented as of this encounter Visit Diagnoses Not on filedocumented in this encounter Care Teams Venetian Blind Washer Relationship Specialty Start Date End Date Brian Kathleen MD 40 [place] [address] PCP - General 11/05/20 documented as of this encounter
--- OUTSIDE RECORDS SUMMARY | 2025-07-18 15:34 | XMS_ITS | Encounter Summary ---
Author Organization [facility] [place], Address [address] [place] [address] Phone Care Team Providers Care Log Tumbler Name Role Phone Brian Kathleen MD Primary Care Provider [phone] Encounter Details Date Type Department Care Team (Late Contact Info) Description 03/25/2024 Orders Only [facility] [address] [place] [address] Milton Escobar MD [address] [place] [address] [place] [address] Adult type polycystic kidney disease [...] Visit [facility] [place], [address] [facility] [place] [address] Milton Escobar MD [address] [facility] [place] [address] documented as of this encounter Visit Diagnoses Diagnosis Adult type polycystic kidney disease type 1 documented in this encounter Care Teams Log Tumbler Relationship Specialty Start Date End Date Brian Kathleen MD [address] [place] [address] PCP - General 11/05/20 documented as of this encounter
--- OUTSIDE RECORDS SUMMARY | 2025-07-18 15:34 | XMS_ITS | Encounter Summary ---
Author Organization [facility] [place], Address [address] [place] [address] Phone Care Team Providers Care Hot Dipper Name Role Phone Brian Kathleen MD Primary Care Provider [phone] Encounter Details Date Type Department Care Team (Late Contact Info) Description 03/05/2022 Documentation Only [facility] [address] [facility] [place] [address] Milton Escobar MD [address] [place] [address] [place] [address] Social History Tobacco Use Types [...] Visit [facility] [address] [place] [address] Milton Escobar MD [address] [facility] [place] [address] documented as of this encounter Visit Diagnoses Not on filedocumented in this encounter Care Teams Hot Dipper Relationship Specialty Start Date End Date Brian Kathleen MD 40 [place] [address] PCP - General 11/05/20 documented as of this encounter
--- OUTSIDE RECORDS SUMMARY | 2025-07-18 15:34 | XMS_ITS | Encounter Summary ---
Author Organization [facility] [place], Address [address] [place] [address] Phone Care Team Providers Care Analyst Sales Name Role Phone Brian Kathleen MD Primary Care Provider [phone] Encounter Details Date Type Department Care Team (Late Contact Info) Description 10/28/2024 Orders Only [facility] [address] [place] [address] Milton Escobar MD [address] [place] [address] [place] [address] Adult type polycystic kidney disease [...] Visit [facility] [place], [address] [place] [address] Milton Escobar MD [address] [facility] [place] [address] documented as of this encounter Visit Diagnoses Diagnosis Adult type polycystic kidney disease type 1 documented in this encounter Care Teams Analyst Sales Relationship Specialty Start Date End Date Brian Kathleen MD 40 [place] [address] PCP - General 11/05/20 documented as of this encounter
--- OUTSIDE RECORDS SUMMARY | 2025-07-18 15:34 | XMS_ITS | Encounter Summary ---
Author Organization [facility] Address [address] [place] [address] Phone Care Team Providers Care Apartment Assistant Manager Name Role Phone Brian Kathleen MD Primary Care Provider [phone] Encounter Details Date Type Department Care Team (Late Contact Info) Description 02/09/2025 Documentation Only [facility] [address] [place] [place] [address] Kellie Aguilar [address] [place] [address] Social History Tobacco Use Types [...] Visit [facility] [address] [address] [place] [place] [address] Milton Escobar MD [address] [place] [address] [place] [address] documented as of this encounter Visit Diagnoses Not on filedocumented in this encounter Care Teams Apartment Assistant Manager Relationship Specialty Start Date End Date Brian Kathleen MD [address] [place] [address] PCP - General 11/05/20 documented as of this encounter
--- OUTSIDE RECORDS SUMMARY | 2025-07-18 15:34 | XMS_ITS | Encounter Summary ---
Author Organization [facility] Address [address] [place] [address] Phone Care Team Providers Care Well Services Operator Name Role Phone Brian Kathleen MD Primary Care Provider [phone] Encounter Details Date Type Department Care Team (Late Contact Info) Description 05/13/2024 Documentation Only [facility] [address] [place] [address] Kellie Aguilar [address] [place] [address] Social History Tobacco Use Types [...] [facility] [address] [place] [address] Milton Escobar MD [address] [place] [address] [place] [address] documented as of this encounter Visit Diagnoses Not on filedocumented in this encounter Care Teams Well Services Operator Relationship Specialty Start Date End Date Brian Kathleen MD [address] [place] [address] PCP - General 11/05/20 documented as of this encounter
--- OUTSIDE RECORDS SUMMARY | 2025-07-18 15:34 | XMS_ITS | Encounter Summary ---
Author Organization [facility] Address [address] [place] [address] Phone Care Team Providers Care Tank Stave Assembler Name Role Phone Brian Kathleen MD Primary Care Provider Encounter Details Date Type Department Care Team (Late Contact Info) Description 02/09/2025 Documentation Only [facility] [address] [place] [address] Kellie Aguilar [address] [place] [address] Social History Tobacco Use Types [...] Visit [facility] [address] [place] [address] Milton Escobar MD [address] [place] [address] [place] [address] documented as of this encounter Visit Diagnoses Not on filedocumented in this encounter Care Teams Tank Stave Assembler Relationship Specialty Start Date End Date Brian Kathleen MD [address] [place] [address] PCP - General 11/05/20 documented as of this encounter
--- OUTSIDE RECORDS SUMMARY | 2025-07-18 15:34 | XMS_ITS | Encounter Summary ---
Author Organization [facility] [place], Address [address] [place] [address] Phone Care Team Providers Care Applications Packager Name Role Phone Brian Kathleen MD Primary Care Provider [phone] Encounter Details Date Type Department Care Team (Late Contact Info) Description 11/25/2024 Orders Only [facility] [address] [place] [address] Milton Escobar MD [address] [place] [address] [place] [address] Adult type polycystic kidney disease [...] Visit [facility] [place], [address] [place] [address] Milton Escobar MD [address] [facility] [place] [address] documented as of this encounter Visit Diagnoses Diagnosis Adult type polycystic kidney disease type 1 documented in this encounter Care Teams Applications Packager Relationship Specialty Start Date End Date Brian Kathleen MD [address] [place] [address] PCP - General 11/05/20 documented as of this encounter
--- OUTSIDE RECORDS SUMMARY | 2025-07-18 15:34 | XMS_ITS | Encounter Summary ---
Author Organization [facility] Address [address] [place] [address] Phone Care Team Providers Care Wind Turbine Service Technician Name Role Phone Brian Kathleen MD Primary Care Provider [phone] Encounter Details Date Type Department Care Team (Late Contact Info) Description 08/04/2024 Documentation Only [facility] [address] [place] [address] Kellie Aguilar [address] [place] [address] Social History Tobacco Use Types [...] Hospital [address] [place] [address] Milton Escobar MD [address] [place] [address] [place] [address] documented as of this encounter Visit Diagnoses Not on filedocumented in this encounter Care Teams Wind Turbine Service Technician Relationship Specialty Start Date End Date Brian Kathleen MD [address] [place] [address] PCP - General 11/05/20 documented as of this encounter
--- OUTSIDE RECORDS SUMMARY | 2025-07-18 15:34 | XMS_ITS | Encounter Summary ---
Author Organization [facility] [place], Address [address] [place] [address] Phone Care Team Providers Care Outpatient Clerk Name Role Phone Brian Kathleen MD Primary Care Provider [phone] Encounter Details Date Type Department Care Team (Late Contact Info) Description 02/24/2025 Orders Only [facility] [address] [place] [address] Milton Escobar MD [address] [place] [address] [place] [address] Adult type polycystic kidney disease [...] Visit [facility] [place], [address] [place] [address] Milton Escobar MD [address] [place] [address] documented as of this encounter Visit Diagnoses Diagnosis Adult type polycystic kidney disease type 1 documented in this encounter Care Teams Outpatient Clerk Relationship Specialty Start Date End Date Brian Kathleen MD [address] [place] [address] PCP - General 11/05/20 documented as of this encounter
--- OUTSIDE RECORDS SUMMARY | 2025-07-18 15:34 | XMS_ITS | Encounter Summary ---
Author Organization [facility] Address [address] [place] [address] Phone Care Team Providers Care Business Development Name Role Phone Brian Kathleen MD Primary Care Provider [phone] Encounter Details Date Type Department Care Team (Late Contact Info) Description 08/04/2024 Documentation Only [facility] [address] [place] [address] Kellie Aguilar [address] [place] [address] Social History Tobacco Use Types [...] [facility] [address] [place] [address] Milton Escobar MD [address] [place] [address] [place] [address] documented as of this encounter Visit Diagnoses Not on filedocumented in this encounter Care Teams Business Development Relationship Specialty Start Date End Date Brian Kathleen MD [address] [place] [address] PCP - General 11/05/20 documented as of this encounter
--- OUTSIDE RECORDS SUMMARY | 2025-07-18 15:34 | XMS_ITS | Encounter Summary ---
Author Organization [facility] [place], Address [address] [place] [address] Phone Care Team Providers Care Asbestos Abatement Technician Name Role Phone Brian Kathleen MD Primary Care Provider [phone] Encounter Details Date Type Department Care Team (Late Contact Info) Description 02/17/2025 Orders Only [facility] [address] [place] [address] Milton Escobar MD [address] [place] [address] [place] [address] Adult type polycystic kidney disease [...] Visit [facility] [place], [address] [place] [address] Milton Escobar MD [address] [facility] [place] [address] documented as of this encounter Visit Diagnoses Diagnosis Adult type polycystic kidney disease type 1 documented in this encounter Care Teams Asbestos Abatement Technician Relationship Specialty Start Date End Date Brian Kathleen MD [address] [place] [address] PCP - General 11/05/20 documented as of this encounter
--- OUTSIDE RECORDS SUMMARY | 2025-07-18 15:34 | XMS_ITS | Encounter Summary ---
Author Organization [facility] Address [address] [place] [address] Phone Care Team Providers Care Shoe Repair Cobbler Name Role Phone Brian Kathleen MD Primary Care Provider [phone] Encounter Details Date Type Department Care Team (Late Contact Info) Description 02/04/2024 Documentation Only [facility] [address] [place] [address] Kellie Aguilar [address] [place] [address] Social History Tobacco Use Types [...] Visit [facility] [address] [place] [address] Milton Escobar MD [address] [place] [address] [place] [address] documented as of this encounter Visit Diagnoses Not on filedocumented in this encounter Care Teams Shoe Repair Cobbler Relationship Specialty Start Date End Date Brian Kathleen MD [address] [place] [address] PCP - General 11/05/20 documented as of this encounter
--- OUTSIDE RECORDS SUMMARY | 2025-07-18 15:34 | XMS_ITS | Encounter Summary ---
Author Organization [facility] Address [address] [place] [address] Phone Care Team Providers Care Carrier Blower Name Role Phone Brian Kathleen MD Primary Care Provider [phone] Encounter Details Date Type Department Care Team (Late Contact Info) Description 08/04/2024 Documentation Only [facility] [address] [place] [address] Kellie Aguilar [address] [place] [address] Social History Tobacco Use Types [...] Visit [facility] [address] [place] [address] Milton Escobar MD [address] [place] [address] [place] [address] documented as of this encounter Visit Diagnoses Not on filedocumented in this encounter Care Teams Carrier Blower Relationship Specialty Start Date End Date Brian Kathleen MD [address] [place] [address] PCP - General 11/05/20 documented as of this encounter
--- OUTSIDE RECORDS SUMMARY | 2025-07-18 15:34 | XMS_ITS | Encounter Summary ---
Author Organization [facility] Address [address] [place] [address] Phone Care Team Providers Care Eyeglass Fitter Name Role Phone Brian Kathleen MD Primary Care Provider [phone] Encounter Details Date Type Department Care Team (Late Contact Info) Description 08/04/2024 Documentation Only [facility] [address] [place] [address] Kellie Aguilar [address] [place] [address] Social History Tobacco Use Types [...] [facility] [address] [place] [place] [address] Milton Escobar MD [address] [place] [address] [place] [address] documented as of this encounter Visit Diagnoses Not on filedocumented in this encounter Care Teams Eyeglass Fitter Relationship Specialty Start Date End Date Brian Kathleen MD [address] [place] [address] PCP - General 11/05/20 documented as of this encounter
--- OUTSIDE RECORDS SUMMARY | 2025-07-18 15:34 | XMS_ITS | Encounter Summary ---
Author Organization [facility] [place], Address [address] [place] [address] Phone Care Team Providers Care Dispatcher Radio Name Role Phone Brian Kathleen MD Primary Care Provider [phone] Encounter Details Date Type Department Care Team (Late Contact Info) Description 03/24/2025 Orders Only [facility] [address] [place] [address] Milton Escobar MD [address] [place] [address] [place] [address] Adult type polycystic kidney disease [...] Visit [facility] [place], [address] [place] [address] Milton Escobar MD [address] [place] [address] documented as of this encounter Visit Diagnoses Diagnosis Adult type polycystic kidney disease type 1 documented in this encounter Care Teams Dispatcher Radio Relationship Specialty Start Date End Date Brian Kathleen MD [address] [place] [address] PCP - General 11/05/20 documented as of this encounter
--- OUTSIDE RECORDS SUMMARY | 2025-07-18 15:34 | XMS_ITS | Encounter Summary ---
Author Organization [facility] [place], Address [address] [place] [address] Phone Care Team Providers Care Tool Trouble Shooter Name Role Phone Brian Kathleen MD Primary Care Provider [phone] Encounter Details Date Type Department Care Team (Late Contact Info) Description 12/23/2024 Orders Only [facility] [address] [place] [address] Milton Escobar MD [address] [place] [address] [place] [address] Adult type polycystic kidney disease [...] Visit [facility] [place], [address] [place] [address] Milton Escobar MD [address] [place] [address] documented as of this encounter Visit Diagnoses Diagnosis Adult type polycystic kidney disease type 1 documented in this encounter Care Teams Tool Trouble Shooter Relationship Specialty Start Date End Date Brian Kathleen MD [address] [place] [address] PCP - General 11/05/20 documented as of this encounter
--- OUTSIDE RECORDS SUMMARY | 2025-07-18 15:34 | XMS_ITS | Encounter Summary ---
Author Organization [facility] [place], Address [address] [place] [address] Phone Care Team Providers Care Cattle Dehorner Name Role Phone Brian Kathleen MD Primary Care Provider Encounter Details Date Type Department Care Team (Late Contact Info) Description 04/21/2025 Orders Only [facility] [address] [place] [address] Milton Escobar MD [address] [place] [address] [place] [address] Adult type polycystic kidney disease [...] Visit [facility] [place], [address] [place] [address] Milton Escobar MD [address] [facility] [place] [address] documented as of this encounter Visit Diagnoses Diagnosis Adult type polycystic kidney disease type 1 documented in this encounter Care Teams Cattle Dehorner Relationship Specialty Start Date End Date Brian Kathleen MD [address] [place] [address] PCP - General 11/05/20 documented as of this encounter
--- OUTSIDE RECORDS SUMMARY | 2025-07-18 15:34 | XMS_ITS | Encounter Summary ---
Author Organization [facility] [place], Address [address] [place] [address] Phone Care Team Providers Care Cabin Worker Name Role Phone Brian Kathleen MD Primary Care Provider [phone] Encounter Details Date Type Department Care Team (Late Contact Info) Description 09/30/2024 Orders Only [facility] [address] [place] [address] Milton Escobar MD [address] [place] [address] [place] [address] Adult type polycystic kidney disease [...] Visit [facility] [place], [address] [place] [address] Milton Escobar MD [address] [place] [address] documented as of this encounter Visit Diagnoses Diagnosis Adult type polycystic kidney disease type 1 documented in this encounter Care Teams Cabin Worker Relationship Specialty Start Date End Date Brian Kathleen MD [address] [place] [address] PCP - General 11/05/20 documented as of this encounter
--- OUTSIDE RECORDS SUMMARY | 2025-07-18 15:34 | XMS_ITS | Encounter Summary ---
Author Organization [facility] [place], Address [address] [place] [address] Phone Care Team Providers Care Aquatic Instructor Name Role Phone Brian Kathleen MD Primary Care Provider [phone] Encounter Details Date Type Department Care Team (Late Contact Info) Description 02/26/2024 Orders Only [facility] [address] [place] [address] Milton Escobar MD [address] [facility] [place] [address] Adult type polycystic kidney disease [...] Visit [facility] [place], [address] [place] [address] Milton Escobar MD [address] [facility] [place] [address] documented as of this encounter Visit Diagnoses Diagnosis Adult type polycystic kidney disease type 1 documented in this encounter Care Teams Aquatic Instructor Relationship Specialty Start Date End Date Brian Kathleen MD [address] [place] [address] PCP - General 11/05/20 documented as of this encounter
--- OUTSIDE RECORDS SUMMARY | 2025-07-18 15:34 | XMS_ITS | Encounter Summary ---
Author Organization [facility] [place], Address [address] [place] [address] Phone Care Team Providers Care Rubber Stamps And Dies Supervisor Name Role Phone Brian Kathleen MD Primary Care Provider [phone] Encounter Details Date Type Department Care Team (Late Contact Info) Description 03/17/2025 Orders Only [facility] [address] [place] [address] Milton Escobar MD [address] [place] [address] Adult type polycystic kidney disease [...] Visit [facility] [place], [address] [place] [address] Milton Escobar MD [address] [place] [address] documented as of this encounter Visit Diagnoses Diagnosis Adult type polycystic kidney disease type 1 documented in this encounter Care Teams Rubber Stamps And Dies Supervisor Relationship Specialty Start Date End Date Brian Kathleen MD [address] [place] [address] PCP - General 11/05/20 documented as of this encounter
--- OUTSIDE RECORDS SUMMARY | 2025-07-18 15:34 | XMS_ITS | Encounter Summary ---
Author Organization [facility] [place], Address [address] [place] [address] Phone Care Team Providers Care Stave Machine Tender Name Role Phone Brian Kathleen MD Primary Care Provider [phone] Encounter Details Date Type Department Care Team (Late Contact Info) Description 04/22/2024 Orders Only [facility] [address] [facility] [place] [address] Milton Escobar MD [address] [place] [address] [place] [address] Adult type polycystic kidney disease [...] Visit [facility] [place], [address] [facility] [place] [place] [address] Milton Escobar MD [address] [facility] [place] [address] documented as of this encounter Visit Diagnoses Diagnosis Adult type polycystic kidney disease type 1 documented in this encounter Care Teams Stave Machine Tender Relationship Specialty Start Date End Date Brian Kathleen MD [address] [place] [address] PCP - General 11/05/20 documented as of this encounter
--- OUTSIDE RECORDS SUMMARY | 2025-07-18 15:34 | XMS_ITS | Encounter Summary ---
Author Organization [facility] [place], Address [address] [place] [address] Phone Care Team Providers Care Pouako Kura [place] Maori Name Role Phone Brian Kathleen MD Primary Care Provider [phone] Encounter Details Date Type Department Care Team (Late Contact Info) Description 07/15/2024 Orders Only [facility] [address] [place] [address] Milton Escobar MD [address] [place] [address] [place] [address] Adult type polycystic kidney disease [...] [facility] [place], [address] [place] [address] Milton Escobar MD [address] [facility] [place] [address] documented as of this encounter Visit Diagnoses Diagnosis Adult type polycystic kidney disease type 1 documented in this encounter Care Teams Pouako Kura [place] Maori Relationship Specialty Start Date End Date Brian Kathleen MD [address] [place] [address] PCP - General 11/05/20 documented as of this encounter
--- OUTSIDE RECORDS SUMMARY | 2025-07-18 15:34 | XMS_ITS | Encounter Summary ---
Author Organization [facility] [place], Address [address] [place] [address] Phone Care Team Providers Care Meter Tester Primary Name Role Phone Brian Kathleen MD Primary Care Provider [phone] Encounter Details Date Type Department Care Team (Late Contact Info) Description 01/27/2025 Orders Only [facility] [address] [place] [address] Milton Escobar MD [address] [place] [address] Dr. Terry [place] [address] Adult type polycystic kidney disease [...] Visit [facility] [place], [address] [place] [address] Milton Escobar MD [address] [facility] [address] Terry [place] [address] documented as of this encounter Visit Diagnoses Diagnosis Adult type polycystic kidney disease type 1 documented in this encounter Care Teams Meter Tester Primary Relationship Specialty Start Date End Date Brian Kathleen MD [address] [place] [address] PCP - General 11/05/20 documented as of this encounter
--- OUTSIDE RECORDS SUMMARY | 2025-07-18 15:34 | XMS_ITS | Encounter Summary ---
Author Organization [facility] [place], Address [address] [place] [address] Phone Care Team Providers Care Construction Tech Name Role Phone Brian Kathleen MD Primary Care Provider [phone] Encounter Details Date Type Department Care Team (Late Contact Info) Description 08/05/2024 Orders Only [facility] [address] [facility] [place] [place] [address] Milton Escobar MD [address] [place] [address] [place] [address] Adult type polycystic kidney disease [...] Visit [facility] [place], [address] [facility] [place] [place] [address] Milton Escobar MD [address] [facility] [place] [address] documented as of this encounter Visit Diagnoses Diagnosis Adult type polycystic kidney disease type 1 documented in this encounter Care Teams Construction Tech Relationship Specialty Start Date End Date Brian Kathleen MD [address] [place] [address] PCP - General 11/05/20 documented as of this encounter
--- OUTSIDE RECORDS SUMMARY | 2025-07-18 15:34 | XMS_ITS | Encounter Summary ---
Author Organization [facility] [place], Address [address] [place] [address] Phone Care Team Providers Care Assistant Farm Operations Manager Name Role Phone Brian Kathleen MD Primary Care Provider [phone] Encounter Details Date Type Department Care Team (Late Contact Info) Description 12/30/2024 Orders Only [facility] [address] [place] [address] Milton Escobar MD [address] [place] [address] [place] [address] Adult type polycystic kidney disease [...] Visit [facility] [place], [address] [place] [address] Milton Escobar MD [address] [address] [place] [address] documented as of this encounter Visit Diagnoses Diagnosis Adult type polycystic kidney disease type 1 documented in this encounter Care Teams Assistant Farm Operations Manager Relationship Specialty Start Date End Date Brian Kathleen MD [address] [place] [address] PCP - General 11/05/20 documented as of this encounter
--- OUTSIDE RECORDS SUMMARY | 2025-07-18 15:34 | XMS_ITS | Encounter Summary ---
Author Organization [facility] Address [address] [place] [address] Phone Care Team Providers Care Painter Aircraft Name Role Phone Brian Kathleen MD Primary Care Provider [phone] Encounter Details Date Type Department Care Team (Late Contact Info) Description 02/04/2024 Documentation Only [facility] [address] [place] [address] Kellie Aguilar [address] [place] [address] Social History Tobacco Use Types [...] Visit [facility] [address] [place] [address] Milton Escobar MD [address] [place] [address] [place] [address] documented as of this encounter Visit Diagnoses Not on filedocumented in this encounter Care Teams Painter Aircraft Relationship Specialty Start Date End Date Brian Kathleen MD [address] [place] [address] PCP - General 11/05/20 documented as of this encounter
--- OUTSIDE RECORDS SUMMARY | 2025-07-18 15:35 | XMS_ITS | Encounter Summary ---
Author Organization [facility] Address [address] [place] [address] Phone Care Team Providers Care Safety Leader Name Role Phone Brian Kathleen MD Primary Care Provider [phone] Encounter Details Date Type Department Care Team (Late st Contact Info) Description 11/20/2023 Documentation Only [facility] [address] [place] [address] Shelia Bianchi [address] [place] [address] Social History Tobacco Use Types [...] Visit [facility] [address] [place] [address] Milton Escobar MD [address] [facility] [place] [address] documented as of this encounter Visit Diagnoses Not on filedocumented in this encounter Care Teams Safety Leader Relationship Specialty Start Date End Date Brian Kathleen MD [address] [place] [address] PCP - General 11/05/20 documented as of this encounter
--- OUTSIDE RECORDS SUMMARY | 2025-07-18 15:35 | XMS_ITS | Encounter Summary ---
Author Organization [facility] Address [address] [place] [address] Phone Care Team Providers Care Optics Test Technician Name Role Phone Brian Kathleen MD Primary Care Provider Encounter Details Date Type Department Care Team (Late Contact Info) Description 05/11/2025 Documentation Only [facility] [address] [place] [phone] Kellie Aguilar [address] [place] [address] Social History Tobacco Use Types [...] [facility] [address] [place] [address] Milton Escobar MD [address] [place] [address] [place] [phone] documented as of this encounter Visit Diagnoses Not on filedocumented in this encounter Care Teams Optics Test Technician Relationship Specialty Start Date End Date Brian Kathleen MD [address] [place] [address] PCP - General 11/05/20 documented as of this encounter
--- OUTSIDE RECORDS SUMMARY | 2025-07-18 15:35 | XMS_ITS | Encounter Summary ---
Author Organization [facility] Address [address] [place] [address] Phone Care Team Providers Care Rn Private Duty Name Role Phone Brian Kathleen MD Primary Care Provider [phone] Encounter Details Date Type Department Care Team (Late Contact Info) Description 01/29/2024 Documentation Only [facility] [address] [place] [phone] Kellie Aguilar [address] [place] [address] Social History Tobacco Use Types [...] Visit [facility] [address] [place] [address] Milton Escobar MD [address] [place] [address] [place] [phone] documented as of this encounter Visit Diagnoses Not on filedocumented in this encounter Care Teams Rn Private Duty Relationship Specialty Start Date End Date Brian Kathleen MD [address] [place] [address] PCP - General 11/05/20 documented as of this encounter
--- OUTSIDE RECORDS SUMMARY | 2025-07-18 15:35 | XMS_ITS | Encounter Summary ---
Author Organization [facility] Address [address] [place] [address] Phone Care Team Providers Care Director Public Policy Name Role Phone Brian Kathleen MD Primary Care Provider [phone] Encounter Details Date Type Department Care Team (Late Contact Info) Description 01/29/2024 Documentation Only [facility] [address] [place] [phone] Kellie Aguilar [address] [place] [address] Social History Tobacco Use Types [...] Visit [facility] [address] [place] [address] Milton Escobar MD [address] [place] [address] [place] [phone] documented as of this encounter Visit Diagnoses Not on filedocumented in this encounter Care Teams Director Public Policy Relationship Specialty Start Date End Date Brian Kathleen MD [address] [place] [address] PCP - General 11/05/20 documented as of this encounter
--- OUTSIDE RECORDS SUMMARY | 2025-07-18 15:35 | XMS_ITS | Encounter Summary ---
Author Organization [facility] [place], Address [address] [place] [address] Phone Care Team Providers Care Surveyor Instrument Assistant Name Role Phone Brian Kathleen MD Primary Care Provider [phone] Encounter Details Date Type Department Care Team (Late Contact Info) Description 05/19/2025 Orders Only [facility] [address] [place] [phone] Milton Escobar MD [address] [place] [address] [place] [address] Adult type polycystic kidney disease [...] Visit [facility] [place], [address] [place] [address] Milton Escobar MD [address] [place] [address] documented as of this encounter Visit Diagnoses Diagnosis Adult type polycystic kidney disease type 1 documented in this encounter Care Teams Surveyor Instrument Assistant Relationship Specialty Start Date End Date Brian Kathleen MD [address] [place] [address] PCP - General 11/05/20 documented as of this encounter
--- OUTSIDE RECORDS SUMMARY | 2025-07-18 15:35 | XMS_ITS | Encounter Summary ---
Author Organization [facility] [place], Address [address] [place] [address] Phone Care Team Providers Care Casualty Underwriter Name Role Phone Brian Kathleen MD Primary Care Provider [phone] Encounter Details Date Type Department Care Team (Late st Contact Info) Description 05/01/2023 Orders Only [facility] [address] [place] [phone] Milton sEcobar MD [address] [place] [address] [place] [address] Adult type polycystic kidney disease [...] Visit [facility] [address] [place] [place] [phone] Milton Escobar MD [address] [place] [phone] documented as of this encounter Procedures Procedure [...] w/Creatinine (Protein/Creat Ratio) (11/20/2023 3:00 PM EST) [facility] Protein/Creati ne Ratio 0.23(H) (0-0.2) [facility] Protein, Urine 7 MG/DL [facility] Creatinine, Urine 29.8 MG/DL [facility] Comment: Testing performed or reported by [facility], a Service of [facility], [address] [place] [address] Cam Richards MD, Real Estate Associate Attorney [facility]# [id number] Urine specimen (specimen) Urine specimen obtained by clean catch procedure / Unknown 11/20/2023 3:00 PM EST 11/20/2023 3:02 PM EST us Milton Escobar MD LAB URINE ORDERABLES Final Re sult [facility] * Urinalysis with microscopic (11/20/2023 3:00 PM EST) Pathologist [facility] Appearance COLORLESS [facility] Comment:CLEAR Specific [place] 1.006 (1.002-1. 030) [facility] pH Urine 6.0 (5.0-8.0) [facility] Albumin, Urine NEGATIVE (NEG) [facility] Glucose, Ur NEGATIVE (NEG) [facility] Ketones, Urine NEGATIVE (NEG) [facility] Bilirubin Urine NEGATIVE (NEG) [facility] Hemoglobin Presence in Urine NEGATIVE (NEG) [facility] Nitrite, Urine NEGATIVE (NEG) [facility] Leukocyte Esterase Urine NEGATIVE (NEG) [facility] Urobilinogen Urine NORMAL (NORM) MG/DL [facility] WBC, Urine <1 (0-5) /HPF [facility] RBC, Urine 1 (0-3) /HPF [facility] Squamous Epithelial, Urine <1 (0-8) /HPF [facility] Comment: Testing performed or reported by [facility], a Service of [facility], [address] [place] [address] Cam Richards MD, Real Estate Associate Attorney [facility]# [id number] Urine specimen (specimen) Urine specimen obtained by clean catch procedure / Unknown 11/20/2023 3:00 PM EST 11/20/2023 3:02 PM EST us Milton Escobar MD LAB URINE ORDERABLES Final Re sult [facility] * (ABNORMAL) Comprehensive metabolic panel (11/20/2023 3:00 PM EST) Glucose 120(H) (70-99) MG/DL [facility] BUN 33(H) (8-23) MG/DL [facility] Creatinine 1.9(H) (0.5-1.0) MG/DL [facility] Sodium 140 (133-145) MMOL/L [facility] Potassium 4.5 (3.6-5.2) MMOL/L [facility] Chloride 103 (98-107) MMOL/L [facility] Bicarbonate (CO2) 26 (22-29) MMOL/L [facility] Anion Gap 11 (4-17) [facility] Albumin 4.3 (3.4-4.8) GM/DL [facility] Calcium 9.6 (8.6-10.5) MG/DL [facility] Total Bilirubin 0.3 (0-1.2) MG/DL [facility] Protein, Total 6.9 (6.2-8.2) GM/DL [facility] A/G Ratio 1.7 [facility] AST (SGOT) 14 (0-32) U/L [facility] Alkaline Phosphatase 87 (35-104) U/L [facility] ALT (SGPT) 9 (0-33) U/L [facility] Est GFR Non 29 ML/MIN/1.7 3 M2 [facility] Comment: Creatinine based estimated glomerular filtration (eGFR) in adults is calculated using the National [employer] recommended 2020 CKD-EPI equation. Estimates GFR from serum creatinine, age and sex. Testing performed or reported by [facility], a Service of [facility], [address] [place] [id number] Cam Richards MD, Real Estate Associate Attorney [facility]# [id number] Blood specimen (specimen) Venous blood / Unknown 11/20/2023 3:00 PM EST 11/20/2023 3:02 PM EST us Milton Escobar MD LAB BLOOD ORDERABLES Final Re sult [facility] * (ABNORMAL) CBC and Differential (11/20/2023 3:00 PM EST) White Blood Cells 4.6 (4.0-11.0) K/MM3 [facility] RBC 3.49(L) (4.20-5.40 ) M/MM3 [facility] Hgb 9.8(L) (11.7-15.5 ) GM/DL [facility] Hematocrit 32.5(L) (35.7-45.8 ) % [facility] MCV 93.1 (80.0-100. 0) FL [facility] MCH 28.1 (27.0-34.0 ) PG [facility] MCHC 30.2(L) (33.0-37.0 ) g/dL [facility] Platelets 176 (150-460) K/MM3 [facility] RDW-SD 47.0(H) (<47.0) FL [facility] MPV 9.5 (9.4-12.4) FL [facility] nRBC Count 0.0 #/100 WBC'S [facility] NRBC Absolute 0.0 K/MM3 [facility] Neutrophils Abs Auto 2.4 (1.3-7.0) K/MM3 [facility] Lymphocytes Relative 1.4 (0.8-3.1) K/MM3 [facility] Monocytes 0.6 (0.4-0.9) K/MM3 [facility] Eosinophils Relative 0.1 (0.0-0.4) K/MM3 [facility] Basophil ABS 0.0 (0.0-0.1) K/MM3 [facility] Granulocytes Absolute 0.0 K/MM3 [facility] Neutrophils % Auto 52.1 (44-76) % [facility] Lymphs 30.9 (15-43) % [facility] Monocytes Absolute 13.1(H) (4.5-10.5) % [facility] Eosinophils 2.8 (0-6) % [facility] Basophils Relative 0.9 (0-2) % [facility] Immature Granulocytes 0.2 % [facility] Comment: Testing performed or reported by [facility], a Service of [facility], [address] [place] [address] Cam Richards MD, Real Estate Associate Attorney [facility]# [id number] Blood specimen (specimen) Venous blood / Unknown 11/20/2023 3:00 PM EST 11/20/2023 3:02 PM EST us Milton Escobar MD LAB BLOOD ORDERABLES Final Re sult [facility] documented in this encounter Visit Diagnoses Diagnosis Adult type polycystic kidney disease type 1 documented in this encounter Care Teams Casualty Underwriter Relationship Specialty Start Date End Date Brian Kathleen MD [address] [place] [address] PCP - General 11/05/20 documented as of this encounter
--- OUTSIDE RECORDS SUMMARY | 2025-07-18 15:35 | XMS_ITS | Encounter Summary ---
Author Organization [facility] [place], Address [address] [place] [address] Phone Care Team Providers Care Blasting Entryman Name Role Phone Brian Kathleen MD Primary Care Provider [phone] Encounter Details Date Type Department Care Team (Late Contact Info) Description 05/20/2024 Orders Only [facility] [address] [place] [phone] Milton Escobar MD [address] [place] [address] [place] [address] Adult type polycystic kidney disease [...] Visit [facility] [place], [address] [place] [address] Milton Escobar MD [address] [place] [address] documented as of this encounter Visit Diagnoses Diagnosis Adult type polycystic kidney disease type 1 documented in this encounter Care Teams Blasting Entryman Relationship Specialty Start Date End Date Brian Kathleen MD [address] [place] [address] PCP - General 11/05/20 documented as of this encounter
--- OUTSIDE RECORDS SUMMARY | 2025-07-18 15:35 | XMS_ITS | Encounter Summary ---
Author Organization [facility] [place], Address [address] [place] [address] Phone Care Team Providers Care Welder Machine Operator Name Role Phone Brian Kathleen MD Primary Care Provider [phone] Encounter Details Date Type Department Care Team (Late st Contact Info) Description 07/08/2024 Orders Only [facility] [address] [place] [phone] Milton Escobar MD [address] [facility] [place] [address] Adult type polycystic kidney disease [...] Visit [facility] [place], [address] [place] [address] Milton Escobar MD [address] [place] [address] documented as of this encounter Procedures Procedure Name Priority Date/Time Associated Diagnosis Comments MICROSCOPIC EXAMINATION - DO NOT USE Routine 06/22/2025 1:57 PM EDT PROTEIN / CREATININE RATIO, URINE Routine 06/22/2025 1:57 PM EDT URINALYSIS WITH MICROSCOPIC Routine 06/22/2025 1:57 PM EDT CBC AND DIFFERENTIAL Routine 06/22/2025 1:57 PM EDT COMPREHENSIVE METABOLIC PANEL Routine 06/22/2025 1:57 PM EDT documented in this encounter Results * (ABNORMAL) Protein, Total, Random Urine w/Creatinine (Protein/Creat Ratio) (06/22/2025 1:57 PM EDT) Creatinine, Ur 45.3 Not Estab. mg/dL [facility] Protein, Ur 10.1 Not Estab. mg/dL [facility] Urine Protein/Creati nine Ratio 223(H) 0 - 200 mg/g creat [facility] 06/22/2025 1:57 PM EDT 06/22/2025 us Milton Escobar MD LAB URINE ORDERABLES Final Re sult [facility] [address] [place] [address] * Microscopic Examination (06/22/2025 1:57 PM EDT) WBC, Urine 0-5 0 - 5 /hpf [facility] RBC, Urine None seen 0 - 2 /hpf [facility] Squamous Epithelial, Urine 0-10 0 - 10 /hpf [facility] Casts None seen None seen /lpf [facility] Bacteria, Urine None seen None seen/Few [facility] 06/22/2025 1:57 PM EDT 06/22/2025 us Milton Escobar MD LAB MICROBIOLOGY - GENERAL OR DERABLES Final Result [facility] [address] [place] [address] * (ABNORMAL) Urinalysis with microscopic (06/22/2025 1:57 PM EDT) Specific [place], Urine 1.010 1.005 - 1.030 [facility] pH Urine 6.0 5.0 - 7.5 [facility] Color, Urine Yellow Yellow [facility] [phone] Appearance Urine Clear Clear [facility] WBC Esterase Urine 1+(A) Negative [facility] Protein, Ur Negative Negative/Tra ce [facility] Glucose, Ur Negative Negative [facility] Ketones, Urine Negative Negative [facility] Blood Urine Negative Negative [facility] Bilirubin Urine Negative Negative [facility] [phone] Urobilinogen Urine 0.2 0.2 - 1.0 mg/dL [facility] Nitrite, Urine Negative Negative [facility] Microscopic Examination See below: [facility] Comment:Microscopic was thais cated and was performed. 06/22/2025 1:57 PM EDT 06/22/2025 us Milton Escobar MD LAB URINE ORDERABLES Final Re sult [facility] [address] [place] [address] * (ABNORMAL) Comprehensive Metabolic Panel (06/22/2025 1:57 PM EDT) Glucose 110(H) 70 - 99 mg/dL [facility] BUN 34(H) 8 - 27 mg/dL [facility] Creatinine 1.95(H) 0.57 - 1.00 mg/dL [facility] eGFR CKD-EPI CR 2020 28(L) >59 mL/min/1.7 3 [facility] BUN/Creatinine Ratio 17 12 - 28 [facility] Sodium 133(L) 134 - 144 mmol/L [facility] Potassium 4.6 3.5 - 5.2 mmol/L [facility] Chloride 99 96 - 106 mmol/L [facility] Bicarbonate (CO2) 20 20 - 29 mmol/L [facility] Calcium 9.4 8.7 - 10.3 mg/dL [facility] Total Protein 6.6 6.0 - 8.5 g/dL [facility] Albumin 4.4 3.9 - 4.9 g/dL [facility] Globulin 2.2 1.5 - 4.5 g/dL [facility] Total Bilirubin 0.4 0.0 - 1.2 mg/dL [facility] Alkaline Phosphatase 78 44 - 121 IU/L [facility] AST (SGOT) 15 0 - 40 IU/L [facility] ALT (SGPT) 10 0 - 32 IU/L [facility] 06/22/2025 1:57 PM EDT 06/22/2025 us Milton Escobar MD LAB BLOOD ORDERABLES Final Re sult [facility] [address] [place] [address] * (ABNORMAL) CBC and Differential (06/22/2025 1:57 PM EDT) WBC 4.8 3.4 - 10.8 x10E3/uL [facility] RBC 3.27(L) 3.77 - 5.28 x10E6/uL [facility] Hemoglobin 10.0(L) 11.1 - 15.9 g/dL [facility] Hematocrit 30.6(L) 34.0 - 46.6 % [facility] MCV 94 79 - 97 fL [facility] MCH 30.6 26.6 - 33.0 pg [facility] MCHC 32.7 31.5 - 35.7 g/dL [facility] RDW 14.3 11.7 - 15.4 % [facility] Platelets 176 150 - 450 x10E3/uL [facility] Neutrophils Relative 61 Not Estab. % [facility] Lymphocytes Relative 24 Not Estab. % [facility] Monocytes 11 Not Estab. % [facility] Eosinophils Relative 3 Not Estab. % [facility] Basophils Relative 1 Not Estab. % [facility] Neutrophils Absolute 2.9 1.4 - 7.0 x10E3/uL [facility] Lymphocytes Absolute 1.1 0.7 - 3.1 x10E3/uL [facility] Monocytes Absolute 0.5 0.1 - 0.9 x10E3/uL [facility] Eosinophils Absolute 0.1 0.0 - 0.4 x10E3/uL [facility] Basophils Absolute 0.0 0.0 - 0.2 x10E3/uL [facility] Immature Granulocytes 0 Not Estab. % [facility] Immature Grans (Absolute) 0.0 0.0 - 0.1 x10E3/uL [facility] 06/22/2025 1:57 PM EDT 06/22/2025 us Milton Escobar MD LAB BLOOD ORDERABLES Final Re sult [facility] [address] [place] [address] documented in this encounter Visit Diagnoses Diagnosis Adult type polycystic kidney disease type 1 documented in this encounter Care Teams Welder Machine Operator Relationship Specialty Start Date End Date Brian Kathleen MD [address] [place] [address] PCP - General 11/05/20 documented as of this encounter
--- OUTSIDE RECORDS SUMMARY | 2025-07-18 15:35 | XMS_ITS | Encounter Summary ---
Author Organization [facility] Address [address] [place] [address] Phone Care Team Providers Care Intermediate Teacher Name Role Phone Brian Kathleen MD Primary Care Provider [phone] Encounter Details Date Type Department Care Team (Late st Contact Info) Description 04/10/2023 Orders Only [facility] [address] [place] [phone] Milton Escobar MD [address] [place] [address] Stage 3b chronic kidney disease [...] [facility] [address] [place] [address] Milton Escobar MD [address] [facility] [address] [place] [address] documented as of this encounter Visit Diagnoses Diagnosis Stage 3b chronic kidney disease (HCC) Adult type polycystic kidney disease type 1 documented in this encounter Care Teams Intermediate Teacher Relationship Specialty Start Date End Date Brian Kathleen MD [address] [place] [address] PCP - General 11/05/20 documented as of this encounter
--- OUTSIDE RECORDS SUMMARY | 2025-07-18 15:35 | XMS_ITS | Clinical Summary ---
Author Organization Formerly [facility] Address [address] [facility] [address] [place] [address] Phone Care Team Providers Care Director Sales Support Name Role Phone Brian Kathleen MD Unavailable [phone] Brian Kathleen MD Primary Care Provider [phone] Scott Vang MD Unavailable Nate Villareal MD Unavailable [email or web address] Eduardo Rowland MD Unavailable Burak Santamaria MD Unavailable Jose Antonio Garcia OD Unavailable [phone] Allergies Active Allergy Reactions Criticality Noted Date Comments Adhesive Itching 10/01/2023 Amlodipine Swelling 11/17/2017 Legs swelling, tolerating low dose ok Amoxicillin Rash Low 11/17/2017 Bacitracin Rash Low 11/17/2017 Flurandrenolide 06/19/2023 Gadolinium-Containing Contrast Media Hives,Unknown Medium 10/12/2017 Pt states she had a lot of hives after having had an injection of gadolinium. Eplerenone 11/17/2017 Sore breasts Iodinated Contrast Media Unknown 01/27/2022 Latex 06/19/2023 Other 05/01/2023 Steri strip caused rash right knee ADHESIVE Penicillins Rash Medium 09/06/2021 Spironolactone 11/17/2017 Sore breasts Medications aMILoride (MIDAMOR) 5 MG tablet Take 5 mg by mouth daily. Active cholecalciferol (VITAMIN D3) 2,000 unit capsule 2,000 Units daily. Active ketoconazole (NIZORAL) 2 % shampoo Apply 1 Application topically every 30 (thirty) days. Active ascorbic acid, vitamin C, 500 mg Cap Take 1 tablet by mouth daily. Active magnesium 200 mg Tab Take 1 tablet by mouth daily. For cramps Active metoprolol succinate (TOPROL-XL) 25 MG 24 hr tabletIndications:Essen tial hypertension 1 table po alteranting with 2 tablets daily 135 tablet 2 Active Additional Information Patient taking differently: 25 mg Oral Nightly, (No instructions reported), Indications: Also takes 50 mg in am, Reported on 06/12/2025 albuterol 90 mcg/actuation inhaler Inhale 2 puffs into the lungs 3 (three) times a day as needed. Active triamcinolone acetonide 0.1 % cream as needed. Active traMADoL (ULTRAM) 50 mg tablet Take 50 mg by mouth as needed. Active metoprolol succinate (TOPROL-XL) 50 MG 24 hr tabletIndications:Also takes 25 mg in pm Take 50 mg by mouth every morning. Indications: Also takes 25 mg in pm Active clindamycin (CLEOCIN) 300 MG capsule TAKE 2 CAPSULES BY MOUTH 1/2 HOUR PRIOR TO DENTAL APPOINTMENT DIRECTED. Active tiotropium bromide (SPIRIVA RESPIMAT) 2.5 mcg/actuation mist for inhalationIndications:P t to check w/ pc network technician to see if it is safe to use for kidney before starting; has appt on 10/12/23 w/ Dr. Escobar Inhale 2.5 mcg into the lungs every morning. Indications: Pt to check w/ pc network technician to see if it is safe to use for kidney before starting; has appt on 10/12/23 w/ Dr. Escobar Active tolvaptan, polycys kidney dis, 90 mg (AM)/ 30 mg (PM) TbSQ Take 90 mg in the morning and 30 mg in the evening Active diazePAM (VALIUM) 5 MG tablet Take 10 mg by mouth as needed. Take 2 tablet 1 hour before MRI May repeat x1 oral for 1 024 Active levothyroxine (SYNTHROID, LEVOTHROID) 125 MCG tabletIndications:Hypot hyroidism, unspecified type TAKE 1 TABLET BY MOUTH EVERY MORNING *REPLACING LEVOTHYROXINE 150 MCG* 90 tablet 3 024 Active famotidine (PEPCID) 20 MG tabletIndications:Gastr oesophageal reflux disease, unspecified whether esophagitis present TAKE 1 TABLET BY MOUTH TWICE A DAY NEEDED FOR HEARTBURN 180 tablet 3 024 Active amLODIPine (NORVASC) 2.5 MG tablet TAKE 1 TABLET BY MOUTH EVERY DAY 90 tablet 3 024 Active doxazosin (CARDURA) 8 MG tablet TAKE 1/2 TABLET (4 MG TOTAL) BY MOUTH 2 (TWO) TIMES A DAY. 90 tablet 3 025 Active calcium carbonate (TUMS ORAL) Take 1 tablet by mouth every 14 (fourteen) days. As needed Active acetaminophen (TYLENOL) 500 MG tablet Take 500 mg by mouth as needed. Active atorvastatin (LIPITOR) 10 MG tabletIndications:Pure hypercholesterolemia TAKE 1 TABLET BY MOUTH EVERY DAY 90 tablet 3 025 Active potassium chloride SA (KLOR-CON M20) 20 MEQ ER tablet TAKE 1 TABLET BY MOUTH EVERY DAY 90 tablet 3 025 Active ketoconazole 2 % creamIndications:Rash and other nonspecific skin eruption APPLY TOPICALLY 2 TIMES A DAY NEEDED. 60 g 3 025 Active olmesartan (BENICAR) 40 mg tabletIndications:Essen tial hypertension TAKE 1 TABLET BY MOUTH EVERY DAY 90 tablet 025 Active LORazepam (ATIVAN) 0.5 MG tabletIndications:Anxie ty Take 1 tablet (0.5 mg total) by mouth every 8 (eight) hours as needed for anxiety. 20 tablet 1 025 Active Active Problems Problem Noted Date Diagnosed Date Iron deficiency anemia, unspecified 05/23/2025 Anemia 10/01/2023 Chronic renal failure (CRF), stage 3b 10/01/2023 Spasm of abdominal muscles 05/27/2021 Assessment & Plan (05/27/2021 7:24 PM EDT): The patient has a benign exam and the history is consistent with abdominal muscle spasms not herniation or volvulus. Also no signs on exam of colitis. If the patient however develops acute abdominal pain that persists then that might be incarcerated gut. Then we would advise her to proceed to the ER soon as possible. The patient will ask Dr. Villareal's office if it is okay to take at night 200 mg of Mag-Ox. The magnesium would make such muscle spasms of the abdominal musculature less likely. The recommendation was contingent on permission through nephrology given the chronic renal failure associated with polycystic kidney disease. Obesity, Class II, BMI 35-39.9 02/12/2021 Exanthema 02/05/2021 Lesion of oral mucosa 02/05/2021 Assessment & Plan (02/05/2021 10:15 AM EDT): Solitary plaque-like whitish lesion in the setting of type 2 diabetes could be a colony of thrush Tamy however perhaps unlikely where the rest of the oropharynx looked clear. There was some erythema around the palatine arch but this was not very pronounced and its did not look acute. We will obtain a culture and if it is group a strep we will treat. Otherwise on not inclined to start an antibiotic. If culture grows out thrush we can treat with nystatin swish gargle and spit. Assured the patient that this was not looking like a malignancy or something ominous. Fluid retention 05/01/2020 Assessment & Plan (05/01/2020 4:36 PM EDT): She is about 6 pounds more than she really should be, consider Lasix however we need to obtain a BUN creatinine and electrolytes. She apparently has a propensity to waste potassium. Check Chem-7 and then prescribe the Lasix according to what the potassium level and creatinine allow. Patient will then check weight at home and the data will be forwarded to the urologist. Dyspnea on exertion 05/01/2020 Generalized edema 05/01/2020 Assessment & Plan (05/01/2020 4:35 PM EDT): Certainly she had leg edema +2 +3 shins and ankles foot dorsi that was new to her, no weeping lesions, perhaps a little bit of fluid within the skin, no periorbital edema but perhaps along the abdomen. History of partial nephrectomy 05/01/2020 Assessment & Plan (05/01/2020 4:35 PM EDT): Postoperatively no signs of acute infection, patient urinating well, it would be reasonable to reassess the patient's creatinine and forward the results to the urologist. Renal cell cancer, right 05/01/2020 Acute blood loss as cause of postoperative anemi a 05/01/2020 Assessment & Plan (05/01/2020 4:39 PM EDT): With the blood loss anemia we would like to see where she stands after receiving the packed red blood cell units. This data will be also forwarded to the urologist for review. Atrial fibrillation 05/01/2020 Overview (06/16/2024): Saw Dr. Luna Marr [facility] [place] 05/04/24 - advised cont BB, Metoprolol 50 qam and 25 qpm. No on anticoagulation as this occurred x 1. If reoccurs will need to start. . Sleep study showed mild OS Assessment & Plan (05/01/2020 4:38 PM EDT): The EKG came back sinus rhythm with premature supraventricular complexes. The frequency was 94 bpm. There was no ischemic changes. 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 Consider EKG on next internal medicine assessment. Type 2 diabetes mellitus without complications 0 11/20/2017 Primary osteoarthritis involving multiple joints 11/20/2017 Polycystic kidney disease 11/20/2017 Pituitary microadenoma 11/20/2017 Palpitations 11/20/2017 Hypothyroidism 11/20/2017 Essential hypertension 11/20/2017 Hypertension 11/20/2017 Pes planus 11/20/2017 Bunion of great toe of left foot 11/20/2017 Anxiety 11/20/2017 Encounters Date Type Department Care Team Description 06/13/2025 Telephone [employer] [facility] Internal Medicine [address] [place] [address] Brian Kathleen MD Medication Problem 06/12/2025 11:30 AM EDT Office Visit [facility] Internal Medicine [address] [place] [address] Brian Kathleen MD Chronic renal failure (CRF), stage 4 (severe) (Primary Dx); Anxiety; Anemia due to stage 4 chronic kidney disease; Hypertension, unspecified type 06/09/2025 Refill [facility] Internal Medicine [address] [place] [address] Taye Jc MD Medication Refill 05/31/2025 2:00 PM EDT Infusion [facility] Medical Infusion Center [address] [place] [address] Milton Escobar MD Iron deficiency anemia, unspecified (Primary Dx) 05/24/2025 11:44 AM EDT - 05/24/2025 11:59 PM EDT Hospital Encounter [facility] Laboratory [address] [place] [address] Milton Escobar MD Discharge Disposition: Home or Self Care 05/23/2025 Orders Only Virtual Department [address] [place] [id number] Milton Escobar MD Iron deficiency anemia, unspecified iron deficiency anemia type (Primary Dx) 04/18/2025 11:39 AM EDT - 04/18/2025 11:59 PM EDT Hospital Encounter [facility] Laboratory [address] [place] [address] Milton Escobar MD Discharge Disposition: Home or Self Care 04/18/2025 Transcribe Orders [facility] Laboratory [address] [place] [address] Milton Escobar MD Polycystic kidney, autosomal dominant (Primary Dx) from Last 3 Months Immunizations Immunization Administration Dates Next Due COVID-19 (Pre-08/17) Pfizer Vaccine, mRNA, PF 01/31/2022,01/23/2021,01/02/2021 INFLUENZA, SPLIT VIRUS, TRIVALENT PF 07/16/2025, 09/11/2021 INFLUENZA, SPLIT VIRUS, TRIV ALENT W/ PRESERVATIVE IM 08/15/2020,08/03/2019,08/26/2018,08/20,08/19/2012 Influenza High-Dose Trivalen t Preservative Free IM 07/14/2024 Influenza Quadrivalent Adjuv anted Preservative Free IM 08/07/2023 Influenza Quadrivalent MDCK Preservative Free IM 08/12/2022,08/12/2021,08/19/2018 Influenza Quadrivalent Prese rvative Free IM 07/10/2020,08/25/2019,08/19/2018,08/11 Influenza trivalent preserva tive free intradermal 08/18/2013 Influenza, Unspecified Formulation 07/14,08/20/2011,05/07/2010,08/14 Pneumococcal conjugate PCV13 06/04/2020 Pneumococcal conjugate PCV20 01/08/2023 Pneumococcal polysaccharide PPSV23 02/13/2009, Pneumococcal, Unspecified Formulation 01/08/2023 RSV Vaccine (monovalent, adjuvanted) 10/15/2023 Td (adult) 5 Lf Tetanus Toxo id, PF, Adsorbed 07/26/2005 Tdap 04/23/2015 Family History Medical History Relation Comments Heart disease Father Hypertension Father hepatitis c Mother COPD Sister Relation Status Comments Father (Age 72) Mother (Age 78) Sister Social History Tobacco Use Types Packs/Day Years Used Date Smoking Tobacco: Former Cigarettes 1.5 23.7 0 02/18/1974 - 1997 Smokeless Tobacco: Never Alcohol Use Standard Drinks/Week Comments No 0 (1 standard drink = 0.6 oz pur e alcohol) last drink 2006 Child or Family Care Answer Date Record ed Do you have problems with on e of the following making it difficult for you to work, study, or receive health care? No 06/06/2021 Education Answer Date Recorded Are you interested in more education? Not on jabier e 06/10/2023 Are you concerned about learning? Not on file 06/10/2023 No 06/10/2023 No 06/10/2023 Food Answer Date Recorded Within the past 6 months we worried whether our food would run out before we got money to buy more. Never True 06/06/2021 Within the past 6 months the food we bought just didn't last and we didn't have enough money to get more. Never True Residential Stability Answer Date Recor ded What is your housing situation today? I have cat choudhury 06/06/2021 How many times have you move d in the past 12 months? Zero (I did not move) 06/06/2021 Paying for Meds Answer Date Recorded Do you have trouble paying for medicines? No 06/06/2021 Paying Utility Bills Answer Date Record ed Do you have trouble paying your heating or elect ricity bill? No 06/06/2021 Transportation Answer Date Recorded Has the lack of transportati on kept you from medical appointments or from getting medications? No 06/06/2021 Unemployment Answer Date Recorded Are you currently unemployed or working on a part-time or temporary basis, and looking for work? No 06/06/2021 Digital Access Answer Date Recorded No 03/18/2023 No 03/18/2023 Reliable internet access at home? Not on file 03/18/2023 Device with a working camera? Not on file Intimate Partner Violence Answer Date R ecorded Denied Basic Needs Not on file 07/13/2024 In the past 12 months have y ou been in a relationship with a person who hurts, threatens, or tries to control you? No 07/13/2024 Worried food would run out Not on file 07/13 In the past 12 months have y ou been in a relationship with a person who hurts, threatens, or tries to control you? No 07/13/2024 Comments No Sex and Gender Information Value Date Recorded Sex Assigned at Female 02/19/2020 12:50 PM EDT Legal Sex Female 9:52 PM EDT Gender Identity Female 02/19/2020 12:50 PM EDT Sexual Orientation Straight 02/19/2020 12 :50 PM EDT Last Filed Vital Signs Vital Sign Reading Time Taken Comments Blood Pressure 124/66 06/12/2025 12:23 PM EDT Pulse 63 06/12/2025 11:33 AM EDT Temperature 36.3 C (97.4 F) 06/12/2025 11:33 AM EDT Respiratory Rate 14 06/12/2025 11:33 AM EDT Oxygen Saturation 99% 06/12/2025 11:33 AM EDT Inhaled Oxygen Concentration - - Weight 96.7 kg (213 lb 3.2 oz) 06/12/2025 11:33 AM EDT Height 159.5 cm (5' 2.8 ) 06/12/2025 11:33 AM ED T Body Mass Index 38.01 06/12/2025 11:33 AM EDT Plan of Treatment Upcoming Encounters Date Type Department Care Team (Late st Contact Info) Description 09/13/2025 1:00 PM EST Office Visit [facility] Internal Medicine [address] [place] [address] Brian Kathleen MD [address] [place] [address] 12/06/2025 10:30 AM EST Office Visit [facility] Internal Medicine [address] [place] [address] Brian Kathleen MD [address] [place] [address] 09/17/2026 10:40 AM EST Office Visit [facility] Internal Medicine [address] [place], [place] [phone] Yonatan Richards PA-C [address] [place], [place] [phone] Health Maintenance Due Date Last Done Comments ZOSTER VACCINES (1 of 2) 1977 FIT TEST 2003 FOBT 2003 SIGMOIDOSCOPY 2003 VIRTUAL COLONOSCOPY 2003 COLONOSCOPY 02/02/2023 02/02/2013 Adult Td,Tdap Booster 04/23/2025 04/23/2015, 005 COVID-19 VACCINE ( season) 2025 10/13/2024, 11/17/2023, 07/08/2022, Additional history exists DEPRESSION SCREENING 07/13/2025 07/13/2024 HEMOGLOBIN A1C 09/22/2025 03/22/2025, 12/25, 06/23/2024, Additional history exists DIABETIC EYE EXAM 09/26/2025 09/26/2024, , 03/27/2022, Additional history exists BLOOD PRESSURE 12/13/2025 06/12/2025 MAMMOGRAM 12/21/2025 12/21/2023, 11/26, 12/05/2021, Additional history exists TSH LEVEL 03/22/2026 03/22/2025, 12/25, 06/23/2024, Additional history exists CREATININE LEVEL 05/24/2026 05/24/2025, , 03/22/2025, Additional history exists POTASSIUM LEVEL 05/24/2026 05/24/2025, 03/27, 03/22/2025, Additional history exists COLOGUARD 08/10/2027 08/10/2024 COLORECTAL CANCER SCREENING 08/10/2027 HEPATITIS C SCREENING Completed 07/31/2020, 019 PNEUMOCOCCAL VACCINES (50+ years) Completed 01/08/2023, 06/04/2020, 02/13/2009, Additional history exists RSV VACCINE Completed 10/15/2023 OSTEOPOROSIS SCREENING INITIAL (ONE-TIME) Completed 02/05/2024 SMOKING STATUS SCREENING (Once After 26 Yrs) Completed 06/12/2025 INFLUENZA VACCINE Completed 07/16/2025, , 07/14/2024, Additional history exists HEPATITIS A VACCINES Aged Out No long er eligible based on patient's age to complete this topic HIB VACCINES Aged Out No longer eligi ble based on patient's age to complete this topic MENINGOCOCCAL VACCINES (ACWY) Aged Out No longer eligible based on patient's age to complete this topic MENINGOCOCCAL VACCINES (B) Aged Out N o longer eligible based on patient's age to complete this topic Medical Devices Not on file Procedures Procedure Name Priority Date/Time Associated Diagnosis Comments TOTAL PROTEIN CREATININE RATIO, RANDOM URINE Routine 05/24/2025 12:07 PM EDT Polycystic kidney, autosomal dominant URINALYSIS WITH SEDIMENT Routine 05/24/2025 12:07 PM EDT Polycystic kidney, autosomal dominant COMPREHENSIVE METABOLIC PANEL Routine 05/24/2025 11:43 AM EDT Polycystic kidney, autosomal dominant CBC AND DIFFERENTIAL Routine 05/24/2025 11:43 AM EDT Polycystic kidney, autosomal dominant PHOSPHORUS Routine 04/18/2025 11:44 AM EDT COMPREHENSIVE METABOLIC PANEL Routine 04/18/2025 11:44 AM EDT Polycystic kidney, autosomal dominant CBC AND DIFFERENTIAL Routine 04/18/2025 11:44 AM EDT Polycystic kidney, autosomal dominant FERRITIN Routine 04/18/2025 11:44 AM EDT Polycystic kidney, autosomal dominant IRON AND IRON BINDING CAPACITY Routine 04/18/2025 11:44 AM EDT Polycystic kidney, autosomal dominant PARATHYROID HORMONE (PTH) Routine 04/18/2025 11:44 AM EDT Polycystic kidney, autosomal dominant URINALYSIS WITH SEDIMENT Routine 04/18/2025 11:44 AM EDT Polycystic kidney, autosomal dominant MICROALBUMIN/CREATININ E RATIO, RANDOM URINE Routine 04/18/2025 11:44 AM EDT Polycystic kidney, autosomal dominant 25-OH VITAMIN D Routine 04/18/2025 11:44 AM EDT Polycystic kidney, autosomal dominant HEMOGLOBIN A1C Routine 03/22/2025 12:05 PM EDT Type 2 diabetes mellitus without complication, without long-term current use of insulin TSH WITH REFLEX Routine 03/22/2025 12:05 PM EDT Hypothyroidism, unspecified type HM DIABETES EYE EXAM FOR RESULT ENTRY ONLY Routine 09/26/2024 BD DXA SCREENING Routine 02/05/2024 11:0 7 AM EDT Postmenopausal estrogen deficiency HM MAMMOGRAPHY Routine 12/21/2023 11:22 AM EST HEPATITIS C ANTIBODY, QUALITATIVE Routine 07/31/2020 10:08 AM EDT Need for hepatitis C screening test HM COLONOSCOPY FOR RESULT ENTRY ONLY Routine 02/02/2013 from Last 3 Months or Most Recently Relevant to Health Maintenance Results * (ABNORMAL) TOTAL PROTEIN CREATININE RATIO, RANDOM URINE (05/24/2025 12:07 PM EDT) URINE TOTAL PROTEIN 7.0 mg/dL [facility] URINE CREATININE 28 mg/dL [facility] URINE TP CRE RATIO 0.25(H) 0 - 0.19 [facility] Urine (Urine) 05/24/2025 12: 07 PM EDT 05/24/2025 9:40 PM EDT us Milton Escobar MD URINE ORDERABLES Final Resu lt Performing Organization Address City/State/[facility] Co de Phone Number [address] [address] * (ABNORMAL) URINALYSIS WITH SEDIMENT (05/24/2025 12:07 PM EDT) Only the most recent of2 resultswithin the time period is included. WBC NONE SEEN NONE SEEN /hpf [facility] RBC NONE SEEN NONE SEEN /hpf [facility] URINE EPITHELIAL 0-4(A) NONE SEEN [facility] MUCUS NONE SEEN NONE SEEN /hpf [facility] BACTERIA NONE SEEN NONE SEEN /hpf [facility] COLOR Yellow Yellow [facility] CLARITY Clear [facility] GLUCOSE Negative Negative [facility] BILI Negative Negative [facility] KETONES Negative Negative [facility] SPECIFIC GRAVITY <1.005 1.005 - 1.030 [facility] BLOOD Negative Negative [facility] PH 6.0 5.0 - 8.0 [facility] Protein-UA Negative Negative [facility] NITRITE Negative Negative [facility] Leukocyte esterase, ur Negative Negative [facility] Urine (Urine) 05/24/2025 12: 07 PM EDT 05/24/2025 9:20 PM EDT us Milton Escobar MD URINE ORDERABLES Final Resu lt [facility] [address] [place] [address] * (ABNORMAL) Comprehensive metabolic panel (05/24/2025 11:43 AM EDT) Only the most recent of2 resultswithin the time period is included. SODIUM 133 133 - 146 mmol/L [facility] POTASSIUM 4.6 3.3 - 5.1 mmol/L [facility] CHLORIDE 98 96 - 108 mmol/L [facility] CO2 22 21 - 35 mmol/L [facility] BUN 32(H) 6 - 19 mg/dL [facility] CREATININE 2.00(H) 0.5 - 1.5 mg/dL [facility] GLUCOSE 96 70 - 99 mg/dL [facility] ALBUMIN 4.2 3.9 - 4.8 g/dL [facility] TOTAL PROTEIN 6.8 6.5 - 8.0 g/dL [facility] CALCIUM 9.3 8.4 - 10.3 mg/dL [facility] ALKALINE PHOSPHATASE 72 39 - 117 U/L [facility] TOTAL BILIRUBIN 0.5 0.0 - 1.2 mg/dL [facility] AST 19 0 - 37 U/L [facility] ALT 9 0 - 40 U/L [facility] GLOBULIN 2.6 1 - 4.8 g/dL [facility] EGFR 27(L) >59 mL/min/1.7 3m2 [facility] Comment:Estimated glomerular filtration rate calculated using the CKD-EPI refit equation. ANION GAP 18 10 - 20 mmol/L [facility] Blood 05/24/2025 11:4 3 AM EDT 05/24/2025 11:45 AM EDT us Milton Escobar MD LAB BLOOD ORDERABLES Final Result [facility] [address] [place] [address] * (ABNORMAL) CBC and differential (05/24/2025 11:43 AM EDT) Only the most recent of2 resultswithin the time period is included. WBC 4.49 4.00 - 11.00 K/uL [facility] RBC 3.29(L) 4.00 - 5.20 M/uL [facility] HGB 9.8(L) 12.0 - 16.0 g/dL [facility] HCT 29.6(L) 36.0 - 46.0 % [facility] PLT 188 150 - 450 K/uL [facility] MCV 90.0 80.0 - 100.0 fL [facility] MCH 29.8 27.0 - 31.0 pg [facility] MCHC 33.1 32.0 - 36.0 g/dL [facility] RDW 13.6 11.5 - 14.5 % [facility] MPV 9.0 8.4 - 12.0 fL [facility] NRBC 0.00 0.00 /100 WBCs [facility] ABSOLUTE NRBC 0.00 0.00 K/uL [facility] DIFF METHOD Auto [facility] NEUTS 58.2 48.0 - 76.0 % [facility] LYMPHS 24.9 18.0 - 41.0 % [facility] MONOS 11.1(H) 4.0 - 11.0 % [facility] EOS 4.5 0.0 - 5.0 % [facility] BASOS 1.1 0.0 - 1.5 % [facility] Granulocytes, immature (%) 0.2 0.0 - 0.9 % [facility] ABSOLUTE NEUTS 2.61 1.92 - 7.60 K/uL [facility] ABSOLUTE LYMPHS 1.12 0.72 - 4.10 K/uL [facility] ABSOLUTE MONOS 0.50 0.16 - 1.10 K/uL [facility] ABSOLUTE EOS 0.20 0.00 - 0.50 K/uL [facility] ABSOLUTE BASOS 0.05 0.00 - 0.15 K/uL [facility] Granulocytes, immature 0.01 0.00 - 0.09 K/uL [facility] Blood 05/24/2025 11:4 3 AM EDT 05/24/2025 11:45 AM EDT us Milton Escobar MD LAB BLOOD ORDERABLES Final Result Performing Organization Address City/[facility]/ZIP Co de Phone Number [address] [address] * Iron and iron binding capacity (04/18/2025 11:44 AM EDT) IRON 45 30 - 160 ug/dL [facility] IRON BINDING CAPACITY 296 228 - 428 ug/dL [facility] TRANSFERRIN SATURAT. 15 15 - 50 % [facility] Blood 04/18/2025 11:4 4 AM EDT 04/18/2025 11:47 AM EDT us Mitlon Escobar MD LAB BLOOD ORDERABLES Final Result Performing Organization Address [facility]/ZIP Co de Phone Number [address] [address] * (ABNORMAL) Microalbumin/creatinine ratio, random urine (04/18/2025 11:44 AM EDT) URINE MICROALBUMIN 3.3(H) 0 - 2.3 mg/dL [facility] URINE CREATININE 30 mg/dL [facility] MICROALB/CRE RATIO 110.0(H) 0 - 20 mg/g Cre [facility] Urine (Urine) 04/18/2025 11: 44 AM EDT 04/18/2025 11:46 AM EDT us Milton Escobar MD URINE ORDERABLES Final Resu lt Performing Organization Address [facility]/ZIP Co de Phone Number [address] [address] * 25-OH vitamin D (04/18/2025 11:44 AM EDT) 25 [place] VIT D (TOTAL) 34 30 - 60 ng/mL [facility] Blood 04/18/2025 11:4 4 AM EDT 04/18/2025 11:47 AM EDT us Milton Escobar MD LAB BLOOD ORDERABLES Final Result [address] [address] * Phosphorus (04/18/2025 11:44 AM EDT) PHOSPHORUS 4.1 2.7 - 4.5 mg/dL [facility] 04/18/2025 11:4 4 AM EDT 04/18/2025 11:47 AM EDT us Milton Escobar MD LAB BLOOD ORDERABLES Final Result Performing Organization Address City/[facility]/ZIP Co de Phone Number [address] [address] * (ABNORMAL) Parathyroid hormone (PTH) (04/18/2025 11:44 AM EDT) PARATHYROID HORMONE 101(H) 15 - 65 pg/mL [facility] Blood 04/18/2025 11:4 4 AM EDT 04/18/2025 11:47 AM EDT us Milton Escobar MD LAB BLOOD ORDERABLES Final Result Performing Organization Address City/[facility]/ZIP Co de Phone Number [address] [address] * Ferritin (04/18/2025 11:44 AM EDT) FERRITIN 148 13 - 150 ug/L [facility] Blood 04/18/2025 11:4 4 AM EDT 04/18/2025 11:47 AM EDT Milton Escobar MD LAB BLOOD ORDERABLES Final Result Performing Organization Address [facility] Co de Phone Number [address] [address] * TSH with reflex (03/22/2025 12:05 PM EDT) TSH 1.01 0.27 - 4.20 uIU/mL [facility] Blood 03/22/2025 12:0 5 PM EDT 03/22/2025 12:09 PM EDT Brian Kathleen MD LAB BLOOD ORDERABLES Final Re sult Performing Organization Address [facility] Co de Phone Number [address] [address] * Hemoglobin A1c (03/22/2025 12:05 PM EDT) HEMOGLOBIN A1C 5.1 4.3 - 5.8 % [facility] Blood 03/22/2025 12:0 5 PM EDT 03/22/2025 12:09 PM EDT Brian Kathleen MD LAB BLOOD ORDERABLES Final Re sult Performing Organization Address [facility] de Phone Number [address] [address] * HM DIABETES EYE EXAM FOR RESULT ENTRY ONLY (09/26/2024) HM EYE EXAM no diabetic retinopathy EXTERNAL NON-INTERFACE D REF LAB Orlando Hernández MD HEALTH MAINTENANCE Final Result Performing Organization Address [facility] Co de Phone Number EXTERNAL NON-INTERFACED REF LAB * DXA Screening (02/05/2024 11:07 AM EDT) Anatomical Region Laterality Modality Bone Density Bone Density us Brian Kathleen MD IMG BD BONE DENSITY DEXA Anitha l Result * MAMMOGRAPHY FOR RESULT ENTRY ONLY (12/21/2023 11:22 AM EST) us Brian Kathleen MD HEALTH MAINTENANCE Edited Res ult - Final * Hepatitis C antibody, qualitative (07/31/2020 10:08 AM EDT) HCV NON-REACTIV E NON-REACTI VE [facility] Blood 07/31/2020 10:0 8 AM EDT 07/31/2020 10:15 AM EDT Brian Kathleen MD LAB BLOOD ORDERABLES Final Re sult Performing Organization Address City/State/[facility] Co de Phone Number [address] [address] * COLONOSCOPY FOR RESULT ENTRY ONLY (02/02/2013) Colonoscopy f/u prn Historical Provider HEALTH MAINTENANCE Final Result from Last 3 Months or Most Recently Relevant to Health Maintenance Insurance MEDICARE PART A & B [place] [place] MED[place] HMO REPLACEMENT MEDICARE PART A & B MEDICARE HMO REPLACEMENT MEDICARE PART A & B MEDICARE HMO REPLACEMENT MEDICARE PART A & B MEDICARE HMO REPLACEMENT MEDICARE PART A & B Member Subscriber Plan / Payer (Ef fective 2022-Present) Name:Stephanie Coelho Member ID:[id number] Relation to Subscriber:Self Name:Stephanie Coelho Subscriber ID:[id number] Payer ID:[id number] Group ID:Not on file Type:Medicare Address: [employer] [address] [facility] MEDICARE HMO REPLACEMENT MEDICARE PART A & B [facility] MEDICARE HMO REPLACEMENT Care Teams Director Sales Support Relationship Specialty Start Date End Date Brian Kathleen MD [address] [place] [address] PCP - General Internal Medicine 11/20/17 Brian Kathleen MD [address] [place] [address] Historical LMR Provider 08/15/17 Scott Vang MD [address] [place] [address] [address] [place] [address] Cardiology 05/03/20 Nate Villareal MD [address] [place] [address] [email or web address] Nephrology 05/07/20 Eduardo Rowland MD [address] [facility] 120 [place] [address] [email or web address] Urology 05/07/20 Burak Santamaria MD [address] [place] [address] [address] [place] [address] Cardiology 06/11/20 Jose Antonio Garcia OD [address] [place] [address] Optometry 07/10/20 Additional Source Comments The information contained in this document represents components of the legal health record. It is not the complete legal health record.Formerly [facility]
--- OUTSIDE RECORDS SUMMARY | 2025-07-18 15:35 | XMS_ITS | Encounter Summary ---
Author Organization [facility] Address [address] [place] [address] Phone Care Team Providers Care Credit Collection Specialist Name Role Phone Brian Kathleen MD Primary Care Provider [phone] Encounter Details Date Type Department Care Team (Late Contact Info) Description 01/29/2024 Documentation Only [facility] [address] [phone] Kellie Aguilar [address] [place] [address] Social History Tobacco Use [...] Visit [facility] [address] [place] [address] Milton Escobar MD [address] [place] [address] [place] [address] documented as of this encounter Visit Diagnoses Not on filedocumented in this encounter Care Teams Credit Collection Specialist Relationship Specialty Start Date End Date Brian Kathleen MD [address] [place] [address] PCP - General 11/05/20 documented as of this encounter
--- OUTSIDE RECORDS SUMMARY | 2025-07-18 15:35 | XMS_ITS | Encounter Summary ---
Author Organization [facility] [place], Address [address] [place] [address] Phone Care Team Providers Care Occupational Therapy Assist Name Role Phone Brian Kathleen MD Primary Care Provider [phone] Encounter Details Date Type Department Care Team (Late Contact Info) Description 06/16/2025 Orders Only [facility] [address] [place] [phone] Milton Escobar MD [address] [place] [address] [place] [address] Adult type polycystic kidney disease [...] Visit [facility] [place], [address] [place] [address] Milton Escobar MD [address] [place] [address] documented as of this encounter Visit Diagnoses Diagnosis Adult type polycystic kidney disease type 1 documented in this encounter Care Teams Occupational Therapy Assist Relationship Specialty Start Date End Date Brian Kathleen MD [address] [place] [address] PCP - General 11/05/20 documented as of this encounter
--- OUTSIDE RECORDS SUMMARY | 2025-07-18 15:35 | XMS_ITS | Encounter Summary ---
Author Organization [facility], Address [address] [place] [address] Phone Care Team Providers Care Office Chair Assembler Name Role Phone Brian Kathleen MD Primary Care Provider [phone] Encounter Details Date Type Department Care Team (Late Contact Info) Description 07/14/2025 Orders Only [facility] [address] [place] [phone] Milton Escobar MD [address] [place] [address] [place] [address] Adult type polycystic kidney disease [...] Visit [facility], [address] [place] [address] Milton Escobar MD [address] [facility] [address] [place] [address] documented as of this encounter Visit Diagnoses Diagnosis Adult type polycystic kidney disease type 1 documented in this encounter Care Teams Office Chair Assembler Relationship Specialty Start Date End Date Brian Kathleen MD [address] [place] [address] PCP - General 11/05/20 documented as of this encounter
--- OUTSIDE RECORDS SUMMARY | 2025-07-18 15:35 | XMS_ITS | Encounter Summary ---
Author Organization [facility] [place], Address [address] [place] [address] Phone Care Team Providers Care Operations And Maintenance Supervisor Name Role Phone Brian Kathleen MD Primary Care Provider [phone] Encounter Details Date Type Department Care Team (Late Contact Info) Description 06/17/2024 Orders Only [facility] [address] [place] [phone] Milton Escobar MD [address] [place] [address] [place] [address] Adult type polycystic kidney disease [...] Visit [facility] [place], [address] [place] [address] Milton Escobar MD [address] [facility] [place] [address] documented as of this encounter Visit Diagnoses Diagnosis Adult type polycystic kidney disease type 1 documented in this encounter Care Teams Operations And Maintenance Supervisor Relationship Specialty Start Date End Date Brian Kathleen MD [address] [place] [address] PCP - General 11/05/20 documented as of this encounter
--- OUTSIDE RECORDS SUMMARY | 2025-07-18 15:35 | XMS_ITS | Encounter Summary ---
Author Organization [facility] Address [address] [place] [address] Phone Care Team Providers Care Bi Tester Name Role Phone Brian Kathleen MD Primary Care Provider Encounter Details Date Type Department Care Team (Late st Contact Info) Description 11/20/2023 Documentation Only [facility] [address] [place] [phone] Shelia Bianchi [address] [place] [address] Social History Tobacco Use Types [...] Visit [facility] [address] [place] [address] Milton Escobar MD [address] [address] [place] [phone] documented as of this encounter Visit Diagnoses Not on filedocumented in this encounter Care Teams Bi Tester Relationship Specialty Start Date End Date Brian Kathleen MD [address] [place] [address] PCP - General 11/05/20 documented as of this encounter
--- OUTSIDE RECORDS SUMMARY | 2025-07-18 15:35 | XMS_ITS | Encounter Summary ---
Author Organization [facility] Address [address] [place] [address] Phone Care Team Providers Care Lens Maker Name Role Phone Brian Kathleen MD Primary Care Provider [phone] Encounter Details Date Type Department Care Team (Late Contact Info) Description 05/22/2025 Documentation Only [facility] [address] [place] [phone] Kellie Aguilar [address] [place] [address] Social History Tobacco Use Types [...] Visit [facility] [address] [place] [address] Milton Escobar MD [address] [place] [address] [place] [phone] documented as of this encounter Visit Diagnoses Not on filedocumented in this encounter Care Teams Lens Maker Relationship Specialty Start Date End Date Brian Kathleen MD [address] [place] [address] PCP - General 11/05/20 documented as of this encounter
--- OUTSIDE RECORDS SUMMARY | 2025-07-18 15:35 | XMS_ITS | Encounter Summary ---
Author Organization [facility] [place], Address [address] [place] [address] Phone Care Team Providers Care Irrigation Technician Name Role Phone Brian Kathleen MD Primary Care Provider Encounter Details Date Type Department Care Team (Late Contact Info) Description 06/10/2024 Orders Only [facility] [address] [place] [place] [phone] Milton Escobar MD [address] [place] [address] [place] [address] Adult type polycystic kidney disease [...] Visit [facility] [place], [address] [place] [address] Milton Escobar MD [address] [facility] [place] [phone] documented as of this encounter Visit Diagnoses Diagnosis Adult type polycystic kidney disease type 1 documented in this encounter Care Teams Irrigation Technician Relationship Specialty Start Date End Date Brian Kathleen MD [address] [place] [address] PCP - General 11/05/20 documented as of this encounter
--- OUTSIDE RECORDS SUMMARY | 2025-07-18 15:36 | XMS_ITS | Encounter Summary ---
Author Organization [facility] Address [address] [place] [address] Phone Care Team Providers Care Marine Service Operator Name Role Phone Brian Kathleen MD Primary Care Provider [phone] Encounter Details Date Type Department Care Team (Late st Contact Info) Description 02/13/2023 Orders Only [facility] [address] [place] [phone] Milton Escobar MD [address] [facility] [place] [address] Stage 3b chronic kidney disease [...] Services [facility] [address] [place] [address] Milton Escobar MD [address] [facility] [place] [address] documented as of this encounter Visit Diagnoses Diagnosis Stage 3b chronic kidney disease (HCC) Adult type polycystic kidney disease type 1 documented in this encounter Care Teams Marine Service Operator Relationship Specialty Start Date End Date Brian Kathleen MD [address] [place] [address] PCP - General 11/05/20 documented as of this encounter
--- OUTSIDE RECORDS SUMMARY | 2025-07-18 15:36 | XMS_ITS | Encounter Summary ---
Author Organization [facility] [place], Address [address] [place] [address] Phone Care Team Providers Care Contaminated Land Consultant Name Role Phone Brian Kathleen MD Primary Care Provider [phone] Encounter Details Date Type Department Care Team (Late st Contact Info) Description 06/26/2023 Orders Only [facility] [address] [place] [phone] Milton Escobar MD [address] [place] [address] [place] [address] Adult type polycystic kidney disease [...] Visit [facility] [address] [facility] [address] [place] [phone] Milton Escobar MD [address] [facility] [address] [place] [phone] documented as of this encounter Procedures Procedure [...] w/Creatinine (Protein/Creat Ratio) (09/28/2023 2:19 PM EST) [facility] Protein/Creatin e Ratio 0.19 (0-0.2) [facility] Protein, Urine 8 MG/DL [facility] Creatinine, Urine 41.6 MG/DL [facility] Comment: Testing performed or reported by [facility], a Service of [facility], [address] [place] [address] Cam Richards MD, Program Evaluation Consultant [facility]# [id number] Urine specimen (specimen) Urine specimen obtained by clean catch procedure / Unknown 09/28/2023 2:19 PM EST 09/28/2023 2:21 PM EST us Milton Escobar MD LAB URINE ORDERABLES Final Re sult [facility] * Urinalysis with microscopic (09/28/2023 2:19 PM EST) Pathologist [facility] Appearance COLORLESS [facility] Comment:CLEAR Specific [place] 1.006 (1.002-1. 030) [facility] pH Urine 6.0 (5.0-8.0) [facility] Albumin, Urine NEGATIVE (NEG) [facility] Glucose, Ur NEGATIVE (NEG) [facility] Ketones, Urine NEGATIVE (NEG) [facility] Bilirubin Urine NEGATIVE (NEG) [facility] Hemoglobin Presence in Urine NEGATIVE (NEG) [facility] Nitrite, Urine NEGATIVE (NEG) [facility] Leukocyte Esterase Urine NEGATIVE (NEG) [facility] Urobilinogen Urine NORMAL (NORM) MG/DL [facility] WBC, Urine <1 (0-5) /HPF [facility] RBC, Urine <1 (0-3) /HPF [facility] Mucus, Urine SLIGHT /LPF [facility] Squamous Epithelial, Urine <1 (0-8) /HPF [facility] Comment: Testing performed or reported by [facility], a Service of [facility], [address] [place] [id number] Cam Richards MD, Program Evaluation Consultant [facility]# [id number] Urine specimen (specimen) Urine specimen obtained by clean catch procedure / Unknown 09/28/2023 2:19 PM EST 09/28/2023 2:21 PM EST us Milton Escobar MD LAB URINE ORDERABLES Final Re sult [facility] * (ABNORMAL) Comprehensive metabolic panel (09/28/2023 2:19 PM EST) Glucose 121(H) (70-99) MG/DL [facility] BUN 33(H) (8-23) MG/DL [facility] Creatinine 1.8(H) (0.5-1.0) MG/DL [facility] Sodium 137 (133-145) MMOL/L [facility] Potassium 4.4 (3.6-5.2) MMOL/L [facility] Chloride 103 (98-107) MMOL/L [facility] Bicarbonate (CO2) 25 (22-29) MMOL/L [facility] Anion Gap 9 (4-17) [facility] Albumin 4.5 (3.4-4.8) GM/DL [facility] Calcium 9.6 (8.6-10.5) MG/DL [facility] Total Bilirubin 0.3 (0-1.2) MG/DL [facility] Protein, Total 6.6 (6.2-8.2) GM/DL [facility] A/G Ratio 2.1 [facility] AST (SGOT) 16 (0-32) U/L [facility] Alkaline Phosphatase 90 (35-104) U/L [facility] ALT (SGPT) 9 (0-33) U/L [facility] Est GFR Non 31 ML/MIN/1.7 3 M2 [facility] Comment: Creatinine based estimated glomerular filtration (eGFR) in adults is calculated using the National [employer] recommended 2020 CKD-EPI equation. Estimates GFR from serum creatinine, age and sex. Testing performed or reported by [facility], a Service of [facility], [address] [place] [id number] Cam Richards MD, Program Evaluation Consultant [facility]# [id number] Blood specimen (specimen) Venous blood / Unknown 09/28/2023 2:19 PM EST 09/28/2023 2:21 PM EST us Milton Escobar MD LAB BLOOD ORDERABLES Final Re sult [facility] * (ABNORMAL) CBC and Differential (09/28/2023 2:19 PM EST) White Blood Cells 5.0 (4.0-11.0) K/MM3 [facility] RBC 3.38(L) (4.20-5.40 ) M/MM3 [facility] Hgb 9.6(L) (11.7-15.5 ) GM/DL [facility] Hematocrit 31.4(L) (35.7-45.8 ) % [facility] MCV 92.9 (80.0-100. 0) [place] [facility] MCH 28.4 (27.0-34.0 ) PG [facility] MCHC 30.6(L) (33.0-37.0 ) g/dL [facility] Platelets 208 (150-460) K/MM3 [facility] RDW-SD 47.6(H) (<47.0) [place] [facility] MPV 9.7 (9.4-12.4) [place] [facility] nRBC Count 0.0 #/100 WBC'S [facility] NRBC Absolute 0.0 K/MM3 [facility] Neutrophils Abs Auto 2.9 (1.3-7.0) K/MM3 [facility] Lymphocytes Relative 1.4 (0.8-3.1) K/MM3 [facility] Monocytes 0.6 (0.4-0.9) K/MM3 [facility] Eosinophils Relative 0.2 (0.0-0.4) K/MM3 [facility] Basophil ABS 0.0 (0.0-0.1) K/MM3 [facility] Granulocytes Absolute 0.0 K/MM3 [facility] Neutrophils % Auto 56.9 (44-76) % [facility] Lymphs 27.3 (15-43) % [facility] Monocytes Absolute 11.8(H) (4.5-10.5) % [facility] Eosinophils 3.0 (0-6) % [facility] Basophils Relative 0.8 (0-2) % [facility] Immature Granulocytes 0.2 % [facility] Comment: Testing performed or reported by [facility], a Service of [facility], [address] [place] [address] Cam Richards MD, Program Evaluation Consultant [facility]# [id number] Blood specimen (specimen) Venous blood / Unknown 09/28/2023 2:19 PM EST 09/28/2023 2:21 PM EST us Milton Escobar MD LAB BLOOD ORDERABLES Final Re sult [facility] documented in this encounter Visit Diagnoses Diagnosis Adult type polycystic kidney disease type 1 documented in this encounter Care Teams Contaminated Land Consultant Relationship Specialty Start Date End Date Brian Kathleen MD [address] [place] [address] PCP - General 11/05/20 documented as of this encounter
--- OUTSIDE RECORDS SUMMARY | 2025-07-18 15:36 | XMS_ITS | Encounter Summary ---
Author Organization [facility], Address [address] [place] [address] Phone Care Team Providers Care Army Officer Name Role Phone Brian Kathleen MD Primary Care Provider [phone] Encounter Details Date Type Department Care Team (Late st Contact Info) Description 04/03/2023 Orders Only [facility] [address] [place] [phone] Milton Escobar MD [address] [place] [address] [place] [address] Adult type polycystic kidney disease [...] Visit [facility] [address] [place] [phone] Milton Escobar MD [address] [place] [phone] documented as of this encounter Procedures Procedure [...] (Protein/Creat Ratio) (04/06/2023 3:01 PM EDT) Pathologist [facility] Protein/Creati ne Ratio 0.32(H) (0-0.2) [facility] Protein, Urine 14 MG/DL [facility] Creatinine, Urine 42.8 MG/DL [facility] Comment: Testing performed or reported by [facility], a Service of [facility], [address] [place] [address] Cam Richards MD, Legal Office Administrator [facility]# [id number] Urine specimen (specimen) Urine specimen obtained by clean catch procedure / Unknown 04/06/2023 3:01 PM EDT 04/06/2023 3:19 PM EDT us Milton Escobar MD LAB URINE ORDERABLES Final Re sult [facility] * (ABNORMAL) Urinalysis with microscopic (04/06/2023 3:01 PM EDT) Pathologist [facility] Appearance COLORLESS [facility] Comment:CLEAR Specific [place] 1.009 (1.002-1. 030) [facility] pH Urine 6.0 (5.0-8.0) [facility] Albumin, Urine TRACE(A) (NEG) [facility] Glucose, Ur NEGATIVE (NEG) [facility] Ketones, Urine NEGATIVE (NEG) [facility] Bilirubin Urine NEGATIVE (NEG) [facility] Hemoglobin Presence in Urine NEGATIVE (NEG) [facility] Nitrite, Urine NEGATIVE (NEG) [facility] Leukocyte Esterase Urine NEGATIVE (NEG) [facility] Urobilinogen Urine NORMAL (NORM) MG/DL [facility] WBC, Urine 1 (0-5) /HPF [facility] RBC, Urine <1 (0-3) /HPF [facility] Bacteria SLIGHT(A) (NEG) HPF [facility] Mucus, Urine SLIGHT /LPF [facility] Squamous Epithelial, Urine <1 (0-8) /HPF [facility] Comment: Testing performed or reported by [facility], a Service of [facility], [address] [place] [address] Cam Richards MD, Legal Office Administrator [facility]# [id number] Urine specimen (specimen) Urine specimen obtained by clean catch procedure / Unknown 04/06/2023 3:01 PM EDT 04/06/2023 3:19 PM EDT us Milton Escobar MD LAB URINE ORDERABLES Final Re sult [facility] * (ABNORMAL) Comprehensive metabolic panel (04/06/2023 12:03 PM EDT) Glucose 103(H) (70-99) MG/DL [facility] BUN 24(H) (8-23) MG/DL [facility] Creatinine 1.7(H) (0.5-1.0) MG/DL [facility] Sodium 142 (133-145) MMOL/L [facility] Potassium 4.6 (3.6-5.2) MMOL/L [facility] Chloride 106 (98-107) MMOL/L [facility] Bicarbonate (CO2) 22 (22-29) MMOL/L [facility] Anion Gap 14 (4-17) [facility] Albumin 4.0 (3.4-4.8) GM/DL [facility] Calcium 9.4 (8.6-10.5) MG/DL [facility] Total Bilirubin 0.3 (0-1.2) MG/DL [facility] Protein, Total 6.1(L) (6.2-8.2) GM/DL [facility] A/G Ratio 1.9 [facility] AST (SGOT) 15 (0-32) U/L [facility] Alkaline Phosphatase 58 (35-104) U/L [facility] ALT (SGPT) <5 (0-33) U/L [facility] Est GFR Non 32 ML/MIN/1.7 3 M2 [facility] Comment: Creatinine based estimated glomerular filtration (eGFR) in adults is calculated using the National Kidney Foundation recommended 2020 CKD-EPI equation. Estimates GFR from serum creatinine, age and sex. Testing performed or reported by [facility], a Service of [facility], [address] [place] [address] Cam Richards MD, Legal Office Administrator [facility]# [id number] Blood specimen (specimen) Venous blood / Unknown 04/06/2023 12:03 PM EDT 04/06/2023 12:05 PM EDT us Milton Escobar MD LAB BLOOD ORDERABLES Final Re sult [facility] * (ABNORMAL) CBC and Differential (04/06/2023 12:03 PM EDT) White Blood Cells 5.8 (4.0-11.0) K/MM3 [facility] RBC 2.87(L) (4.20-5.40 ) M/MM3 [facility] Comment:Results checked Hgb 8.6(L) (11.7-15.5 ) GM/DL [facility] Hematocrit 28.3(L) (35.7-45.8 ) % [facility] MCV 98.6 (80.0-100. 0) FL [facility] Comment:Specimen label check ed MCH 30.0 (27.0-34.0 ) PG [facility] MCHC 30.4(L) (33.0-37.0 ) g/dL [facility] Platelets 227 (150-460) K/MM3 [facility] RDW-SD 53.3(H) (<47.0) FL [facility] MPV 9.1(L) (9.4-12.4) [place] [facility] nRBC Count 0.0 #/100 WBC'S [facility] NRBC Absolute 0.0 K/MM3 [facility] Neutrophils Abs Auto 3.6 (1.3-7.0) K/MM3 [facility] Lymphocytes Relative 1.2 (0.8-3.1) K/MM3 [facility] Monocytes 0.7 (0.4-0.9) K/MM3 [facility] Eosinophils Relative 0.2 (0.0-0.4) K/MM3 [facility] Basophil ABS 0.0 (0.0-0.1) K/MM3 [facility] Granulocytes Absolute 0.0 K/MM3 [facility] Neutrophils % Auto 63.1 (44-76) % [facility] Lymphs 20.2 (15-43) % [facility] Monocytes Absolute 12.3(H) (4.5-10.5) % [facility] Eosinophils 3.8 (0-6) % [facility] Basophils Relative 0.3 (0-2) % [facility] Immature Granulocytes 0.3 % [facility] Comment: Testing performed or reported by [facility], a Service of [facility], [address] [place] [address] Cam Richards MD, Legal Office Administrator [facility]# [id number] Blood specimen (specimen) Venous blood / Unknown 04/06/2023 12:03 PM EDT 04/06/2023 12:04 PM EDT us Milton Escobar MD LAB BLOOD ORDERABLES Final Re sult [facility] documented in this encounter Visit Diagnoses Diagnosis Adult type polycystic kidney disease type 1 documented in this encounter Care Teams Army Officer Relationship Specialty Start Date End Date Brian Kathleen MD [address] [place] [address] PCP - General 11/05/20 documented as of this encounter
--- OUTSIDE RECORDS SUMMARY | 2025-07-18 15:36 | XMS_ITS | Encounter Summary ---
Author Organization [facility] [place], Address [address] [place] [address] Phone Care Team Providers Care Exchange Mechanic Name Role Phone Brian Kathleen MD Primary Care Provider [phone] Encounter Details Date Type Department Care Team (Late st Contact Info) Description 08/21/2023 Orders Only [facility] [address] [phone] Milton Escobar MD [address] [place] [address] [place] [address] Adult type polycystic kidney disease [...] Visit [facility] [address] [place] [place] [phone] Milton Escobar MD [address] [place] [phone] documented as of this encounter Procedures Procedure [...] Results * Phosphorus (08/21/2023 1:50 PM EDT) [facility] Phosphorus, Serum 3.8 (2.5-4.5) MG/DL [facility] Comment: Testing performed or reported by [facility], a Service of [facility], [address] [place] [address] Cam Richards MD, Pai Gow Dealer CLIA# [id number] 08/21/2023 1:50 PM EDT 08/21/2023 1:53 PM EDT us Milton Escobar MD LAB BLOOD ORDERABLES Final Re sult [facility] * (ABNORMAL) Protein, Total, Random Urine w/Creatinine (Protein/Creat Ratio) (08/21/2023 1:50 PM EDT) [facility] Protein/Creati ne Ratio 0.22(H) (0-0.2) [facility] Protein, Urine 9 MG/DL [facility] Creatinine, Urine 39.7 MG/DL [facility] Comment: Testing performed or reported by [facility], a Service of [address] [address] Cam Richards MD, Pai Gow Dealer CLIA# [id number] Urine specimen (specimen) Urine specimen obtained by clean catch procedure / Unknown 08/21/2023 1:50 PM EDT 08/21/2023 1:54 PM EDT Milton Escobar MD LAB URINE ORDERABLES Final Re sult Performing Organization Address [facility] de Phone Number [facility] * (ABNORMAL) Urinalysis with microscopic (08/21/2023 1:50 PM EDT) Appearance COLORLESS [facility] Comment:CLEAR Specific [place] 1.006 (1.002-1. 030) [facility] pH Urine 6.0 [...] (0-3) /HPF [facility] Bacteria SLIGHT(A) (NEG) HPF [facility] Mucus, Urine SLIGHT /LPF [facility] Squamous Epithelial, Urine 1 (0-8) /HPF [facility] Comment: Testing performed or reported by [facility], a Service of [facility], [address] [place] [address] Cam Richards MD, Pai Gow Dealer [facility]# [id number] Urine specimen (specimen) Urine specimen obtained by clean catch procedure / Unknown 08/21/2023 1:50 PM EDT 08/21/2023 1:54 PM EDT us Milton Escobar MD LAB URINE ORDERABLES Final Re sult Performing Organization Address [facility]/ZIP Co de Phone Number [facility] * (ABNORMAL) Comprehensive metabolic panel (08/21/2023 1:50 PM EDT) Glucose 89 (70-99) MG/DL [facility] BUN 28(H) (8-23) MG/DL [facility] Creatinine 1.9(H) (0.5-1.0) MG/DL [facility] Sodium 139 (133-145) MMOL/L [facility] Potassium 4.1 (3.6-5.2) MMOL/L [facility] Chloride 102 (98-107) MMOL/L [facility] Bicarbonate (CO2) 25 (22-29) MMOL/L [facility] Anion Gap 12 (4-17) [facility] Albumin 4.6 (3.4-4.8) GM/DL [facility] Calcium 9.6 (8.6-10.5) MG/DL [facility] Total Bilirubin 0.4 (0-1.2) MG/DL [facility] Protein, Total 6.4 (6.2-8.2) GM/DL [facility] A/G Ratio 2.6 [facility] AST (SGOT) 17 (0-32) U/L [facility] Alkaline Phosphatase 86 (35-104) U/L [facility] ALT (SGPT) 11 (0-33) U/L [facility] Est GFR Non 29 ML/MIN/1.7 3 M2 [facility] Comment: Creatinine based estimated glomerular filtration (eGFR) in adults is calculated using the National Kidney Foundation recommended 2020 CKD-EPI equation. Estimates GFR from serum creatinine, age and sex. Testing performed or reported by [facility], a Service of [facility], [address] [place] [address] Cam Richards MD, Pai Gow Dealer [facility]# [id number] Blood specimen (specimen) Venous blood / Unknown 08/21/2023 1:50 PM EDT 08/21/2023 1:53 PM EDT us Milton Escobar MD LAB BLOOD ORDERABLES Final Re sult [facility] * (ABNORMAL) CBC and Differential (08/21/2023 1:50 PM EDT) White Blood Cells 5.5 (4.0-11.0) K/MM3 [facility] RBC 3.39(L) (4.20-5.40 ) M/MM3 [facility] Hgb 10.1(L) (11.7-15.5 ) GM/DL [facility] Hematocrit 32.2(L) (35.7-45.8 ) % [facility] MCV 95.0 (80.0-100. 0) FL [facility] MCH 29.8 (27.0-34.0 ) PG [facility] MCHC 31.4(L) (33.0-37.0 ) g/dL [facility] Platelets 185 (150-460) K/MM3 [facility] RDW-SD 49.0(H) (<47.0) FL [facility] MPV 9.4 (9.4-12.4) [place] [facility] nRBC Count 0.0 #/100 WBC'S [facility] NRBC Absolute 0.0 K/MM3 [facility] Neutrophils Abs Auto 3.2 (1.3-7.0) K/MM3 [facility] Lymphocytes Relative 1.4 (0.8-3.1) K/MM3 [facility] Monocytes 0.7 (0.4-0.9) K/MM3 [facility] Eosinophils Relative 0.1 (0.0-0.4) K/MM3 [facility] Basophil ABS 0.1 (0.0-0.1) K/MM3 [facility] Granulocytes Absolute 0.0 K/MM3 [facility] Neutrophils % Auto 57.3 (44-76) % [facility] Lymphs 25.5 (15-43) % [facility] Monocytes Absolute 13.4(H) (4.5-10.5) % [facility] Eosinophils 2.5 (0-6) % [facility] Basophils Relative 0.9 (0-2) % [facility] Immature Granulocytes 0.4 % [facility] Comment: Testing performed or reported by [facility], a Service of [facility], [address] [place] [address] Cam Richards MD, Pai Gow Dealer [facility]# [id number] Blood specimen (specimen) Venous blood / Unknown 08/21/2023 1:50 PM EDT 08/21/2023 1:53 PM EDT us Milton Escobar MD LAB BLOOD ORDERABLES Final Re sult [facility] documented in this encounter Visit Diagnoses Diagnosis Adult type polycystic kidney disease type 1 documented in this encounter Care Teams Exchange Mechanic Relationship Specialty Start Date End Date Brian Kathleen MD [address] [place] [address] PCP - General 11/05/20 documented as of this encounter
--- OUTSIDE RECORDS SUMMARY | 2025-07-18 15:36 | XMS_ITS | Encounter Summary ---
Author Organization [facility] Address [address] [facility] [address] [place] [address] Phone Care Team Providers Care Paving Crew Foreman Name Role Phone Brian Kathleen MD Primary Care Provider [phone] Brian Kathleen MD Unavailable [phone] Candy Anderson TICKER WIRER Unavailable Tabitha Alexander TICKER WIRER Unavailable [phone] Brian Kathleen MD Primary Care Provider [phone] Scott Vang MD Unavailable [phone] Nate Villareal MD Unavailable [email or web address] Eduardo Rowland MD Unavailable Burak Santamaria MD Unavailable [phone] Jose Antonio Garcia OD Unavailable [phone] Encounter Details Date Type Department Care Team (Late st Contact Info) Description 09/21/2017 Procedure Pass [facility], [facility] - [address] [place] [address] Social History Tobacco Use Types Packs/Day Years Used Date Smoking Tobacco: Never Assessed Comments No Sex and Gender Information Value Date Recorded Sex Assigned at Female 02/19/2020 12:50 PM EDT Legal Sex Female 9:52 PM EDT Gender Identity Female 02/19/2020 12:50 PM EDT Sexual Orientation Straight 02/19/2020 12 :50 PM EDT documented as of this encounter Plan of Treatment Upcoming Encounters Date Type Department Care Team (Late st Contact Info) Description 09/13/2025 1:00 PM EST Office Visit [facility] [address] [place] [address] Brian Kathleen MD [address] [place] [address] 12/06/2025 10:30 AM EST Office Visit [facility] [address] [place] [address] Brian Kathleen MD [address] [place] [address] 09/17/2026 10:40 AM EST Office Visit [facility] [address] [place] [address] Yonatan Richards PA-C [address] [place] [address] documented as of this encounter Visit Diagnoses Not on filedocumented in this encounter Care Teams Paving Crew Foreman Relationship Specialty Start Date End Date Brian Kathleen MD [address] [place] [address] PCP - General 08/13/17 11/19/17 Brian Kathleen MD [address] [place] [address] PCP - General Internal Medicine 11/20/17 Brian Kathleen MD [address] [place] [address] [email or web address] Historical LMR Provider 08/15/17 Candy Anderson NP [address] [facility] [address] [place] [address] Historical LMR Provider 08/15/17 2 Tabitha Alexander NP [address] [facility] [address] [place] [address] [email or web address] Historical LMR Provider 08/15/17 11/02/21 Scott Vang MD [address] [place] [address] [address] [place] [address] Cardiology 05/03/20 Nate Villareal MD [address] [place] [address] [email or web address] Nephrology 05/07/20 Eduardo Rowland MD [address] [facility] [address] [place] [address] [email or web address] Urology 05/07/20 Burak Santamaria MD [address] [place] [address] Cardiology 06/11/20 Jose Antonio Garcia OD [address] [place] [address] Optometry 07/10/20 documented as of this encounter Additional Source Comments The information contained in this document represents components of the legal health record. It is not the complete legal health record.[facility]
--- OUTSIDE RECORDS SUMMARY | 2025-07-18 15:36 | XMS_ITS | Encounter Summary ---
Author Organization [facility] Address [address] [place] [address] Phone Care Team Providers Care Mine Boss Name Role Phone Brian Kathleen MD Primary Care Provider [phone] Encounter Details Date Type Department Care Team (Late st Contact Info) Description 09/12/2022 Orders Only [facility] [address] [place] [address] Aga Gifford [address] [place] [address] Adult type polycystic kidney disease [...] Office Visit [facility] [address] [place] [address] Milton Escobar MD [address] [facility] [place] [address] documented as of this encounter Visit Diagnoses Diagnosis Adult type polycystic kidney disease type 1 Type 2 diabetes mellitus without complication (HCC) Stage 3b chronic kidney disease (HCC) documented in this encounter Care Teams Mine Boss Relationship Specialty Start Date End Date Brian Kathleen MD [address] [place] [address] PCP - General 11/05/20 documented as of this encounter
--- OUTSIDE RECORDS SUMMARY | 2025-07-18 15:36 | XMS_ITS | Encounter Summary ---
Author Organization [facility] Address [address] [place] [address] Phone Care Team Providers Care Machine Cutter Name Role Phone Brian Kathleen MD Primary Care Provider [phone] Encounter Details Date Type Department Care Team (Late st Contact Info) Description 05/08/2023 Orders Only [facility] [address] [place] [phone] Milton Escobar MD [address] [facility] [place] [address] Stage 3b chronic kidney disease [...] Visit [facility] [address] [place] [address] Milton Escobar MD [address] [facility] [place] [address] documented as of this encounter Visit Diagnoses Diagnosis Stage 3b chronic kidney disease (HCC) Adult type polycystic kidney disease type 1 documented in this encounter Care Teams Machine Cutter Relationship Specialty Start Date End Date Brian Kathleen MD [address] [place] [address] PCP - General 11/05/20 documented as of this encounter
--- OUTSIDE RECORDS SUMMARY | 2025-07-18 15:36 | XMS_ITS | Encounter Summary ---
Author Organization [facility] Address [address] [place] [address] Phone Care Team Providers Care Sheet Metal Worker Apprentice Name Role Phone Brian Kathleen MD Primary Care Provider [phone] Encounter Details Date Type Department Care Team (Late st Contact Info) Description 03/13/2023 Orders Only [facility] [address] [place] [phone] Milton Escobar MD [address] [facility] [place] [address] Stage 3b chronic kidney disease [...] [facility] [address] [place] [address] Milton Escobar MD [address] [facility] [place] [address] documented as of this encounter Visit Diagnoses Diagnosis Stage 3b chronic kidney disease (HCC) Adult type polycystic kidney disease type 1 documented in this encounter Care Teams Sheet Metal Worker Apprentice Relationship Specialty Start Date End Date Brian Kathleen MD [address] [place] [address] PCP - General 11/05/20 documented as of this encounter
--- OUTSIDE RECORDS SUMMARY | 2025-07-18 15:36 | XMS_ITS | Encounter Summary ---
Author Organization [facility] Address [address] [place] [address] Phone Care Team Providers Care Printing Plate Maker Name Role Phone Brian Kathleen MD Primary Care Provider [phone] Encounter Details Date Type Department Care Team (Late st Contact Info) Description 10/10/2022 Orders Only [facility] [address] [place] [address] Aga Gifford [address] [place] [address] Adult type polycystic kidney disease [...] Office Visit [facility] [address] [place] [address] Milton Escobar MD [address] [facility] [place] [address] documented as of this encounter Visit Diagnoses Diagnosis Adult type polycystic kidney disease type 1 Type 2 diabetes mellitus without complication (HCC) Stage 3b chronic kidney disease (HCC) documented in this encounter Care Teams Printing Plate Maker Relationship Specialty Start Date End Date Brian Kathleen MD [address] [place] [address] PCP - General 11/05/20 documented as of this encounter
--- OUTSIDE RECORDS SUMMARY | 2025-07-18 15:36 | XMS_ITS | Encounter Summary ---
Author Organization [facility] Address [address] [facility] [address] [place] [address] Phone Care Team Providers Care Child Welfare Assistant Name Role Phone Brian Kathleen MD Primary Care Provider [phone] Brian Kathleen MD Unavailable Candy Anderson TRIM MECHANIC Unavailable Tabitha Alexander TRIM MECHANIC Unavailable [phone] Brian Kathleen MD Primary Care Provider Scott Vang MD Unavailable [phone] Nate Villareal MD Unavailable [email or web address] Eduardo Rowland MD Unavailable [phone] Burak Santamaria MD Unavailable Jose Antonio Garcia OD Unavailable [phone] Reason for Referral * MRI/CAT Scan - Closed Specialty Diagnoses / Procedures Referred By Ananda ruiz Referred To Contact Procedures MRI Abdomen Outside (No Interpretation) System, Provider Not In, PhD [address] [address] Referral ID Status Reason Start Date Expiration Date Visits Re quested Visits Authorized [id number] Closed 08/26/2017 10/25/2017 1 1 Encounter Details Date Type Department Care Team (Late st Contact Info) Description 10/06/2017 Ancillary Orders [facility],Outside Imaging [address] [place] [address] System, Provider Not In, [place] [address] Social History Tobacco Use Types Packs/Day Years [...] Description 09/13/2025 1:00 PM EST Office Visit [facility] [address], [place] [phone] Brian Kathleen MD [address] [place], [place] [phone] 12/06/2025 10:30 AM EST Office Visit [facility] [address], [place] [phone] Brian Kathleen MD [address] [place] [address] [phone] 09/17/2026 10:40 AM EST Office Visit [facility] [address], [place] [phone] Yonatan Richards PA-C [address] [place], [place] [phone] documented as of this encounter Results * MRI Abdomen Outside (No Interpretation) (05/13/2017 12:00 AM EDT) Narrative SYSTEMGENERATED, DOCUMENTATION - 10/06/2017 12:15 PM EST This study is for PACS storage only and not for interpretation. us Provider Not In System PhD IMG OUTSIDE IMAGING W /OUT INTERPRETATION Final Result documented in this encounter Visit Diagnoses Not on filedocumented in this encounter Care Teams Child Welfare Assistant Relationship Specialty Start Date End Date Brian Kathleen MD [address] [place] [address] PCP - General 08/13/17 11/19/17 Brian Kathleen MD [address] [place] [address] PCP - General Internal Medicine 11/20/17 Brian Kathleen MD [address] [place] [address] Historical LMR Provider 08/15/17 Candy Anderson NP [address] [facility] [address] [place] [address] Historical LMR Provider 08/15/17 2 Tabitha Alexander NP [address] [place] [address] [address] [place] [address] Historical LMR Provider 08/15/17 11/02/21 Scott Vang MD [address] [place] [address] [place] [address] Cardiology 05/03/20 Nate Villareal MD [address] [place] [address] [email or web address] Nephrology 05/07/20 Eduardo Rowland MD [address] [facility] [address] [place] [address] [email or web address] Urology 05/07/20 Burak Santamaria MD [address] [address] Cardiology 06/11/20 Jose Antonio Garcia OD [address] [place] [address] Optometry 07/10/20 documented as of this encounter Additional Source Comments The information contained in this document represents components of the legal health record. It is not the complete legal health record.[facility]
--- OUTSIDE RECORDS SUMMARY | 2025-07-18 15:36 | XMS_ITS | Clinical Summary ---
Author Organization [facility], Address [address] [place] [address] [place] [address] Phone Care Team Providers Care Electronic Equipment Repairer Name Role Phone Brian Kathleen MD Primary Care Provider [phone] Allergies Active Allergy Reactions Criticality Noted Date [...] EVERY DAY 90 tablet 3 06/21/2024 Active Tolvaptan 90 & 30 MG tablet therapy pack Take 90 mg in the morning and 30 mg in the evening 56 each 11 12/28/2024 Active Active Problems Problem Noted Date Diagnosed [...] have shortness of breath would consider a disaster or damage control specialist assessment. Consider EKG on next internal medicine [...] Encounters Date Type Department Care Team Description 07/14/2025 Orders Only [facility] [address] [place] [address] Milton Escobar MD Adult type polycystic kidney disease type 1 06/16/2025 Orders Only [facility] [address] [place] [address] Milton Escobar MD Adult type polycystic kidney disease type 1 06/09/2025 Orders Only [facility] [address] [place] [address] Kellie Aguilar Stage 3b chronic kidney disease (HCC) (Primary Dx); Anemia in chronic kidney disease; Other iron deficiency anemia 06/08/2025 Office Communication [facility] [address] [place] [address] Lauren, Kellie 06/01/2025 Orders Only [facility] [address] [place] [address] Lauren, Kellie Other iron deficiency anemia (Primary Dx); Stage 3b chronic kidney disease (HCC); Anemia in chronic kidney disease 06/01/2025 Telephone [facility] [address] [place] [address] Lauren, Kellie 05/22/2025 Documentation Only [facility] [address] [place] [address] Lauren, Kellie 05/19/2025 Orders Only [facility] [address] [place] [address] Milton Escobar MD Adult type polycystic kidney disease type 1 05/11/2025 2:30 PM EDT Office Visit [facility] [address] [place] [address] Milton Escobar MD Adult type polycystic kidney disease type 1 (Primary Dx) 05/11/2025 Documentation Only [facility] [address] [place] [address] Lauren, Kellie 04/21/2025 Orders Only [facility] [address] [place] [address] Miltno Escobar MD Adult type polycystic kidney disease type 1 from Last 3 Months Immunizations Immunization Administration Dates Next Due Influenza (IM) Preservative [...] Sign Reading Time Taken Comments Blood Pressure 124/78 05/11/2025 2:49 PM EDT Pulse 56 05/11/2025 2:49 PM EDT Temperature - - Respiratory Rate - [...] Visit [facility], [address] [place] [address] Milton Escobar MD [address] [place] [address] Health Maintenance Due Date Last Done Comments Breast Cancer Screening 1960 Colorectal Cancer Screening: Annual FOBT 2007 Colorectal Cancer Screening: Colonoscopy 2007 Colorectal Cancer Screening: Sigmoidoscopy 2007 Diabetes: Hemoglobin A1C 11/23/2020 06/19/2020, 07/27 Diabetes: Ophthalmology Exam 11/23/2020 Diabetes: Pedal Pulse Checked 11/23/2020 Diabetes: Sensory Foot Exam 11/23/2020 Diabetes: Visual Foot Exam 11/23/2020 Influenza Vaccine (#1) 2025 , 08/07/2023, 07/14/2023, Additional history exists Pneumococcal Vaccine: 50+ Years (4 of 4 - PCV20 or PCV21) 01/09/2028 01/08/2023, 06/04/2020, 02/13/2009, Additional history exists Pneumococcal Vaccine: Peds (0 to 5 Years) and At-Risk Patients (6 to 49 Years) Discontinued 01/08/2023, 06/04/2020, 02/13/2009, Additional history exists Hepatitis B Vaccine Aged Out No longe r eligible based on patient's age to complete this topic Procedures Procedure Name Priority Date/Time Associated Diagnosis Comments PROTEIN / CREATININE RATIO, URINE Routine 06/22/2025 1:57 PM EDT URINALYSIS WITH MICROSCOPIC Routine 06/22/2025 1:57 PM EDT COMPREHENSIVE METABOLIC PANEL Routine 06/22/2025 1:57 PM EDT CBC AND DIFFERENTIAL Routine 06/22/2025 1:57 PM EDT MICROSCOPIC EXAMINATION - DO NOT USE Routine 06/22/2025 1:57 PM EDT RENAL FUNCTION PANEL Routine 06/07/2025 12:30 PM EDT Other iron deficiency anemia Stage 3b chronic kidney disease (HCC) Anemia in chronic kidney disease FERRITIN Routine 06/07/2025 12:30 PM EDT Other iron deficiency anemia Stage 3b chronic kidney disease (HCC) Anemia in chronic kidney disease IRON PANEL (FE, TIBC, TSAT) Routine 06/07/2025 12:30 PM EDT Other iron deficiency anemia Stage 3b chronic kidney disease (HCC) Anemia in chronic kidney disease CBC AND DIFFERENTIAL Routine 06/07/2025 12:30 PM EDT Other iron deficiency anemia Stage 3b chronic kidney disease (HCC) Anemia in chronic kidney disease BLOOD PANEL (HC) Routine 06/19/2020 12:0 0 AM EDT from Last 3 Months or Most Recently Relevant to Health Maintenance Results * Microscopic Examination (06/22/2025 1:57 PM EDT) WBC, Urine 0-5 0 - 5 /hpf [facility] RBC, Urine None seen 0 - 2 /hpf [facility] Squamous Epithelial, Urine 0-10 0 - 10 /hpf [facility] Casts None seen None seen /lpf [facility] Bacteria, Urine None seen None seen/Few [facility] 06/22/2025 1:57 PM EDT 06/22/2025 us Milton Escobar MD LAB MICROBIOLOGY - GENERAL OR DERABLES Final Result [facility] [address] [place] [address] * (ABNORMAL) Protein, Total, Random Urine w/Creatinine (Protein/Creat Ratio) (06/22/2025 1:57 PM EDT) Creatinine, Ur 45.3 Not Estab. mg/dL [facility] Protein, Ur 10.1 Not Estab. mg/dL [facility] Urine Protein/Creati nine Ratio 223(H) 0 - 200 mg/g creat [facility] 06/22/2025 1:57 PM EDT 06/22/2025 Milton Escobar MD LAB URINE ORDERABLES Final Re sult Performing Organization Address City/[facility]/ZIP Co de Phone Number [facility] [address] [place] [address] * (ABNORMAL) Urinalysis with microscopic (06/22/2025 1:57 PM EDT) Specific [place], Urine 1.010 1.005 - 1.030 [facility] pH Urine 6.0 5.0 - 7.5 [facility] Color, Urine Yellow Yellow [facility] Appearance Urine Clear Clear [facility] WBC Esterase Urine 1+(A) Negative [facility] Protein, Ur Negative Negative/Tra ce [facility] Glucose, Ur Negative Negative [facility] Ketones, Urine Negative Negative [facility] Blood Urine Negative Negative [facility] Bilirubin Urine Negative Negative [facility] Urobilinogen Urine 0.2 0.2 - 1.0 mg/dL [facility] Nitrite, Urine Negative Negative [facility] Microscopic Examination See below: [facility] [phone] Comment:Microscopic was thais cated and was performed. 06/22/2025 1:57 PM EDT 06/22/2025 Milton Escobar MD LAB URINE ORDERABLES Final Re sult [facility] [address] [place] [address] * (ABNORMAL) CBC and Differential (06/22/2025 1:57 PM EDT) Only the most recent of2 resultswithin the time period is included. WBC 4.8 3.4 - 10.8 x10E3/uL [facility] RBC 3.27(L) 3.77 - 5.28 x10E6/uL [facility] Hemoglobin 10.0(L) 11.1 - 15.9 g/dL [facility] Hematocrit 30.6(L) 34.0 - 46.6 % [facility] MCV 94 79 - 97 fL [facility] MCH 30.6 26.6 - 33.0 pg [facility] MCHC 32.7 31.5 - 35.7 g/dL [facility] RDW 14.3 11.7 - 15.4 % [facility] Platelets 176 150 - 450 x10E3/uL [facility] Neutrophils Relative 61 Not Estab. % [facility] Lymphocytes Relative 24 Not Estab. % [facility] Monocytes 11 Not Estab. % [facility] Eosinophils Relative 3 Not Estab. % [facility] Basophils Relative 1 Not Estab. % [facility] Neutrophils Absolute 2.9 1.4 - 7.0 x10E3/uL [facility] Lymphocytes Absolute 1.1 0.7 - 3.1 x10E3/uL [facility] Monocytes Absolute 0.5 0.1 - 0.9 x10E3/uL [facility] Eosinophils Absolute 0.1 0.0 - 0.4 x10E3/uL [facility] Basophils Absolute 0.0 0.0 - 0.2 x10E3/uL [facility] Immature Granulocytes 0 Not Estab. % [facility] Immature Grans (Absolute) 0.0 0.0 - 0.1 x10E3/uL [facility] 06/22/2025 1:57 PM EDT 06/22/2025 us Milton Escobar MD LAB BLOOD ORDERABLES Final Re sult [facility] [address] [place] [address] * (ABNORMAL) Comprehensive Metabolic Panel (06/22/2025 1:57 PM EDT) Glucose 110(H) 70 - 99 mg/dL [facility] BUN 34(H) 8 - 27 mg/dL [facility] Creatinine 1.95(H) 0.57 - 1.00 mg/dL [facility] eGFR CKD-EPI CR 2020 28(L) >59 mL/min/1.7 3 [facility] BUN/Creatinine Ratio 17 12 - 28 [facility] Sodium 133(L) 134 - 144 mmol/L [facility] Potassium 4.6 3.5 - 5.2 mmol/L [facility] Chloride 99 96 - 106 mmol/L [facility] Bicarbonate (CO2) 20 20 - 29 mmol/L [facility] Calcium 9.4 8.7 - 10.3 mg/dL [facility] Total Protein 6.6 6.0 - 8.5 g/dL [facility] Albumin 4.4 3.9 - 4.9 g/dL [facility] Globulin 2.2 1.5 - 4.5 g/dL [facility] Total Bilirubin 0.4 0.0 - 1.2 mg/dL [facility] Alkaline Phosphatase 78 44 - 121 IU/L [facility] AST (SGOT) 15 0 - 40 IU/L [facility] ALT (SGPT) 10 0 - 32 IU/L [facility] 06/22/2025 1:57 PM EDT 06/22/2025 Milton Escobar MD LAB BLOOD ORDERABLES Final Re sult [facility] [address] [place] [address] * Iron Panel (Fe, TIBC, TSAT) (06/07/2025 12:30 PM EDT) TIBC 296 250 - 450 ug/dL [facility] UIBC 215 118 - 369 ug/dL [facility] Iron 81 27 - 139 ug/dL [facility] Iron Saturation (TSat) 27 15 - 55 % [facility] Blood Venous blood / Unknown 06/07/2025 12:30 PM EDT 06/07/2025 Milton Escobar MD LAB BLOOD ORDERABLES Final Re sult Performing Organization Address City/[facility]/ZIP Co de Phone Number [facility] [address] [place] [address] * (ABNORMAL) Ferritin (06/07/2025 12:30 PM EDT) Pathologist [facility] Ferritin 647(H) 15 - 150 ng/mL [facility] Blood Venous blood / Unknown 06/07/2025 12:30 PM EDT 06/07/2025 us Milton Escobar MD LAB BLOOD ORDERABLES Final Re sult [facility] [address] [place] [address] * (ABNORMAL) Renal Function Panel (06/07/2025 12:30 PM EDT) Pathologist [facility] Glucose 93 70 - 99 mg/dL [facility] BUN 35(H) 8 - 27 mg/dL [facility] Creatinine 1.86(H) 0.57 - 1.00 mg/dL [facility] eGFR CKD-EPI CR 2020 29(L) >59 mL/min/1.7 3 [facility] BUN/Creatinine Ratio 19 12 - 28 [facility] Sodium 136 134 - 144 mmol/L [facility] Potassium 5.0 3.5 - 5.2 mmol/L [facility] Chloride 99 96 - 106 mmol/L [facility] Bicarbonate (CO2) 18(L) 20 - 29 mmol/L [facility] Calcium 9.7 8.7 - 10.3 mg/dL [facility] Albumin 4.4 3.9 - 4.9 g/dL [facility] Phosphorus 4.4(H) 3.0 - 4.3 mg/dL [facility] Blood Venous blood / Unknown 06/07/2025 12:30 PM EDT 06/07/2025 us Milton Escobar MD LAB BLOOD ORDERABLES Final Re sult [facility] [address] [place] [phone] * (ABNORMAL) Blood Panel (06/19/2020 12:00 AM [...] ug/dl PVNMA 06/19/2020 us [facility] [id number] LICITED RESULTS Final Result PVNMA from Last 3 Months or Most Recently Relevant to Health Maintenance Insurance Care Teams Electronic Equipment Repairer Relationship Specialty Start Date End Date Brian Kathleen MD [address] [place] [address] PCP - General 11/05/20
--- OUTSIDE RECORDS SUMMARY | 2025-07-18 15:36 | XMS_ITS | Encounter Summary ---
Author Organization [facility], Address [address] [place] [address] Phone Care Team Providers Care Naval Aircrewman Tactical Helicopter Name Role Phone Brian Kathleen MD Primary Care Provider [phone] Encounter Details Date Type Department Care Team (Late st Contact Info) Description 05/29/2023 Orders Only [facility] [address] [facility] [address] [place] [phone] Milton Escobar MD [address] [place] [address] [place] [address] Adult type polycystic kidney disease [...] Visit [facility] [address] [place] [phone] Milton Escobar MD [address] [facility] [place] [phone] documented as of this encounter Procedures Procedure [...] (Protein/Creat Ratio) (09/01/2023 11:25 AM EST) Pathologist [facility] Protein/Creati ne Ratio 0.21(H) (0-0.2) [facility] Protein, Urine 7 MG/DL [facility] Creatinine, Urine 32.6 MG/DL [facility] Comment: Testing performed or reported by [facility], a Service of [facility], [address] [place] [address] Cam Richards MD, Quality Lead [facility]# [id number] Urine specimen (specimen) Urine specimen obtained by clean catch procedure / Unknown 09/01/2023 11:25 AM EST 09/01/2023 11:26 AM EST us Milton Escobar MD LAB URINE ORDERABLES Final Re sult [facility] * Urinalysis with microscopic (09/01/2023 11:25 AM EST) Pathologist [facility] Appearance COLORLESS [facility] Comment:CLEAR Specific [place] 1.007 (1.002-1. 030) [facility] pH Urine 6.0 (5.0-8.0) [facility] Albumin, Urine NEGATIVE (NEG) [facility] Glucose, Ur NEGATIVE (NEG) [facility] Ketones, Urine NEGATIVE (NEG) [facility] Bilirubin Urine NEGATIVE (NEG) [facility] Hemoglobin Presence in Urine NEGATIVE (NEG) [facility] Nitrite, Urine NEGATIVE (NEG) [facility] Leukocyte Esterase Urine NEGATIVE (NEG) [facility] Urobilinogen Urine NORMAL (NORM) MG/DL [facility] WBC, Urine <1 (0-5) /HPF [facility] RBC, Urine <1 (0-3) /HPF [facility] Mucus, Urine SLIGHT /LPF [facility] Squamous Epithelial, Urine 1 (0-8) /HPF [facility] Comment: Testing performed or reported by [facility], a Service of [facility], [address] [place] [id number] Cam Richards MD, Quality Lead [facility]# [id number] Urine specimen (specimen) Urine specimen obtained by clean catch procedure / Unknown 09/01/2023 11:25 AM EST 09/01/2023 11:26 AM EST us Milton Escobar MD LAB URINE ORDERABLES Final Re sult [facility] * (ABNORMAL) Comprehensive metabolic panel (09/01/2023 11:25 AM EST) Glucose 100(H) (70-99) MG/DL [facility] BUN 31(H) (8-23) MG/DL [facility] Creatinine 1.9(H) (0.5-1.0) MG/DL [facility] Sodium 139 (133-145) MMOL/L [facility] Potassium 4.5 (3.6-5.2) MMOL/L [facility] Chloride 104 (98-107) MMOL/L [facility] Bicarbonate (CO2) 24 (22-29) MMOL/L [facility] Anion Gap 11 (4-17) [facility] Albumin 4.5 (3.4-4.8) GM/DL [facility] Calcium 9.7 (8.6-10.5) MG/DL [facility] Total Bilirubin 0.4 (0-1.2) MG/DL [facility] Protein, Total 6.8 (6.2-8.2) GM/DL [facility] A/G Ratio 2.0 [facility] AST (SGOT) 14 (0-32) U/L [facility] Alkaline Phosphatase 82 (35-104) U/L [facility] ALT (SGPT) 8 (0-33) U/L [facility] Est GFR Non 29 ML/MIN/1.7 3 M2 [facility] Comment: Creatinine based estimated glomerular filtration (eGFR) in adults is calculated using the [employer] recommended 2020 CKD-EPI equation. Estimates GFR from serum creatinine, age and sex. Testing performed or reported by [facility], a Service of [facility], [address] [place] [id number] Cam Richards MD, Quality Lead [facility]# [id number] Blood specimen (specimen) Venous blood / Unknown 09/01/2023 11:25 AM EST 09/01/2023 11:26 AM EST us Milton Escobar MD LAB BLOOD ORDERABLES Final Re sult [facility] * (ABNORMAL) CBC and Differential (09/01/2023 11:25 AM EST) White Blood Cells 4.6 (4.0-11.0) K/MM3 [facility] RBC 3.33(L) (4.20-5.40 ) M/MM3 [facility] Hgb 9.7(L) (11.7-15.5 ) GM/DL [facility] Hematocrit 30.9(L) (35.7-45.8 ) % [facility] MCV 92.8 (80.0-100. 0) FL [facility] MCH 29.1 (27.0-34.0 ) PG [facility] MCHC 31.4(L) (33.0-37.0 ) g/dL [facility] Platelets 191 (150-460) K/MM3 [facility] RDW-SD 48.1(H) (<47.0) FL [facility] MPV 9.4 (9.4-12.4) FL [facility] nRBC Count 0.0 #/100 WBC'S [facility] NRBC Absolute 0.0 K/MM3 [facility] Neutrophils Abs Auto 2.5 (1.3-7.0) K/MM3 [facility] Lymphocytes Relative 1.4 (0.8-3.1) K/MM3 [facility] Monocytes 0.5 (0.4-0.9) K/MM3 [facility] Eosinophils Relative 0.1 (0.0-0.4) K/MM3 [facility] Basophil ABS 0.0 (0.0-0.1) K/MM3 [facility] Granulocytes Absolute 0.0 K/MM3 [facility] Neutrophils % Auto 55.1 (44-76) % [facility] Lymphs 29.4 (15-43) % [facility] Monocytes Absolute 11.5(H) (4.5-10.5) % [facility] Eosinophils 3.1 (0-6) % [facility] Basophils Relative 0.7 (0-2) % [facility] Immature Granulocytes 0.2 % [facility] Comment: Testing performed or reported by [facility], a Service of [facility], [address] [place] [address] Cam Richards MD, Quality Lead [facility]# [id number] Blood specimen (specimen) Venous blood / Unknown 09/01/2023 11:25 AM EST 09/01/2023 11:26 AM EST us Milton Escobar MD LAB BLOOD ORDERABLES Final Re sult [facility] documented in this encounter Visit Diagnoses Diagnosis Adult type polycystic kidney disease type 1 documented in this encounter Care Teams [employer]cre[employer] Tactical Helicopter Relationship Specialty Start Date End Date Brian Kathleen MD [address] [place] [address] PCP - General 11/05/20 documented as of this encounter
--- OUTSIDE RECORDS SUMMARY | 2025-07-18 15:36 | XMS_ITS | Encounter Summary ---
Author Organization [facility] Address [address] [place] [address] Phone Care Team Providers Care Ammonia Still Operator Name Role Phone Brian Kathleen MD Primary Care Provider [phone] Encounter Details Date Type Department Care Team (Late st Contact Info) Description 11/07/2022 Orders Only [facility] [address] [place] [address] Aga Gifford [address] [place] [address] Adult type polycystic kidney disease [...] Office Visit [facility] [address] [place] [address] Milton Escobar MD [address] [facility] [place] [address] documented as of this encounter Visit Diagnoses Diagnosis Adult type polycystic kidney disease type 1 Type 2 diabetes mellitus without complication (HCC) Stage 3b chronic kidney disease (HCC) documented in this encounter Care Teams Ammonia Still Operator Relationship Specialty Start Date End Date Brian Kathleen MD [address] [place] [id number] PCP - General 11/05/20 documented as of this encounter
--- OUTSIDE RECORDS SUMMARY | 2025-07-18 15:36 | XMS_ITS | Encounter Summary ---
Author Organization [facility], Address [address] [place] [address] Phone Care Team Providers Care Material Control Clerk Name Role Phone Brian Kathleen MD Primary Care Provider [phone] Encounter Details Date Type Department Care Team (Late st Contact Info) Description 03/06/2023 Orders Only [facility] [address] [place] [phone] Milton Escobar MD [address] [place] [address] [place] [address] Adult type polycystic kidney disease [...] Visit [facility] [address] [place] [phone] Milton Escobar MD [address] [facility] [place] [phone] documented as of this encounter Procedures Procedure [...] (Protein/Creat Ratio) (03/09/2023 1:11 PM EDT) Pathologist [facility] Protein/Creati ne Ratio 0.28(H) (0-0.2) [facility] Protein, Urine 16 MG/DL [facility] Creatinine, Urine 55.5 MG/DL [facility] Comment: Testing performed or reported by [facility], a Service of [facility], [address] [place] [address] Cam Richards MD, Slot Floor Attendant [facility]# [id number] Urine specimen (specimen) Urine specimen obtained by clean catch procedure / Unknown 03/09/2023 1:11 PM EDT 03/09/2023 1:15 PM EDT us Milton Escobar MD LAB URINE ORDERABLES Final Re sult [facility] * (ABNORMAL) Urinalysis with microscopic (03/09/2023 1:11 PM EDT) Pathologist [facility] Appearance COLORLESS [facility] Comment:CLEAR Specific [place] 1.007 (1.002-1. 030) [facility] pH Urine 5.5 (5.0-8.0) [facility] Albumin, Urine TRACE(A) (NEG) [facility] Glucose, Ur NEGATIVE (NEG) [facility] Ketones, Urine NEGATIVE (NEG) [facility] Bilirubin Urine NEGATIVE (NEG) [facility] Hemoglobin Presence in Urine NEGATIVE (NEG) [facility] Nitrite, Urine NEGATIVE (NEG) [facility] Leukocyte Esterase Urine 1+(A) (NEG) [facility] Urobilinogen Urine NORMAL (NORM) MG/DL [facility] WBC, Urine 1 (0-5) /HPF [facility] RBC, Urine NONE SEEN (0-3) /HPF [facility] Mucus, Urine SLIGHT /LPF [facility] Squamous Epithelial, Urine 2 (0-8) /HPF [facility] Trans Epithelial, Urine <1 /HPF [facility] Comment: Testing performed or reported by [facility], a Service of [facility], [address] [place] [address] Cam Richards MD, Slot Floor Attendant [facility]# [id number] Urine specimen (specimen) Urine specimen obtained by clean catch procedure / Unknown 03/09/2023 1:11 PM EDT 03/09/2023 1:15 PM EDT us Milton Escobar MD LAB URINE ORDERABLES Final Re sult [facility] * (ABNORMAL) Comprehensive metabolic panel (03/09/2023 1:11 PM EDT) Glucose 104(H) (70-99) MG/DL [facility] BUN 29(H) (8-23) MG/DL [facility] Creatinine 1.6(H) (0.5-1.0) MG/DL [facility] Sodium 133 (133-145) MMOL/L [facility] Potassium 4.5 (3.6-5.2) MMOL/L [facility] Chloride 96(L) (98-107) MMOL/L [facility] Bicarbonate (CO2) 26 (22-29) MMOL/L [facility] Anion Gap 11 (4-17) [facility] Albumin 4.7 (3.4-4.8) GM/DL [facility] Calcium 9.6 (8.6-10.5) MG/DL [facility] Total Bilirubin 0.4 (0-1.2) MG/DL [facility] Protein, Total 7.0 (6.2-8.2) GM/DL [facility] A/G Ratio 2.0 [facility] AST (SGOT) 16 (0-32) U/L [facility] Alkaline Phosphatase 69 (35-104) U/L [facility] ALT (SGPT) 12 (0-33) U/L [facility] Est GFR Non 36 ML/MIN/1.7 3 M2 [facility] Comment: Creatinine based estimated glomerular filtration (eGFR) in adults is calculated using the National Kidney Foundation recommended 2020 CKD-EPI equation. Estimates GFR from serum creatinine, age and sex. Testing performed or reported by [facility], a Service of [facility], [address] [place] [address] Cam Richards MD, Slot Floor Attendant [facility]# [id number] Blood specimen (specimen) Venous blood / Unknown 03/09/2023 1:11 PM EDT 03/09/2023 1:15 PM EDT us Milton Escobar MD LAB BLOOD ORDERABLES Final Re sult [facility] * (ABNORMAL) CBC and Differential (03/09/2023 1:11 PM EDT) White Blood Cells 5.9 (4.0-11.0) K/MM3 [facility] RBC 3.60(L) (4.20-5.40 ) M/MM3 [facility] Hgb 10.9(L) (11.7-15.5 ) GM/DL [facility] Hematocrit 33.6(L) (35.7-45.8 ) % [facility] MCV 93.3 (80.0-100. 0) [place] [facility] MCH 30.3 (27.0-34.0 ) PG [facility] MCHC 32.4(L) (33.0-37.0 ) g/dL [facility] Platelets 223 (150-460) K/MM3 [facility] RDW-SD 45.1 (<47.0) [place] [facility] MPV 8.8(L) (9.4-12.4) [place] [facility] nRBC Count 0.0 #/100 WBC'S [facility] NRBC Absolute 0.0 K/MM3 [facility] Neutrophils Abs Auto 3.9 (1.3-7.0) K/MM3 [facility] Lymphocytes Relative 1.0 (0.8-3.1) K/MM3 [facility] Monocytes 0.8 (0.4-0.9) K/MM3 [facility] Eosinophils Relative 0.2 (0.0-0.4) K/MM3 [facility] Basophil ABS 0.0 (0.0-0.1) K/MM3 [facility] Granulocytes Absolute 0.0 K/MM3 [facility] Neutrophils % Auto 65.6 (44-76) % [facility] Lymphs 17.7 (15-43) % [facility] Monocytes Absolute 13.2(H) (4.5-10.5) % [facility] Eosinophils 2.5 (0-6) % [facility] Basophils Relative 0.7 (0-2) % [facility] Immature Granulocytes 0.3 % [facility] Comment: Testing performed or reported by [facility], a Service of [facility], [address] [place] [address] Cam Richards MD, Slot Floor Attendant [facility]# [id number] Blood specimen (specimen) Venous blood / Unknown 03/09/2023 1:11 PM EDT 03/09/2023 1:13 PM EDT us Milton Escobar MD LAB BLOOD ORDERABLES Final Re sult [facility] documented in this encounter Visit Diagnoses Diagnosis Adult type polycystic kidney disease type 1 documented in this encounter Care Teams Material Control Clerk Relationship Specialty Start Date End Date Brian Kathleen MD [address] [place] [address] PCP - General 11/05/20 documented as of this encounter
--- OUTSIDE RECORDS SUMMARY | 2025-07-18 15:36 | XMS_ITS | Encounter Summary ---
Author Organization [facility], Address [address] [place] [address] Phone Care Team Providers Care Mobile Sales Technician Name Role Phone Brian Kathleen MD Primary Care Provider [phone] Encounter Details Date Type Department Care Team (Late st Contact Info) Description 07/24/2023 Orders Only [facility] [address] [place] [phone] Milton Escobar MD [address] [place] [address] [place] [address] Adult type polycystic kidney disease [...] Visit [facility] [address] [place] [address] Milton Escobar MD [address] [facility] [place] [address] documented as of this encounter [...] (Protein/Creat Ratio) (10/28/2023 11:37 AM EST) Pathologist [facility] Protein/Creati ne Ratio 0.21(H) (0-0.2) [facility] Protein, Urine 6 MG/DL [facility] Creatinine, Urine 29.7 MG/DL [facility] Comment: Testing performed or reported by [facility], a Service of [facility], [address] [place] [address] Cam Richards MD, Die Set Up Worker [facility]# [id number] Urine specimen (specimen) Urine specimen obtained by clean catch procedure / Unknown 10/28/2023 11:37 AM EST 10/28/2023 11:38 AM EST us Milotn Escobar MD LAB URINE ORDERABLES Final Re sult [facility] * Urinalysis with microscopic (10/28/2023 11:37 AM EST) Pathologist [facility] Appearance COLORLESS [facility] Comment:CLEAR Specific [place] 1.005 (1.002-1. 030) [facility] pH Urine 6.0 (5.0-8.0) [facility] Albumin, Urine NEGATIVE (NEG) [facility] Glucose, Ur NEGATIVE (NEG) [facility] Ketones, Urine NEGATIVE (NEG) [facility] Bilirubin Urine NEGATIVE (NEG) [facility] Hemoglobin Presence in Urine NEGATIVE (NEG) [facility] Nitrite, Urine NEGATIVE (NEG) [facility] Leukocyte Esterase Urine NEGATIVE (NEG) [facility] Urobilinogen Urine NORMAL (NORM) MG/DL [facility] WBC, Urine NONE SEEN (0-5) /HPF [facility] RBC, Urine NONE SEEN (0-3) /HPF [facility] Comment: Testing performed or reported by [facility], a Service of [facility], [address] [place] [address] Cam Richards MD, Die Set Up Worker [facility]# [id number] Urine specimen (specimen) Urine specimen obtained by clean catch procedure / Unknown 10/28/2023 11:37 AM EST 10/28/2023 11:38 AM EST us Milton Escobar MD LAB URINE ORDERABLES Final Re sult [facility] * (ABNORMAL) Comprehensive metabolic panel (10/28/2023 11:37 AM EST) Glucose 104(H) (70-99) MG/DL [facility] BUN 33(H) (8-23) MG/DL [facility] Creatinine 1.9(H) (0.5-1.0) MG/DL [facility] Sodium 140 (133-145) MMOL/L [facility] Potassium 4.6 (3.6-5.2) MMOL/L [facility] Chloride 102 (98-107) MMOL/L [facility] Bicarbonate (CO2) 28 (22-29) MMOL/L [facility] Anion Gap 10 (4-17) [facility] Albumin 4.5 (3.4-4.8) GM/DL [facility] Calcium 9.5 (8.6-10.5) MG/DL [facility] Total Bilirubin 0.5 (0-1.2) MG/DL [facility] Protein, Total 6.8 (6.2-8.2) GM/DL [facility] A/G Ratio 2.0 [facility] AST (SGOT) 15 (0-32) U/L [facility] Alkaline Phosphatase 86 (35-104) U/L [facility] ALT (SGPT) 9 (0-33) U/L [facility] Est GFR Non 29 ML/MIN/1.7 3 M2 [facility] Comment: Creatinine based estimated glomerular filtration (eGFR) in adults is calculated using the National Kidney Foundation recommended 2020 CKD-EPI equation. Estimates GFR from serum creatinine, age and sex. Testing performed or reported by [facility], a Service of [facility], [address] [place] [id number] Cam Richards MD, Die Set Up Worker [facility]# [id number] Blood specimen (specimen) Venous blood / Unknown 10/28/2023 11:37 AM EST 10/28/2023 11:38 AM EST us Milton Escobar MD LAB BLOOD ORDERABLES Final Re sult [facility] * (ABNORMAL) CBC and Differential (10/28/2023 11:37 AM EST) White Blood Cells 4.3 (4.0-11.0) K/MM3 [facility] RBC 3.53(L) (4.20-5.40 ) M/MM3 [facility] Hgb 10.1(L) (11.7-15.5 ) GM/DL [facility] Hematocrit 32.3(L) (35.7-45.8 ) % [facility] MCV 91.5 (80.0-100. 0) FL [facility] MCH 28.6 (27.0-34.0 ) PG [facility] MCHC 31.3(L) (33.0-37.0 ) g/dL [facility] Platelets 193 (150-460) K/MM3 [facility] RDW-SD 45.9 (<47.0) FL [facility] MPV 9.5 (9.4-12.4) FL [facility] nRBC Count 0.0 #/100 WBC'S [facility] NRBC Absolute 0.0 K/MM3 [facility] Neutrophils Abs Auto 2.4 (1.3-7.0) K/MM3 [facility] Lymphocytes Relative 1.3 (0.8-3.1) K/MM3 [facility] Monocytes 0.4 (0.4-0.9) K/MM3 [facility] Eosinophils Relative 0.1 (0.0-0.4) K/MM3 [facility] Basophil ABS 0.0 (0.0-0.1) K/MM3 [facility] Granulocytes Absolute 0.0 K/MM3 [facility] Neutrophils % Auto 56.1 (44-76) % [facility] Lymphs 29.7 (15-43) % [facility] Monocytes Absolute 10.1 (4.5-10.5) % [facility] Eosinophils 3.2 (0-6) % [facility] Basophils Relative 0.7 (0-2) % [facility] Immature Granulocytes 0.2 % [facility] Comment: Testing performed or reported by [facility], a Service of [facility], [address] [place] [address] Cam Richards MD, Die Set Up Worker [facility]# [id number] Blood specimen (specimen) Venous blood / Unknown 10/28/2023 11:37 AM EST 10/28/2023 11:38 AM EST us Milton Escobar MD LAB BLOOD ORDERABLES Final Re sult [facility] documented in this encounter Visit Diagnoses Diagnosis Adult type polycystic kidney disease type 1- Primary documented in this encounter Care Teams Mobile Sales Technician Relationship Specialty Start Date End Date Brian Kathleen MD [address] [place] [address] PCP - General 11/05/20 documented as of this encounter
--- OUTSIDE RECORDS SUMMARY | 2025-07-18 15:37 | XMS_ITS | Encounter Summary ---
Author Organization [facility] Address [address] [facility] [address] [place] [address] Phone Care Team Providers Care Saw Tailer Name Role Phone Brian Kathleen MD Unavailable [phone] Candy Anderson MEDICAL SERVICES ASSISTANT Unavailable [phone] Tabitha Alexander MEDICAL SERVICES ASSISTANT Unavailable [phone] Brian Kathleen MD Primary Care Provider Scott Vang MD Unavailable [phone] Nate Villareal MD Unavailable [email or web address] Eduardo Rowland MD Unavailable [phone] Burak Santamaria MD Unavailable Jose Antonio Garcia OD Unavailable [phone] Reason for Referral * Outpatient Procedure - Closed Specialty Diagnoses / Procedures Referred By Ananda t Referred To Contact Radiology Diagnoses Mass Procedures CT Biopsy Kidney Focal (Right) Eduardo Rowland MD Phone: tel: fax: [email or web address] Referral ID Status Reason Start Date Expiration Date Visits Re quested Visits Authorized [id number] Closed 01/30/2020 07/28/2020 1 1 Encounter Details Date Type Department Care Team (Late st Contact Info) Description 02/15/2020 Ancillary Orders [facility], Ct Scan - [facility] [address] [place] [address] Eduardo Rowland MD [address] [facility] [address] [place] [address] [email or web address] [place] Social History Tobacco Use Types Packs/Day Years Used Date Smoking Tobacco: Former Cigarettes 1.5 23.7 0 02/18/1974 - 1997 Smokeless Tobacco: Never Alcohol Use Standard Drinks/Week Comments No 0 (1 standard drink = 0.6 oz pur e alcohol) Comments No Sex and Gender Information Value Date Recorded Sex Assigned at Female 02/19/2020 12:50 PM EDT Legal Sex Female 9:52 PM EDT Gender Identity Female 02/19/2020 12:50 PM EDT Sexual Orientation Straight 02/19/2020 12 :50 PM EDT documented as of this encounter Plan of Treatment Upcoming Encounters Date Type Department Care Team ([facility] st Contact Info) Description 09/13/2025 1:00 PM EST Office Visit [facility] Internal Medicine [address] [place] [address] Brian Kathleen MD [address] [place] [address] [email or web address] 12/06/2025 10:30 AM EST Office Visit [facility] Internal Medicine [address] [place], [place] [phone] Brian Kathleen MD [address] [place] [address] 09/17/2026 10:40 AM EST Office Visit [facility] Internal Medicine [address] [place] [address] Yonatan Richards PA-C [address] [place] [address] documented as of this encounter Results * CT Biopsy Kidney Focal (Right) (02/20/2020 10:21 AM EDT) Narrative SYSTEMGENERATED, DOCUMENTATION - 02/20/2020 10:22 AM EDT This procedure was used for CT image guidance only and not interpreted by a provider. Please refer to associated case for complete documentation. us Eduardo Rowland MD IMG IR ABDOMINAL Final Re sult documented in this encounter Visit Diagnoses Diagnosis Mass Localized superficial swelling, mass, or lump Mass Localized superficial swelling, mass, or lump documented in this encounter Additional Health Concerns Assessment Noted Time PHQ-2 Depression Total Score: 0 10/12/20 1:01 PM EST documented as of this encounter Care Teams Saw Tailer Relationship Specialty Start Date End Date Brian Kathleen MD [address] [place] [address] PCP - General Internal Medicine 11/20/17 Brian Kathleen MD [address] [place] [address] Historical LMR Provider 08/15/17 Candy Anderson NP [address] [place] [address] Historical LMR Provider 08/15/17 2 Tabitha Alexander NP [address] [place] [address] 6 [place] [address] Historical LMR Provider 08/15/17 11/02/21 Scott Vang MD [address] [place] [address] [address] [place] [address] Cardiology 05/03/20 Nate Villareal MD [address] [place] [address] [email or web address] Nephrology 05/07/20 Eduardo Rowland MD [address] [place] [address] [email or web address] Urology 05/07/20 Burak Santamaria MD [address] [place] [address] [address] [place] [address] Cardiology 06/11/20 Jose Antonio Garcia OD [address] [place] [address] Optometry 07/10/20 documented as of this encounter Additional Source Comments The information contained in this document represents components of the legal health record. It is not the complete legal health record.[facility]
--- OUTSIDE RECORDS SUMMARY | 2025-07-18 15:37 | XMS_ITS | Encounter Summary ---
Author Organization [facility] Address [address] [facility] [address] [place] [address] Phone Care Team Providers Care Button Inspector Name Role Phone Brian Kathleen MD Unavailable [phone] Brian Kathleen MD Primary Care Provider Scott Vang MD Unavailable [phone] Nate Villareal MD Unavailable [email or web address] Eduardo Rowland MD Unavailable Burak Santamaria MD Unavailable [phone] Jose Antonio Garcia OD Unavailable [phone] Encounter Details Date Type Department Care Team (Late st Contact Info) Description 02/18/2023 Transcribe Orders [facility] Laboratory [address] [place] [address] Milton Escobar MD [address] [place] [address], [place] [address] [email or web address] Social History Tobacco Use Types Packs/Day Years Used Date Smoking Tobacco: Former Cigarettes 1.5 23.7 0 02/18/1974 - 1997 Smokeless Tobacco: Never Alcohol Use Standard Drinks/Week Comments No 0 (1 standard drink = 0.6 oz pur e alcohol) Child or Family Care Answer Date Record ed Do you have problems with on e of the following making it difficult for you to work, study, or receive health care? No 06/06/2021 Education Answer Date Recorded Are you interested in help w ith more adult education (for example, completing high school, GED, job training, learning the [place] language, technical skills, or developing parenting skills)? No 06/06/2021 Food Answer Date Recorded Within the past [...] your housing situation today? I have cat sing 06/06/2021 How many times have you move [...] basis, and looking for work? No 06/06/2021 Comments No Sex and Gender Information Value [...] Description 09/13/2025 1:00 PM EST Office Visit [facility] Internal Medicine [address] [place] [address] Brian Kathleen MD [address] [place] [address] 12/06/2025 10:30 AM EST Office Visit [facility] Internal Medicine [address] [place] [address] Brian Kathleen MD [address] [place], [place] [email or web address] 09/17/2026 10:40 AM EST Office Visit [facility] Medicine [address] [place], [place] [phone] Yonatan Richards PA-C [address] [place], [place] [email or web address] documented as of this encounter Visit Diagnoses Not on filedocumented in this encounter Additional Health Concerns Assessment Noted Time PHQ-2 Depression Total Score: 1 06/17/20 22 4:44 AM EDT documented as of this encounter Care Teams Button Inspector Relationship Specialty Start Date End Date Brian Kathleen MD [address] [place], [place] [email or web address] PCP - General Internal Medicine 11/20/17 Brian Kathleen MD [address] [place], [place] [email or web address] Historical LMR Provider 08/15/17 Scott Vang MD [address] [place] [address] [address] [place] [address] Cardiology 05/03/20 Nate Villareal MD [address] [place] [address] [email or web address] Nephrology 05/07/20 Eduardo Rowland MD [address] [place] [address] [address] [place] [address] [email or web address] Urology 05/07/20 Burak Santamaria MD [address] [place] [address] Cardiology 06/11/20 Jose Antonio Garcia OD [address] [place] [address] Optometry 07/10/20 documented as of this encounter Additional Source Comments The information contained in this document represents components of the legal health record. It is not the complete legal health record.[facility]
--- OUTSIDE RECORDS SUMMARY | 2025-07-18 15:37 | XMS_ITS | Encounter Summary ---
Author Organization [facility] Address [address] [facility] [address] [place] [address] Phone Care Team Providers Care Boat Master Name Role Phone Brian Kathleen MD Primary Care Provider [phone] Biran Kathleen MD Unavailable [phone] Candy Anderson SEAFOOD TEAM MEMBER Unavailable Tabitha Alexander SEAFOOD TEAM MEMBER Unavailable [phone] Brian Kathleen MD Primary Care Provider Scott Vang MD Unavailable [phone] Nate Villareal MD Unavailable [email or web address] Eduardo Rowland MD Unavailable Burak Santamaria MD Unavailable Jose Antonio Garcia OD Unavailable [phone] Encounter Details Date Type Department Care Team (Late st Contact Info) Description 09/21/2017 Ancillary Orders Virtual Department 30 [place] [address] John Bowie MD [address] [place] [address] 102 [place] [address] Dilation of pancreatic duct Social History Tobacco Use Types Packs/Day Years [...] Description 09/13/2025 1:00 PM EST Office Visit [facility] Internal Medicine 40 [place] [address] Brian Kathleen MD 40 [place], [place] [phone] 12/06/2025 10:30 AM EST Office Visit [facility] Internal [facility] [address] [place], [place] [phone] Brian Kathleen MD 40 [place], [place] 7556607 09/17/2026 10:40 AM EST Office Visit [facility] Internal Medicine 40 [place], [place] [phone] Yonatan Richards PA-C 40 [place], [place] [id number] [email or web address] documented as of this encounter Results * MRI ABDOMEN WITHOUT CONTRAST (10/12/2017 12:09 PM EST) Anatomical Region Laterality Modality Abdomen Magnetic Resonan ce 10/12/2017 12:2 8 PM EST Impressions 10/12/2017 1:11 PM EST 1. No change in pancreatic duct dilatation or small pancreatic cysts. No evidence of an obstructing mass, pancreatic duct stone or pancreatitis. 2. Seemingly stable polycystic kidney disease. 3. No new upper abdominal pathology. POS [id number] Edited by: Sarina Dobbins on 10/12/2017 1:02 PM Narrative 10/12/2017 1:11 PM EST COMPARISON:Prior study [facility] 05/13/2017 TECHNIQUE: Exam performed on a 1.5 Sarahi high-field MRI scanner. Axial T1 in and out of phase and T2, coronal T2, radial thick slab MRCP, coronal oblique thin section 3-D MRCP sequences were obtained. Reformatted axial and cholangiographic MIP images are available for review. 3-D rendering of the bile ducts is obtained with image post processing under concurrent supervision not on an independent workstation. FINDINGS: Previously noted dilatation of the pancreatic duct down to the junction with the CBD is unchanged. Maximum duct diameter about 5 mm with a prominent side branch in the ventral body also unchanged. Small irregular cystic areas in the right lateral pancreatic head and ventral mid body (4:27) are also unchanged. No new cystic areas No identifiable solid mass in the pancreatic head or elsewhere. No filling defect visible within the pancreatic duct. No evidence of pancreatitis. No biliary dilatation or filling defects. No gallstones, gallbladder wall thickening or pericholecystic fluid. Innumerable renal cysts, some of which appear to be proteinaceous, unchanged. No gross solid renal masses have become apparent but evaluation is limited without IV contrast. The overall contour of the kidneys seem stable however. A few tiny hepatic simple cysts. No solid liver lesions or enlargement. No splenomegaly or masses. No ascites or adenopathy. No effusion. Procedure Note Rai Merritt MD - 10/12/2017 COMPARISON:Prior study [facility] 05/13/2017 TECHNIQUE: Exam performed on a 1.5 Sarahi high-field MRI scanner. Axial T1in and out of phase and T2, coronal T2, radial thick slab MRCP, coronaloblique thin section 3-D MRCP sequences were obtained. Reformatted axialand cholangiographic MIP images are available for review. 3-D renderingof the bile ducts is obtained with image post processing under concurrentsupervision not on an independent workstation. FINDINGS: Previously noted dilatation of the pancreatic duct down to the junctionwith the CBD is unchanged. Maximum duct diameter about 5 mm with aprominent side branch in the ventral body also unchanged. Small irregular cystic areas in the right lateral pancreatic head andventral mid body (4:27) are also unchanged. No new cystic areas No identifiable solid mass in the pancreatic head or elsewhere. No filling defect visible within the pancreatic duct. No evidence of pancreatitis. No biliary dilatation or filling defects. No gallstones, gallbladder wall thickening or pericholecystic fluid. Innumerable renal cysts, some of which appear to be proteinaceous,unchanged. No gross solid renal masses have become apparent but evaluation is limitedwithout IV contrast. The overall contour of the kidneys seem stablehowever. A few tiny hepatic simple cysts. No solid liver lesions or enlargement. No splenomegaly or masses. No ascites or adenopathy. No effusion. IMPRESSION: 1. No change in pancreatic duct dilatation or small pancreatic cysts. Noevidence of an obstructing mass, pancreatic duct stone or pancreatitis. 2. Seemingly stable polycystic kidney disease. 3. No new upper abdominal pathology. 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 documented in this encounter Care Teams Boat Master Relationship Specialty Start Date End Date Brian Kathleen MD 40 [place] [address] PCP - General 08/13/17 11/19/17 Brian Kathleen MD 40 [place] [address] PCP - General Internal Medicine 11/20/17 Brian Kathleen MD 40 [place] [address] Historical LMR Provider 08/15/17 Candy Anderson NP [address] [place] [address] [address] [place] [address] Historical LMR Provider 08/15/17 2 Tabitha Alexander NP [address] [facility] [address] [place] [address] [email or web address] Historical LMR Provider 08/15/17 11/02/21 Scott Vang MD [address] [place] [address] [address] [place] [address] Cardiology 05/03/20 Nate Villareal MD 40 [place] [address] [email or web address] Nephrology 05/07/20 Eduardo Rowland MD 100 [facility] [address] [place] [address] [email or web address] Urology 05/07/20 Burak Santamaria MD [address] [place] [address] Cardiology 06/11/20 Jose Antonio Garcia OD [address] [place] [address] Optometry 07/10/20 documented as of this encounter Additional Source Comments The information contained in this document represents components of the legal health record. It is not the complete legal health record.[facility]
--- OUTSIDE RECORDS SUMMARY | 2025-07-18 15:37 | XMS_ITS | Patient Health Record ---
Author Organization [facility] Address [address] [place] [address] Care Team Providers Care Timber Sprinkler Name Role Phone Brian Kathleen MD Primary Care Provider John Bajwa Jr [phone] Allergies Allergen (clinical drug ingredient) Drug/Non Drug Allergy documented on EMR Reaction Allergy Type Onset Date Status Adhesive Unknown Allergy Active Penicillin Unknown Drug Allergy Active bacitracin Bacitracin Unknown Drug Allergy Activ e MRI dye (uncoded) Unknown Allergy Ac tive Reason For Referral No Information Medications Medication SIG (Take, Route, Frequency, Duration) Notes Start Date End Date Status Jynarque 60 & 30 MG as directed Orally O nce a day Active Vitamin D3 50 MCG (1999) 1 capsule Or ally Once a day Active Spiriva HandiHaler 18 MCG 1 capsule by i nhaling the contents of the capsule using the HandiHaler device Inhalation Once a day Active Famotidine 20 MG Orally Twice a day Active Doxazosin Mesylate 4 MG 1 tablet Orally Once a day Active Ferrous Gluconate 324 (38 Fe) MG TAKE 1 TABLET BY MOUTH EVERY DAY TAKE WITH 500MG VITAMIN C Oral for 30 Active Olmesartan Medoxomil 40 MG 1 tablet Oral ly Once a day Active Levothyroxine Sodium 150 MCG 1 tablet on an empty stomach in the morning Orally as directed Active Klor-Con 20 MEQ 1 packet with food Orally three x a day Active MiraLax (colon prep) 17 GM/SCOOP mixed with Gatorade or Crystal Light Orally begin at 5:00 p.m. the day before the procedure for 1 day 02/29/2024 Active traMADol HCl 50 MG 1 tablet as needed Orally BID PRN Active diazePAM 5 MG (Schedule IV Drug) T ALICE 1 TABLET 1 HOUR BEFORE MRI MAY REPEAT X 1 Oral for 1 PRN 02/02/2025 Active Atorvastatin Calcium 10 MG 1 tablet Oral ly Once a day Active Magnesium 200 MG 2 tablets with a dmitry l Orally Once a day for 30 day(s) Active aMILoride HCl 5 MG 1 tablet Orally Once a day Active Metoprolol Succinate ER 50 MG 1 tablet Orally Once a day for 30 day(s) Active Vitamin C Active Immunizations Vaccine Route Administration Date Status Comme nts Influenza Unknown 08/26/2018 Administered Influenza Unknown 08/03/2019 Administered Influenza Unknown 08/15/2020 Administered Influenza Unknown 09/11/2021 Administered Influenza Unknown 09/16/2022 Administered Influenza Unknown 07/14/2023 Administered Influenza Unknown 07/12/2024 Administered Social History Tobacco Use: Social History Observation Description Date Details (start date - stop date) Former Smoker NA - NA Tobacco Use/Smoking Question Answer Notes Patient is a former smoker How long has it been since you last smoked? 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) Active confirmed Problem 770117809 Gastroesophageal reflux disease without esophagitis (K21.9) Active confirmed Problem 722439545 Fatty liver (K76.0) Active confirmed Problem 06493075 Pancreatic cyst (K86.2) Active confirmed Problem 72557079105374691 Abnormal CT of the abdomen (R93.5) Active confirmed Problem 2180839 Other specified diseases of pancreas (K86.89) Active confirmed Problem 725580349 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) Active confirmed Problem 833084672 Pancreatic ducta l abnormality (Q45.3) Active confirmed Vital Signs Temperature 97.5 degrees Fahrenheit 03/01/2025 Blood pressure diastolic 01 mm Hg 03/01/2025 Height 62.5 in 03/01/2025 Blood pressure systolic 001 mm Hg 03/01/2025 Weight 212 lbs 03/01/2025 BMI 38.15 kg/m2 03/01/2025 Encounters Encounter Location Date Provider Diagnosis [facility] [address] [place] [address] [place] [address] 03/01/2025 John Bowie Jr Gastroesophageal reflux disease without esophagitis K21.9 ; Colon cancer screening Z12.11 and Pancreatic cyst K86.2 [facility] [address] [place] [facility] [place] [address] 08/04/2024 John Bowie Jr [facility] [address] [place], [place] [address] [address] 08/24/2024 John Bowie Jr [facility] [address] [place] [address] [address] 01/19/2025 John Bowie Jr Pancreatic cyst K86.2 and Pancreatic ductal abnormality Q45.3 [facility] [address] [facility] [place] [address] 02/10/2025 John Bowie Jr [facility] [address] [place] [address] [address] 02/13/2025 John Bowie Jr Assessments Encounter Date Diagnosis (ICD Code) Assessment Notes Treatment Notes Treatment Clinical Notes Section Notes 03/01/2025 Gastroesophageal reflux disease without esophagitis (ICD-10 - K21.9) Currently, Brijesh is doing well. We discussed gastroesophageal reflux disease today. We discussed diet, lifestyle modifications, and weight management. We recommended she continue famotidine. For breakthrough reflux symptoms at night she can use liquid antacids containing aluminum hydroxide, magnesium hydroxide, and simethicone. Tums as an alternative. If her symptoms continue, she can increase her famotidine dose. MRI is reviewed and is unchanged, follow-up in 1 year. Colorectal cancer screening is up-to-date. We discussed pros and cons of stool DNA testing.Today's visit was Follow-up will be in 12 months. 01/19/2025 Pancreatic cyst (ICD-10 - K86.2) 01/19/2025 Pancreatic ductal abnormality (ICD-10 - Q45.3) 03/01/2025 Colon cancer screening (ICD-10 - Z12.11) Currently, Brijesh is doing well. We discussed gastroesophageal reflux disease today. We discussed diet, lifestyle modifications, and weight management. We recommended she continue famotidine. For breakthrough reflux symptoms at night she can use liquid antacids containing aluminum hydroxide, magnesium hydroxide, and simethicone. Tums as an alternative. If her symptoms continue, she can increase her famotidine dose. MRI is reviewed and is unchanged, follow-up in 1 year. Colorectal cancer screening is up-to-date. We discussed pros and cons of stool DNA testing.Today's visit was Follow-up will be in 12 months. 03/01/2025 Pancreatic cyst (ICD-10 - K86.2) Currently, Brijesh is doing well. We discussed gastroesophageal reflux disease today. We discussed diet, lifestyle modifications, and weight management. We recommended she continue famotidine. For breakthrough reflux symptoms at night she can use liquid antacids containing aluminum hydroxide, magnesium hydroxide, and simethicone. Tums as an alternative. If her symptoms continue, she can increase her famotidine dose. MRI is reviewed and is unchanged, follow-up in 1 year. Colorectal cancer screening is up-to-date. We discussed pros and cons of stool DNA testing.Today's visit was Follow-up will be in 12 months. Plan Of Treatment Pending Test Test Name Order Date BUN 03/30/2019 CREATININE 03/30/2019 CT ABD WITH CONTRAST 02/21/2019 MRI ABD NO CONTRAST (MRCP) 2023 MRI ABD NO CONTRAST (MRCP) 04/14/2018 MRI ABD NO CONTRAST (MRCP) 06/13/2020 MRI ABD NO CONTRAST (MRCP) 05/27/2023 MRI ABD NO CONTRAST (MRCP) 12/31/2021 MRI ABD W&WO CONTRAST 01/19/2025 MRI ABD W&WO CONTRAST 12/30/2019 Future Test Test Name Order Date COLONOSCOPY 11/18/2012 LIVER PROFILE 04/14/2018 COLONOSCOPY 05/27/2023 COLONOSCOPY 02/29/2024 Next Appt Details Provider Name:John lopez Jr, 02/28/2026 10:00:00 AM, [address] [facility], [address], [place], [address], Insurance Providers Payer Name Payer Address Payer Phone Subscriber Number Group Number Insured Name Patient Relationship to Insured Coverage Start Date Coverage End Date [facility] [address] [place] [phone] [id number] BRIJESH KRUEGER Self - patient is the insured 4 Medical (General) History Medical History History ICD Code fatty liver polycystic kidney disease sarcoidosis pituitary microadenoma hypothyroidism diabetes II colonoscopy/08/07, normal, ten-year foll owup recommended renal cell carcinoma 01/2020 hyperlipidemia incisional hernia nephrectomy site chronic kidney disease right knee replacement Surgical History Surgery Date(Month/Year) right knee replacement 2022 Kidney Surgery 2019 renal surgery 04/24/2020 bunion 08/06/2018 lymph node biopsy from the neck thryroid surgery benign breast biopsy eye surgery
--- OUTSIDE RECORDS SUMMARY | 2025-07-18 15:37 | XMS_ITS | Encounter Summary ---
Author Organization [facility] Address [address] [facility] [address] [place] [address] Phone Care Team Providers Care Testing Analyst Name Role Phone Brian Kathleen MD Primary Care Provider Brian Kathleen MD Unavailable [phone] Candy Anderson BANKING CENTER MANAGER Unavailable [phone] Tabitha Alexander BANKING CENTER MANAGER Unavailable [phone] Brian Kathleen MD Primary Care Provider Scott Vang MD Unavailable Nate Villareal MD Unavailable [email or web address] Eduardo Rowland MD Unavailable Burak Santamaria MD Unavailable [phone] Jose Antonio Garcia OD Unavailable [phone] Encounter Details Date Type Department Care Team (Late st Contact Info) Description 10/06/2017 Procedure Pass [facility],Outside Imaging 30 [place], [place] [id number] Social History Tobacco Use Types Packs/Day Years [...] Description 09/13/2025 1:00 PM EST Office Visit [facility] Internal Medicine [address] [place] [address] Brian Kathleen MD 40 [place] [address] 12/06/2025 10:30 AM EST Office Visit [facility] Internal Medicine [address] [place] [address] Brian Kathleen MD 40 [place] [address] 09/17/2026 10:40 AM EST Office Visit [facility] Internal Medicine [address] [place] [address] Yonatan Richards PA-C 40 [place] [address] documented as of this encounter Visit Diagnoses Not on filedocumented in this encounter Care Teams Testing Analyst Relationship Specialty Start Date End Date Brian Kathleen MD [address] [place] [address] PCP - General 08/13/17 11/19/17 Brian Kathleen MD [address] [place] [address] PCP - General Internal Medicine 11/20/17 Brian Kathleen MD [address] [place] [address] [email or web address] Historical LMR Provider 08/15/17 Candy Anderson NP [address] [facility] [address] [place] [address] Historical LMR Provider 08/15/17 2 Tabitha Alexander NP [address] [facility] [address] [place] [address] [email or web address] Historical LMR Provider 08/15/17 11/02/21 Scott Vang MD [address] [place] [address] [address] [place] [address] Cardiology 05/03/20 Nate Villareal MD [address] [place] [address] [email or web address] Nephrology 05/07/20 Eduardo Rowland MD 100 [facility] 120 [place] [address] [email or web address] Urology 05/07/20 Burak Santamaria MD [address] [place] [address] Cardiology 06/11/20 Jose Antonio Garcia OD [address] [place] [address] Optometry 07/10/20 documented as of this encounter Additional Source Comments The information contained in this document represents components of the legal health record. It is not the complete legal health record.[facility]
--- OUTSIDE RECORDS SUMMARY | 2025-07-18 15:37 | XMS_ITS | Patient Health Record ---
Author Organization [facility] Address [address] [place] [address] Care Team Providers Care Plant Maintenance Worker Name Role Phone Brian Kathleen MD Primary Care Provider Zaheer Padilla Unavailable [phone] Allergies Allergen (clinical drug ingredient) Drug/Non Drug Allergy documented on EMR Reaction Allergy Type Onset Date Status Information temporarily unavailable Bacitracin ointment rash Drug Allergy Active Information temporarily unavailable MRI dye rash Drug Allergy Active Information temporarily unavailable Advil Unknown Drug Allergy Active Information temporarily unavailable Aleve Unknown Drug Allergy Active Information temporarily unavailable Motrin Unknown Drug Allergy Active Information temporarily unavailable Penicillin rash Drug Allergy Active Reason For Referral No Information Medications Medication SIG (Take, Route, Fr equency, Duration) Notes Start Date End Date Status hydroCHLOROthiazide Active Benicar Active Levoxyl Active Klor-Con Active aMILoride HCl Active Problems Problem Type SNOMED Code ICD Code Onset Dates Problem Status W/U Status Risk Notes Problem Neurologic disorder associated with type II diabetes mellitus (580709118) Diabetic - NIDDM/Neuropa thy (250.60) Active confirmed Plan Of Treatment Pending Test Test Name Order Date X ray : Foot, left 3V 07/15/2011 50373, J0702- Neuroma/Injection 07/15/20 11 L4386- Walking Boot 08/19/2011 Insurance Providers Payer Name Payer Address Payer Phone Subscriber Number Group Number Insured Name Patient Relationship to Insured Coverage Start Date Coverage End Date [facility] [address] [place] [address] [phone] [id number] Stephanie Coelho Self - patient is the insured Medical (General) History Medical History History ICD Code sarcoidosis chicken pox measles mumps thyroid disorder kidney disease hypertension diabetic Surgical History Surgery Date(Month/Year) biopsy of neck 1999 lumpectomy 1981 thyroidectomy 2003
--- OUTSIDE RECORDS SUMMARY | 2025-07-18 15:37 | XMS_ITS | Encounter Summary ---
Author Organization [facility] Address [address] [facility] [address] [place] [address] Phone Care Team Providers Care Director Inbound Sales Name Role Phone Brian Kathleen MD Unavailable Candy Anderson HOTEL OR MOTEL CLEANING SUPERVISOR Unavailable Tabitha Alexander HOTEL OR MOTEL CLEANING SUPERVISOR Unavailable [phone] Brian Kathleen MD Primary Care Provider [phone] Scott Vang MD Unavailable Nate Villareal MD Unavailable [email or web address] Eduardo Rowland MD Unavailable Burak Santamaria MD Unavailable [phone] Jose Antonio Garcia OD Unavailable [phone] Encounter Details Date Type Department Care Team (Late st Contact Info) Description 02/20/2020 Procedure Pass [facility] Cardiovascular And Interventional Radiology [address] [place] [address] Social History Tobacco Use Types Packs/Day Years [...] Description 09/13/2025 1:00 PM EST Office Visit [facility] Internal Medicine [address] [place] [address] Brian Kathleen MD 40 [place], [place] [phone] 12/06/2025 10:30 AM EST Office Visit [facility] Internal Medicine [address] [place] [address] Brian Kathleen MD 40 [place], [place] 1434[address] 09/17/2026 10:40 AM EST Office Visit [facility] Internal Medicine 40 [place], [place] [phone] Yonatan Richards PA-C 40 [place] [address] documented as of this encounter Visit Diagnoses Not on filedocumented in this encounter Additional Health Concerns Assessment Noted Time PHQ-2 Depression Total Score: 0 10/12/20 18 1:01 PM EST documented as of this encounter Care Teams Director Inbound Sales Relationship Specialty Start Date End Date Brian Kathleen MD 40 [place], [place] [phone] PCP - General Internal Medicine 11/20/17 Brian Kathleen MD 40 [place], [place] 558[address]07 Historical LMR Provider 08/15/17 Candy Anderson, SOFIYA 21 [facility] [address] [place] [address] Historical LMR Provider 08/15/17 2 Tabitha Alexander NP 26 [facility] [address] [place] [address] [email or web address] Historical LMR Provider 08/15/17 11/02/21 Scott Vang MD [address] [place] [address] [address] [place] [address] Cardiology 05/03/20 Nate Villareal MD 40 [place] [address] [email or web address] Nephrology 05/07/20 Eduardo Rowland MD 100 [facility] 120 [place] [address] [email or web address] Urology 05/07/20 Burak Santamaria MD [address] [place] [address] Cardiology 06/11/20 Jose Antonio Garcia OD [address] [place] [address] Optometry 07/10/20 documented as of this encounter Additional Source Comments The information contained in this document represents components of the legal health record. It is not the complete legal health record.[facility]
--- OUTSIDE RECORDS SUMMARY | 2025-07-18 15:37 | XMS_ITS | Clinical Summary ---
Author Organization [address] [facility] Address [address] [place] [address] Phone Care Team Providers Care Field Technical Support Consultant Name Role Phone Brian Kathleen MD Primary Care Provider [phone] Allergies Active Allergy Reactions Criticality Noted Date [...] by mouth at bedtime. Active tiotropium (Spiriva with HandiHaler) 18 mcg per inhalation capsule Place 1 capsule (18 mcg total) into inhaler and inhale 1 (one) time each day. 30 capsule 11 5 11/08/19 26 Active tiotropium (Spiriva Respimat) 2.5 mcg/actuation inhalation spray Inhale 2 puffs by mouth 1 (one) time each day. 1 each 11 5 01/14/20 26 Active albuterol HFA (PROAIR HFA ; PROVENTIL HFA ; VENTOLIN HFA) 90 mcg/actuation inhaler INHALE 2 PUFFS INTO THE LUNGS 4 TIMES DAILY NEEDED FOR COUGH OR WHEEZING FOR UP TO 30 DAYS. 18 each 5 5 Active Active Problems Problem Noted Date Diagnosed Date Sarcoidosis 10/21/2018 Social History Tobacco Use Types Packs/Day Years [...] 58 01/06/2025 2:50 PM EDT Temperature 36.8 C (98.2 F) 01/06/2025 2:50 PM EDT Respiratory Rate 18 01/06/2025 2:50 PM EDT [...] Description 01/08/2026 2:00 PM EDT Office Visit Pulmonology - [place] [address] [facility] [address] [place] [address] Balwinder Lunsford MD [address] [facility] [address] [place] [address] Health Maintenance Due Date Last Done Comments Breast Cancer Screening 1960 Diabetes: Annual Foot Exam 01/08/1968 Diabetes: Annual Retina Eye Exam 01/08/1968 Hepatitis A Vaccines (1 of 2 - Risk 2-dose series) 1977 Zoster Vaccines (1 of 2) 1977 Hepatitis B Vaccines (1 of 3 - Risk 3-dose series) 2018 Cholesterol Screening (Lipid Panel) 10/04/2022 Medicare Annual Wellness Visit 10/04/2022 Osteoporosis Screening (Bone Density Screening) 10/04/2022 Social Influencers of Health Screening 10/04/2022 Falls Risk Assessment 2023 Depression Screening 10/26/2024 Diabetes: Annual Urine Albumin-Creatinine Ratio (uACR) 01/06/2025 07/07/2023, 04/09/2021, 06/19/2020 Diabetes: Blood Sugar Control Test (HGBA1C) 01/06/2025 DTaP,Tdap,and Td Vaccines (3 - Td or Tdap) 04/23/2025 04/23/2015, 07/26/2005 COVID-19 Vaccine (8 - Pfizer risk 2023- season) 2025 10/13/2024, 11/17/2023, 07/08/2022, Additional history exists Influenza Vaccine (#1) 2025 , 08/07/2023, 07/14/2023, Additional history exists Diabetes: Annual GFR (Glomerular Filtration Rate) 12/23/2025 12/23/2024, 11/24/2024, 10/24/2024, Additional history exists Hypertension/CHF/CAD Annual BMP Blood Test 12/23/2025 12/23/2024, 11/24/2024, 10/24/2024, Additional history exists Colorectal Cancer Screening: FIT-DNA (Cologuard) 08/10/2027 08/10/2024 Hepatitis C Screening Completed 07/31/2020 Pneumococcal Vaccine: 50+ Years Completed 01/08/2023, 01/08/2023, 06/04/2020, Additional history exists RSV Immunization Adult Patients Completed 10/15/2023 HIB Vaccines Aged Out No longer eligi [...] age to complete this topic Meningococcal B Vaccine Aged Out No l onger eligible based on patient's age to complete this topic RSV Immunization Patients Under 20 months Aged Out No longer eligible based on patient's age to complete this topic Varicella Vaccines Aged Out No longer eligible based on patient's age to complete this topic Insurance [employer] Care Teams Field Technical Support Consultant Relationship Specialty Start Date End Date Brian Kathleen MD [address] [place] [address] PCP - General Internal Medicine 12/17/12
== END 2025-07-18 13:00 | disposition home or self-care (01) ==
LOC: HO.HCS 12:40
PROVIDERS: PCP Internal Medicine; Visit Provider Internal Medicine
DX: I48.0 Paroxysmal atrial fibrillation (principal); I49.3 Ventricular premature depolarization; I10 Essential (primary) hypertension; F41.9 Anxiety disorder, unspecified
CPT/HCPCS: 93010; 99214

== ENCOUNTER → 2025-07-18 12:39 | Outpatient (BNVA) | payer MEDICARE, SELFPAY | PROVIDERS: PCP Internal Medicine; Visit Provider Internal Medicine | DX: I48.0 Paroxysmal atrial fibrillation (principal); I49.3 Ventricular premature depolarization; I10 Essential (primary) hypertension; F41.9 Anxiety disorder, unspecified | CPT/HCPCS: 93005; 99212 ==